=== PATIENT | male | born 1985 | race Two or more races ===

== ENCOUNTER 2016-10-09 00:56 | Emergency (ER) | payer OTHER ==
[~2016-10-09] VITALS: Ht 188 cm; Wt 86.2 kg
[~2016-10-09 00:56] MED LIST: INSU100C10 SQ; INSU3INS6 SQ
[2016-10-09] MEDS ORDERED: IV SET PRIMARY 1 EA INFUS.SET MC ONE (01:56)
[2016-10-09] MEDS ORDERED: IV NS 0.9% 1,000 ML ONE ×2 (01:56→02:36)
[2016-10-09] MEDS ORDERED: IV SET PRIMARY PUMP SET 1 EA INFUS.SET MC ONE ×2 (01:57→02:36)
[2016-10-09] MEDS ORDERED: IV NS 0.9% 1,000 ML BAG IV ONE ×2 (02:00→02:30)
[2016-10-09 02:07] LABS: BASOPHILS % (AUTO) 0.3 % (0.0-2.0); DIFF TOTAL % 100 %; EOSINOPHILS # (AUTO) 0.3 /CMM (0.0-0.7); EOSINOPHILS % (AUTO) 5.2 % (0.0-6.0); HEMATOCRIT 48 % (39-51); LYMPHOCYTES # (AUTO) 2.2 /CMM (0.8-4.8); LYMPHOCYTES % (AUTO) 37.6 % (20.0-44.0); MEAN CORPUSCULAR HEMOGLOBIN 30 PG (26.0-33.0); MEAN CORPUSCULAR HGB CONC 34 g/dl (31.0-36.0); MEAN CORPUSCULAR VOLUME 88 fL (80-96); MONOCYTES # (AUTO) 0.5 /CMM (0.1-1.30); MONOCYTES % (AUTO) 8.4 % (2.0-12.0); NEUTROPHILS # (AUTO) 2.8 /CMM (1.8-8.9); NEUTROPHILS % (AUTO) 48.5 % (43.0-81.0); PLATELET COUNT (AUTO) 214 /CMM (150-450); RED BLOOD CELL COUNT(AUTO) 5.42 MIL/uL (4.5-6.0); WHITE BLOOD COUNT (AUTO) 5.9 K/uL (4.3-11.0)
[2016-10-09 02:15] LABS: KETONES,URINE 2+ (NEGATIVE); LEUKOCYTE ESTERASE ,URINE NEGATIVE (NEGATIVE); PH,URINE 5.5 (5.0-8.0)
[2016-10-09 02:23] LABS: CALCIUM, SERUM 9.3 mg/dL (8.5-10.1); CREATININE 0.8 mg/dL (0.6-1.3)
[2016-10-09 02:27] LABS: ADD UA MICROSCOPIC YES
[2016-10-09] MEDS ORDERED: INSULIN ASPART NOVOLOG 100 UNIT/ML CARTRIDGE SQ ONE ×2 (02:39→03:00)
[2016-10-09] MEDS ORDERED: LIDOCAINE VISCOUS 2% UD 15 ML UDC MM ONE (03:00)
[2016-10-09] MEDS ORDERED: ACETAMINOPHEN ES 500 MG TABLET ONE (03:00)
[2016-10-09] MEDS ORDERED: INSULIN GLARGINE, 100 UNIT/ML CARTRIDGE SQ SCH (03:00)
[2016-10-09] MEDS ORDERED: LIDOCAINE VISCOUS 2% UD 15 ML UDC ONE (03:00)
[2016-10-09] MEDS ORDERED: ACETAMINOPHEN 325 MG TABLET PO ONE (03:00)
[2016-10-09 03:18] VITALS: BP 132/74
[2016-10-09 04:14] LABS: ADD URINE CULTURE NO; RBC,URINE 0-2 /HPF (0-2); WBC,URINE 0-2 /HPF (0-3)
== END 2016-10-09 03:19 | disposition home or self-care (01) ==
LOC: ER 00:56
DX: N48.9 Disorder of penis, unspecified (principal); E11.65 Type 2 diabetes mellitus with hyperglycemia; R30.0 Dysuria; E78.00 Pure hypercholesterolemia, unspecified
CPT/HCPCS: 36415; 80048-TC; 81000-TC; 82962-TC; 85025-TC; 87491; 87591; A4606; J1815; J7030; Z7610

== ENCOUNTER 2016-10-22 17:05 | Inpatient (IN) | payer OTHER ==
[~2016-10-22] VITALS: Ht 180.3 cm; Wt 74.8 kg
[2016-10-22] MEDS ORDERED: IV NS 0.9% 1,000 ML BAG IV ONE ×2 (17:30→20:00)
[2016-10-22 17:41] LABS: BASOPHILS % (AUTO) 0.7 % (0.0-2.0); DIFF TOTAL % 100 %; EOSINOPHILS # (AUTO) 0.3 /CMM (0.0-0.7); EOSINOPHILS % (AUTO) 5.9 % (0.0-6.0); HEMATOCRIT 43 % (39-51); LYMPHOCYTES # (AUTO) 1.9 /CMM (0.8-4.8); LYMPHOCYTES % (AUTO) 39.6 % (20.0-44.0); MEAN CORPUSCULAR HEMOGLOBIN 31 PG (26.0-33.0); MEAN CORPUSCULAR HGB CONC 35 g/dl (31.0-36.0); MEAN CORPUSCULAR VOLUME 88 fL (80-96); MONOCYTES # (AUTO) 0.4 /CMM (0.1-1.30); MONOCYTES % (AUTO) 7.6 % (2.0-12.0); NEUTROPHILS # (AUTO) 2.3 /CMM (1.8-8.9); NEUTROPHILS % (AUTO) 46.2 % (43.0-81.0); PLATELET COUNT (AUTO) 210 /CMM (150-450); WHITE BLOOD COUNT (AUTO) 4.9 K/uL (4.3-11.0)
[2016-10-22 17:56] LABS: ANION GAP 8 (5-14); CALCIUM, SERUM 8.6 mg/dL (8.5-10.1); CARBON DIOXIDE 31 mmol/L (21-32); CHLORIDE 108 mmol/L (98-107); CREATININE 0.8 mg/dL (0.6-1.3); GFR 113 mL/min (>60); GLUCOSE 102 mg/dL (74-106); POTASSIUM 3.3 mmol/L (3.5-5.1); SODIUM SERUM 143 mmol/L (136-145); UREA NITROGEN, BLOOD 16 mg/dL (7-18)
[2016-10-22 18:02] LABS: ALANINE AMINOTRANSFERASE 78 U/L (12-78); ALBUMIN 3.6 g/dL (3.4-5.0); ASPARTATE AMINOTRANSFERASE 30 U/L (15-37); BILIRUBIN,TOTAL 0.2 mg/dL (0.2-1.0); TOTAL PROTEIN, SERUM 6.4 g/dL (6.4-8.2)
[2016-10-22 18:04] LABS: TROPONIN I < 0.017 ng/mL (0.00-0.056)
[2016-10-22 18:05] LABS: INDIRECT BILIRUBIN 0.2 mg/dL (0.0-1.1); INR 0.93 (0.87-1.13); PROTHROMBIN TIME 9.8 SECS (9.5-12.7)
[2016-10-22] MEDS ORDERED: IV SET PRIMARY 1 EA INFUS.SET MC ONE ×2 (18:08→19:52)
[2016-10-22] MEDS ORDERED: IV NS 0.9% 1,000 ML ONE ×2 (18:08→19:52)
[2016-10-22 18:10] LABS: LACTIC ACID 1.7 mmol/L (0.4-2.0)
[2016-10-22] MEDS ORDERED: POTASSIUM CHLORIDE 20 MEQ TAB.PRT.SR PO ONE ×2 (18:30→19:52)
[2016-10-22 19:49] LABS: ADD UA MICROSCOPIC YES; KETONES,URINE 40 (NEGATIVE); LEUKOCYTE ESTERASE ,URINE Negative (NEGATIVE); PH,URINE 8.5 (5.0-8.0)
[2016-10-22 20:00] LABS: CANNABINOID, URINE NEGATIVE (NEGATIVE); PHENCYCLIDINE SCREEN,URINE NEGATIVE (NEGATIVE)
[2016-10-22 20:06] LABS: ADD URINE CULTURE NO; RBC,URINE 0-2 /HPF (0-2); WBC,URINE 0-2 /HPF (0-3)
[2016-10-22 22:45] VITALS: BP 120/90
[2016-10-23] MEDS ORDERED: IV NS 0.9% 1,000 ML IV PRN (00:27)
[2016-10-23] MEDS ORDERED: ACETAMINOPHEN 325 MG TABLET PO PRN (00:30)
[2016-10-23] MEDS ORDERED: INSULIN REGULAR, HUMAN 100 UNIT/ML 3 ML VIAL SQ PRN (00:30)
[2016-10-23] MEDS ORDERED: DEXTROSE 50%-WATER 50 ML DISP.SYRIN IV PRN (00:30)
[2016-10-23] MEDS ORDERED: ONDANSETRON HCL/PF 4 MG/2 ML VIAL IVP PRN (00:30)
[2016-10-23] MEDS ORDERED: Z GUARD REMEDY 2 OZ OINT TP PRN (00:30)
[2016-10-23] MEDS ORDERED: ALPRAZOLAM 0.25 MG TABLET PO PRN (01:00)
[2016-10-23] MEDS: BLOOD SUGAR DIAGNOSTIC 1 EACH STRIP IN SCH ×3 (01:08→11:58)
[2016-10-23] MEDS ORDERED: IV NS 0.9% 1,000 ML ONE (01:23)
[2016-10-23] MEDS ORDERED: IV SET PRIMARY PUMP SET 1 EA INFUS.SET MC ONE (01:25)
[2016-10-23 04:14] VITALS: BP 130/79
[2016-10-23 07:03] VITALS: BP 129/83
[2016-10-23 08:00] VITALS: BP 129/80
[2016-10-23] MEDS: INSULIN LISPRO/ASPART 100 UNIT/ML CARTRIDGE SQ SCH ×2 (09:56→12:00)
[2016-10-23] MEDS ORDERED: LORA1TAB82 PO (10:52)
[2016-10-23] MEDS ORDERED: ZOLP10TA2 PO (10:52)
[2016-10-23] MEDS ORDERED: FLU VACC QS 2016-17(36MOS+)/PF 0.5 ML DISP.SYRIN IM ONE (12:00)
[2016-10-23] MEDS ORDERED: ZOLPIDEM TARTRATE 5 MG TABLET PO PRN (22:00)
[2016-10-23] MEDS ORDERED: INSULIN DETEMIR 100 UNIT/ML CARTRIDGE SQ SCH (22:00)
== END 2016-10-23 12:15 | disposition home or self-care (01) | DRG 812 ==
LOC: ER 17:09 → TELE 22:03 → MED 10-23 09:20
PROVIDERS: ADMIT Nurse Practitioner Acute Care; ATTEND Nurse Practitioner Acute Care
DX: T38.3X1A Poisoning by insulin and oral hypoglycemic [antidiabetic] drugs, accidental (unintentional), initial encounter (principal); E11.649 Type 2 diabetes mellitus with hypoglycemia without coma; E11.65 Type 2 diabetes mellitus with hyperglycemia; E78.5 Hyperlipidemia, unspecified; Z79.4 Long term (current) use of insulin; F41.9 Anxiety disorder, unspecified; F31.9 Bipolar disorder, unspecified; E87.6 Hypokalemia; Z90.49 Acquired absence of other specified parts of digestive tract
CPT/HCPCS: 36415; 70450-TC; 71010-TC; 80048-TC; 80076-TC; 80305; 81000-TC; 82962-TC; 83605-TC; 84484-TC; 85025-TC; 85730-TC; 87081-TC; A4606; J1815; J7030; Q2036; Z7610

== ENCOUNTER 2016-11-06 15:58 | Emergency (ER) | payer OTHER ==
[~2016-11-06] VITALS: Ht 185.4 cm; Wt 90.7 kg
[~2016-11-06 15:58] MED LIST changes: +LORA1TAB82 PO; +ZOLP10TA2 PO
[2016-11-06 20:51] LABS: BASOPHILS % (AUTO) 0.8 % (0.0-2.0); DIFF TOTAL % 100 %; EOSINOPHILS # (AUTO) 0.2 /CMM (0.0-0.7); EOSINOPHILS % (AUTO) 3.7 % (0.0-6.0); HEMATOCRIT 47 % (39-51); HEMOGLOBIN 15.9 g/dL (13.5-17.5); LYMPHOCYTES # (AUTO) 2.7 /CMM (0.8-4.8); LYMPHOCYTES % (AUTO) 44.7 % (20.0-44.0); MEAN CORPUSCULAR HEMOGLOBIN 30 PG (26.0-33.0); MEAN CORPUSCULAR HGB CONC 34 g/dl (31.0-36.0); MEAN CORPUSCULAR VOLUME 89 fL (80-96); MONOCYTES # (AUTO) 0.4 /CMM (0.1-1.30); MONOCYTES % (AUTO) 7.5 % (2.0-12.0); NEUTROPHILS # (AUTO) 2.5 /CMM (1.8-8.9); NEUTROPHILS % (AUTO) 43.3 % (43.0-81.0); PLATELET COUNT (AUTO) 224 /CMM (150-450); RED BLOOD CELL COUNT(AUTO) 5.26 MIL/uL (4.5-6.0); WHITE BLOOD COUNT (AUTO) 5.8 K/uL (4.3-11.0)
[2016-11-06 21:13] LABS: ALANINE AMINOTRANSFERASE 91 U/L (12-78); ALBUMIN 3.8 g/dL (3.4-5.0); ANION GAP 15 (5-14); ASPARTATE AMINOTRANSFERASE 30 U/L (15-37); BILIRUBIN,TOTAL 0.4 mg/dL (0.2-1.0); CALCIUM, SERUM 8.5 mg/dL (8.5-10.1); CARBON DIOXIDE 26 mmol/L (21-32); CHLORIDE 100 mmol/L (98-107); CREATININE 0.8 mg/dL (0.6-1.3); GFR 113 mL/min (>60); POTASSIUM 3.9 mmol/L (3.5-5.1); SODIUM SERUM 137 mmol/L (136-145); UREA NITROGEN, BLOOD 19 mg/dL (7-18)
[2016-11-06 21:16] LABS: GLUCOSE 357 mg/dL (74-106); SALICYLATE 1.5 mg/dL (2.8-20.0)
[2016-11-06 21:17] LABS: ACETAMINOPHEN 0 ug/ml (10-30); INDIRECT BILIRUBIN 0.4 mg/dL (0.0-1.1)
[2016-11-06 23:19] LABS: KETONES,URINE 3+ (NEGATIVE); LEUKOCYTE ESTERASE ,URINE NEGATIVE (NEGATIVE)
[2016-11-06 23:24] LABS: ADD UA MICROSCOPIC YES; CANNABINOID, URINE NEGATIVE (NEGATIVE); PHENCYCLIDINE SCREEN,URINE NEGATIVE (NEGATIVE)
[2016-11-06 23:37] VITALS: BP 122/84
[2016-11-06 23:46] LABS: RBC,URINE 0-2 /HPF (0-2)
[2016-11-06 23:47] LABS: ADD URINE CULTURE NO; WBC,URINE 0-2 /HPF (0-3)
== END 2016-11-07 00:13 | disposition home or self-care (01) ==
LOC: ER 16:00
DX: F32.9 Major depressive disorder, single episode, unspecified (principal); E11.65 Type 2 diabetes mellitus with hyperglycemia; Z79.4 Long term (current) use of insulin; F41.9 Anxiety disorder, unspecified; F31.9 Bipolar disorder, unspecified; E78.00 Pure hypercholesterolemia, unspecified; Z90.89 Acquired absence of other organs
CPT/HCPCS: 36415; 80048-TC; 80076-TC; 80305; 81000-TC; 82962-TC; 85025-TC; A4606; G0480; G6039-TC; Z7610

== ENCOUNTER 2017-01-28 08:49 | Emergency (ER) | payer OTHER ==
[~2017-01-28] VITALS: Ht 188 cm; Wt 81.6 kg
--- NOTE | 2017-01-28 09:04 | NUR ---
CALLED [facility] INTA[facility] AND SPOKE TO KITTY, NO BEDS AVAILABLE
[2017-01-28 09:24] LABS: BASOPHILS % (AUTO) 0.3 % (0.0-2.0); EOSINOPHILS # (AUTO) 0.4 /CMM (0.0-0.7); EOSINOPHILS % (AUTO) 6.8 % (0.0-6.0); HEMATOCRIT 46 % (39-51); HEMOGLOBIN 15.5 g/dL (13.5-17.5); LYMPHOCYTES # (AUTO) 1.9 /CMM (0.8-4.8); MEAN CORPUSCULAR HEMOGLOBIN 30 PG (26.0-33.0); MEAN CORPUSCULAR HGB CONC 34 g/dl (31.0-36.0); MEAN CORPUSCULAR VOLUME 87 fL (80-96); MONOCYTES # (AUTO) 0.5 /CMM (0.1-1.30); NEUTROPHILS # (AUTO) 2.7 /CMM (1.8-8.9); NEUTROPHILS % (AUTO) 48.9 % (43.0-81.0); PLATELET COUNT (AUTO) 203 /CMM (150-450); RED BLOOD CELL COUNT(AUTO) 5.27 MIL/uL (4.5-6.0); WHITE BLOOD COUNT (AUTO) 5.4 K/uL (4.3-11.0)
[2017-01-28 09:28] LABS: APPEARANCE,URINE Clear (CLEAR); BILIRUBIN,URINE Negative (NEGATIVE); BLOOD, URINE Negative Ery/uL (NEGATIVE); COLOR,URINE Yellow (YELLOW); KETONES,URINE Trace (NEGATIVE); LEUKOCYTE ESTERASE ,URINE Negative (NEGATIVE); NITRITE, URINE Negative (NEGATIVE); PH,URINE 5.5 (5.0-8.0); PROTEIN,URINE Negative (NEGATIVE); UGLUCOSE >=1000 mg/dL (NEGATIVE); UROBILINOGEN,URINE 0.2 EU/dL (0.2)
[2017-01-28 09:45] LABS: CANNABINOID, URINE NEGATIVE (NEGATIVE); PHENCYCLIDINE SCREEN,URINE NEGATIVE (NEGATIVE)
[2017-01-28 09:45] LABS: ALBUMIN 4.1 g/dL (3.4-5.0); BILIRUBIN,DIRECT 0.1 mg/dL (0.0-0.2); BILIRUBIN,TOTAL 0.4 mg/dL (0.2-1.0); CREATININE 0.9 mg/dL (0.6-1.3); POTASSIUM 4.2 mmol/L (3.5-5.1); TOTAL PROTEIN, SERUM 7.1 g/dL (6.4-8.2)
[2017-01-28 09:49] LABS: ADD URINE CULTURE NO; BACTERIA,URINE None seen /HPF (None Seen); RBC,URINE NONE SEEN /HPF (0-2); SQUAMOUS EPITHELIAL CELL,UR Rare /HPF (None Seen); WBC,URINE NONE SEEN /HPF (0-3)
[2017-01-28 09:52] LABS: CALCIUM, SERUM 8.6 mg/dL (8.5-10.1); SALICYLATE 2.6 mg/dL (2.8-20.0)
[2017-01-28 10:21] VITALS: BP 135/72
== END 2017-01-28 10:23 | disposition home or self-care (01) ==
LOC: ER 08:50
DX: F32.9 Major depressive disorder, single episode, unspecified (principal); E11.65 Type 2 diabetes mellitus with hyperglycemia; F41.9 Anxiety disorder, unspecified; F31.9 Bipolar disorder, unspecified; E78.00 Pure hypercholesterolemia, unspecified; Z79.4 Long term (current) use of insulin; Z90.89 Acquired absence of other organs
CPT/HCPCS: 36415; 80048; 80076; 80305; 80329; 81001; 85025; 99284; A4606; G0480 ×2; Z7610; 81000-TC; G6039-TC

== ENCOUNTER 2017-03-11 18:34 | Emergency (ER) | payer OTHER ==
[~2017-03-11] VITALS: Ht 177.8 cm; Wt 99.8 kg
[2017-03-11 18:54] LABS: BASOPHILS % (AUTO) 0.6 % (0.0-2.0); EOSINOPHILS # (AUTO) 0.2 /CMM (0.0-0.7); EOSINOPHILS % (AUTO) 4.8 % (0.0-6.0); HEMATOCRIT 49 % (39-51); HEMOGLOBIN 16.2 g/dL (13.5-17.5); LYMPHOCYTES % (AUTO) 39.5 % (20.0-44.0); MEAN CORPUSCULAR HEMOGLOBIN 29 PG (26.0-33.0); MEAN CORPUSCULAR HGB CONC 33 g/dl (31.0-36.0); MEAN CORPUSCULAR VOLUME 88 fL (80-96); MONOCYTES # (AUTO) 0.3 /CMM (0.1-1.30); MONOCYTES % (AUTO) 6.4 % (2.0-12.0); NEUTROPHILS # (AUTO) 2.7 /CMM (1.8-8.9); NEUTROPHILS % (AUTO) 48.7 % (43.0-81.0); PLATELET COUNT (AUTO) 231 /CMM (150-450); RDW COEFFICIENT OF VARIATION 12.7 (11.5-15.0); WHITE BLOOD COUNT (AUTO) 5.2 K/uL (4.3-11.0)
--- NOTE | 2017-03-11 18:56 | NUR ---
PT REMY PINEDA ON 5150 HOLD FOR MEDICAL CLEARANCE C/O SI WITH PLAN TO OD ON HIS MEDS. PT ONLY COMPLAINS OF BEING THIRSTY. NO PHYSICAL COMPLAINTS. IN ER BED 11 ON 1 POINT RESTRAINT PER PROTOCOL.
[2017-03-11 19:08] LABS: ALBUMIN 4.1 g/dL (3.4-5.0); BILIRUBIN,DIRECT 0.1 mg/dL (0.0-0.2); BILIRUBIN,TOTAL 0.4 mg/dL (0.2-1.0); CALCIUM, SERUM 8.7 mg/dL (8.5-10.1); TOTAL PROTEIN, SERUM 7.4 g/dL (6.4-8.2)
--- NOTE | 2017-03-11 19:10 | NUR ---
PT REPORTS HE HAS NOT BEEN TAKING HIS INSULIN COVERAGE, ONLY NIGHTLY LONG-ACTING INSULIN. NOTED TO HAVE BECOME DIAPHORETIC.
[2017-03-11 19:23] LABS: SALICYLATE 2.2 mg/dL (2.8-20.0)
--- NOTE | 2017-03-11 19:23 | NUR ---
405 glucose reported by marybeth
--- NOTE | 2017-03-11 20:30 | NUR ---
RESTING QUIETLY, NAD NOTED. ALL NEEDS ATTENDED TO.
[2017-03-11] MEDS ORDERED: INSULIN ASPART NOVOLOG 100 UNIT/ML CARTRIDGE SQ STA (20:43)
[2017-03-11] MEDS ORDERED: IV NS 0.9% 1,000 ML BAG IV ONE (21:00)
[2017-03-11 21:08] LABS: APPEARANCE,URINE Clear (CLEAR); BILIRUBIN,URINE Negative (NEGATIVE); BLOOD, URINE Negative Ery/uL (NEGATIVE); COLOR,URINE Yellow (YELLOW); KETONES,URINE 40 (NEGATIVE); LEUKOCYTE ESTERASE ,URINE Negative (NEGATIVE); NITRITE, URINE Negative (NEGATIVE); PROTEIN,URINE 30 mg/dl (NEGATIVE); UGLUCOSE 500 MG/DL mg/dL (NEGATIVE); UROBILINOGEN,URINE 0.2 EU/dL (0.2)
[2017-03-11] MEDS ORDERED: IV SET PRIMARY 1 EA INFUS.SET MC ONE (21:27)
[2017-03-11] MEDS ORDERED: IV NS 0.9% 1,000 ML ONE (21:27)
[2017-03-11] MEDS ORDERED: IV SET PRIMARY PUMP SET 1 EA INFUS.SET MC ONE (21:27)
[2017-03-11] MEDS ORDERED: INSULIN ASPART NOVOLOG 100 UNIT/ML CARTRIDGE SQ ONE (21:29)
[2017-03-11] MEDS ORDERED: INSULIN LISPRO/ASPART 100 UNIT/ML CARTRIDGE SQ STA (21:32)
[2017-03-11 21:47] LABS: BACTERIA,URINE Rare /HPF (None Seen); MUCUS,URINE Few /LPF (None Seen); RBC,URINE 0-2 /HPF (0-2); SQUAMOUS EPITHELIAL CELL,UR Few /HPF (None Seen); URINE AMORPHOUS URATE Few /HPF (None Seen); WBC,URINE NONE SEEN /HPF (0-3)
--- NOTE | 2017-03-11 21:51 | NUR ---
VERIFIED INSULIN ORDER WITH DR SHERWOOD. PER VERBAL ORDER, ADMINISTER 10 UNITS INSULIN LISPRO (HUMALOG), NOT HUMALOG/NOVOLOG OR INSULIN ASPART. 10 UNITS ADMINISTERED SQ, WITNESSED BY ED HEALTHCARE MARKETER
--- NOTE | 2017-03-11 22:04 | NUR ---
CALLED ART CLINICIAN FOR EVALUATION OF PATIENT
--- NOTE | 2017-03-11 23:18 | NUR ---
RESTING QUIETLY, NAD NOTED.
--- NOTE | 2017-03-11 23:30 | NUR ---
REPORT GIVEN TO MELISSA QUINONES RN FOR SANDEEP
--- NOTE | 2017-03-12 00:49 | NUR ---
RESTING WITH NO S/S OF DISTRESS NOTED. RESP EVEN AND UNLABORED. "TO BE MONITORED TILL MORNING UNTIL BEDS OPEN UP" PER ART/BEAD FORMING MACHINE SET UP OPERATOR.
--- NOTE | 2017-03-12 01:06 | NUR ---
GIVEN SANDWICH AND JUICE AND INFORMED ABOUT PLAN OF CARE.
--- NOTE | 2017-03-12 02:18 | NUR ---
ON CELL PHONE. DENIES ANY SX'S AT THIS TIME. GIVEN ANOTHER SANDWICH AND JUICE REQUESTED
--- NOTE | 2017-03-12 03:14 | NUR ---
RESTING QUIETLY WITH NO S/S OF DISTRESS. RESP EVEN AND UNLABORED.
--- NOTE | 2017-03-12 04:14 | NUR ---
WATCHING TV. NO S/S OF DISTRESS NOTED.
--- NOTE | 2017-03-12 05:04 | NUR ---
IV removed. Catheter intact and site benign. Pressure and 4x4 applied to site. No bleeding noted.
--- NOTE | 2017-03-12 05:06 | NUR ---
ACCEPTING FACILITY TO CALL BACK IN AN HOUR WITH AN ACCEPTING MD.
--- NOTE | 2017-03-12 06:04 | NUR ---
STILL AWAITING TRANSFER HOSPITAL TO CALL BACK. PT AWARE.
--- NOTE | 2017-03-12 06:12 | NUR ---
COLLEEN DUCKWORTH CALLED FROM [facility] AND STATED "CALL FOR REPORT AFTER 729 AT [phone] PSYCH UNIT; DR. BRANHAM ACCEPTING AND PT CAN GO TO ROOM 304-1".
--- NOTE | 2017-03-12 07:15 | NUR ---
DIETARY CALLED [facility]. REPORT GIVEN TO RAZA/RN
--- NOTE | 2017-03-12 09:00 | NUR ---
CALLED [facility] ETA 45MINS-1HR.
--- NOTE | 2017-03-12 09:05 | NUR ---
REPORT GIVEN TO CHRISTELLE/RN AT [facility].
[2017-03-12] MEDS ORDERED: IV SET PRIMARY 1 EA INFUS.SET MC ONE (11:14)
[2017-03-12] MEDS ORDERED: IV NS 0.9% 1,000 ML ONE ×2 (11:14→13:00)
[2017-03-12] MEDS ORDERED: INSULIN REGULAR, HUMAN 100 UNIT/ML 10 ML VIAL ONE (11:24)
[2017-03-12] MEDS ORDERED: IV NS 0.9% 1,000 ML BAG IV ONE ×2 (11:30→13:00)
[2017-03-12] MEDS ORDERED: INSULIN LISPRO/ASPART 100 UNIT/ML CARTRIDGE SQ SCH (11:30)
[2017-03-12] MEDS ORDERED: INSULIN REGULAR, HUMAN 100 UNIT/ML 10 ML VIAL SQ ONE (11:30)
--- NOTE | 2017-03-12 11:38 | NUR ---
dr tucker made aware of recent blood sugar check. w/ orders carried out. see emar.
--- NOTE | 2017-03-12 12:50 | NUR ---
SPOKE WITH THE PHARMACY INTAKE COORDINATOR AT [facility]. UPDATED THEM WITH THE RECENT EI=420.
--- NOTE | 2017-03-12 13:48 | NUR ---
CALLED [facility] AND SPOKE WITH LIZANDRO CARTON MACHINE OPERATOR REGARDING RECENT BK=869EH/DL. PER CARTON MACHINE OPERATOR, HE WILL SPEAK TO THE ADMITTING DOCTOR IF ITS OK FOR THEM TO ADMIT THE PATIENT.
[2017-03-12] MEDS ORDERED: INSULIN GLARGINE, 100 UNIT/ML CARTRIDGE SQ SCH (14:30)
--- NOTE | 2017-03-12 17:03 | NUR ---
CALLED LIZANDRO, CHARGED RN TO UPDATE THE LO=584QC/DL. PER LIZANDRO, HE WILL CALL BACK IF ITS OK WITH THE DOCTOR.
--- NOTE | 2017-03-12 17:20 | NUR ---
PT RESTING IN BED. CALM COOPERATIVE. STABLE VITALS. WILL MONITOR CLOSELY.
--- NOTE | 2017-03-12 17:42 | NUR ---
CALLED [facility] SPOKE WITH LIZANDRO CHARGE NURSE, HE NOTIFIED ME DR BRANHAM ACCEPTED PATIENT, TO TRANSPORT DURING BUFFING AND POLISHING WHEEL REPAIRER AND CALL FOR REPORT AT 2030
--- NOTE | 2017-03-12 17:43 | NUR ---
CALLED A[facility] TO ARRANGE TRANSPORTATION SCHEDULED AT 1999 TO [facility]
--- NOTE | 2017-03-12 19:15 | NUR ---
PT RESTING IN BED. ON MONITOR W/ STABLE VITALS. WILL CONTINUE TO MONITOR.
[2017-03-12 20:12] VITALS: BP 152/90
--- NOTE | 2017-03-12 20:42 | NUR ---
cat discontinued. pt transported to [facility] in stable condition.
[2017-03-12] MEDS ORDERED: INSULIN DETEMIR 100 UNIT/ML CARTRIDGE SQ ONE (22:00)
== END 2017-03-12 20:44 ==
LOC: ER 18:36
DX: R45.851 Suicidal ideations (principal); E11.65 Type 2 diabetes mellitus with hyperglycemia; E78.00 Pure hypercholesterolemia, unspecified; F31.9 Bipolar disorder, unspecified; F41.9 Anxiety disorder, unspecified; F17.200 Nicotine dependence, unspecified, uncomplicated; Z79.4 Long term (current) use of insulin; Z90.89 Acquired absence of other organs
CPT/HCPCS: 36415; 80048-TC; 80076-TC; 80305; 81000-TC; 82962-TC; 85025-TC; A4606; G0480; J1815; J7030; Z7610

== ENCOUNTER 2017-06-14 09:46 | Inpatient (IN) | payer OTHER ==
[~2017-06-14] VITALS: Ht 185.4 cm; Wt 96.2 kg
--- NOTE | 2017-06-14 09:50 | NUR ---
PATIENT PRESENTS TO ER C/O FEELING LIGHT HEADED AND DIZZY AFTER ADMINISTERING ABOUT 150 UNITS OF HUMALOG. PATIENT DENIES SI. VITALS STABLE. NO SOB. SAFETY AND COMFORT MEASURES IN PLACE. AWAITING MD ORDERS.
--- NOTE | 2017-06-14 10:10 | NUR ---
NEW IV STARTED ON RIGHT WRIST, 18 G. BLOOD DRAWN AND SENT TO LAB. PATIENT MEDICATED PER MD ORDERS.
[2017-06-14 10:27] LABS: BASOPHILS # (AUTO) 0.1 /CMM (0.0-0.2); BASOPHILS % (AUTO) 1.4 % (0.0-2.0); EOSINOPHILS # (AUTO) 0.3 /CMM (0.0-0.7); EOSINOPHILS % (AUTO) 4.3 % (0.0-6.0); HEMATOCRIT 48 % (39-51); HEMOGLOBIN 16.1 g/dL (13.5-17.5); LYMPHOCYTES # (AUTO) 2.2 /CMM (0.8-4.8); LYMPHOCYTES % (AUTO) 32.1 % (20.0-44.0); MEAN CORPUSCULAR HEMOGLOBIN 30 PG (26.0-33.0); MEAN CORPUSCULAR HGB CONC 34 g/dl (31.0-36.0); MEAN CORPUSCULAR VOLUME 90 fL (80-96); MONOCYTES # (AUTO) 0.4 /CMM (0.1-1.30); MONOCYTES % (AUTO) 5.2 % (2.0-12.0); PLATELET COUNT (AUTO) 209 /CMM (150-450); RDW COEFFICIENT OF VARIATION 12.2 (11.5-15.0); RED BLOOD CELL COUNT(AUTO) 5.32 MIL/uL (4.5-6.0)
[2017-06-14] MEDS ORDERED: IV NS 0.9% 1,000 ML BAG IV ONE (10:30)
[2017-06-14 10:37] LABS: CARBON DIOXIDE 24 mmol/L (21-32); CHLORIDE 100 mmol/L (98-107); CREATININE 0.8 mg/dL (0.6-1.3); GLUCOSE 285 mg/dL (74-106); POTASSIUM 3.4 mmol/L (3.5-5.1); SODIUM SERUM 137 mmol/L (136-145); UREA NITROGEN, BLOOD 13 mg/dL (7-18)
--- NOTE | 2017-06-14 10:37 | NUR ---
BLOOD SUGAR CHECKED, READING 255, MD MADE AWARE.
[2017-06-14] MEDS ORDERED: POTASSIUM CHLORIDE 20 MEQ TAB.PRT.SR PO ONE ×2 (10:46→11:00)
[2017-06-14] MEDS ORDERED: KETOROLAC TROMETHAMINE INJ 30 MG/ML VIAL ONE (10:46)
[2017-06-14 10:47] LABS: TROPONIN I < 0.017 ng/mL (0.00-0.056)
--- NOTE | 2017-06-14 10:51 | NUR ---
CALLED DIANNA PINA FOR CONSULT
[2017-06-14] MEDS ORDERED: KETOROLAC TROMETHAMINE INJ 30 MG/ML VIAL IV ONE (11:00)
[2017-06-14] MEDS ORDERED: IV D5/0.45 NACL 1,000 ML IV ONE (11:03)
[2017-06-14] MEDS ORDERED: BLOO-668 IN (11:20)
[2017-06-14] MEDS ORDERED: QUET200T PO (11:20)
[2017-06-14] MEDS ORDERED: METF500T4 PO (11:20)
--- NOTE | 2017-06-14 11:31 | NUR ---
DR. PIA PACK SUPERVISOR CARPENTERS
--- NOTE | 2017-06-14 11:57 | NUR ---
TELE1/RN REPORT FROM ER REPORT GIVEN BY ER NURSE ROBSON FOR PT TO BE ADMITTED FOR INSULIN OVERDOSE UNDER THE CARE OF DR. PALACIO. AWAITING FOR PT'S ARRIVAL.
[2017-06-14 12:00] VITALS: BP 117/79
--- NOTE | 2017-06-14 12:01 | NUR ---
REPORT GIVEN TO ODILIA ALVAREZ FOR ADMISSION.
--- NOTE | 2017-06-14 12:37 | NUR ---
PATIENT TRANSPORTED TO [facility] VIA ACLS PROTOCOL. RNODILIA TO PROVIDE SANDEEP.
--- NOTE | 2017-06-14 12:59 | NUR ---
JOSHUA received a call from ED GENE Godinez requesting for SW to see the pt. in regards to his primary care physician. JOSHUA met with pt. bedside. Pt. is alert and oriented x4. JOSHUA is familiar with pt. from previous admissions. Pt. informed SW he did have a primary care physician but did not like her and stopped going to her. Pt. states he has the list of medical providers that he can choose for as a primary care, however pt. seems to lack the motivation to do so. JOSHUA encouraged pt. to look into his list of medical providers and choose an primary care doctor and make an appointment for a physical. Pt. stated he works overnights and is too tired to follow through. SW encouraged pt. to take care of his health and sign up for a primary care doctor. Pt. stated, he will do so. Pt. suffers from depression and has had previous psychiatric hospitalizations in the past. SW denies suicidal/homicidal ideations and visual/ auditory hallucinations at this time. No other social service resources are required at this time. SW is available if needed.
[2017-06-14] MEDS ORDERED: ACETAMINOPHEN 325 MG TABLET PO PRN (13:00)
[2017-06-14] MEDS ORDERED: MAG HYDROX/AL HYDROX/SIMETH 30 ML UDC PO PRN (13:00)
[2017-06-14] MEDS ORDERED: ONDANSETRON HCL/PF 4 MG/2 ML VIAL IVP PRN (13:00)
[2017-06-14] MEDS ORDERED: HYDROCODONE/APAP 5/325MG 1 EACH TABLET PO PRN (13:00)
[2017-06-14] MEDS ORDERED: MAGNESIUM HYDROXIDE 30 ML UDC PO PRN (13:00)
[2017-06-14] MEDS ORDERED: *INSULIN REGULAR(HUMULIN R)HUM 100 UNIT/ML VIAL SQ PRN (13:00)
[2017-06-14] MEDS ORDERED: Z GUARD REMEDY 2 OZ OINT TP PRN (13:00)
[2017-06-14] MEDS: DEXTROSE 50%-WATER 50 ML DISP.SYRIN IV PRN (13:12)
[2017-06-14] MEDS ORDERED: Sodium Chloride 154 MEQ in IV 10% DEXTROSE 1,000 ML IV SCH (13:30)
--- NOTE | 2017-06-14 13:38 | NUR ---
TD RN NOTES: PT. ARRIVED ON UNIT AT 12:40 P.M. VIA STRETCHER FROM [facility] W/ ADMITTING DX: INSULIN OVERDOSE . W/ PAST MEDICAL HX. OF DM, ANXIETY, DEPRESSION, BIPOLAR AND APPENDECTOMY. A/O X 4. VERBALLY RESPONSIVE. NO SIGN OF DISTRESS NOTED. ON TELE MONITOR W/ SR @ 96. PT. HAS IVF OF D5 1/2 NS @ 150 ML/HR. ON HIS RH PATENT W/ NO S/S OF INFECTION NOTED. BS CHECKED 46 MG/DL. ORANGE JUICE AND 1 PACKET OF GRAM CRACKERS GIVEN. NURSE ODILIA CALLED DR. BURNETT W/ORDERS OF DEXTROSE 50% GIVEN IV PER ORDER @ 13:17 P.M. PT. STATED " FEEL BETTER NOW." PT. WAS ORIENTED TO ROOM AND CALL LIGHT. PT. IS AMBULATORY W/ BED MOBILITY. NO SKIN BREAKDOWN NOTED.
[2017-06-14 13:47] VITALS: BP 117/71
--- NOTE | 2017-06-14 14:00 | NUR ---
TD/ RN NOTES: ADDENDUM: ON ARRIVAL TO UNIT PT. SKIN WAS FLUSHED RED AND C/O OF TINGLING SENSATION OF HIS FINGER TIPS. BS RECHECKED AT 1400 IT WAS 121MG/DL PT. IS SLEEPING. CALL LIGHT W/ IN REACH. NOT IN ANY DISTRESS NOTED AT THIS TIME. WILL CONTINUE TO MONITOR CLOSELY.
[2017-06-14 16:00] VITALS: BP 113/61
[2017-06-14] MEDS: BLOOD SUGAR DIAGNOSTIC 1 EACH STRIP VI SCH ×2 (18:20→21:58)
[2017-06-14] MEDS: IV D5/0.45 NACL 1,000 ML IV PRN (18:27)
--- NOTE | 2017-06-14 19:28 | NUR ---
TELE1/RN AM SHIFT END NOTES ALL NEEDS MET. PT WITH ON GOING IV INFUSION OF D5 1/2NS @ 75CC/HR, IV SITE PATENT. LAST BLOOD GLUCOSE 123, NO COVERAGE GIVEN PER SLIDING SCALE PROTOCOL, NO S/S OF HYPO OR HYPERGLYCEMIA. PT ENDORSED TO PM NURSE TO CONTINUE CARE. CL WITHIN REACHED AND SAFETY MAINTAINED.
[2017-06-14 20:00] VITALS: BP 128/84
[2017-06-14] MEDS ORDERED: ZOLPIDEM TARTRATE 5 MG TABLET PO PRN (22:00)
[2017-06-14] MEDS ORDERED: QUETIAPINE FUMARATE 100 MG TABLET PO SCH (22:00)
[2017-06-15] VITALS: BP 126/73
[2017-06-15 04:00] VITALS: BP 109/65
[2017-06-15] MEDS: INSULIN REGULAR, HUMAN 100 UNIT/ML 3 ML VIAL SQ PRN ×2 (06:59→11:59)
[2017-06-15] MEDS: BLOOD SUGAR DIAGNOSTIC 1 EACH STRIP VI SCH ×2 (07:01→11:40)
--- NOTE | 2017-06-15 07:12 | NUR ---
END OF SHIFT SUMMERY: PT IS A&O X 4. ON TOLL COLLECTOR,NSR. ON ROOM AIR, STURATING WELL. NO COMPLAINS OF PAIN OR DISTRESS NOTED. STILL ON ACCU-CHECK ACHS. THE LATEST READING IS 357 MG/DL. 15 UNITS OF REGULAR INSULIN GIVEN PER SLIDING SCALE. WILL ENDORSE IT TO AM SHIFT NURSE TO FOLLOW U.
[2017-06-15 07:24] LABS: BASOPHILS % (AUTO) 0.3 % (0.0-2.0); EOSINOPHILS # (AUTO) 0.3 /CMM (0.0-0.7); HEMATOCRIT 44 % (39-51); HEMOGLOBIN 15.2 g/dL (13.5-17.5); LYMPHOCYTES # (AUTO) 1.7 /CMM (0.8-4.8); LYMPHOCYTES % (AUTO) 31.1 % (20.0-44.0); MEAN CORPUSCULAR HEMOGLOBIN 31 PG (26.0-33.0); MEAN CORPUSCULAR HGB CONC 35 g/dl (31.0-36.0); MEAN CORPUSCULAR VOLUME 89 fL (80-96); MONOCYTES # (AUTO) 0.4 /CMM (0.1-1.30); MONOCYTES % (AUTO) 7.2 % (2.0-12.0); NEUTROPHILS % (AUTO) 55.4 % (43.0-81.0); PLATELET COUNT (AUTO) 173 /CMM (150-450); RDW COEFFICIENT OF VARIATION 13.4 (11.5-15.0); RED BLOOD CELL COUNT(AUTO) 4.91 MIL/uL (4.5-6.0); WHITE BLOOD COUNT (AUTO) 5.4 K/uL (4.3-11.0)
[2017-06-15] MEDS: DEXTROSE 50%-WATER 50 ML DISP.SYRIN IV PRN (07:32)
[2017-06-15] MEDS: IV D5/0.45 NACL 1,000 ML IV PRN (07:32)
[2017-06-15 07:42] LABS: CALCIUM, SERUM 8.3 mg/dL (8.5-10.1); CREATININE 0.7 mg/dL (0.6-1.3); MAGNESIUM 1.9 mg/dL (1.8-2.4); PHOSPHORUS 3.7 mg/dL (2.5-4.9); POTASSIUM 4.4 mmol/L (3.5-5.1)
[2017-06-15 08:00] VITALS: BP 119/75
--- NOTE | 2017-06-15 08:00 | NUR ---
TELE1/RN AM SHIFT INITIAL NOTES RECEIVED PT AWAKE SITTING IN BED, A/O X 4, NO ACUTE CHANGE OF CONDITION NOTED, PT DENIES ANY SYMPTOMS OF HYPO OR HYPERGLYCEMIA. ON ROOM AIR SATURATING @ 97%, NO SOB, RESPIRATIONS EVEN AND UNLABORED, LUNG SOUNDS CLEAR. ON TELE MONITORING, SINUS RHYTHM, HR 96. WITH ON GOING IV INFUSION OF D5 1/2NS @ 75CC/HR. IV SITE PATENT WITH NO S/S OF INFECTION. PT IS COMFORTABLE AND STABLE AT THIS TIME. CL WITHIN REACHED AND SAFETY MAINTAINED. ON GOING MONITORING.
--- NOTE | 2017-06-15 10:00 | NUR ---
TELE1/RN ROUNDS - DR. PALACIO UPDATED PT'S CONDITION. PT SEEN & EXAMINED BY DR. PALACIO. PER MD PT WILL BE DISCHARGE THIS AFTERNOON. NOTED. MONITORING CONTINUED. Addendum: 06/15/17 at 1046 by HARRY HWANG RN ADDENDUM: WITH VERBAL ORDER RECEIVED TO STOP IV INFUSION OF D5 1/2NS @ 75CC/HR. ORDER NOTED AND CARRIED.
[2017-06-15 12:00] VITALS: BP 114/77
--- NOTE | 2017-06-15 13:30 | NUR ---
TELE1/RESIDENTIAL PROPERTY MANAGER HOME DISCHARGE INSTRUCTIONS GIVEN TO PT, VERBALIZED UNDERSTANDING. DISCHARGE DOCUMENTS GIVEN TO PT, NO PRESCRIPTION GIVEN. IV SITE REMOVED, PRESSURE DRESSING APPLIED, NO S/S OF INFECTION. ID BANDS REMOVED. PERSONAL BELONGINGS RETURNED, INVENTORY LOG SIGNED OFF. PT LEFT TELE1 UNIT AMBULATORY WITH STEADY GAIT TO HIS HOME.
== END 2017-06-15 13:30 | disposition home or self-care (01) | DRG 812 ==
LOC: ER 09:50 → TELE-TD 12:14 → TELE1 13:21
PROVIDERS: ADMIT Internal Medicine; ATTEND Internal Medicine
DX: T38.3X1A Poisoning by insulin and oral hypoglycemic [antidiabetic] drugs, accidental (unintentional), initial encounter (principal); E11.8 Type 2 diabetes mellitus with unspecified complications; F32.9 Major depressive disorder, single episode, unspecified; F41.9 Anxiety disorder, unspecified; Z98.890 Other specified postprocedural states; Z79.899 Other long term (current) drug therapy; Z79.4 Long term (current) use of insulin; Z83.3 Family history of diabetes mellitus; Z79.84 Long term (current) use of oral hypoglycemic drugs; E78.5 Hyperlipidemia, unspecified
CPT/HCPCS: 36415; 71010-TC; 80048-TC; 82962-TC; 83735-TC; 84100-TC; 84484-TC; 85025-TC; 87081-TC; A4606; J1815; J1885; J3490; J7030; Z7610

== ENCOUNTER 2017-12-14 06:46 | Emergency (ER) | payer OTHER ==
[~2017-12-14] VITALS: Ht 188 cm; Wt 127.0 kg
[~2017-12-14 06:46] MED LIST changes: +BLOO-668 IN; -LORA1TAB82 PO; +METF-440 PO; +QUET200T PO; -ZOLP10TA2 PO
--- NOTE | 2017-12-14 06:48 | NUR ---
TO BED 10 AMBULATORY STATES "I TOOK 40UNITS OF HUMALO AT 1845, WOKE UP FEELING MY BS IS LOW". PT AAOX4 NO ACUTE DISTRESS NOTED, RESP EVEN AND UNLABORED. ER MD AT BEDSIDE TO EVAL PT WITH ORDERS RECEIVED. WILL CARRY OUT ORDERS.
--- NOTE | 2017-12-14 07:02 | NUR ---
pt ambulatory to the bathroom to provide urine sample.
[2017-12-14] MEDS ORDERED: PSEUDOEPHEDRINE HCL 30 MG TABLET ONE (07:05)
--- NOTE | 2017-12-14 07:12 | NUR ---
REPORT GIVEN TO AM SHIFT ANTONIO AUGUSTINE.
[2017-12-14 07:14] LABS: APPEARANCE,URINE CLEAR (CLEAR); BILIRUBIN,URINE NEGATIVE (NEGATIVE); BLOOD, URINE NEGATIVE Ery/uL (NEGATIVE); COLOR,URINE YELLOW (YELLOW); KETONES,URINE 2+ (NEGATIVE); LEUKOCYTE ESTERASE ,URINE NEGATIVE (NEGATIVE); NITRITE, URINE NEGATIVE (NEGATIVE); PROTEIN,URINE NEGATIVE (NEGATIVE); UGLUCOSE 1+ mg/dL (NEGATIVE)
[2017-12-14 07:14] LABS: BASOPHILS % (AUTO) 0.6 % (0.0-2.0); EOSINOPHILS % (AUTO) 5.3 % (0.0-6.0); HEMATOCRIT 42 % (39-51); HEMOGLOBIN 14.5 g/dL (13.5-17.5); LYMPHOCYTES # (AUTO) 1.5 /CMM (0.8-4.8); LYMPHOCYTES % (AUTO) 38.4 % (20.0-44.0); MEAN CORPUSCULAR HGB CONC 35 g/dl (31.0-36.0); MEAN CORPUSCULAR VOLUME 90 fL (80-96); MONOCYTES # (AUTO) 0.4 /CMM (0.1-1.30); MONOCYTES % (AUTO) 9.1 % (2.0-12.0); NEUTROPHILS # (AUTO) 1.9 /CMM (1.8-8.9); NEUTROPHILS % (AUTO) 46.6 % (43.0-81.0); PLATELET COUNT (AUTO) 166 /CMM (150-450); RDW COEFFICIENT OF VARIATION 13.6 (11.5-15.0); RED BLOOD CELL COUNT(AUTO) 4.65 MIL/uL (4.5-6.0)
[2017-12-14 07:30] LABS: BACTERIA,URINE Rare /HPF (None Seen); RBC,URINE 0-2 /HPF (0-2); SQUAMOUS EPITHELIAL CELL,UR Rare /HPF (None Seen); WBC,URINE 0-2 /HPF (0-3)
[2017-12-14 07:40] LABS: ALBUMIN 4.1 g/dL (3.4-5.0); BILIRUBIN,DIRECT 0.1 mg/dL (0.0-0.2); BILIRUBIN,TOTAL 0.5 mg/dL (0.2-1.0); CALCIUM, SERUM 9.5 mg/dL (8.5-10.1); CREATININE 0.7 mg/dL (0.6-1.3); POTASSIUM 3.5 mmol/L (3.5-5.1); TOTAL PROTEIN, SERUM 7.1 g/dL (6.4-8.2)
--- NOTE | 2017-12-14 07:49 | NUR ---
Patient discharged to home in stable condition. Written and verbal after care instructions given. Patient verbalizes understanding of instruction.
[2017-12-14 07:50] VITALS: BP 145/85
== END 2017-12-14 08:00 | disposition home or self-care (01) ==
LOC: ER 06:49
DX: E10.649 Type 1 diabetes mellitus with hypoglycemia without coma (principal); E78.00 Pure hypercholesterolemia, unspecified; F32.9 Major depressive disorder, single episode, unspecified; F10.10 Alcohol abuse, uncomplicated; F17.200 Nicotine dependence, unspecified, uncomplicated; Z79.4 Long term (current) use of insulin
CPT/HCPCS: 36415; 80048-TC; 80076-TC; 81000-TC; 82962-TC; 83690-TC; 85025-TC; A4606; Z7610

== ENCOUNTER 2018-01-16 23:30 | Emergency (ER) | payer OTHER ==
[~2018-01-16] VITALS: Ht 182.9 cm; Wt 90.7 kg
[2018-01-16] MEDS ORDERED: OLANZAPINE 10 MG VIAL IM ONE (23:34)
[2018-01-16] MEDS ORDERED: diphenhydrAMINE HCL 50 MG/ML VIAL ONE (23:37)
--- NOTE | 2018-01-16 23:37 | NUR ---
BB AND ANIBAL. PER EMS PT OD ON ATIVAN. +ETOH. ACCUCHECK IN FIELD "HIGH". PT NOTED TO BE VERBALLY AGRESSIVE WITH EMS AND ANGRY. PT IS AAOX3. SKIN WNL. RES EVEN AND UNLABORED. NO S/S OF ACUTE DISTRESS NOTED. PT PLACED ON MONITOR AND POX. PT SAFETY AND COMFORT MEASURES IN PLACE.
[2018-01-17] MEDS ORDERED: diphenhydrAMINE HCL 50 MG/ML VIAL IM ONE
[2018-01-17] MEDS ORDERED: OLANZAPINE 10 MG VIAL IM ONE
[2018-01-17 00:15] LABS: BASOPHILS % (AUTO) 0.4 % (0.0-2.0); EOSINOPHILS % (AUTO) 5.3 % (0.0-6.0); HEMATOCRIT 41 % (39-51); HEMOGLOBIN 14.7 g/dL (13.5-17.5); LYMPHOCYTES # (AUTO) 2.1 /CMM (0.8-4.8); LYMPHOCYTES % (AUTO) 39.3 % (20.0-44.0); MEAN CORPUSCULAR HGB CONC 35 g/dl (31.0-36.0); MEAN CORPUSCULAR VOLUME 90 fL (80-96); MONOCYTES # (AUTO) 0.5 /CMM (0.1-1.30); MONOCYTES % (AUTO) 8.7 % (2.0-12.0); NEUTROPHILS # (AUTO) 2.4 /CMM (1.8-8.9); NEUTROPHILS % (AUTO) 46.3 % (43.0-81.0); PLATELET COUNT (AUTO) 186 /CMM (150-450); RDW COEFFICIENT OF VARIATION 12.7 (11.5-15.0); RED BLOOD CELL COUNT(AUTO) 4.59 MIL/uL (4.5-6.0); WHITE BLOOD COUNT (AUTO) 5.3 K/uL (4.3-11.0)
[2018-01-17 00:35] LABS: BILIRUBIN,DIRECT 0.1 mg/dL (0.0-0.2); BILIRUBIN,TOTAL 0.5 mg/dL (0.2-1.0); CALCIUM, SERUM 8.9 mg/dL (8.5-10.1); CREATININE 0.9 mg/dL (0.6-1.3); POTASSIUM 3.9 mmol/L (3.5-5.1); TOTAL PROTEIN, SERUM 7.1 g/dL (6.4-8.2)
[2018-01-17 00:51] LABS: SALICYLATE 1.2 mg/dL (2.8-20.0)
[2018-01-17] MEDS ORDERED: INSULIN REGULAR, HUMAN 100 UNIT/ML 10 ML VIAL IV ONE (01:30)
[2018-01-17] MEDS ORDERED: IV NS 0.9% 1,000 ML BAG IV ONE ×2 (01:30)
[2018-01-17] MEDS ORDERED: INSULIN REGULAR, HUMAN 100 UNIT/ML 10 ML VIAL ONE (01:49)
--- NOTE | 2018-01-17 02:29 | NUR ---
PT NOTED TO BE VERBALLY AGGRESSIVE AND ANGRY TOWARDS EMPLOYEES. MADE AWARE
--- NOTE | 2018-01-17 03:17 | NUR ---
Patient discharged to home in stable condition. Written and verbal after care instructions given. Patient verbalizes understanding of instruction.IV removed. Catheter intact and site benign. Pressure and 4x4 applied to site. No bleeding noted. VSS upon discharge. Pt ambulated with steady gait out of ER.
[2018-01-17 03:28] VITALS: BP 127/80
== END 2018-01-17 03:32 | disposition home or self-care (01) ==
LOC: ER 23:33
DX: R45.1 Restlessness and agitation (principal); F28 Other psychotic disorder not due to a substance or known physiological condition; E10.65 Type 1 diabetes mellitus with hyperglycemia; F32.9 Major depressive disorder, single episode, unspecified; E78.00 Pure hypercholesterolemia, unspecified; F17.200 Nicotine dependence, unspecified, uncomplicated; Z79.84 Long term (current) use of oral hypoglycemic drugs; Z79.4 Long term (current) use of insulin
CPT/HCPCS: 36415; 80048; 80076; 80329; 82962; 85025; 96361; 96372; 96374; 99284; A4606; G0480 ×2; J1200; J1815; J3490; J7030 ×2; Z7610

== ENCOUNTER 2018-01-28 23:33 | Emergency (ER) | payer OTHER ==
[~2018-01-28] VITALS: Ht 185.4 cm; Wt 89.8 kg
--- NOTE | 2018-01-28 23:34 | NUR ---
PT MEMO FROM HOME PT STATES "TOOK 9 TRMADOL PILLS 50MG EACH 30 MINUTES AGO TO KILL MYSELF" PT AOX3 RR EVEN AND UNLABORED. NO SOB NOTED. NAD NOTED. NO NVD AT TIHS TIME. PT GOWNED AND PLACED ON MONITOR WAITING FOR MD [place]. PER RA PLACED IV ON LEFT FA 20G INTACT AND PATENT. NO S/S INFECTION OR INFILTRATION. PT STATES NO ACTIVE PLAN AT THIS TIME OR DENIES HI. PT PLACED ON SEIZURE PRECAUTION PER DR. GONZALEZ ORDERS.
[2018-01-29 00:04] LABS: BASOPHILS % (AUTO) 0.5 % (0.0-2.0); EOSINOPHILS % (AUTO) 6.6 % (0.0-6.0); HEMATOCRIT 43 % (39-51); HEMOGLOBIN 15.1 g/dL (13.5-17.5); LYMPHOCYTES # (AUTO) 2.1 /CMM (0.8-4.8); LYMPHOCYTES % (AUTO) 37.6 % (20.0-44.0); MEAN CORPUSCULAR HGB CONC 35 g/dl (31.0-36.0); MEAN CORPUSCULAR VOLUME 91 fL (80-96); MONOCYTES # (AUTO) 0.5 /CMM (0.1-1.30); MONOCYTES % (AUTO) 9.1 % (2.0-12.0); NEUTROPHILS # (AUTO) 2.6 /CMM (1.8-8.9); NEUTROPHILS % (AUTO) 46.2 % (43.0-81.0); PLATELET COUNT (AUTO) 206 /CMM (150-450); RDW COEFFICIENT OF VARIATION 12.7 (11.5-15.0); RED BLOOD CELL COUNT(AUTO) 4.72 MIL/uL (4.5-6.0); WHITE BLOOD COUNT (AUTO) 5.5 K/uL (4.3-11.0)
--- NOTE | 2018-01-29 00:27 | NUR ---
Patient is resting comfortably in bed with eyes closed listening to music. Easily aroused.
[2018-01-29 00:40] LABS: BILIRUBIN,DIRECT 0.1 mg/dL (0.0-0.2); BILIRUBIN,TOTAL 0.3 mg/dL (0.2-1.0); CALCIUM, SERUM 9.1 mg/dL (8.5-10.1); CREATININE 0.7 mg/dL (0.6-1.3); POTASSIUM 3.6 mmol/L (3.5-5.1); TOTAL PROTEIN, SERUM 7.4 g/dL (6.4-8.2)
--- NOTE | 2018-01-29 00:59 | NUR ---
INFORMED DR. GONZALEZ PT GLUCOSE LAB RESULTS 421.
[2018-01-29] MEDS ORDERED: INSULIN REGULAR, HUMAN 100 UNIT/ML 10 ML VIAL IV ONE (01:00)
[2018-01-29] MEDS ORDERED: IV NS 0.9% 1,000 ML BAG IV ONE (01:00)
[2018-01-29] MEDS ORDERED: INSULIN REGULAR, HUMAN 100 UNIT/ML 10 ML VIAL ONE (01:02)
--- NOTE | 2018-01-29 02:29 | NUR ---
ACCUCHECK 237. DR. GONZALEZ MADE AWARE
--- NOTE | 2018-01-29 03:23 | NUR ---
ART AT BEDSIDE FOR EVAL.
[2018-01-29] MEDS ORDERED: ONDANSETRON 4 MG TAB.RAPDIS ONE (03:53)
--- NOTE | 2018-01-29 03:56 | NUR ---
IV removed. Catheter intact and site benign. Pressure and 4x4 applied to site. No bleeding noted. ambulatory with a steady gait. Patient discharged to home in stable condition. Written and verbal after care instructions given. Patient verbalizes understanding of instruction. pt instructed pt not to drive. pt verbalize understanding.
[2018-01-29 03:58] VITALS: BP 130/68
[2018-01-29] MEDS ORDERED: ONDANSETRON 4 MG TAB.RAPDIS SL ONE (04:00)
== END 2018-01-29 03:59 | disposition home or self-care (01) ==
LOC: ER 23:34
DX: E10.65 Type 1 diabetes mellitus with hyperglycemia (principal); F32.9 Major depressive disorder, single episode, unspecified; Z71.6 Tobacco abuse counseling; F10.10 Alcohol abuse, uncomplicated; E78.00 Pure hypercholesterolemia, unspecified; Z79.4 Long term (current) use of insulin
CPT/HCPCS: 36415; 80048-TC; 80076-TC; 80305; 82962-TC; 85025-TC; A4606; G0480; J1815; J7030; Q0162; Z7610

== ENCOUNTER 2018-01-29 07:57 | Emergency (ER) | payer OTHER ==
[~2018-01-29] VITALS: Ht 185.4 cm; Wt 90.7 kg
--- NOTE | 2018-01-29 08:20 | NUR ---
PATIENT TO ED DT NAUSEA-- VSS.
[2018-01-29] MEDS ORDERED: ONDANSETRON HCL/PF - ER 4 MG/2 ML VIAL IV ONE (08:30)
[2018-01-29] MEDS ORDERED: IV NS 0.9% 1,000 ML BAG IV ONE (08:30)
[2018-01-29] MEDS ORDERED: FAMOTIDINE (20 MG) 20 MG TABLET PO ONE (08:30)
[2018-01-29] MEDS ORDERED: ONDANSETRON HCL/PF 4 MG/2 ML VIAL ONE (08:38)
[2018-01-29] MEDS ORDERED: FAMOTIDINE/PF INJ 20 MG/2 ML VIAL IV ONE (08:39)
[2018-01-29 08:54] LABS: BASOPHILS % (AUTO) 0.6 % (0.0-2.0); EOSINOPHILS % (AUTO) 6.5 % (0.0-6.0); HEMATOCRIT 43 % (39-51); LYMPHOCYTES # (AUTO) 1.9 /CMM (0.8-4.8); LYMPHOCYTES % (AUTO) 39.5 % (20.0-44.0); MEAN CORPUSCULAR HGB CONC 35 g/dl (31.0-36.0); MEAN CORPUSCULAR VOLUME 91 fL (80-96); MONOCYTES # (AUTO) 0.4 /CMM (0.1-1.30); MONOCYTES % (AUTO) 9.1 % (2.0-12.0); NEUTROPHILS # (AUTO) 2.1 /CMM (1.8-8.9); NEUTROPHILS % (AUTO) 44.3 % (43.0-81.0); PLATELET COUNT (AUTO) 198 /CMM (150-450); RDW COEFFICIENT OF VARIATION 12.8 (11.5-15.0); WHITE BLOOD COUNT (AUTO) 4.8 K/uL (4.3-11.0)
[2018-01-29 09:00] LABS: APPEARANCE,URINE CLEAR (CLEAR); BILIRUBIN,URINE NEGATIVE (NEGATIVE); BLOOD, URINE NEGATIVE Ery/uL (NEGATIVE); COLOR,URINE YELLOW (YELLOW); KETONES,URINE 2+ (NEGATIVE); LEUKOCYTE ESTERASE ,URINE NEGATIVE (NEGATIVE); NITRITE, URINE NEGATIVE (NEGATIVE); PROTEIN,URINE 1+ mg/dl (NEGATIVE); UGLUCOSE 2+ mg/dL (NEGATIVE); UROBILINOGEN,URINE 0.2 EU/dL (0.2)
[2018-01-29 09:06] LABS: BACTERIA,URINE None seen /HPF (None Seen); RBC,URINE 0-2 /HPF (0-2); SQUAMOUS EPITHELIAL CELL,UR 0-2 /HPF (None Seen); WBC,URINE 0-2 /HPF (0-3)
[2018-01-29 09:13] LABS: CALCIUM, SERUM 8.8 mg/dL (8.5-10.1); CARBON DIOXIDE 25 mmol/L (21-32); CHLORIDE 104 mmol/L (98-107); CREATININE 0.6 mg/dL (0.6-1.3); GLUCOSE 292 mg/dL (74-106); POTASSIUM 4.2 mmol/L (3.5-5.1); SODIUM SERUM 137 mmol/L (136-145); UREA NITROGEN, BLOOD 9 mg/dL (7-18)
[2018-01-29 09:18] LABS: ALANINE AMINOTRANSFERASE 186 U/L (12-78); ALCOHOL, BLOOD < 3 mg/dL (0-0); ALKALINE PHOSPHATASE 73 U/L (46-116); ASPARTATE AMINOTRANSFERASE 93 U/L (15-37); BILIRUBIN,DIRECT 0.1 mg/dL (0.0-0.2); BILIRUBIN,TOTAL 0.5 mg/dL (0.2-1.0); TOTAL PROTEIN, SERUM 7.3 g/dL (6.4-8.2)
[2018-01-29 09:24] LABS: ACETAMINOPHEN 0 ug/ml (10-30); SALICYLATE 2.2 mg/dL (2.8-20.0)
--- NOTE | 2018-01-29 10:00 | NUR ---
POISON CONTROL ON THE PHONE SPEAKING WITH MD GAMBLE. RECOMMENDED TO OBESERVE PATIENT FOR FEW MORE HOURS AND RECHECK LFT AND CHEMISTRY
--- NOTE | 2018-01-29 10:54 | NUR ---
Patient is resting comfortably in bed with eyes closed. Easily aroused. VSS
[2018-01-29] MEDS ORDERED: MAG HYDROX/AL HYDROX/SIMETH 30 ML UDC PO ONE (12:00)
[2018-01-29] MEDS ORDERED: MAG HYDROX/AL HYDROX/SIMETH 30 ML UDC ONE (12:01)
[2018-01-29 12:58] LABS: ALBUMIN 3.6 g/dL (3.4-5.0); BILIRUBIN,DIRECT 0.1 mg/dL (0.0-0.2); BILIRUBIN,TOTAL 0.5 mg/dL (0.2-1.0); TOTAL PROTEIN, SERUM 6.5 g/dL (6.4-8.2)
--- NOTE | 2018-01-29 13:21 | NUR ---
Patient discharged to home in stable condition. Written and verbal after care instructions given. Patient verbalizes understanding of instruction.
[2018-01-29 13:24] VITALS: BP 128/88
--- NOTE | 2018-01-29 13:26 | NUR ---
IV removed. Catheter intact and site benign. Pressure and 4x4 applied to site. No bleeding noted.
== END 2018-01-29 13:37 | disposition home or self-care (01) ==
LOC: ER 08:00
DX: R11.0 Nausea (principal); E11.9 Type 2 diabetes mellitus without complications; E78.00 Pure hypercholesterolemia, unspecified; F32.9 Major depressive disorder, single episode, unspecified; F10.10 Alcohol abuse, uncomplicated; F17.200 Nicotine dependence, unspecified, uncomplicated; Z79.4 Long term (current) use of insulin
CPT/HCPCS: 36415; 80048-TC; 80076-TC; 80305; 81000-TC; 85025-TC; A4606; G0480; J2405; J3490; J7030; Z7610

== ENCOUNTER 2018-02-05 00:19 | Emergency (ER) | payer OTHER ==
[~2018-02-05] VITALS: Ht 188 cm; Wt 81.6 kg
[~2018-02-05 00:19] MED LIST changes: -METF-440 PO; +METF500T4 PO
--- NOTE | 2018-02-05 02:23 | NUR ---
PT BIBSELF PT STATES "BEEN NAUSEATED FOR 2 HOURS; JUST HAD I&O BURGER" PT AOX3 RR EVEN AND UNLABORED. NO SOB NOTED. NAD NOTED. NO NVD AT THIS TIME. PT PLACED ON MONITOR WAITING FOR MD [place].
--- NOTE | 2018-02-05 02:26 | NUR ---
DR. GONZALEZ AT BEDSIDE FOR EVAL.
[2018-02-05] MEDS ORDERED: ONDANSETRON HCL/PF 4 MG/2 ML VIAL IVP ONE (02:30)
[2018-02-05] MEDS ORDERED: IV NS 0.9% 1,000 ML BAG IV ONE (02:30)
[2018-02-05] MEDS ORDERED: ONDANSETRON HCL/PF 4 MG/2 ML VIAL ONE (02:35)
[2018-02-05 02:48] LABS: BASOPHILS # (AUTO) 0.1 /CMM (0.0-0.2); BASOPHILS % (AUTO) 1.1 % (0.0-2.0); EOSINOPHILS # (AUTO) 0.3 /CMM (0.0-0.7); EOSINOPHILS % (AUTO) 4.3 % (0.0-6.0); HEMATOCRIT 43 % (39-51); HEMOGLOBIN 15.1 g/dL (13.5-17.5); LYMPHOCYTES # (AUTO) 2.8 /CMM (0.8-4.8); LYMPHOCYTES % (AUTO) 45.7 % (20.0-44.0); MEAN CORPUSCULAR HEMOGLOBIN 32 PG (26.0-33.0); MEAN CORPUSCULAR HGB CONC 35 g/dl (31.0-36.0); MEAN CORPUSCULAR VOLUME 91 fL (80-96); MONOCYTES # (AUTO) 0.6 /CMM (0.1-1.30); MONOCYTES % (AUTO) 9.6 % (2.0-12.0); NEUTROPHILS # (AUTO) 2.4 /CMM (1.8-8.9); NEUTROPHILS % (AUTO) 39.3 % (43.0-81.0); PLATELET COUNT (AUTO) 218 /CMM (150-450); RDW COEFFICIENT OF VARIATION 12.5 (11.5-15.0); RED BLOOD CELL COUNT(AUTO) 4.74 MIL/uL (4.5-6.0); WHITE BLOOD COUNT (AUTO) 6.1 K/uL (4.3-11.0)
[2018-02-05] MEDS ORDERED: INSULIN REGULAR, HUMAN 100 UNIT/ML 10 ML VIAL ONE (02:54)
[2018-02-05] MEDS ORDERED: INSULIN REGULAR, HUMAN 100 UNIT/ML 10 ML VIAL IV ONE (03:00)
[2018-02-05 03:07] LABS: ALBUMIN 4.3 g/dL (3.4-5.0); BILIRUBIN,TOTAL 0.4 mg/dL (0.2-1.0); CALCIUM, SERUM 9.3 mg/dL (8.5-10.1); CREATININE 0.9 mg/dL (0.6-1.3); POTASSIUM 4.2 mmol/L (3.5-5.1); TOTAL PROTEIN, SERUM 7.5 g/dL (6.4-8.2)
[2018-02-05 04:19] VITALS: BP 116/68
--- NOTE | 2018-02-05 04:19 | NUR ---
IV removed. Catheter intact and site benign. Pressure and 4x4 applied to site. No bleeding noted. Patient discharged to home in stable condition. Written and verbal after care instructions given. Patient verbalizes understanding of instruction. ambulatory with a steady gait
== END 2018-02-05 04:20 | disposition home or self-care (01) ==
LOC: ER 00:21
DX: K85.20 Alcohol induced acute pancreatitis without necrosis or infection (principal); E10.65 Type 1 diabetes mellitus with hyperglycemia; R11.0 Nausea; E78.00 Pure hypercholesterolemia, unspecified; F32.9 Major depressive disorder, single episode, unspecified; F41.9 Anxiety disorder, unspecified; G89.29 Other chronic pain; F10.10 Alcohol abuse, uncomplicated; F17.200 Nicotine dependence, unspecified, uncomplicated; Z79.4 Long term (current) use of insulin
CPT/HCPCS: 36415; 80048-TC; 80076-TC; 82010-TC; 82962-TC; 83690-TC; 85025-TC; A4606; G0480; J1815; J2405; J7030; Z7610

== ENCOUNTER 2018-02-10 00:37 | Emergency (ER) | payer OTHER ==
[~2018-02-10] VITALS: Ht 185.4 cm; Wt 95.3 kg
[~2018-02-10 00:37] MED LIST changes: +METF-440 PO; -METF500T4 PO
--- NOTE | 2018-02-10 00:37 | NUR ---
BIB SELF C/O +SI/-HI, DENIES HAVING PLAN. "TIRED OF BEING AROUND". A/OX3 ABLE TO MAKE NEEDS KNOWN VSS NAD. WILL CONTINUE TO MONITOR FOR ANY CHANGES
[2018-02-10 01:35] LABS: APPEARANCE,URINE CLEAR (CLEAR); BILIRUBIN,URINE NEGATIVE (NEGATIVE); BLOOD, URINE NEGATIVE Ery/uL (NEGATIVE); COLOR,URINE YELLOW (YELLOW); KETONES,URINE 2+ (NEGATIVE); LEUKOCYTE ESTERASE ,URINE NEGATIVE (NEGATIVE); NITRITE, URINE NEGATIVE (NEGATIVE); PH,URINE 5.5 (5.0-8.0); PROTEIN,URINE NEGATIVE (NEGATIVE); UGLUCOSE 3+ mg/dL (NEGATIVE); UROBILINOGEN,URINE 0.2 EU/dL (0.2)
[2018-02-10 01:49] LABS: BASOPHILS % (AUTO) 0.3 % (0.0-2.0); EOSINOPHILS % (AUTO) 4.6 % (0.0-6.0); HEMATOCRIT 46 % (39-51); HEMOGLOBIN 16.4 g/dL (13.5-17.5); LYMPHOCYTES # (AUTO) 1.9 /CMM (0.8-4.8); LYMPHOCYTES % (AUTO) 34.3 % (20.0-44.0); MEAN CORPUSCULAR HGB CONC 35 g/dl (31.0-36.0); MEAN CORPUSCULAR VOLUME 91 fL (80-96); MONOCYTES # (AUTO) 0.5 /CMM (0.1-1.30); MONOCYTES % (AUTO) 9.9 % (2.0-12.0); NEUTROPHILS # (AUTO) 2.7 /CMM (1.8-8.9); NEUTROPHILS % (AUTO) 50.9 % (43.0-81.0); PLATELET COUNT (AUTO) 216 /CMM (150-450); RDW COEFFICIENT OF VARIATION 12.6 (11.5-15.0); WHITE BLOOD COUNT (AUTO) 5.4 K/uL (4.3-11.0)
[2018-02-10 01:56] LABS: CALCIUM, SERUM 9.8 mg/dL (8.5-10.1); CREATININE 0.8 mg/dL (0.6-1.3); POTASSIUM 3.7 mmol/L (3.5-5.1)
[2018-02-10 02:05] LABS: BACTERIA,URINE None seen /HPF (None Seen); RBC,URINE 0-2 /HPF (0-2); SQUAMOUS EPITHELIAL CELL,UR Few /HPF (None Seen); WBC,URINE 0-2 /HPF (0-3)
[2018-02-10] MEDS ORDERED: IV NS 0.9% 1,000 ML BAG IV ONE (02:30)
--- NOTE | 2018-02-10 02:47 | NUR ---
CALLED [facility] MONTENEGRO FOR PSYCH EVALUATION
--- NOTE | 2018-02-10 02:56 | NUR ---
Pt RESTING IN BED. ON IVF. NO S/S OF ACUTE DISTRESS OR SOB NOTED. VSS. WILL CONTINUE TO MONITOR FOR SAFETY.
--- NOTE | 2018-02-10 05:24 | NUR ---
IVF NS ALL GIVEN. Pt ASLEEP AT THIS TIME. NO S/S OF ACUTE DISTRESS OR SOB NOTED. RESPIRATIONS EVEN AND UNLABORED.
[2018-02-10 05:58] VITALS: BP 132/82
== END 2018-02-10 06:00 | disposition home or self-care (01) ==
LOC: ER 00:37
DX: F31.9 Bipolar disorder, unspecified (principal); E10.65 Type 1 diabetes mellitus with hyperglycemia; E78.00 Pure hypercholesterolemia, unspecified; F41.9 Anxiety disorder, unspecified; F17.200 Nicotine dependence, unspecified, uncomplicated; F10.10 Alcohol abuse, uncomplicated; E78.5 Hyperlipidemia, unspecified; Z90.89 Acquired absence of other organs; Z79.4 Long term (current) use of insulin
CPT/HCPCS: 36415; 80048-TC; 80305; 81000-TC; 85025-TC; A4606; G0480; Z7610

== ENCOUNTER 2018-08-23 05:10 | Emergency (ER) | payer OTHER ==
[~2018-08-23] VITALS: Ht 188 cm; Wt 93.0 kg
[2018-08-23 05:32] LABS: BASOPHILS % (AUTO) 0.4 % (0.0-2.0); EOSINOPHILS % (AUTO) 1.3 % (0.0-6.0); HEMATOCRIT 43 % (39-51); HEMOGLOBIN 15.1 g/dL (13.5-17.5); LYMPHOCYTES # (AUTO) 1.6 /CMM (0.8-4.8); LYMPHOCYTES % (AUTO) 21.1 % (20.0-44.0); MEAN CORPUSCULAR HGB CONC 35 g/dl (31.0-36.0); MEAN CORPUSCULAR VOLUME 87 fL (80-96); MONOCYTES # (AUTO) 0.8 /CMM (0.1-1.30); MONOCYTES % (AUTO) 11.4 % (2.0-12.0); NEUTROPHILS # (AUTO) 4.9 /CMM (1.8-8.9); NEUTROPHILS % (AUTO) 65.8 % (43.0-81.0); PLATELET COUNT (AUTO) 184 /CMM (150-450); RED BLOOD CELL COUNT(AUTO) 4.96 MIL/uL (4.5-6.0); WHITE BLOOD COUNT (AUTO) 7.4 K/uL (4.3-11.0)
--- NOTE | 2018-08-23 05:35 | NUR ---
LUIGI STATING HE NEEDS MEDICAL CLEARANCE FOR SOCDOUG BRAVO. PATIENT STATES WANTS TO DETOX FROM ETOH. -SI/HI. PT STATES HE HAD "A COUPLE OF BEERS TONIGHT". PT DENIES DRUG USE. NO S/S OF ACUTE DISTRESS NOTED. RR EVEN AND UNLABORED. PT PLACED ON MONITOR AND POX. PT SAFETY AND COMFORT MEASURES IN PLACE. BEDSIDE FOR ELIZ
[2018-08-23 05:47] LABS: BILIRUBIN,URINE NEGATIVE (NEGATIVE); BLOOD, URINE NEGATIVE Ery/uL (NEGATIVE); KETONES,URINE NEGATIVE (NEGATIVE); LEUKOCYTE ESTERASE ,URINE NEGATIVE (NEGATIVE); NITRITE, URINE NEGATIVE (NEGATIVE); PROTEIN,URINE NEGATIVE (NEGATIVE); UGLUCOSE 3+ mg/dL (NEGATIVE); UROBILINOGEN,URINE 0.2 EU/dL (0.2)
[2018-08-23 05:50] LABS: BILIRUBIN,DIRECT 0.1 mg/dL (0.0-0.2); BILIRUBIN,TOTAL 0.3 mg/dL (0.2-1.0); CALCIUM, SERUM 9.2 mg/dL (8.5-10.1); CREATININE 0.9 mg/dL (0.6-1.3); POTASSIUM 4.1 mmol/L (3.5-5.1); SALICYLATE 1.5 mg/dL (2.8-20.0); TOTAL PROTEIN, SERUM 7.5 g/dL (6.4-8.2)
[2018-08-23] MEDS ORDERED: INSULIN REGULAR, HUMAN 100 UNIT/ML 10 ML VIAL ONE ×2 (06:00→08:34)
[2018-08-23] MEDS ORDERED: INSULIN REGULAR, HUMAN 100 UNIT/ML 10 ML VIAL SQ ONE (06:00)
[2018-08-23] MEDS ORDERED: IV NS 0.9% 1,000 ML BAG IV ONE ×3 (06:00→08:30)
[2018-08-23 06:02] LABS: APPEARANCE,URINE CLEAR (CLEAR); COLOR,URINE STRAW (YELLOW)
[2018-08-23 06:04] LABS: BACTERIA,URINE None seen /HPF (None Seen); RBC,URINE NONE SEEN /HPF (0-2); SQUAMOUS EPITHELIAL CELL,UR Few /HPF (None Seen); WBC,URINE NONE SEEN /HPF (0-3)
--- NOTE | 2018-08-23 06:46 | NUR ---
Patient is resting comfortably in bed with eyes closed. Easily aroused. VSS
--- NOTE | 2018-08-23 07:15 | NUR ---
REPORT GIVEN TO ANTONIO DUMONT FOR SANDEEP.
--- NOTE | 2018-08-23 08:17 | NUR ---
Patient is resting comfortably in bed with eyes closed. Easily aroused. VSS
--- NOTE | 2018-08-23 08:22 | NUR ---
PT BS 276 AT 810AM. MADE AWARE. ORDERS RECEIVED.
[2018-08-23] MEDS ORDERED: INSULIN REGULAR, HUMAN 100 UNIT/ML 10 ML VIAL IV ONE (08:30)
--- NOTE | 2018-08-23 09:18 | NUR ---
NEW BS 148. MADE AWARE. ARRANGING TRANSPORT TO [facility].
--- NOTE | 2018-08-23 09:20 | NUR ---
SO [facility] ALTAMIRANO CALLED,SPOKE WITH TOOTIE ALVAREZ,ACCEPTED TX,BO=170
--- NOTE | 2018-08-23 09:32 | NUR ---
CALLED [facility] FOR THIS PATIENT ETA 1030 TRIP #[id number]
[2018-08-23 10:41] VITALS: BP 136/82
== END 2018-08-23 10:42 | disposition home or self-care (01) ==
LOC: ER 05:17
DX: F32.9 Major depressive disorder, single episode, unspecified (principal); F10.10 Alcohol abuse, uncomplicated; E10.65 Type 1 diabetes mellitus with hyperglycemia; E78.00 Pure hypercholesterolemia, unspecified; F41.9 Anxiety disorder, unspecified; Y90.3 Blood alcohol level of 60-79 mg/100 ml; Z79.4 Long term (current) use of insulin
CPT/HCPCS: 36415; 80048-TC; 80076-TC; 80305; 81000-TC; 82962-TC; 85025-TC; A4606; G0480; J1815; J7030; Z7610

== ENCOUNTER 2019-03-24 21:56 | Emergency (ER) | payer OTHER ==
[~2019-03-24] VITALS: Ht 188 cm; Wt 42.2 kg
--- NOTE | 2019-03-24 23:35 | NUR ---
PT TO ER C/O SUICIDAL IDEATION. PT DENIES ANY MEDICAL COMPLAINTS. SI PRECAUTIONS IMPLEMENTED. PT CHANGED INTO GOWN. BELONGINGS REMOVED. PT TO ER BED. WILL CONT TO MONITOR PT.
[2019-03-25 00:06] LABS: APPEARANCE,URINE Clear (CLEAR); BILIRUBIN,URINE Negative (NEGATIVE); BLOOD, URINE Negative Ery/uL (NEGATIVE); COLOR,URINE Yellow (YELLOW); KETONES,URINE 40 (NEGATIVE); LEUKOCYTE ESTERASE ,URINE Negative (NEGATIVE); NITRITE, URINE Negative (NEGATIVE); PROTEIN,URINE Negative (NEGATIVE); UGLUCOSE 500 MG/DL mg/dL (NEGATIVE); UROBILINOGEN,URINE 0.2 EU/dL (0.2)
[2019-03-25 00:19] LABS: BASOPHILS % (AUTO) 0.7 % (0.0-2.0); EOSINOPHILS % (AUTO) 3.2 % (0.0-6.0); HEMATOCRIT 44 % (39-51); HEMOGLOBIN 14.9 g/dL (13.5-17.5); LYMPHOCYTES # (AUTO) 1.6 /CMM (0.8-4.8); LYMPHOCYTES % (AUTO) 42.2 % (20.0-44.0); MEAN CORPUSCULAR HGB CONC 34 g/dl (31.0-36.0); MEAN CORPUSCULAR VOLUME 88 fL (80-96); MONOCYTES # (AUTO) 0.4 /CMM (0.1-1.30); MONOCYTES % (AUTO) 9.3 % (2.0-12.0); NEUTROPHILS # (AUTO) 1.7 /CMM (1.8-8.9); NEUTROPHILS % (AUTO) 44.6 % (43.0-81.0); PLATELET COUNT (AUTO) 224 /CMM (150-450); RED BLOOD CELL COUNT(AUTO) 4.95 MIL/uL (4.5-6.0); WHITE BLOOD COUNT (AUTO) 3.8 K/uL (4.3-11.0)
[2019-03-25 00:42] LABS: ALBUMIN 3.8 g/dL (3.4-5.0); BILIRUBIN,DIRECT 0.1 mg/dL (0.0-0.2); BILIRUBIN,TOTAL 0.4 mg/dL (0.2-1.0); CALCIUM, SERUM 9.4 mg/dL (8.5-10.1); CREATININE 0.8 mg/dL (0.6-1.3); POTASSIUM 4.1 mmol/L (3.5-5.1); SALICYLATE 1.7 mg/dL (2.8-20.0); TOTAL PROTEIN, SERUM 7.3 g/dL (6.4-8.2)
[2019-03-25] MEDS ORDERED: INSULIN REGULAR, HUMAN 100 UNIT/ML 10 ML VIAL ONE ×2 (00:49→10:47)
[2019-03-25] MEDS ORDERED: INSULIN REGULAR, HUMAN 100 UNIT/ML 10 ML VIAL SQ ONE ×3 (01:00→11:00)
--- NOTE | 2019-03-25 05:38 | NUR ---
ART MECHANICAL FIELD ENGINEER AT BEDSIDE FOR EVAL.
--- NOTE | 2019-03-25 08:24 | NUR ---
WANDED BY SECURITY JILL ENGLE, HOOKED TO MONITOR, KEPT WARM, SAFE AND COMFORTABLE.
--- NOTE | 2019-03-25 10:02 | NUR ---
CALL BACK FROM MARIA VICTORIA, INTAKE AT [facility], ACCEPTED AT [facility] BY DR FELIX,REPORT TO [phone]. [facility] ETA 1 HR.
--- NOTE | 2019-03-25 10:06 | NUR ---
ACTUAL WEIGHT =193 LBS
--- NOTE | 2019-03-25 10:27 | NUR ---
REPORT GIVEN TO CINDY ALVAREZ OF [facility] [phone] [id number], INSTRUCTIONS TO GO STRAIGHT TO ADMITTING FIRST.
--- NOTE | 2019-03-25 10:40 | NUR ---
BS 327MG/DL, MADE AWARE
--- NOTE | 2019-03-25 11:14 | NUR ---
[facility] CALLED FOR ETA, 2268
--- NOTE | 2019-03-25 11:38 | NUR ---
BS 328MG/DL, MADE MD AWARE, RECEIVED VERBAL ORDER OF 1L NS IVPB AND 10UNITS HUMAN REGULAR INSULIN. CARRIED OUT
[2019-03-25] MEDS ORDERED: INSULIN REGULAR, HUMAN 100 UNIT/ML 10 ML VIAL IV ONE (12:00)
[2019-03-25] MEDS ORDERED: IV NS 0.9% 1,000 ML BAG IV ONE (12:00)
[2019-03-25 12:34] VITALS: BP 148/86
--- NOTE | 2019-03-25 12:35 | NUR ---
WI=797MX/DL. Patient discharged to [facility] UNIT 146 in stable condition. Written and verbal after care instructions given. Patient verbalizes understanding of instruction. Pt WILL BE TRANSFERRED TO [facility]
== END 2019-03-25 12:45 ==
LOC: ER 22:01
DX: F41.9 Anxiety disorder, unspecified (principal); F31.9 Bipolar disorder, unspecified; R45.851 Suicidal ideations; F29 Unspecified psychosis not due to a substance or known physiological condition; E10.9 Type 1 diabetes mellitus without complications; E78.00 Pure hypercholesterolemia, unspecified; F10.10 Alcohol abuse, uncomplicated; Y90.1 Blood alcohol level of 20-39 mg/100 ml; Z79.4 Long term (current) use of insulin
CPT/HCPCS: 36415; 80048; 80076; 80307; 80329; 81001; 82962 ×7; 85025; 96372 ×3; 96374; 99285; J1815 ×2; J7030; 80305; 81000-TC; G0480

== ENCOUNTER 2019-04-05 19:36 | Inpatient (IN) | payer OTHER ==
[~2019-04-05] VITALS: Ht 190.5 cm; Wt 90.3 kg
--- NOTE | 2019-04-05 20:32 | NUR ---
BIBSELF C/O ABD PAIN WITH BLACK STOOLS X 2 DAYS. PATIENT ALSO STATES HE RAN OUT OF HIS INSULIN. ACCUCHECK IN TRIAGE BS 556. NO ACUTE DISTRESS NOTED. AOX4, AMB, HYPERTENSIVE, RR EVEN AND UNLABORED ON RA. ON MONITOR AND MADE COMFORTABLE. READY FOR EVAL.
[2019-04-05] MEDS ORDERED: IV NS 0.9% 1,000 ML BAG IV ONE ×2 (21:00→22:30)
[2019-04-05 21:11] LABS: BASOPHILS % (AUTO) 0.8 % (0.0-2.0); EOSINOPHILS % (AUTO) 4.2 % (0.0-6.0); HEMATOCRIT 43 % (39-51); HEMOGLOBIN 14.8 g/dL (13.5-17.5); LYMPHOCYTES # (AUTO) 1.9 /CMM (0.8-4.8); LYMPHOCYTES % (AUTO) 32.6 % (20.0-44.0); MEAN CORPUSCULAR HGB CONC 34 g/dl (31.0-36.0); MEAN CORPUSCULAR VOLUME 87 fL (80-96); MONOCYTES # (AUTO) 0.5 /CMM (0.1-1.30); MONOCYTES % (AUTO) 9.4 % (2.0-12.0); PLATELET COUNT (AUTO) 170 /CMM (150-450); RED BLOOD CELL COUNT(AUTO) 4.94 MIL/uL (4.5-6.0); WHITE BLOOD COUNT (AUTO) 5.7 K/uL (4.3-11.0)
--- NOTE | 2019-04-05 21:15 | NUR ---
ANTONIO DOMINGUEZ AT BEDSIDE FOR MIDLINE INSERTION
--- NOTE | 2019-04-05 21:30 | NUR ---
R UPPER ARM 18G MIDLINE PLACED
[2019-04-05 21:45] LABS: BILIRUBIN,DIRECT 0.1 mg/dL (0.0-0.2); BILIRUBIN,TOTAL 0.5 mg/dL (0.2-1.0); POTASSIUM 4.1 mmol/L (3.5-5.1); TOTAL PROTEIN, SERUM 7.3 g/dL (6.4-8.2)
--- NOTE | 2019-04-05 21:54 | NUR ---
EPIC MERCHANDISING PROFESSOR PHYSICIAN PAGED
--- NOTE | 2019-04-05 22:07 | NUR ---
Patient is resting comfortably in bed with eyes closed. Easily aroused. VSS
[2019-04-05] MEDS ORDERED: INSULIN LISPRO/ASPART 100 UNIT/ML CARTRIDGE SQ ONE (22:30)
[2019-04-05] MEDS ORDERED: INSULIN REGULAR, HUMAN 100 UNIT/ML 10 ML VIAL ONE (22:50)
[2019-04-05] MEDS ORDERED: INSULIN REGULAR, HUMAN 100 UNIT/ML 10 ML VIAL SQ ONE (23:00)
[2019-04-05 23:02] LABS: APPEARANCE,URINE Clear (CLEAR); BILIRUBIN,URINE Negative (NEGATIVE); BLOOD, URINE Negative Ery/uL (NEGATIVE); COLOR,URINE Yellow (YELLOW); KETONES,URINE 40 (NEGATIVE); LEUKOCYTE ESTERASE ,URINE Negative (NEGATIVE); NITRITE, URINE Negative (NEGATIVE); PH,URINE 6.5 (5.0-8.0); PROTEIN,URINE Negative (NEGATIVE); UGLUCOSE 500 MG/DL mg/dL (NEGATIVE)
--- NOTE | 2019-04-05 23:13 | NUR ---
REPORT GIVEN TO ANTONIO SERAS FOR ICU 252
[2019-04-05 23:38] LABS: BACTERIA,URINE Rare /HPF (None Seen); RBC,URINE 0-2 /HPF (0-2)
[2019-04-05 23:39] LABS: SQUAMOUS EPITHELIAL CELL,UR Few /HPF (None Seen)
--- NOTE | 2019-04-05 23:41 | NUR ---
PT WILL CHANGE TO TELE BED
--- NOTE | 2019-04-05 23:56 | NUR ---
Bed 320-2
[2019-04-06] MEDS ORDERED: DEXTROSE 50%-WATER 50 ML DISP.SYRIN IV PRN
[2019-04-06] MEDS ORDERED: MAGNESIUM HYDROXIDE 30 ML UDC PO PRN
[2019-04-06] MEDS ORDERED: MAG HYDROX/AL HYDROX/SIMETH 30 ML UDC PO PRN
[2019-04-06] MEDS ORDERED: Z GUARD REMEDY 2 OZ OINT TP PRN
[2019-04-06] MEDS ORDERED: INSULIN REGULAR, HUMAN 100 UNIT/ML 3 ML VIAL SQ PRN
[2019-04-06] MEDS ORDERED: PANTOPRAZOLE 40 MG VIAL IV ONE
[2019-04-06] MEDS ORDERED: ONDANSETRON HCL/PF 4 MG/2 ML VIAL IVP PRN
[2019-04-06] MEDS ORDERED: HYDROCODONE/APAP 5/325MG 1 EACH TABLET PO PRN
[2019-04-06] MEDS ORDERED: ACETAMINOPHEN 325 MG TABLET PO PRN
--- NOTE | 2019-04-06 00:05 | NUR ---
REPORT GIVEN TO ANTONIO HICKS FOR SANDEEP
[2019-04-06 00:25] VITALS: BP 137/73
--- NOTE | 2019-04-06 00:30 | NUR ---
RECEIVED PATIENT FROM ER FOR DX HYPEROSMOLAR HYPERGLYCEMIA. PATIENT AO X 3, ABLE TO MAKE NEED KNOWN. NO ACUTE DISTRESS NOTED. DENIES ANY PAIN AT THIS TIME. NO SYMPTOMS OF HYPER/HYPOGLYCEMIA. SINUS RHYTHM WITH BBB HR 94. IV SITE PATENT, INTACT. SKIN CHECK DONE. BELONGINGS INVENTORIED. SAFETY REMINDERS GIVEN. ON LOW BED WITH BILATERAL UPPER SIDE RAILS UP. CALL HERNANDEZ WITHIN EASY REACH. WILL CONTINUE TO MONITOR.
[2019-04-06] MEDS ORDERED: DIVA500T2 PO (01:10)
[2019-04-06] MEDS ORDERED: ZOLP5TAB2 PO (01:12)
[2019-04-06] MEDS ORDERED: PANTOPRAZOLE 40 MG TABLET.DR PO ONE (01:30)
[2019-04-06] MEDS: IV NS 0.9% 1,000 ML IV PRN ×3 (01:51→21:05)
[2019-04-06 04:00] VITALS: BP 113/81
[2019-04-06 04:33] VITALS: BP 113/81
--- NOTE | 2019-04-06 06:00 | NUR ---
PATIENT ASLEEP, EASILY AROUSABLE. RESPIRATIONS EVEN. NO SIGNS OF PAIN NOTED. DUE MED GIVEN WITH NO ASE NOTED. IVF INFUSING ORDERED. NEEDS ATTENDED. SAFETY PRECAUTIONS AND COMFORT MEASURES IN PLACE. WILL GIVE REPORT TO DAY SHIFT FOR CONTINUITY OF CARE.
[2019-04-06] MEDS: INSULIN REGULAR, HUMAN 100 UNIT/ML 3 ML VIAL SQ PRN ×4 (06:30→21:47)
[2019-04-06] MEDS: BLOOD SUGAR DIAGNOSTIC 1 EACH STRIP VI SCH ×4 (06:30→21:47)
[2019-04-06 06:36] LABS: BASOPHILS % (AUTO) 0.7 % (0.0-2.0); EOSINOPHILS % (AUTO) 4.7 % (0.0-6.0); HEMATOCRIT 39 % (39-51); HEMOGLOBIN 13.6 g/dL (13.5-17.5); LYMPHOCYTES # (AUTO) 2.1 /CMM (0.8-4.8); LYMPHOCYTES % (AUTO) 37.5 % (20.0-44.0); MEAN CORPUSCULAR HGB CONC 35 g/dl (31.0-36.0); MEAN CORPUSCULAR VOLUME 86 fL (80-96); MONOCYTES # (AUTO) 0.5 /CMM (0.1-1.30); MONOCYTES % (AUTO) 9.8 % (2.0-12.0); NEUTROPHILS # (AUTO) 2.6 /CMM (1.8-8.9); NEUTROPHILS % (AUTO) 47.3 % (43.0-81.0); PLATELET COUNT (AUTO) 165 /CMM (150-450); RED BLOOD CELL COUNT(AUTO) 4.52 MIL/uL (4.5-6.0); WHITE BLOOD COUNT (AUTO) 5.5 K/uL (4.3-11.0)
[2019-04-06 06:57] LABS: CALCIUM, SERUM 8.1 mg/dL (8.5-10.1); CREATININE 0.6 mg/dL (0.6-1.3); MAGNESIUM 1.9 mg/dL (1.8-2.4); PHOSPHORUS 3.9 mg/dL (2.5-4.9); POTASSIUM 3.4 mmol/L (3.5-5.1)
--- NOTE | 2019-04-06 07:45 | NUR ---
INDUSTRIAL RELATIONS DIRECTOR OPENING NOTES RECEIVED PATIENT IN BED ASLEEP, AROUSABLE. HOB ELEVATED. NO SOB. ON ROOM AIR WITH WITH O2SAT OF 97%. DENIES ANY C/O PAIN NOR DISCOMFORT AT THIS TIME. GENE MIDLINE # 18 INTACT AND PATENT INFUSING NS @125ML/HR WITHOUT S/S OF COMPLICATIONS OBSERVED. BED IN LOWEST POSITION. ABLE TO VERBALIZE NEEDS. CALL LIGHT WITHIN EACH. BED ALARM ON.
[2019-04-06 08:00] VITALS: BP 127/70
[2019-04-06] MEDS: PANTOPRAZOLE 40 MG TABLET.DR PO SCH (08:18)
[2019-04-06] MEDS ORDERED: PANTOPRAZOLE 40 MG VIAL IV SCH (09:00)
[2019-04-06] MEDS ORDERED: POTASSIUM CHLORIDE 20 MEQ POWDER PACKET PO SCH (10:00)
--- NOTE | 2019-04-06 11:51 | NUR ---
MS RN NOTES WITH ORDER FOR D/C TELEMETRY NOTED AND CARRIED OUT
[2019-04-06 13:50] LABS: OCCULT BLOOD STOOL NEGATIVE (NEGATIVE)
--- NOTE | 2019-04-06 14:54 | NUR ---
MS RN NOTES PATIENT WAS SEEN BY DIRECTOR STAGEDIANNA, PER PATIENT, WANTS TO GO TO A PSYCH UNIT VOLUNTARILY. SS WILL FOLLOW UP.
--- NOTE | 2019-04-06 15:06 | NUR ---
Social service consult requested by Dr. Moreland for homelessness. Pt. is a 33 year old male who was admitted to [facility] for DKA. SW met with pt. bedside. Pt. is alert and oriented x 4. SW is familiar with pt. from previous ER visits. Pt. states he has been homeless for a month. Pt. was recently laid off from his job and since then has been homeless. Pt. was renting a room last month prior to being homeless. Pt. has a history of Depression and psychiatric hospital admissions. Pt. states he is depressed and wants voluntary admission at [facility] hospital. Pt. states he is suicidal and plans to overdose on pills. Pt. was at a psychiatric hospital two weeks ago. Pt. denies homicidal ideations and visual/auditory hallucinations at this time. Pt. denies drug use and stopped drinking alcohol a week ago. SW to refer pt. to [facility] for psychiatric admission.
[2019-04-06 16:00] VITALS: BP 144/95
--- NOTE | 2019-04-06 17:36 | NUR ---
MS RN NOTES PATIENT RETURNED TO UNIT FROM CT OF ABD.PELVIS.
--- NOTE | 2019-04-06 18:59 | NUR ---
MS RN CLOSING NOTES PATIENT IN BED WATCHING ON HIS CELL PHONE WITH HIS EARPIECE ON. DENIES ANY C/O PAIN NOR DISCOMFORT AT THIS TIME. NO S/S OF RESPIRATORY DISTRESS. GENE MIDLINE # 18 INTACT AND PATENT INFUSING NS @125ML/HR WITHOUT S/S OF COMPLICATIONS OBSERVED. PATIENT DENIES ANY PLANS OF HURTING HIMSELF. NO S/S OF HYPO/HYPERGLYCEMIA. PATIENT DENIES ANY C/O N/V. ABLE TO VERBALIZE NEEDS. BED ALARM ON. CALL LIGHT WITHIN REACH. BED IN LOWEST POSTITION. BED ALARM ON. ABLE TO VERBALIZE NEEDS.
--- NOTE | 2019-04-06 20:01 | NUR ---
RN MS OPENING NOTES RECEIVED PT IN BED, AWAKE ALERT ORIENTED X3, BREATHING EVEN AND UNLABORED ON ROOM AIR. NO COMPLAINT OF PAIN OR DISCOMFORT AT THIS TIME, GENE MIDLINE #18 NS@125ML/HR. BED IN LOWEST LOCKED POSITION, CALL LIGHT WITHIN REACH AT ALL TIMES ,WILL CONTINUE TO MONITOR FREQUENTLY.
[2019-04-06 20:37] VITALS: BP 151/100
[2019-04-06] MEDS ORDERED: QUETIAPINE FUMARATE 100 MG TABLET PO SCH (22:00)
--- NOTE | 2019-04-06 23:15 | NUR ---
endorsed report to beto kirk
[2019-04-07] MEDS: IV NS 0.9% 1,000 ML IV PRN (05:14)
[2019-04-07] MEDS: INSULIN REGULAR, HUMAN 100 UNIT/ML 3 ML VIAL SQ PRN ×2 (06:18→11:41)
[2019-04-07 06:29] LABS: BASOPHILS % (AUTO) 0.7 % (0.0-2.0); EOSINOPHILS % (AUTO) 5.3 % (0.0-6.0); HEMATOCRIT 40 % (39-51); LYMPHOCYTES % (AUTO) 39.5 % (20.0-44.0); MEAN CORPUSCULAR HGB CONC 35 g/dl (31.0-36.0); MEAN CORPUSCULAR VOLUME 87 fL (80-96); MONOCYTES # (AUTO) 0.4 /CMM (0.1-1.30); MONOCYTES % (AUTO) 8.4 % (2.0-12.0); NEUTROPHILS # (AUTO) 2.3 /CMM (1.8-8.9); NEUTROPHILS % (AUTO) 46.1 % (43.0-81.0); PLATELET COUNT (AUTO) 176 /CMM (150-450); RED BLOOD CELL COUNT(AUTO) 4.63 MIL/uL (4.5-6.0); WHITE BLOOD COUNT (AUTO) 4.9 K/uL (4.3-11.0)
[2019-04-07 06:47] LABS: CALCIUM, SERUM 8.4 mg/dL (8.5-10.1); CREATININE 0.6 mg/dL (0.6-1.3); PHOSPHORUS 4.4 mg/dL (2.5-4.9); POTASSIUM 3.4 mmol/L (3.5-5.1)
[2019-04-07] MEDS: BLOOD SUGAR DIAGNOSTIC 1 EACH STRIP VI SCH ×2 (06:51→11:28)
--- NOTE | 2019-04-07 06:53 | NUR ---
MS RN NOTES PATIENT ASLEEP IN BED WITH NO DISTRESS NOTED. CALL LIGHT WITHIN REACH. ALL DUE MEDS GIVEN ORDERED WITH NO ASE NOTED. NO C/O PAIN OR DISCOMFORT. PERIPHERAL LINE INTACT AND PATENT. BED IN LOW LOCK SETTING. WILL ENDORSE TO ONCOMING SHIFT.
--- NOTE | 2019-04-07 07:26 | NUR ---
MS RN OPENING NOTES: RECEIVED PATIENT IN BED RESTING COMFORTABLY. A/O X 3. ON ROOM AIR AND TOLERATING WELL. IVF ON RIGHT UA MIDLINE #18 WITH NS @125 MLS/HR. PATENT AND INTACT. DENIES ANY PAIN OR DISCOMFORT AT THIS TIME. NOT IN ANY DISTRESS. SAFETY MEASURES IN PLACE, BED KEPT IN LOW, LOCKED POSITION, AND SIDE RAILS X 2UP. CALL LIGHT WITHIN EASY REACH. WILL CONTINUE TO MONITOR.
[2019-04-07] MEDS: PANTOPRAZOLE 40 MG TABLET.DR PO SCH (07:38)
[2019-04-07 08:00] VITALS: BP 132/82
[2019-04-07] MEDS ORDERED: POTASSIUM CHLORIDE 20 MEQ TAB.PRT.SR PO SCH (10:30)
--- NOTE | 2019-04-07 11:02 | NUR ---
JOSHUA faxed referral packet to intake at [facility] for voluntary psychiatric admission. .
[2019-04-07] MEDS ORDERED: INSU100C10 SQ (11:23)
--- NOTE | 2019-04-07 13:55 | NUR ---
JOSHUA faxed glucose level and addendum to D/C summary stating pt. is " medically cleared" to Sridevi in intake at [facility]. Sridevi informed JOSHUA that pt's glucose level needs to be under 250 and to do another glucose level test because the last one was from this am. JOSHUA informed GENE Washburn who will request another glucose level from the pt.
--- NOTE | 2019-04-07 15:01 | NUR ---
SW received a call back from [facility] in intake at [facility] informing SW that they will accept the pt. Accepting psychiatrist is . RN needs to call in nurse to nurse report to x [phone]. Per [facility], [facility] will provide transportation for the pt. within the next 2 hours. GENE Washburn and transplant case manager Devaughn have been updated with aforementioned information.
[2019-04-07 15:30] VITALS: BP 138/87
--- NOTE | 2019-04-07 15:48 | NUR ---
MS RN NOTES CALLED AND SPOKE TO MAYCOL ALVAREZ, FROM [facility] TO GIVE REPORTS REGARDING CRUZ GOYAL.
--- NOTE | 2019-04-07 16:05 | NUR ---
MS FINE CHEMICALS OPERATOR NOTES PATIENT DISCHARGED IN STABLE CONDITION. A/O X 3. ABLE TO MAKE NEEDS KNOWN. V/S TAKEN, STABLE AND RECORDED. PATIENT'S IV ACCESS REMOVED AND APPLIED PRESSURE DRESSING. NAME ARM BAND REMOVED. ALL BELONGINGS CHECKED AND SIGNED. HEALTH TEACHING/ DISCHARGED INSTRUCTIONS GIVEN AND VERBALIZED UNDERSTANDING. PATIENT LEFT UNIT VIA GURNEY WITH 2 EMT STAFF AT 16:00 WITH NO ACUTE SIGNS OF DISTRESS. PATIENT GOING TO [facility]. MAYCOL FROM [facility] MADE AWARE. CHARGE NURSE MADE AWARE OF DISCHARGED.
== END 2019-04-07 16:30 | DRG 420 ==
LOC: ER 19:41 → ICU 22:53 → TELE 04-06 00:02 → MED 04-06 13:00
PROVIDERS: ADMIT Internal Medicine; ATTEND Nurse Practitioner Acute Care
PROC: 05H933Z Insertion of Infusion Device into Right Brachial Vein, Percutaneous Approach (ICD-10-PCS; principal; 2019-04-05)
DX: E11.00 Type 2 diabetes mellitus with hyperosmolarity without nonketotic hyperglycemic-hyperosmolar coma (NKHHC) (principal); E11.65 Type 2 diabetes mellitus with hyperglycemia; E87.1 Hypo-osmolality and hyponatremia; E78.5 Hyperlipidemia, unspecified; Z59.0 Homelessness; Z91.14 Patient's other noncompliance with medication regimen; F41.9 Anxiety disorder, unspecified; E87.6 Hypokalemia; F32.9 Major depressive disorder, single episode, unspecified; R10.9 Unspecified abdominal pain
CPT/HCPCS: 36415; 36600; 80048-TC; 80061-TC; 80076-TC; 81000-TC; 82010-TC; 82272-TC; 82803-TC; 82962-TC; 83690-TC; 83735-TC; 84100-TC; 85025-TC; 85610-TC; 85730-TC; 87081-TC; C9113; G0378; J1815; J7030

== ENCOUNTER 2019-12-08 23:53 | Inpatient (IN) | payer OTHER ==
[~2019-12-08] VITALS: Ht 188 cm; Wt 84.4 kg
[~2019-12-08 23:53] MED LIST changes: +DIVA500T2 PO; +ZOLP5TAB2 PO
--- NOTE | 2019-12-09 00:03 | NUR ---
BIBS TOTHE ER FOR C/O HIGH BLOOD SUGAR. PT REPORTED "NOT FEELING GOOD" AND RAN OUT OF INSULINE. PT AMBULATORY TO ER BED 1. A, OX4. - ALOC, -AMS. -SOB. REPORTED BEING IN AND OUT OF HOSPITAL FOR THE SAME COMPLAINT. FSBS: 468. REPORTED TO THE MD. PT WAS PLACED ON A MONITOR . VSS.
[2019-12-09 00:19] LABS: BASOPHILS # (AUTO) 0.1 /CMM (0.0-0.2); BASOPHILS % (AUTO) 1.6 % (0.0-2.0); EOSINOPHILS % (AUTO) 3.7 % (0.0-6.0); HEMATOCRIT 42 % (39-51); HEMOGLOBIN 14.2 g/dL (13.5-17.5); LYMPHOCYTES # (AUTO) 2.1 /CMM (0.8-4.8); LYMPHOCYTES % (AUTO) 32.9 % (20.0-44.0); MEAN CORPUSCULAR HGB CONC 34 g/dl (31.0-36.0); MEAN CORPUSCULAR VOLUME 91 fL (80-96); MONOCYTES # (AUTO) 0.6 /CMM (0.1-1.30); MONOCYTES % (AUTO) 9.2 % (2.0-12.0); NEUTROPHILS # (AUTO) 3.4 /CMM (1.8-8.9); NEUTROPHILS % (AUTO) 52.6 % (43.0-81.0); PLATELET COUNT (AUTO) 240 /CMM (150-450); RED BLOOD CELL COUNT(AUTO) 4.61 MIL/uL (4.5-6.0); WHITE BLOOD COUNT (AUTO) 6.5 K/uL (4.3-11.0)
[2019-12-09] MEDS ORDERED: IV NS 0.9% 1,000 ML BAG IV ONE (00:30)
[2019-12-09 00:35] LABS: ALBUMIN 4.1 g/dL (3.4-5.0); BILIRUBIN,DIRECT 0.1 mg/dL (0.0-0.2); BILIRUBIN,TOTAL 0.4 mg/dL (0.2-1.0); CALCIUM, SERUM 8.8 mg/dL (8.5-10.1); CREATININE 0.8 mg/dL (0.6-1.3); POTASSIUM 4.1 mmol/L (3.5-5.1); TOTAL PROTEIN, SERUM 7.3 g/dL (6.4-8.2)
--- NOTE | 2019-12-09 00:45 | NUR ---
PT REPORTED HE IS ONLY TRAKING INSULINE AND PRN TRAMADOL AT HOME. NO OTHER HOME MEDS REPORTED .
--- NOTE | 2019-12-09 01:00 | NUR ---
SPOKE TO ISAIAS DOCUMENTATION SPEC FROM PT'S [employer] AND RECEIVED A VERBAL AUTH TO ADMIT THE PT. CLINICAL WAS FAXED.
--- NOTE | 2019-12-09 01:10 | NUR ---
FSBS: 397 DR CAPONE MADE AWARE W/ NO NEW ORDER
--- NOTE | 2019-12-09 01:51 | NUR ---
REPORT GIVEN TO LIZA ON FIRST FLOOR
--- NOTE | 2019-12-09 01:53 | NUR ---
PAGED BRICE AGAIN
--- NOTE | 2019-12-09 01:55 | NUR ---
ER DOC ON PHONE WITH HOSPITALIST
--- NOTE | 2019-12-09 01:55 | NUR ---
Received report from Lorrie in ER for SANDEEP.
[2019-12-09] MEDS ORDERED: ONDANSETRON HCL/PF 4 MG/2 ML VIAL ONE (01:57)
[2019-12-09] MEDS ORDERED: MORPHINE SULFATE INJ 4 MG/ML DISP.SYRIN ONE (01:58)
[2019-12-09] MEDS ORDERED: ONDANSETRON HCL/PF 4 MG/2 ML VIAL IVP ONE (02:00)
[2019-12-09] MEDS ORDERED: MORPHINE SULFATE INJ 2 MG/ML DISP.SYRIN IV ONE (02:00)
--- NOTE | 2019-12-09 02:05 | NUR ---
pt was transferred to the first floor in stable condition.
--- NOTE | 2019-12-09 02:06 | NUR ---
RN OPENING NOTES: Pt transferred to unit via wheelchair accompanied by RN and another staff. Pt ambulated on his own to bed, changed into gown and is now resting. Pt is full code and has NKA. On room air, no respiratory distress noted. A&Ox4 and ambulatory. Has IV site on left wrist #20, patent and flushed. Dressing c/d/i. Dr. Tobias malloy and is aware that pt is on the floor. Vital signs: BP 117/46, P 95 RR 18, T 97.3, O2 98% RA. Safety measures in place. Bed in lowest and locked position, side rails up x2, call light within reach. Will continue to monitor.
[2019-12-09 02:30] VITALS: BP 118/67
[2019-12-09] MEDS ORDERED: DEXTROSE 50%-WATER 50 ML DISP.SYRIN IV PRN (03:30)
[2019-12-09] MEDS ORDERED: ONDANSETRON HCL/PF 4 MG/2 ML VIAL IVP PRN (03:30)
[2019-12-09 04:00] VITALS: BP 118/67
[2019-12-09] MEDS: IV NS 0.9% 1,000 ML IV PRN ×3 (04:32→21:24)
--- NOTE | 2019-12-09 05:03 | NUR ---
RN NOTES: Sliding scale insulin held due to NPO status
[2019-12-09] MEDS: BLOOD SUGAR DIAGNOSTIC 1 EACH STRIP IN SCH ×3 (05:22→18:09)
[2019-12-09] MEDS: MORPHINE SULFATE INJ 2 MG/ML DISP.SYRIN IV PRN ×2 (06:15→18:08)
[2019-12-09 06:47] LABS: EOSINOPHILS % (AUTO) 4.7 % (0.0-6.0); HEMATOCRIT 39 % (39-51); HEMOGLOBIN 13.4 g/dL (13.5-17.5); LYMPHOCYTES % (AUTO) 45.4 % (20.0-44.0); MEAN CORPUSCULAR HGB CONC 34 g/dl (31.0-36.0); MEAN CORPUSCULAR VOLUME 91 fL (80-96); MONOCYTES # (AUTO) 0.4 /CMM (0.1-1.30); MONOCYTES % (AUTO) 8.7 % (2.0-12.0); NEUTROPHILS # (AUTO) 1.8 /CMM (1.8-8.9); NEUTROPHILS % (AUTO) 40.2 % (43.0-81.0); PLATELET COUNT (AUTO) 205 /CMM (150-450); RED BLOOD CELL COUNT(AUTO) 4.28 MIL/uL (4.5-6.0); WHITE BLOOD COUNT (AUTO) 4.5 K/uL (4.3-11.0)
--- NOTE | 2019-12-09 06:55 | NUR ---
RN CLOSING NOTES: Pt resting in bed, A&Ox4. On room air, tolerating well. No respiratory distress noted during shift. No acute changes noted during shift. Pt ambulatory w/ assist. NPO status. Has IV site on left wrist #20 patent and flushed. Dressing c/d/i. Has 0.9% NS running at 125cc/hr. Tolerating well. Safety measures in place. Bed in lowest and locked position, side rails up x2, call light within reach. Will endorse to AM nurse for SANDEEP.
[2019-12-09 07:10] LABS: ALBUMIN 3.3 g/dL (3.4-5.0); BILIRUBIN,TOTAL 0.2 mg/dL (0.2-1.0); CALCIUM, SERUM 8.2 mg/dL (8.5-10.1); CREATININE 0.6 mg/dL (0.6-1.3); PHOSPHORUS 3.4 mg/dL (2.5-4.9); POTASSIUM 3.5 mmol/L (3.5-5.1); TOTAL PROTEIN, SERUM 6.1 g/dL (6.4-8.2)
[2019-12-09 07:11] LABS: THYROID STIMULATING HORMONE 1.761 uIU/mL (0.358-3.74)
--- NOTE | 2019-12-09 07:30 | NUR ---
RN OPENING NOTES PATIENT IN STABLE CONDITION, ADMITTED LAST NIGHT DUE TO HYPERGLYCEMIA. RUNNING IV NS @ 125MLS/HR. ON ROOM AIR SATURATING WELL, NO S.S OF RESPIRATORY DISTRESS. A/O X4. ABLE TO MAKE NEEDS KNOWN. ALL PATIENT NEEDS MET, PT IS COMFORTABLE AT THE MOMENT, SAFETY MAINTAINED, CALL LIGHT WITHIN REACH, WILL CONTINUE TO MONITOR.
[2019-12-09 08:00] VITALS: BP 110/70
[2019-12-09] MEDS: DIVALPROEX SODIUM 500 MG TABLET.DR PO SCH ×2 (09:41→17:52)
[2019-12-09] MEDS: PANTOPRAZOLE 40 MG VIAL IV SCH (09:43)
[2019-12-09 16:00] VITALS: BP 142/76
[2019-12-09] MEDS: METFORMIN 500 MG TABLET PO SCH (17:52)
[2019-12-09] MEDS: INSULIN REGULAR, HUMAN 100 UNIT/ML 3 ML VIAL SQ PRN (18:06)
--- NOTE | 2019-12-09 18:33 | NUR ---
RN NOTE INSULIN LISPRO LATE BECAUSE IT IS NOT AVAILABLE. CALLED PHARMACY TO HAVE THEM BRING IT UP AT 1720. WILL ENDORSE TO PM NURSE.
[2019-12-09] MEDS: INSULIN LISPRO/ASPART 100 UNIT/ML CARTRIDGE SQ SCH (18:50)
--- NOTE | 2019-12-09 19:30 | NUR ---
MS RN OPENING NOTE RECEIVED PATIENT IN BED. A/O X4. TOLERATION ROOM AIR. RESPIRATIONS ARE ARMINDA AND UNLABORED. NO S/S SOB NOTED. DENIES PAIN AT THIS TIME. IN NO APPARENT DISTRESS. IV ACCESS IN L WRIST #20 RUNNING NS@125ML/HR. BED IS LOW AND LOCKED, HOB ELEVATED IN SEMI FOWLERS, SIDE RIALS UP X2,.CALL LIGHT WITHIN REACH. WILL CONTINUE TO MONITOR.
[2019-12-09 20:00] VITALS: BP 121/74
--- NOTE | 2019-12-09 20:25 | NUR ---
RN CLOSING NOTES INSULIN LISPRO WAS ADMINISTERED ORDERED, A LITTLE LATE DUE TO NOT BEING AVAILABLE ON TIME. NO ACUTE CHANGES TO PATIENT CONDITION DURING MY SHIFT. ALL PATIENT NEEDS MET, CALL LIGHT WITHIN REACH, SAFETY MAINTAINED, ENDORSED TO PM NURSE TO CONTINUE CARE.
--- NOTE | 2019-12-09 21:30 | NUR ---
MS RN NOTE DID NOT ADMINISTER LANTUS 40 UNITS D/T PATIENT BS 99. WILL CONTINUE TO MONITOR.
[2019-12-09] MEDS ORDERED: QUETIAPINE FUMARATE 100 MG TABLET PO SCH (22:00)
[2019-12-09] MEDS ORDERED: INSULIN GLARGINE, 100 UNIT/ML CARTRIDGE SQ SCH (22:00)
[2019-12-09] MEDS ORDERED: ATORVASTATIN 40 MG TABLET PO SCH (22:00)
[2019-12-10] VITALS: BP 121/74
--- NOTE | 2019-12-10 00:15 | NUR ---
MS RN NOTE PATIENT BLOOD SUGAR IS 52. GAVE OJ WITH ONE PACKET OF CANE SUGAR. WILL REASSESS BLOOD SUGAR IN 30 MINS.
[2019-12-10] MEDS: BLOOD SUGAR DIAGNOSTIC 1 EACH STRIP IN SCH ×3 (00:28→12:37)
--- NOTE | 2019-12-10 00:45 | NUR ---
MS RN NOTE PATIENT BLOOD SUGAR 62. GAVE ANOTHER OJ WITH ONE PACKET OF CANE SUGAR. WILL REASSESS IN 30 MINS
[2019-12-10 04:00] VITALS: BP 116/70
[2019-12-10] MEDS: IV NS 0.9% 1,000 ML IV PRN (05:24)
[2019-12-10] MEDS: INSULIN REGULAR, HUMAN 100 UNIT/ML 3 ML VIAL SQ PRN (05:33)
--- NOTE | 2019-12-10 06:08 | NUR ---
MS RN CLOSING NOTE PATIENT IN BED. A/O X4. TOLERATION ROOM AIR. RESPIRATIONS ARE EVEN AND UNLABORED. NO SOB NOTED. NO C/O PAIN THROUGHOUT SHIFT. NO DISTRESS NOTED. IV ACCESS MAINTAINED IN L WRIST #20 RUNNING NS@125ML/HR. BED IS LOW AND LOCKED, HOB ELEVATED IN SEMI FOWLERS, SIDE RIALS UP X2.CALL LIGHT WITHIN REACH. WILL ENDORSE TO NEXT SHIFT.
[2019-12-10] MEDS: MORPHINE SULFATE INJ 2 MG/ML DISP.SYRIN IV PRN (06:22)
--- NOTE | 2019-12-10 06:22 | NUR ---
MS RN NOTE ADMINISTERED PRN MORPHINE 2MG FOR PAIN 05/26 IN ABDOMEN. WILL CONTINUE TO MONITOR.
[2019-12-10 07:10] LABS: BASOPHILS % (AUTO) 0.9 % (0.0-2.0); EOSINOPHILS % (AUTO) 5.6 % (0.0-6.0); HEMATOCRIT 41 % (39-51); HEMOGLOBIN 13.9 g/dL (13.5-17.5); LYMPHOCYTES # (AUTO) 1.8 /CMM (0.8-4.8); LYMPHOCYTES % (AUTO) 45.1 % (20.0-44.0); MEAN CORPUSCULAR HGB CONC 34 g/dl (31.0-36.0); MEAN CORPUSCULAR VOLUME 91 fL (80-96); MONOCYTES # (AUTO) 0.3 /CMM (0.1-1.30); MONOCYTES % (AUTO) 7.3 % (2.0-12.0); NEUTROPHILS # (AUTO) 1.6 /CMM (1.8-8.9); NEUTROPHILS % (AUTO) 41.1 % (43.0-81.0); PLATELET COUNT (AUTO) 199 /CMM (150-450); RED BLOOD CELL COUNT(AUTO) 4.53 MIL/uL (4.5-6.0); WHITE BLOOD COUNT (AUTO) 3.9 K/uL (4.3-11.0)
--- NOTE | 2019-12-10 07:30 | NUR ---
CYNTHIA RN OPENING NOTE Received pt asleep in bed. Appears calm and relaxed. No signs of distress. Reassesment for Morphine Inj done. No co pain or discomfort. Pt has L Wrist Peripheral line. Flushed with saline, patent. On Humalog 5u. Checked BS prior administration. Food tray at bedside. Patient is independent. Call light within reach. Bed on locked and lowest position. Safety measure reinforced. Will continue to monitor.
[2019-12-10 08:00] VITALS: BP 131/79
[2019-12-10 08:02] LABS: CALCIUM, SERUM 8.4 mg/dL (8.5-10.1); CREATININE 0.6 mg/dL (0.6-1.3); PHOSPHORUS 4.3 mg/dL (2.5-4.9)
[2019-12-10] MEDS: INSULIN LISPRO/ASPART 100 UNIT/ML CARTRIDGE SQ SCH ×2 (08:10→12:38)
[2019-12-10] MEDS: PANTOPRAZOLE 40 MG VIAL IV SCH (08:53)
[2019-12-10] MEDS: DIVALPROEX SODIUM 500 MG TABLET.DR PO SCH (08:53)
[2019-12-10] MEDS: METFORMIN 500 MG TABLET PO SCH (08:53)
--- NOTE | 2019-12-10 15:38 | NUR ---
YOVANI was informed by caser Sayra regarding pt is requesting homeless senior care list. ICE SCULPTOR spoke with the pt. via telephone . Per pt, he was living with roommates but is not able to go back there anymore. Pt. currently works at [employer]. ICE SCULPTOR informed pt that shelters are open 08/04 and will leave the list of shelters in his chart for RN Sadnra to give to him upon discharge. ICE SCULPTOR updated GENE Baez with aforementioned information and pt will require a TAP card upon discharge. ICE SCULPTOR placed [facility] senior care list and 08/04 recreational centers senior care list in pt's chart to give to the pt.
--- NOTE | 2019-12-10 16:25 | NUR ---
RN CLOSING/DISCHARGE NOTE Patient was given discharge instructions. Informed to follow up with primary doctor. Gave list of medications. Removed IV no bleeding noted. Had belonging formed signed. Gave tap card for bus. Patient walked to lobby in stable condition.
== END 2019-12-10 16:20 | disposition home or self-care (01) | DRG 420 ==
LOC: ER 23:56 → MEDSG1 12-09 01:42
PROVIDERS: ADMIT Nurse Practitioner Acute Care; ATTEND Nurse Practitioner Acute Care
DX: E11.65 Type 2 diabetes mellitus with hyperglycemia (principal); E78.5 Hyperlipidemia, unspecified; F31.9 Bipolar disorder, unspecified; Z79.4 Long term (current) use of insulin; Z79.84 Long term (current) use of oral hypoglycemic drugs
CPT/HCPCS: 36415; 80048-TC; 80053-TC; 80061-TC; 80076-TC; 82962-TC; 83690-TC; 83735-TC; 84100-TC; 84443-TC; 85025-TC; 87081-TC; C9113; G0378; J1815; J2270; J2405; J7030; J7040

== ENCOUNTER 2019-12-23 22:50 | Emergency (ER) | payer OTHER ==
[~2019-12-23] VITALS: Ht 188 cm; Wt 81.6 kg
--- NOTE | 2019-12-23 23:02 | NUR ---
PT CAME TO THE ED C/O COUGH, BODYACHES, AND SORETHROAT X 1 DAY. PT AAOX4, VSS, RR EVEN AND UNLABORED ON RA W NAD NOTED. PT CONNECTED TO THE MONITOR AND POX.
[2019-12-23] MEDS ORDERED: IV NS 0.9% 500 ML BAG IV ONE (23:30)
--- NOTE | 2019-12-23 23:35 | NUR ---
BLOOD DRAWN AND SENT TO LAB
--- NOTE | 2019-12-23 23:35 | NUR ---
XRAY AT BEDSIDE
[2019-12-23 23:40] LABS: BASOPHILS # (AUTO) 0.1 /CMM (0.0-0.2); BASOPHILS % (AUTO) 0.9 % (0.0-2.0); EOSINOPHILS % (AUTO) 2.2 % (0.0-6.0); HEMATOCRIT 41 % (39-51); HEMOGLOBIN 14.4 g/dL (13.5-17.5); LYMPHOCYTES # (AUTO) 2.2 /CMM (0.8-4.8); LYMPHOCYTES % (AUTO) 33.2 % (20.0-44.0); MEAN CORPUSCULAR HGB CONC 35 g/dl (31.0-36.0); MEAN CORPUSCULAR VOLUME 90 fL (80-96); MONOCYTES # (AUTO) 0.6 /CMM (0.1-1.30); MONOCYTES % (AUTO) 8.9 % (2.0-12.0); NEUTROPHILS # (AUTO) 3.7 /CMM (1.8-8.9); NEUTROPHILS % (AUTO) 54.8 % (43.0-81.0); PLATELET COUNT (AUTO) 190 /CMM (150-450); RED BLOOD CELL COUNT(AUTO) 4.57 MIL/uL (4.5-6.0); WHITE BLOOD COUNT (AUTO) 6.8 K/uL (4.3-11.0)
[2019-12-23 23:49] LABS: BILIRUBIN,DIRECT 0.1 mg/dL (0.0-0.2); BILIRUBIN,TOTAL 0.4 mg/dL (0.2-1.0); CALCIUM, SERUM 9.5 mg/dL (8.5-10.1); CREATININE 0.8 mg/dL (0.6-1.3); TOTAL PROTEIN, SERUM 7.4 g/dL (6.4-8.2)
[2019-12-24 00:29] VITALS: BP 131/71
--- NOTE | 2019-12-24 00:29 | NUR ---
Patient discharged to home in stable condition. Written and verbal after care instructions given. Patient verbalizes understanding of instruction.IV removed. Catheter intact and site benign. Pressure and 4x4 applied to site. No bleeding noted.
== END 2019-12-24 00:30 | disposition home or self-care (01) ==
LOC: ER 22:57
DX: B34.9 Viral infection, unspecified (principal); E11.9 Type 2 diabetes mellitus without complications; E78.00 Pure hypercholesterolemia, unspecified; F31.9 Bipolar disorder, unspecified; Z79.4 Long term (current) use of insulin; Z79.899 Other long term (current) drug therapy; Z79.84 Long term (current) use of oral hypoglycemic drugs
CPT/HCPCS: 36415; 71045; 80048; 80076; 82962; 83690; 85025; 87040 ×2; 99284; J7040

== ENCOUNTER 2020-03-22 21:54 | Emergency (ER) | payer OTHER ==
[~2020-03-22] VITALS: Ht 188 cm; Wt 80.3 kg
--- NOTE | 2020-03-22 22:01 | NUR ---
PT AAOX4. AMBULATORY WITH STEADY GAIT. BIBSELF C/O SI WITH PLAN TO OD ON PILLS, -HI. PT PLACED IN BED 14, ON MONITOR AND PULSE OX. VSS. PT BELONINGS PLACED IN LOCKER. NO ACUTE DISTRESS NOTED. VSS. AWAITING MD FOR EVAL AND ORDERS.
--- NOTE | 2020-03-22 22:01 | NUR ---
URINE PROVIDED. SENT TO LAB
[2020-03-22 22:20] LABS: BASOPHILS % (AUTO) 0.3 % (0.0-2.0); EOSINOPHILS % (AUTO) 4.2 % (0.0-6.0); HEMATOCRIT 44 % (39-51); HEMOGLOBIN 14.6 g/dL (13.5-17.5); LYMPHOCYTES % (AUTO) 34.2 % (20.0-44.0); MEAN CORPUSCULAR HGB CONC 34 g/dl (31.0-36.0); MEAN CORPUSCULAR VOLUME 87 fL (80-96); MONOCYTES # (AUTO) 0.3 /CMM (0.1-1.30); MONOCYTES % (AUTO) 5.9 % (2.0-12.0); NEUTROPHILS # (AUTO) 3.2 /CMM (1.8-8.9); NEUTROPHILS % (AUTO) 55.4 % (43.0-81.0); PLATELET COUNT (AUTO) 205 /CMM (150-450); RED BLOOD CELL COUNT(AUTO) 5.01 MIL/uL (4.5-6.0); WHITE BLOOD COUNT (AUTO) 5.8 K/uL (4.3-11.0)
[2020-03-22 22:35] LABS: ALANINE AMINOTRANSFERASE 16 U/L (12-78); ALBUMIN 3.8 g/dL (3.4-5.0); ALCOHOL, BLOOD 160 mg/dL (0-0); ALKALINE PHOSPHATASE 102 U/L (46-116); ASPARTATE AMINOTRANSFERASE 12 U/L (15-37); BILIRUBIN,DIRECT 0.1 mg/dL (0.0-0.2); BILIRUBIN,TOTAL 0.2 mg/dL (0.2-1.0); CALCIUM, SERUM 8.9 mg/dL (8.5-10.1); CARBON DIOXIDE 24 mmol/L (21-32); CHLORIDE 101 mmol/L (98-107); CREATININE 0.8 mg/dL (0.6-1.3); POTASSIUM 3.5 mmol/L (3.5-5.1); SODIUM SERUM 138 mmol/L (136-145); TOTAL PROTEIN, SERUM 6.7 g/dL (6.4-8.2); UREA NITROGEN, BLOOD 8 mg/dL (7-18)
[2020-03-22 22:42] LABS: APPEARANCE,URINE Clear (CLEAR); BILIRUBIN,URINE Negative (NEGATIVE); BLOOD, URINE Negative Ery/uL (NEGATIVE); COLOR,URINE Yellow (YELLOW); KETONES,URINE 15 (NEGATIVE); LEUKOCYTE ESTERASE ,URINE Negative (NEGATIVE); NITRITE, URINE Negative (NEGATIVE); PROTEIN,URINE Negative (NEGATIVE); UGLUCOSE 500 MG/DL mg/dL (NEGATIVE); UROBILINOGEN,URINE 0.2 EU/dL (0.2)
[2020-03-22 22:58] LABS: BACTERIA,URINE None seen /HPF (None Seen); RBC,URINE 0-2 /HPF (0-2); SQUAMOUS EPITHELIAL CELL,UR Few /HPF (None Seen); WBC,URINE 0-2 /HPF (0-3)
[2020-03-22 23:00] LABS: GLUCOSE 447 mg/dL (74-106); SALICYLATE 1.1 mg/dL (2.8-20.0)
[2020-03-22 23:01] LABS: ACETAMINOPHEN < 2 ug/ml (10-30)
[2020-03-23] MEDS ORDERED: INSULIN REGULAR, HUMAN 100 UNIT/ML 10 ML VIAL ONE (00:06)
[2020-03-23] MEDS ORDERED: INSULIN REGULAR, HUMAN 100 UNIT/ML 10 ML VIAL SQ ONE (00:30)
--- NOTE | 2020-03-23 01:09 | NUR ---
PT ASLEEP/ VSS. SITTER AT BEDSIDE
--- NOTE | 2020-03-23 03:40 | NUR ---
Pt ambualted to the restroom.
[2020-03-23] MEDS ORDERED: TDAP [DIPH/PERTUSSIS/TET] 0.5 ML VIAL IM ONE (04:30)
--- NOTE | 2020-03-23 06:38 | NUR ---
Intake called, waiting for House soup to make decision.
--- NOTE | 2020-03-23 08:00 | NUR ---
DR. GONZALEZ AT BEDSIDE FOR RE-EVAL. PT STATED HE IS NOT SUICIDAL ANYMORE AND WANTS TO BE DISCHARGED.
[2020-03-23 08:17] VITALS: BP 121/68
--- NOTE | 2020-03-23 08:17 | NUR ---
Patient discharged to home in stable condition. Written and verbal after care instructions given. Patient verbalizes understanding of instruction.
== END 2020-03-23 08:20 | disposition home or self-care (01) ==
LOC: ER 21:56
DX: R45.851 Suicidal ideations (principal); F31.9 Bipolar disorder, unspecified; E11.9 Type 2 diabetes mellitus without complications; E78.00 Pure hypercholesterolemia, unspecified; Z98.890 Other specified postprocedural states; Z79.4 Long term (current) use of insulin; Z79.899 Other long term (current) drug therapy
CPT/HCPCS: 36415 ×2; 80048; 80076; 80305; 80307 ×2; 80329; 81001; 82962 ×2; 85025; 96372; 99284; G0480; J1815; 81000-TC

== ENCOUNTER 2020-04-04 22:03 | Emergency (ER) | payer OTHER ==
[~2020-04-04] VITALS: Ht 188 cm; Wt 81.6 kg
[2020-04-04 22:07] VITALS: BP 148/97
--- NOTE | 2020-04-04 22:19 | NUR ---
Patient given written and verbal discharge instructions. Patient verbalizes understanding of instructions. Patient is ambulatory with steady gait. Refuses offer of skilled nursing placement. Snacks provided. pt has proper clothes on
== END 2020-04-04 22:23 | disposition home or self-care (01) ==
LOC: ER 22:07
DX: F19.90 Other psychoactive substance use, unspecified, uncomplicated (principal); E11.9 Type 2 diabetes mellitus without complications; E78.00 Pure hypercholesterolemia, unspecified; Z79.4 Long term (current) use of insulin; Z79.899 Other long term (current) drug therapy

== ENCOUNTER 2020-04-06 15:33 | Emergency (ER) | payer OTHER ==
[~2020-04-06] VITALS: Ht 188 cm; Wt 80.3 kg
--- NOTE | 2020-04-06 15:55 | NUR ---
patient came in to the er c/o right hip pain from prolonged standing 10/10 pain scale. On room air, breathing evenly and unlabored. kept comfortable, will continue to monitor accordingly.
[2020-04-06] MEDS ORDERED: oxyCODONE/APAP (5/325 MG) 1 UDTAB TABLET PO ONE (16:00)
[2020-04-06] MEDS ORDERED: oxyCODONE/APAP (5/325 MG) 1 UDTAB TABLET ONE (16:07)
[2020-04-06 16:34] VITALS: BP 145/99
--- NOTE | 2020-04-06 16:35 | NUR ---
Patient discharged to home in stable condition. Written and verbal after care instructions given. Patient verbalizes understanding of instruction.
== END 2020-04-06 16:35 | disposition home or self-care (01) ==
LOC: ER 15:33
DX: M25.551 Pain in right hip (principal); E11.9 Type 2 diabetes mellitus without complications; E78.00 Pure hypercholesterolemia, unspecified; Z98.890 Other specified postprocedural states; Z79.4 Long term (current) use of insulin; Z79.899 Other long term (current) drug therapy
CPT/HCPCS: 73502

== ENCOUNTER 2020-05-29 08:15 | Emergency (ER) | payer OTHER ==
[~2020-05-29] VITALS: Ht 188 cm; Wt 97.5 kg
--- NOTE | 2020-05-29 08:15 | NUR ---
PT BIB SELF C/O FLU LIKE SYMPTOMS SINCE SATURDAY. PT IS AAOX4, NOT IN RESPIRATORY DISTRESS, HOOKED TO GEOPOLITICS TEACHER, KEPT RESTED AND COMFORTABLE. WILL CONTINUE TO MONITOR.
[2020-05-29] MEDS ORDERED: IV NS 0.9% 1,000 ML IV ONE (08:32)
--- NOTE | 2020-05-29 08:40 | NUR ---
PT IV LINE ESTABLISHED BLOOD DRAWN AND SENT TO LAB.
[2020-05-29] MEDS ORDERED: KETOROLAC TROMETHAMINE 15 MG/ML VIAL ONE (08:43)
[2020-05-29] MEDS ORDERED: DEXAMETHASONE SOD PHOSPHATE 10 MG/ML VIAL ONE (08:43)
--- NOTE | 2020-05-29 08:45 | NUR ---
COVID SPECIMEN COLLECTED AND SENT TO LAB.
--- NOTE | 2020-05-29 08:49 | NUR ---
TRASH HAULER AT BEDSIDE FOR XRAY.
[2020-05-29 08:52] LABS: BASOPHILS % (AUTO) 0.2 % (0.0-2.0); EOSINOPHILS % (AUTO) 0.2 % (0.0-6.0); HEMATOCRIT 41 % (39-51); LYMPHOCYTES # (AUTO) 0.6 /CMM (0.8-4.8); MEAN CORPUSCULAR HGB CONC 34 g/dl (31.0-36.0); MEAN CORPUSCULAR VOLUME 86 fL (80-96); MONOCYTES # (AUTO) 0.9 /CMM (0.1-1.30); NEUTROPHILS # (AUTO) 8.8 /CMM (1.8-8.9); NEUTROPHILS % (AUTO) 84.6 % (43.0-81.0); PLATELET COUNT (AUTO) 193 /CMM (150-450); RED BLOOD CELL COUNT(AUTO) 4.72 MIL/uL (4.5-6.0); WHITE BLOOD COUNT (AUTO) 10.4 K/uL (4.3-11.0)
[2020-05-29] MEDS ORDERED: KETOROLAC TROMETHAMINE INJ 30 MG/ML VIAL IV ONE (09:00)
[2020-05-29] MEDS ORDERED: DEXAMETHASONE SOD PHOSPHATE 10 MG/ML VIAL IV ONE (09:00)
[2020-05-29 09:13] LABS: ALBUMIN 3.8 g/dL (3.4-5.0); BILIRUBIN,TOTAL 0.7 mg/dL (0.2-1.0); CREATININE 0.9 mg/dL (0.6-1.3); POTASSIUM 4.1 mmol/L (3.5-5.1); TOTAL PROTEIN, SERUM 7.3 g/dL (6.4-8.2)
--- NOTE | 2020-05-29 10:13 | NUR ---
CALLED LAB FOR COVID ANTIGEN RESULT.
--- NOTE | 2020-05-29 10:22 | NUR ---
LAB CALLED COVID-19 NEG. (-)
--- NOTE | 2020-05-29 11:05 | NUR ---
IV removed. Catheter intact and site benign. Pressure and 4x4 applied to site. No bleeding noted. Patient discharged to home in stable condition. Written and verbal after care instructions given. Patient verbalizes understanding of instruction.
[2020-05-29 11:06] VITALS: BP 143/86
== END 2020-05-29 11:06 | disposition home or self-care (01) ==
LOC: ER 08:18
DX: B34.9 Viral infection, unspecified (principal); R51 Headache; R05 Cough; Z20.828 Contact with and (suspected) exposure to other viral communicable diseases; E11.65 Type 2 diabetes mellitus with hyperglycemia; E78.00 Pure hypercholesterolemia, unspecified; F31.9 Bipolar disorder, unspecified; Z79.4 Long term (current) use of insulin; Z79.899 Other long term (current) drug therapy
CPT/HCPCS: 36415; 71045; 80053; 83615; 84145; 85025; 87040; 87426; 96361; 96374; 96375; 99284; C9803; J1100; J1885; J7030

== ENCOUNTER 2020-05-30 18:43 | Inpatient (IN) | payer OTHER ==
[~2020-05-30] VITALS: Ht 185.4 cm; Wt 78.9 kg
[2020-05-30] MEDS: BLOOD SUGAR DIAGNOSTIC 1 EACH STRIP IN SCH ×4 (07:30→23:12)
[2020-05-30] MEDS ORDERED: IV NS 0.9% 1,000 ML BAG IV ONE (19:00)
--- NOTE | 2020-05-30 19:20 | NUR ---
MEMO FROM HOME TO ER BED 7. AAOX4. NOT IN RESP DISTRESS. BROUGHT IN FOR HYPERGLYCEMIA. EMS REPORTS THAT BS READING THEY GOT WAS "HI". PT IS ALSO REPORTING THAT HE IS HAVING UNCONTROLLED TREMORS. NIRMAL MARINO AT BEDSIDE FRO EVAL. ORDERS RECEIVED NOTED AND CARRIED OUT. IV LINE ESTABLISHED ON LFA 20G. BLOOD DRAWN AND GIVEN TO BRIM SETTER AT BEDSIDE. EKG DONE
[2020-05-30 19:24] LABS: BASOPHILS % (AUTO) 0.5 % (0.0-2.0); HEMATOCRIT 40 % (39-51); HEMOGLOBIN 13.4 g/dL (13.5-17.5); LYMPHOCYTES # (AUTO) 0.3 /CMM (0.8-4.8); LYMPHOCYTES % (AUTO) 3.5 % (20.0-44.0); MEAN CORPUSCULAR HGB CONC 34 g/dl (31.0-36.0); MEAN CORPUSCULAR VOLUME 88 fL (80-96); MONOCYTES # (AUTO) 0.4 /CMM (0.1-1.30); MONOCYTES % (AUTO) 5.2 % (2.0-12.0); NEUTROPHILS # (AUTO) 7.8 /CMM (1.8-8.9); NEUTROPHILS % (AUTO) 90.8 % (43.0-81.0); PLATELET COUNT (AUTO) 169 /CMM (150-450); WHITE BLOOD COUNT (AUTO) 8.6 K/uL (4.3-11.0)
--- NOTE | 2020-05-30 19:27 | NUR ---
US AT BEDSIDE.
[2020-05-30] MEDS ORDERED: ONDANSETRON HCL/PF 4 MG/2 ML VIAL ONE (19:28)
[2020-05-30] MEDS ORDERED: INSULIN REGULAR, HUMAN 100 UNIT/ML 10 ML VIAL ONE (19:29)
[2020-05-30] MEDS ORDERED: MORPHINE SULFATE INJ 4 MG/ML DISP.SYRIN ONE (19:29)
[2020-05-30] MEDS ORDERED: INSULIN REGULAR, HUMAN 100 UNIT/ML 10 ML VIAL SQ ONE (19:30)
[2020-05-30] MEDS ORDERED: MORPHINE SULFATE INJ 2 MG/ML DISP.SYRIN IV ONE (19:30)
[2020-05-30] MEDS ORDERED: ONDANSETRON HCL/PF 4 MG/2 ML VIAL IV ONE (19:30)
[2020-05-30 19:34] LABS: APPEARANCE,URINE Clear (CLEAR); BILIRUBIN,URINE Negative (NEGATIVE); BLOOD, URINE Small Ery/uL (NEGATIVE); COLOR,URINE Yellow (YELLOW); KETONES,URINE >=160 (NEGATIVE); LEUKOCYTE ESTERASE ,URINE Negative (NEGATIVE); NITRITE, URINE Negative (NEGATIVE); PH,URINE 5.5 (5.0-8.0); PROTEIN,URINE 100 mg/dl (NEGATIVE); UGLUCOSE 500 MG/DL mg/dL (NEGATIVE); UROBILINOGEN,URINE 0.2 EU/dL (0.2)
[2020-05-30 19:45] LABS: MAGNESIUM 2.4 mg/dL (1.8-2.4); PHOSPHORUS 3.4 mg/dL (2.5-4.9)
[2020-05-30 19:46] LABS: CALCIUM, SERUM 9.7 mg/dL (8.5-10.1); CREATININE 1.4 mg/dL (0.6-1.3); POTASSIUM 5.2 mmol/L (3.5-5.1)
[2020-05-30 19:47] LABS: SQUAMOUS EPITHELIAL CELL,UR Few /HPF (None Seen)
[2020-05-30 19:48] LABS: BACTERIA,URINE Few /HPF (None Seen); RBC,URINE 0-2 /HPF (0-2); WBC,URINE 0-2 /HPF (0-3)
[2020-05-30 19:50] LABS: ALBUMIN 3.8 g/dL (3.4-5.0); BILIRUBIN,DIRECT 0.2 mg/dL (0.0-0.2); BILIRUBIN,TOTAL 0.6 mg/dL (0.2-1.0); TOTAL PROTEIN, SERUM 8.2 g/dL (6.4-8.2)
[2020-05-30] MEDS ORDERED: INSULIN REGULAR, HUMAN 100 UNIT in IV NS 0.9% 100 ML IV PRN ×2 (20:00)
--- NOTE | 2020-05-30 20:05 | NUR ---
ROOM 259
[2020-05-30] MEDS: INSULIN REGULAR, HUMAN 100 UNIT in IV NS 0.9% 99 ML IV PRN ×4 (20:52→21:25)
--- NOTE | 2020-05-30 20:56 | NUR ---
REPORT GIVEN TO ANTONIO CANDELARIA FOR SANDEEP.
--- NOTE | 2020-05-30 20:57 | NUR ---
RECEIVED REPORT FROM ER NURSE CHIP ALVAREZ FOR SANDEEP.
[2020-05-30] MEDS ORDERED: IV D5/0.45 NACL 1,000 ML IV PRN (21:00)
[2020-05-30] MEDS ORDERED: MAGNESIUM HYDROXIDE 30 ML UDC PO PRN (21:00)
[2020-05-30] MEDS ORDERED: ONDANSETRON HCL/PF 4 MG/2 ML VIAL IVP PRN (21:00)
[2020-05-30] MEDS ORDERED: Z GUARD REMEDY 2 OZ OINT TP PRN (21:00)
[2020-05-30] MEDS ORDERED: IV NS 0.9% 1,000 ML IV SCH (21:00)
[2020-05-30] MEDS ORDERED: IV NS 0.9% 1,000 ML IV PRN (21:00)
[2020-05-30] MEDS ORDERED: MAG HYDROX/AL HYDROX/SIMETH 30 ML UDC PO PRN (21:00)
[2020-05-30] MEDS ORDERED: ZOLPIDEM TARTRATE 5 MG TABLET PO PRN (21:00)
--- NOTE | 2020-05-30 21:15 | NUR ---
RN NOTES RECEIVED PATIENT FROM ER VIA GURELMO, PATIENT IS ALERT AWAKE ORIENTED X4. PATIENT ADMITTED UNDER CARE OF DR. PALACIO WITH DX OF DKA. BREATHING NORMAL NO SOB. RESPIRATION EVEN NON LABORED. ON RA SATURATING 99%. VITAL SIGNS ARE STABLE B/P WNL. TELE MONITOR READING SR,ST HR IN 140'S. IV SITE LFA 20G INTACT FLUSHES WELL. SKIN ASSESSMENT DONE NOTED WITH MULTIPLE SKIN ISSUES PICTURE TAKEN AND PLACED IN THE CHART. PATIENT ORIENTED TO ROOM AND EQUIPMENT HOW TO USE CALL LIGHT. ALL SAFETY MEASURES IN PLACE, CALL LIGHT WITHIN REACH. WILL CONT TO MONITOR FOR SANDEEP.
[2020-05-30 21:21] VITALS: BP 138/77
--- NOTE | 2020-05-30 21:21 | NUR ---
PT TRANSPORTED TO UNIT ON [facility] WITH EMT AND RN AT BEDSIDE W. ACLS PROTOCOL. NAD NOTED DURING TRANSPORT.
[2020-05-30 21:30] VITALS: BP 104/70
[2020-05-30] MEDS: ACETAMINOPHEN 325 MG TABLET PO PRN (21:41)
[2020-05-30 22:00] VITALS: BP 114/61
[2020-05-30 23:00] VITALS: BP 124/67
[2020-05-30] MEDS: HYDROCODONE/APAP 5/325MG TABLET PO PRN (23:13)
[2020-05-31] VITALS (22 sets, daily range): BP systolic 90–141; BP diastolic 51–95
[2020-05-31] MEDS: BLOOD SUGAR DIAGNOSTIC 1 EACH STRIP IN SCH ×11 (01:16→10:25)
[2020-05-31 01:20] LABS: CALCIUM, SERUM 8.1 mg/dL (8.5-10.1); POTASSIUM 3.9 mmol/L (3.5-5.1)
[2020-05-31 04:15] LABS: BASOPHILS # (AUTO) 0.1 /CMM (0.0-0.2); BASOPHILS % (AUTO) 0.8 % (0.0-2.0); HEMATOCRIT 38 % (39-51); HEMOGLOBIN 12.7 g/dL (13.5-17.5); LYMPHOCYTES # (AUTO) 0.4 /CMM (0.8-4.8); LYMPHOCYTES % (AUTO) 5.8 % (20.0-44.0); MEAN CORPUSCULAR HGB CONC 34 g/dl (31.0-36.0); MEAN CORPUSCULAR VOLUME 86 fL (80-96); MONOCYTES # (AUTO) 0.5 /CMM (0.1-1.30); MONOCYTES % (AUTO) 6.3 % (2.0-12.0); NEUTROPHILS # (AUTO) 6.3 /CMM (1.8-8.9); NEUTROPHILS % (AUTO) 87.1 % (43.0-81.0); PLATELET COUNT (AUTO) 147 /CMM (150-450); RED BLOOD CELL COUNT(AUTO) 4.37 MIL/uL (4.5-6.0); WHITE BLOOD COUNT (AUTO) 7.3 K/uL (4.3-11.0)
[2020-05-31 04:29] LABS: CALCIUM, SERUM 8.6 mg/dL (8.5-10.1); MAGNESIUM 2.2 mg/dL (1.8-2.4); PHOSPHORUS 2.1 mg/dL (2.5-4.9); POTASSIUM 3.9 mmol/L (3.5-5.1)
--- NOTE | 2020-05-31 05:16 | NUR ---
PATIENT IS C/O FO LEFT ARM PAIN AND NUMBNESS ON LEFT HAND LAST BS 151. VITAL SIGNS HR-130, B/P 107/53, O2-99%, RR-27. MD NOTIFIED NNO AT THIS TIME. WILL CONT TO MONITOR.
[2020-05-31] MEDS: HYDROCODONE/APAP 5/325MG TABLET PO PRN ×2 (07:13→19:57)
--- NOTE | 2020-05-31 07:14 | NUR ---
RN NOTES PATIENT IS RESTING IN BED, BREATHING NORMAL NO SOB NO DISTRESS NOTED. RESPIRATION EVEN NON LABORED. PATIENT CONTINUES ON INSULIN DRIP TOLERATING WELL TITRATING ACCORDINGLY. PRN MEDICATIONS WERE GIVEN TOLERATED WELL.ON RA SATURATING 99%. TELE MONITOR READING SR,ST HR IN 128- TO 140'S. IV SITE LFA 20G INTACT FLUSHES WELL. ALL SAFETY MEASURES IN PLACE, CALL LIGHT WITHIN REACH. ENDORSE TO AM FOR SANDEEP.
--- NOTE | 2020-05-31 07:30 | NUR ---
RN NOTES RECEIVED PATIENT ASLEEP BUT EASILY AWAKEN BY VERBAL STIMULI. ALERT AND ORIENTEDX4, ABLE TO MAKE NEEDS KNOWN. ON ROOM AIR, BREATHING UNLABORED. SATING FINE AT 99%. PATIENT SINUS RHYTHM ON THE MONITOR WITH HR ON THE 120-130s. TEMPERATURE AT 102.3- COOLING MEASURES IN PLACE, WILL ADMINISTER PRN MEDICATION IF DUE. IV ON THE RFA G [address], PATENT, FLUSHING WELL. WITH IVF AT DESIRED RATE AND INSULIN DRIP PER PROTOCOL. PATIENT WITH COMPLAINTS OF NUMBNESS ON BILATERAL ARM, WEAK BUT IS ABLE TO MOVE WITH EXTREMITIES HE WAS TOLD-WILL INFORM MD REGARDING THE CONCERNS. PATIENT ENCOURAGE TO CALL FOR HELP/ASSISTANCE, TOO VERBALIZED FEELINGS AND CONCERNS. WILL CONTINUE TO MONITOR PATIENT ACCORDINGLY
--- NOTE | 2020-05-31 08:04 | NUR ---
WOUND CARE CONSULT: PT RESTING AT THIS TIME PER RN. WILL ATTEMPT TO SEE PT AT LATER TIME. CURRENT ALICIA SCORE IS 18.
[2020-05-31] MEDS ORDERED: IV NS 0.9% 500 ML IV ONE (09:30)
--- NOTE | 2020-05-31 09:35 | NUR ---
WOUND CARE CONSULT: PT PRESENTS WITH LARGE RAISED CALLUS TO RT PLANTAR FOOT, PRESENT ON ADMISSION. RECOMMEND DPM CONSULT. DR AWAD NOTIFIED OF CONSULT REQUEST. CURRENT ALICIA SCORE IS 18. IN AGREEMENT WITH PLAN OF CARE. Addendum: 05/31/20 at 0936 by DEIDRA TENORIO WNDNU Amended: Links added.
[2020-05-31] MEDS: ACETAMINOPHEN 325 MG TABLET PO PRN ×2 (09:38→14:13)
[2020-05-31] MEDS: DIVALPROEX SODIUM 500 MG TABLET.DR PO SCH ×2 (09:38→16:34)
[2020-05-31] MEDS: IV D5/ 0.9% NACL 1,000 ML IV PRN (10:33)
[2020-05-31] MEDS: POTASSIUM PHOSPHATE MM 7.5 MMOL in IV NS 0.9% 100 ML IV SCH ×2 (10:34→14:01)
--- NOTE | 2020-05-31 11:30 | NUR ---
RN NOTES DIET ORDER CLARIFIED WITH DR. SOLO, PATIENT ON INSULIN DRIP. PER MD JANUARY D/C INSULIN AND START DIABETIC DIET. ORDER READ BACK, NOTED AND CARRIED OUT.
--- NOTE | 2020-05-31 12:00 | NUR ---
RN NOTES DR. SOLO AT THE UNIT TO ASSESS PATIENT. MD MADE AWARE OF THE PATIENT'S COMPLAINTS OF NUMBNESS ON BILATERAL HAND AND OF FEVER AT 102.3 AND 103 RESPECTIVELY. MD ALSO HAVE REVIEWED HOME MEDICATIONS.
[2020-05-31] MEDS ORDERED: DEXTROSE 50%-WATER 50 ML DISP.SYRIN IV PRN (12:30)
[2020-05-31 12:51] LABS: CREATININE 0.9 mg/dL (0.6-1.3); POTASSIUM 3.9 mmol/L (3.5-5.1)
--- NOTE | 2020-05-31 13:59 | NUR ---
RN NOTES REPORT GIVEN TO ANTONIO ALVARADO FOR CONTINUITY OF CARE.
[2020-05-31] MEDS ORDERED: NEUTRA PHOS 1 POWD.PACKET NG ONE (14:00)
--- NOTE | 2020-05-31 14:29 | NUR ---
According to Esme Collado notified about patient temperature of 103.0 will cont current treatment and will start putting measures ,
--- NOTE | 2020-05-31 14:30 | NUR ---
Received patient from ICU via bed with RN on bed site, report given, patient is A/O x 4, Vital signs is BP:107/57; temp 101.1. BP 130, RR 20, SPO2 100%, Pain level 8/10 on both hand, MD is aware of temperature
[2020-05-31] MEDS: VANCOMYCIN 1.25 GM in IV D5W 250 ML IV SCH ×2 (16:17→21:17)
[2020-05-31] MEDS: BLOOD SUGAR DIAGNOSTIC 1 EACH STRIP VI SCH ×2 (17:49→21:14)
[2020-05-31] MEDS: INSULIN REGULAR, HUMAN 100 UNIT/ML 3 ML VIAL SQ PRN (17:53)
--- NOTE | 2020-05-31 18:42 | NUR ---
RN CLOSING NOTES WILL ENDORSE TO PM NURSE. PATIENT IS A/O X 4 IN HIS BED RESTING. ROOM AIR SATTING AT 99%, NO S/S OF RESPIRATORY DISTRESS. TELE READING IS SINUS TACH AT 130'S. IV ACCES LAC # 20 RUNNING D5NS @ 125ML/HR. SAFETY MEASURES IN PLACE, BED IS LOCKED AND IN LOWEST POSITION. CALL LIGHT WITHIN EASY REACH.
[2020-05-31] MEDS ORDERED: IV NS 0.9% 250 ML IV ONE (18:59)
[2020-05-31] MEDS ORDERED: IOHEXOL-300 100 ML VIAL IV ONE ×2 (18:59→19:15)
--- NOTE | 2020-05-31 19:30 | NUR ---
LAB SUPPORT TECHNICIAN NOTE PT IN BED JUST CAME BACK FROM CT SCAN. A/O X 3, NO SOB NO DISTRESS OR DISCOMFORT NOTED. DENIES PAIN. ON TELE MONITOR ST HR 123. PT IS BED BOUND, RT SIDE IS WITH SEVER WEAKNESS. LAF #20 G SL WITH D5 1/2 NS INFUSING AT 125 ML/HR, NO S/S OF INFILTRATION NOTED. NO S/S OF HYPO OR HYPERGLYCEMIA NOTED. INCONTINENCE CARE GIVEN. ALL NEEDS ATTENDED. SIDE RAILS UP X 2 AND CALL LIGHT WITHIN REACH. VSS. CONTINUE TO MONITOR HIM.
[2020-05-31] MEDS: CEFTRIAXONE 2 G in IV D5W 100 ML IV SCH (19:57)
[2020-05-31 20:41] LABS: CALCIUM, SERUM 7.8 mg/dL (8.5-10.1); CREATININE 0.9 mg/dL (0.6-1.3); POTASSIUM 4.1 mmol/L (3.5-5.1)
[2020-05-31] MEDS: *INSULIN REGULAR(HUMULIN R)HUM 100 UNIT/ML VIAL SQ PRN (21:16)
--- NOTE | 2020-05-31 23:00 | NUR ---
SUPERVISOR WATER SOFTENER SERVICE NOTE PT WOKE UP AND INSERTED NEW IV LINE IN RT HAND #20 G WITH GOOD BACK FLOW OF BLOOD. RESUMED IVF NS AT 75 ML/HR, NO S/S OF INFILTRATION NOTED. Addendum: 05/31/20 at 2359 by ORION DOW RN WRONG PT CHARTING.
[2020-06-01] VITALS: BP 104/62
[2020-06-01] MEDS: IV D5/ 0.9% NACL 1,000 ML IV PRN (01:37)
[2020-06-01 04:00] VITALS: BP 109/64
[2020-06-01] MEDS: VANCOMYCIN 1.25 GM in IV D5W 250 ML IV SCH ×2 (05:05→13:25)
--- NOTE | 2020-06-01 06:38 | NUR ---
DRY CLEANING TEACHER NOTE PT IN BED AWAKE. ON TELE ST WITH BBB HR 120 NO DISTRESS OR DISCOMFORT NOTED. DENIES PAIN. IVF INFUSING WELL , NO S/S OF INFILTRATION NOTED. BED BATH GIVEN. INCONTINENCE CARE GIVEN. REPOSITION HIM Q2H, KEPT HIM DRY AND CLEAN. ALL NEEDS ATTENDED. SIDE RAILS UP X 2 AND CALL LIGHT WITHIN REACH. WILL ENDORSE TO DAY SHIFT NURSE FOR CONTINUE TO CARE.
--- NOTE | 2020-06-01 07:20 | NUR ---
SHADOWGRAPH SCALE OPERATOR/CYNTHIA OPENING NOTE RECEIVED PT IN BED AWAKE, ALERT AND ORIENTED X4. PT IS ON ROOM AIR AND SATURATING AT 99% AT THIS TIME. PT IS ON TELE MONITORING WITH ST NOTED HR 119 AT THIS TIME. NO ACUTE DISTRESS OR SOB NOTED AT THIS TIME. PT IS BED BOUND AND NEEDS ASSISTANCE WITH FEEDING. PT IS ON A DIABETIC DIET. PT HAS A LEFT FOREARM 20' INTACT, PATENT AND FLUSHING WELL AT THIS TIME. NO ACUTE DISTRESS OR SOB NOTED AT THIS TIME. PT 'S HOB ELEVATED AT ALL TIMES. ALL SAFETY PRECAUTIONS TAKEN AND IMPLEMENTED. PT DENIES ANY PAIN OR DISCOMFORT AT THIS TIME. CALL LIGHT WITHIN REACH AND FUNCTIONING. WILL CONTINUE TO MONITOR AND ASSESS PT.
[2020-06-01 08:00] VITALS: BP 117/65
[2020-06-01] MEDS: BLOOD SUGAR DIAGNOSTIC 1 EACH STRIP VI SCH ×4 (08:02→22:05)
[2020-06-01] MEDS: INSULIN REGULAR, HUMAN 100 UNIT/ML 3 ML VIAL SQ PRN ×4 (08:04→21:54)
[2020-06-01] MEDS: DIVALPROEX SODIUM 500 MG TABLET.DR PO SCH ×2 (08:22→16:43)
[2020-06-01 09:57] LABS: BASOPHILS % (AUTO) 0.3 % (0.0-2.0); HEMATOCRIT 36 % (39-51); HEMOGLOBIN 11.9 g/dL (13.5-17.5); LYMPHOCYTES # (AUTO) 0.7 /CMM (0.8-4.8); LYMPHOCYTES % (AUTO) 7.2 % (20.0-44.0); MEAN CORPUSCULAR HGB CONC 33 g/dl (31.0-36.0); MEAN CORPUSCULAR VOLUME 88 fL (80-96); MONOCYTES # (AUTO) 0.8 /CMM (0.1-1.30); MONOCYTES % (AUTO) 8.4 % (2.0-12.0); NEUTROPHILS # (AUTO) 8.4 /CMM (1.8-8.9); NEUTROPHILS % (AUTO) 84.1 % (43.0-81.0); PLATELET COUNT (AUTO) 114 /CMM (150-450); RED BLOOD CELL COUNT(AUTO) 4.08 MIL/uL (4.5-6.0)
[2020-06-01 10:01] LABS: CALCIUM, SERUM 8.2 mg/dL (8.5-10.1); CREATININE 0.7 mg/dL (0.6-1.3); MAGNESIUM 2.2 mg/dL (1.8-2.4); PHOSPHORUS 1.2 mg/dL (2.5-4.9)
--- NOTE | 2020-06-01 11:55 | NUR ---
BOAT HOP/ CYNTHIA RECEIVED ORDER FROM MD CHENCHO KEEN FOR A STAT CT SCAN OF THE HEAD WITH AND WITHOUT CONTRAST. CHARGE NURSE INFORMED. ORDERED FOLLOWED. CONSENT FROM SIGNED AND IN CHART. PT AWARE OF PROCEDURE. WAITING FOR CT TO PICK PT UP.
--- NOTE | 2020-06-01 11:56 | NUR ---
TINNING EQUIPMENT TENDER/CYNTHIA NOTE PT TRANSFERRED VIA BED TO STAT CT OF THE HEAD WITH AND WITHOUT CONTRAST. CONSENT SIGNED AND IN CHART. NO KNOWN ALLERGIES.
[2020-06-01 12:00] VITALS: BP 125/75
[2020-06-01] MEDS ORDERED: K PHOS NEUTRAL 250 MG TABLET PO ONE (14:00)
--- NOTE | 2020-06-01 15:23 | NUR ---
This SW unable to speak with patient. Per Propulsion Systems Engineer ANTONIO Escalante, patient lives with roommates and plan is to discharge back to his apartment. Spoke with pt alert and oriented. Per pt he lives at home with roommates. Address: [address] [facility] [address] [place] [id number].
[2020-06-01 16:00] VITALS: BP 122/77
--- NOTE | 2020-06-01 16:36 | NUR ---
FOLLOW UP WITH PATENT LEATHER SORTER STILL AWAITS BED FOR HIGHER LEVEL OF CARE.
[2020-06-01] MEDS: HYDROCODONE/APAP 5/325MG TABLET PO PRN ×3 (16:44→23:57)
--- NOTE | 2020-06-01 18:24 | NUR ---
SPOKE WITH MAGALIE FROM [facility] AND RELAYED THAT DR. SOLO WANTS PROCEDURE DONE NOW AND TO TRANSFER PATIENT,PER MAGALIE SHE WILL LOOK AT IT AGAIN [phone] EXT [phone].
--- NOTE | 2020-06-01 18:34 | NUR ---
SOCIAL ORGANIZATION PROFESSOR/CYNTHIA CLOSING NOTE PT IS CURRENTLY IN BED AWAKE, ALERT AND ORIENTED X4. PT IS ON ROOM AIR SATURATING AT 100% AT THIS TIME. PT IS ABLE TO VERBALIZE HIS NEED TO USE THE URINAL, HOWEVER PT NEEDS ASSISTANCE WITH THE URINAL. PT HAS RIGHT SIDED WEAKNESS. PT'S SKIN IS INTACT CURRENTLY WITH BRUISING AND OLD SCARS NOTED ON LEGS. PT IS ON A DIABETIC DIET BUT REQUIRES ASSISTANCE WITH FEEDING. NO ACUTE DISTRESS OR SOB NOTED THROUGH OUT THE SHIFT. HOB ELEVATED AT ALL TIMES. PT KEPT CLEAN, DRY AND COMFORTABLE. NO COMPLAINS OF PAIN OR DISCOMFORT RIGHT NOW. PT IS IN STABLE CONDITION AT THIS TIME. PT HAS A RIGHT AC 18' AND A LEFT FOREARM 20' THAT IS INTACT, PATENT AND FLUSHING WELL. ALL NEEDS MET DURING THE SHIFT WITH THE HELP OF THE ANNABEL WILLIS. CALL LIGHT WITHIN REACH AND FUNCTIONING. BED LOCKED AND IN LOWEST POSITION. ALL SAFETY MEASURES TAKEN AND IMPLEMENTED. WILL ENDORSE TO NEXT SHIFT NURSE FOR SANDEEP.
--- NOTE | 2020-06-01 19:15 | NUR ---
RN OPENING NOTE RECEIVED PATIENT IN BED RESTING. ALERT AND ORIENTED X 4. SOMETIMES CONFUSED, REDIRECTION AND REMINDERS SOMETIMES NEEDED. MED SURG MONITORING FULL CODE NOTED. ON ROOM AIR, TOLERATING WELL. NO SIGNS OF SHORTNESS OF BREATH OR RESPIRATORY DISTRESS NOTED. BREATHING IS EVEN AND UNLABORED. PT IS BED BOUND. HAS GENERALIZED WEAKNESS, PT VERBALIZED HURTS MOST ON THE RIGHT SIDE. HAS SCAR ON RIGHT SIDE OF NECK. RIGHT FOOT WOUND REINFORCED WITH MEPILEX, NO DRAINAGE OR ODOR NOTED. SCARRING ON RIGHT LOWER ABDOMEN FROM APPENDECTOMY NOTED. BRUISING AND SCARS NOTED ON BOTH LEGS. DIABETIC DIET NOTED. IV SITE LEFT FOREARM WITH D5NS INFUSING AT 125ML/HR ORDERED. RIGHT AC #18 SALINE LOCKED PATENT AND FLUSHES WELL. NO SIGNS OF INFILTRATION NOTED AT THIS TIME. BED IS LOCKED IN LOWEST POSITION WITH BED ALARM ON. CALL LIGHT WITHIN REACH.
[2020-06-01 20:00] VITALS: BP 109/64
[2020-06-01] MEDS: CEFTRIAXONE 2 G in IV D5W 100 ML IV SCH (20:16)
--- NOTE | 2020-06-01 22:00 | NUR ---
PT NOTED TO BE SHAKING LEGS, LASTING FOR 7 SECONDS. WHEN ASKED PT VERBALIZES THIS HAS BEEN GOING ON THE PAST 2 DAYS. VERBALIZES PAIN 03/25. GENERALIZED ACHING. BUT CAN TOLERATE FOR NOW AND EXPLAINS HE WANTS TO REST. Addendum: 06/02/20 at 0246 by MARITZA CEVALLOS RN @ 2215 SHAKING EXTREMITIES FOR TOTAL OF 13 SECONDS PATIENT IS AWARE THE ENTIRE TIME AND ABLE TO SPEAK. PT REQUESTS PAIN MED AT THIS TIME FOR GENERALIZED PAIN ACHES 03/25.
[2020-06-01] MEDS: VANCOMYCIN 1 GM in IV D5W 250 ML IV SCH (22:07)
[2020-06-02] MEDS: IV D5/ 0.9% NACL 1,000 ML IV PRN ×3 (02:27→21:17)
[2020-06-02] MEDS: HYDROCODONE/APAP 5/325MG TABLET PO PRN (03:41)
[2020-06-02 04:00] VITALS: BP 128/72
--- NOTE | 2020-06-02 04:23 | NUR ---
@0350 PT NOTED TO BE SHAKING AGAIN FOR 20 SECONDS. PT ON HIS SIDE. FREE FROM INJURY. NO SIGNS OF RESPIRATORY DISTRESS OR SHORTNESS OF BREATH. BREATHING IS EVEN AND UNLABORED. WHEN ASKED ABOUT PAIN, PT SAYS NORCO HELPED NOW 5/10 AND TOLERABLE. PT VERBALIZES DESIRE TO REST AT THIS TIME. WILL CONTINUE TO MONITOR.
[2020-06-02] MEDS: VANCOMYCIN 1 GM in IV D5W 250 ML IV SCH ×3 (05:34→21:42)
[2020-06-02 06:46] LABS: CALCIUM, SERUM 8.1 mg/dL (8.5-10.1); CREATININE 0.8 mg/dL (0.6-1.3); PHOSPHORUS 1.2 mg/dL (2.5-4.9); POTASSIUM 3.3 mmol/L (3.5-5.1)
--- NOTE | 2020-06-02 07:29 | NUR ---
RN CLOSING NOTES PATIENT IS AWAKE IN BED AT THE MOMENT. ALERT AND ORIENTED X 2-3. SLOW IN VERBAL RESPONSE. HAD EPISODES OF TREMORS/SHAKES. WAS CONSCIOUS DURING AND WOULD LAST 10-20 SECONDS. PT REMAINS FREE FROM INJURY AT THIS TIME. PT WAS ABLE TO TAKE MEDS WHOLE AND DRINK FLUIDS WITHOUT ISSUES. IV SITES PATENT AND FLUSHED. INFUSING D5NS AT 125 ML/HR WITH NO SIGNS OF INFILTRATION AT THIS TIME. NO SIGNS OF RESPIRATORY DISTRESS OR SOB, BREATHING IS EVEN AND UNLABORED. PATIENT VERBALIZED PAIN 5/10 TOLERABLE. BED IS LOCKED IN LOWEST POSITION WITH BED ALARM ON. CALL LIGHT WITHIN REACH. ENDORSED TO ONCOMING NURSE FOR CONTINUATION OF CARE.
[2020-06-02] MEDS: BLOOD SUGAR DIAGNOSTIC 1 EACH STRIP VI SCH ×4 (07:56→23:04)
[2020-06-02] MEDS: INSULIN REGULAR, HUMAN 100 UNIT/ML 3 ML VIAL SQ PRN ×3 (08:05→18:08)
--- NOTE | 2020-06-02 08:15 | NUR ---
RN OPENING NOTES: RECEIVED PT IN BED AWAKE, NO SIGNS OF RESPIRATORY DISTRESS, DIFFICULTY BREATHING, PT IS WEAK, A/O X1. PT IS ON RA TOLERATING WELL, IV SITE IS PATENT INTACT AND FLUSHED WELL. ALL SAFETY AND COMFORT MEASURES MAINTAINED, CALL LIGHT WITHIN REACH WILL CONTINUE TO MONITOR.
[2020-06-02] MEDS: DIVALPROEX SODIUM 500 MG TABLET.DR PO SCH (09:17)
[2020-06-02] MEDS ORDERED: POTASSIUM CHLORIDE 20 MEQ TAB.PRT.SR PO SCH (10:30)
[2020-06-02] MEDS: LORAZEPAM INJ 2 MG/ML VIAL IV PRN ×3 (11:33→21:46)
[2020-06-02] MEDS ORDERED: phenytoin SODIUM IV 1,000 MG in IV NS 0.9% 100 ML IV ONE (12:30)
--- NOTE | 2020-06-02 12:39 | NUR ---
PER RN, PATIENT IS STILL SEIZING AND NOT READY FOR CT EXAM. RN WILL CALL RADIOLOGY WHEN PT IS READY. PLEASE CALL RADIOLOGY WHEN PATIENT IS READY FOR EXAM. EXT [phone]
--- NOTE | 2020-06-02 12:42 | NUR ---
RN NOTES: WHEN RECEIVED PT IN THE MORNING PT WAS WEAK BUT WAS ABLE TO ANSWER BACK WHEN ASKED HOW HE IS FEELING. AFTER PT FACE TIMED HIS MOTHER PT STARTED CRYING, VERY EMOTIONAL AND STARTING HAVING MILD TREMORS, PT WAS BEING MONITORED AT ALL TIMES. AROUND 11:30 PT STARTED HAVING GRAN MALL SEIZURE. DR SOLO WAS NOTIVED ATIVAN 2MG WAS ORDERED AND ADMINISTERED AT 11:33, SEIZURE DID NOT STOP PER DR DAMON ORDER WHILE HE WAS ALONG THE PATIENTS BED SIDE ANOTHER DOSE OF ATIVAN 2MG WAS ADMINISTERED TO THE PATIENT. DR SOLO ORDERED DILANTIN LOADING DOSE WHICH WAS STARTED WITH CHARGE NURSE SOON. AT 13:08 DR SOLO ORDERED TO ADMINISTER ANOTHER DOSE OF ATIVAN 1MG. PATIENT STOPPED SEIZING AT 13:02 VITALS WERE TAKEN BP 113/57, O2 98, HR 106, TEMP 98.2. ALL SEIZURE PRECAUTIONS MAINTAINED PER PROTOCOL, SAFETY MEASURES MAINTAINED, CT SCAN ORDERED WILL BE DONE ONCE DILANTIN IS COMPLETE, WILL CONTINUE TO MONITOR CLOSELY.
[2020-06-02] MEDS ORDERED: LORAZEPAM INJ 2 MG/ML VIAL IV PRN (13:00)
[2020-06-02] MEDS ORDERED: K PHOS NEUTRAL 250 MG TABLET PO ONE (14:00)
--- NOTE | 2020-06-02 15:46 | NUR ---
RN NOTES: PT WAS TAKEN TO CT TOLERATED WELL NO ACUTE CHANGES, WILL CONTINUE TO MONITOR CLOSELY.
[2020-06-02 15:52] VITALS: BP 155/74
[2020-06-02] MEDS: VALPROATE 500 MG in IV D5W 100 ML IV SCH (18:31)
--- NOTE | 2020-06-02 19:03 | NUR ---
RN CLOSING NOTES: PT IN BED SLEEPING, NO CHANGES WERE NOTED AFTER THE SEIZURE ACTIVITY, SAFETY MEASURES MAINTAINED, CALL LIGHT WITHIN REACH WILL ENDORSE TO PM NURSE.
[2020-06-02 20:00] VITALS: BP 89/58
[2020-06-02] MEDS: CEFTRIAXONE 2 G in IV D5W 100 ML IV SCH (21:36)
[2020-06-02] MEDS ORDERED: ACETAMINOPHEN 650 MG/SUPP.RECT RC PRN (22:30)
[2020-06-02] MEDS: *INSULIN REGULAR(HUMULIN R)HUM 100 UNIT/ML VIAL SQ PRN (22:43)
[2020-06-02] MEDS: MUPIROCIN OINT 2% 22 GM TUBE NS SCH (23:11)
[2020-06-03] VITALS (9 sets, daily range): BP systolic 89–133; BP diastolic 58–86
[2020-06-03] MEDS: IV D5/ 0.9% NACL 1,000 ML IV PRN ×2 (04:53→14:30)
[2020-06-03] MEDS: VANCOMYCIN 1 GM in IV D5W 250 ML IV SCH ×3 (05:03→22:00)
[2020-06-03] MEDS: LORAZEPAM INJ 2 MG/ML VIAL IV PRN (06:46)
[2020-06-03 06:49] LABS: CALCIUM, SERUM 8.1 mg/dL (8.5-10.1); CREATININE 0.7 mg/dL (0.6-1.3); PHOSPHORUS 1.8 mg/dL (2.5-4.9); POTASSIUM 3.1 mmol/L (3.5-5.1)
--- NOTE | 2020-06-03 07:15 | NUR ---
RN notes REceived patient in bed, noting with seizure like activity, but eyes able to focus. Body shaking including the head. Temperature 100.5, cooling measures provide. unable to assess for pain. Meds given with help. Cooling measures provided. After an hour temp went down to 98.4. Still shaking. Continuous monitoring done. Will endorse to next shift for continuity of care.
[2020-06-03] MEDS: BLOOD SUGAR DIAGNOSTIC 1 EACH STRIP VI SCH ×4 (07:40→22:00)
--- NOTE | 2020-06-03 07:40 | NUR ---
RN OPENING NOTE: Patient received in bed and asleep. Able to be aroused through deep stimulation. Alert and oriented x3. Tele monitor showing sinus tachycardia in the 110s noted. On cont. o2 via NC @ 3lpm being tolerated well. saturation @ 99%. No SOB and not in respiratory distress. IV site clean, dry, patent and intact. D5 NS @ 125mls/hr being tolerated well. No pain noted on patient. NPO status for now. Will F/U with patient transfer to other hospital for higher level of care. Call light in reach. Bed locked, low and at semi-gore's position. Side rails up x3. Safety ensured and observed. Will continue to monitor.
[2020-06-03] MEDS: INSULIN REGULAR, HUMAN 100 UNIT/ML 3 ML VIAL SQ PRN ×3 (09:35→18:02)
[2020-06-03] MEDS: VALPROATE 500 MG in IV D5W 100 ML IV SCH ×2 (10:18→22:00)
[2020-06-03] MEDS: MUPIROCIN OINT 2% 22 GM TUBE NS SCH ×2 (10:19→22:00)
[2020-06-03] MEDS: POTASSIUM CHLORIDE 20 MEQ TAB.PRT.SR PO SCH ×2 (10:37→12:04)
[2020-06-03] MEDS ORDERED: PHENYTOIN SODIUM IV 100 MG/2ML VIAL IV SCH (12:00)
[2020-06-03] MEDS ORDERED: NEUTRA PHOS 1 POWD.PACKET PO ONE (12:00)
[2020-06-03] MEDS: phenytoin SODIUM IV 300 MG in IV NS 0.9% 50 ML IV SCH ×2 (12:04→20:57)
[2020-06-03] MEDS ORDERED: LORAZEPAM INJ 2 MG/ML VIAL IV STA (17:50)
--- NOTE | 2020-06-03 17:50 | NUR ---
RN NOTES RECEIVED PATIENT VIA HOSPITAL BED, REPORT GIVEN BY ANTONIO FISHER BEDSIDE, S/P SEIZURE ,ON OXYGEN 2LPM/NC, NO SIGN OF DISTRESS NOTED AT THIS TIME, SEIZURE PRECAUTION INITIATED, SAFETY MEASURES INITIATED, BED IN LOWEST LOCKED POSITION WITH SIDE RAILS UP X3. CALL LIGHT WITHIN REACH, WILL CONTINUE TO MONITOR.
[2020-06-03] MEDS ORDERED: PHENYTOIN SODIUM IV 100 MG/2ML VIAL IV ONE (18:00)
--- NOTE | 2020-06-03 18:00 | NUR ---
OUTREACH LIAISON NOTE: Pstient transferred to ICU 256 for seizure activity and need of higher level of care. Planned transfer was cancelled due to no bed availability. Patient endorsement received by ANTONIO Garcia.
[2020-06-03] MEDS ORDERED: phenytoin SODIUM IV 1,000 MG in IV NS 0.9% 100 ML IV ONE (18:30)
[2020-06-03] MEDS: CEFTRIAXONE 2 G in IV D5W 100 ML IV SCH (19:54)
--- NOTE | 2020-06-03 21:30 | NUR ---
RN NOTE REPORT GIVEN TO YOKASTA RN FOR REPORT.
[2020-06-03 21:38] LABS: APPEARANCE,URINE CLEAR (CLEAR); BILIRUBIN,URINE NEGATIVE (NEGATIVE); BLOOD, URINE MODERATE Ery/uL (NEGATIVE); COLOR,URINE YELLOW (YELLOW); KETONES,URINE >=80 (NEGATIVE); LEUKOCYTE ESTERASE ,URINE NEGATIVE (NEGATIVE); NITRITE, URINE NEGATIVE (NEGATIVE); PH,URINE 6.5 (5.0-8.0); PROTEIN,URINE 30 mg/dl (NEGATIVE); UGLUCOSE >=1000 mg/dL (NEGATIVE)
[2020-06-03 21:51] LABS: BACTERIA,URINE 1+ /HPF (None Seen); MUCUS,URINE Few /LPF (None Seen); SQUAMOUS EPITHELIAL CELL,UR 0-2 /HPF (None Seen)
[2020-06-03] MEDS ORDERED: ACET325T53 MC (22:00)
--- NOTE | 2020-06-03 22:00 | NUR ---
RN NOTE UNABLE TO ADMINISTER DUE MEDICATIONS AT THIS TIME. PT BEING TRANSFERRED TO [facility] BY IMAGING SCHEDULER.
--- NOTE | 2020-06-03 22:15 | NUR ---
RN NOTE PATIENT DISCHARGED ON ROUTE GOING TO [facility] ACCOMPANIED BY 2 JUDICIAL REGISTRAR IN STABLE CONDITION. ALL BELONGINGS SENT WITH PATIENT.
== END 2020-06-03 22:05 | disposition short-term general hospital (02) | DRG 720 ==
LOC: ER 18:53 → ICU 20:08 → TELE1 05-31 14:23 → MEDSG1 06-01 08:03 → TELE-TD 06-02 12:12 → TELE1 06-03 10:35 → ICU 06-03 17:35
PROVIDERS: ADMIT Internal Medicine
DX: A40.0 Sepsis due to streptococcus, group A (principal); E11.10 Type 2 diabetes mellitus with ketoacidosis without coma; N17.0 Acute kidney failure with tubular necrosis; E87.1 Hypo-osmolality and hyponatremia; E86.1 Hypovolemia; K86.1 Other chronic pancreatitis; E87.5 Hyperkalemia; I10 Essential (primary) hypertension; G40.901 Epilepsy, unspecified, not intractable, with status epilepticus; G06.2 Extradural and subdural abscess, unspecified; E78.5 Hyperlipidemia, unspecified; F31.9 Bipolar disorder, unspecified; E87.6 Hypokalemia; E78.00 Pure hypercholesterolemia, unspecified; F43.10 Post-traumatic stress disorder, unspecified; Z83.3 Family history of diabetes mellitus; Z79.899 Other long term (current) drug therapy; Z79.4 Long term (current) use of insulin; Z79.84 Long term (current) use of oral hypoglycemic drugs; F12.90 Cannabis use, unspecified, uncomplicated; G81.91 Hemiplegia, unspecified affecting right dominant side; S91.312A Laceration without foreign body, left foot, initial encounter; X58.XXXA Exposure to other specified factors, initial encounter; Y92.9 Unspecified place or not applicable; L84 Corns and callosities; L98.499 Non-pressure chronic ulcer of skin of other sites with unspecified severity; E11.42 Type 2 diabetes mellitus with diabetic polyneuropathy; E11.621 Type 2 diabetes mellitus with foot ulcer; L97.509 Non-pressure chronic ulcer of other part of unspecified foot with unspecified severity
CPT/HCPCS: 36415; 70450-TC; 70496-TC; 71045-TC; 72126-TC; 72129-TC; 72132-TC; 80048-TC; 80076-TC; 80202-TC; 80305; 81000-TC; 82010-TC; 82962-TC; 83605-TC; 83690-TC; 83735-TC; 84100-TC; 84484-TC; 85025-TC; 85730-TC; 87040-TC; 87081-TC; 87186-TC; 93307-TC; 93971-TC; G0378; J0696; J1165; J1815; J2060; J2270; J2405; J3370; J3490; J7030; J7042; J7050; J7060; Q9967

== ENCOUNTER 2021-11-27 11:52 | Inpatient (IN) | payer OTHER ==
[~2021-11-27] VITALS: Ht 188 cm; Wt 77.1 kg
[~2021-11-27 11:52] MED LIST changes: +ACET325T53 MC
--- NOTE | 2021-11-27 12:12 | NUR ---
UJAN PARKER AT BEDSIDE FOR EVAL.
[2021-11-27] MEDS ORDERED: VANCOMYCIN 1 GM in IV D5W 250 ML IV ONE (12:30)
[2021-11-27] MEDS ORDERED: PIPERACILLIN /TAZOBACTAM 3.375 G in IV D5W 50 ML IV ONE (12:30)
--- NOTE | 2021-11-27 12:30 | NUR ---
COVID SWAB DONE AND SENT TO THE LAB.
[2021-11-27] MEDS ORDERED: ESCI10TA PO (12:47)
[2021-11-27] MEDS ORDERED: GABA800T11 PO (12:47)
[2021-11-27 12:50] LABS: BASOPHILS % (AUTO) 0.3 % (0.0-2.0); HEMATOCRIT 37 % (39-51); HEMOGLOBIN 12.3 g/dL (13.5-17.5); MEAN CORPUSCULAR HGB CONC 33 g/dl (31.0-36.0); MEAN CORPUSCULAR VOLUME 84 fL (80-96); MONOCYTES # (AUTO) 0.5 K/uL (0.1-1.30); MONOCYTES % (AUTO) 9.1 % (2.0-12.0); NEUTROPHILS % (AUTO) 51.6 % (43.0-81.0); PLATELET COUNT (AUTO) 224 K/uL (150-450); RED BLOOD CELL COUNT(AUTO) 4.43 MIL/uL (4.5-6.0); WHITE BLOOD COUNT (AUTO) 5.8 K/uL (4.3-11.0)
[2021-11-27 13:10] LABS: BILIRUBIN,URINE NEGATIVE (NEGATIVE); COLOR,URINE YELLOW (YELLOW); LEUKOCYTE ESTERASE ,URINE NEGATIVE (NEGATIVE); NITRITE, URINE NEGATIVE (NEGATIVE); PROTEIN,URINE NEGATIVE (NEGATIVE); UGLUCOSE >=1000 mg/dL (NEGATIVE); UROBILINOGEN,URINE 0.2 EU/dL (0.2)
[2021-11-27 13:22] LABS: ALANINE AMINOTRANSFERASE 21 U/L (12-78); ALBUMIN 3.6 g/dL (3.4-5.0); ALKALINE PHOSPHATASE 138 U/L (46-116); ASPARTATE AMINOTRANSFERASE 12 U/L (15-37); BILIRUBIN,TOTAL 0.1 mg/dL (0.2-1.0); CALCIUM, SERUM 8.6 mg/dL (8.5-10.1); CARBON DIOXIDE 23 mmol/L (21-32); CHLORIDE 95 mmol/L (98-107); CREATININE 0.9 mg/dL (0.6-1.3); POTASSIUM 4.5 mmol/L (3.5-5.1); SODIUM SERUM 128 mmol/L (136-145); TOTAL PROTEIN, SERUM 7.2 g/dL (6.4-8.2); UREA NITROGEN, BLOOD 19 mg/dL (7-18)
[2021-11-27 13:24] LABS: GLUCOSE 542 mg/dL (74-106)
[2021-11-27] MEDS ORDERED: INSULIN REGULAR, HUMAN 100 UNIT/ML 10 ML VIAL SQ ONE (13:30)
[2021-11-27 13:31] LABS: BACTERIA,URINE None seen /HPF (None Seen); RBC,URINE 0-2 /HPF (0-2); SQUAMOUS EPITHELIAL CELL,UR Rare /HPF (None Seen); WBC,URINE 0-2 /HPF (0-3)
--- NOTE | 2021-11-27 13:31 | NUR ---
CALLED NURSING SUP REGARDING PT BED
[2021-11-27] MEDS ORDERED: INSULIN REGULAR, HUMAN 100 UNIT/ML 10 ML VIAL ONE (13:47)
--- NOTE | 2021-11-27 13:53 | NUR ---
ROOM 304-2
[2021-11-27] MEDS ORDERED: MORPHINE SULFATE INJ 4 MG/ML DISP.SYRIN IV PRN (14:00)
[2021-11-27] MEDS ORDERED: MORPHINE SULFATE INJ 4 MG/ML DISP.SYRIN ONE (14:01)
--- NOTE | 2021-11-27 14:33 | NUR ---
report given to rn third floor for room 304 bed 2, pending transfer for rapid covid test reading, iv patent gauge 30 Left AC intact vancomycin running at this time, dose of zosyn completed, no side effects noted, morphine give iv effective no pain at this time, patient resting easy to arouse, made comfortable with warm blanket, will continue to monitor.
[2021-11-27] MEDS ORDERED: DEXTROSE 50%-WATER 50 ML DISP.SYRIN IV PRN (15:00)
[2021-11-27] MEDS ORDERED: MAGNESIUM HYDROXIDE 30 ML UDC PO PRN (15:00)
[2021-11-27] MEDS ORDERED: ONDANSETRON HCL/PF 4 MG/2 ML VIAL IVP PRN (15:00)
[2021-11-27] MEDS ORDERED: ACETAMINOPHEN 325 MG TABLET PO PRN (15:00)
--- NOTE | 2021-11-27 15:20 | NUR ---
MS WASHER AND CRUSHER TENDER NOTES ADMITTED THIS 36 Y/O MALE PATIENT FROM E.R. @1455 TRANSPORTED VIA MOTORIZED CHAIR. ACCOMPANIED BY ER NURSE, WITH ADMITTING DIAGNOSIS OF RIGHT FOOT CELLULITIS/WOUND. PATIENT IS ALERT AND ORIENTED X4, ABLE TO MAKE NEEDS KNOWN. WITH IV ACCESS ON LEFT ANTECUBITAL #20G, INTACT AND PATENT, FLUSHES WELL. ON ROOM AIR, TOLERATING WELL, NO SOB NOTED, SPO2 @ 94%. BODY ASSESSMENT DONE, NOTED WITH RIGHT FOOT CELLULITIS/WOUND, SCATTERED SCABS ON BOTH LOWER EXTREMITIES AND ABRASIONS ON RIGHT KNEE. ALSO NOTED WITH OLD SURGICAL SITE ON RIGHT ABDOMINAL AREA. PHOTOS TAKEN, PLACED IN CHART. ORIENTED TO ROOM AND ROOMMATE. SAFETY MEASURES IN PLACE. BED IN LOWEST LOCKED POSITION, SR UP X2, CALL LIGHT PLACED WITHIN EASY REACH. WILL CONTINUE TO MONITOR PATIENT.
[2021-11-27] MEDS: MORPHINE SULFATE INJ 2 MG/ML DISP.SYRIN IV PRN (16:39)
[2021-11-27] MEDS: BLOOD SUGAR DIAGNOSTIC 1 EACH STRIP VI SCH ×2 (16:50→21:56)
[2021-11-27] MEDS: INSULIN REGULAR, HUMAN 100 UNIT/ML 3 ML VIAL SQ PRN (16:51)
[2021-11-27] MEDS: METFORMIN 500 MG TABLET PO SCH (16:57)
[2021-11-27] MEDS: GABAPENTIN 400 MG CAPSULE PO SCH (16:57)
[2021-11-27] MEDS: ESCITALOPRAM OXALATE (10 MG) 10 MG TABLET PO SCH (16:57)
[2021-11-27] MEDS: IV NS 0.9% 1,000 ML IV PRN (17:20)
--- NOTE | 2021-11-27 18:37 | NUR ---
MS RN CLOSING NOTES PATIENT IN BED AWAKE, A/O X4. NO SIGNS OF ACUTE DISTRESS. STABLE ON ROOM AIR. IV ACCESS ON LEFT ANTECUBITAL #20G INTACT AND PATENT, NS @ 75ML/HR RUNNING. ALL DUE MEDS GIVEN. SAFETY MEASURES MAINTAINED. BED IN LOWEST LOCKED POSITION, SR UP X2, CALL LIGHT PLACED WITHIN EASY REACH. WILL ENDORSE TO NEXT SHIFT.
[2021-11-27] MEDS: HYDROCODONE/APAP 5/325MG TABLET PO PRN (19:19)
--- NOTE | 2021-11-27 19:59 | NUR ---
MS/TELE/RN PATIENT IS AWAKE, ALERT AND ORIENTED, COMFORTABLE, NO C/O PAIN AT THIS TIME, CALL LIGHT IN REACH, FALL PRECAUTIONS PER PROTOCOL IMPLEMENTED, CALL LIGHT IN REACH, NEEDS ATTENDED AT THIS TIME, WILL MONITOR.
[2021-11-27 20:00] VITALS: BP 118/79
[2021-11-27] MEDS: PIPERACILLIN /TAZOBACTAM 3.375 G in IV D5W 100 ML IV SCH (20:53)
--- NOTE | 2021-11-27 21:54 | NUR ---
MS/TELE/RN ACCU CHECK BLOOD SUGAR 83, NO S/S OF HYPOGLYCEMIA NOTED, SNACK GIVEN, WILL MONITOR.
[2021-11-27] MEDS: VANCOMYCIN 1.25 GM in IV D5W 250 ML IV SCH (21:57)
[2021-11-28] MEDS: PIPERACILLIN /TAZOBACTAM 3.375 G in IV D5W 100 ML IV SCH ×3 (04:45→21:04)
--- NOTE | 2021-11-28 06:15 | NUR ---
MS/TELE/RN PATIENT IS AWAKE AT THIS TIME, ALERT, ORIENTED, COMFORTABLE, NO DISTRESS NOTED, IVF INFUSING, ALL NEEDS ATTENDED AT THIS TIME, WILL CONTINUE TO MONITOR.
[2021-11-28] MEDS: INSULIN REGULAR, HUMAN 100 UNIT/ML 3 ML VIAL SQ PRN ×3 (07:14→17:22)
--- NOTE | 2021-11-28 07:22 | NUR ---
MS/TELE/RN VANCOMYCIN NOT GIVEN DUE TO COMPATIBILITY REASON ENDORSED TO YNES ALVAREZ.
[2021-11-28] MEDS: BLOOD SUGAR DIAGNOSTIC 1 EACH STRIP VI SCH ×4 (07:23→21:07)
--- NOTE | 2021-11-28 07:37 | NUR ---
MS RN OPENING NOTES RECEIVED PATIENT IN BED, AWAKE, A/O X4. PATIENT ON ROOM AIR; BREATHING EVEN AND INTACT; NO SOB NOTED. NO COMPLAINS OF PAIN. LAC IV ACCESS G #20 PRESENT AND INTACT; RUNNING NS AT 75 MLS/HR. SAFETY PRECAUTIONS IN PLACE; BED IN LOW POSITION AND LOCKED, RAILS UP X2, CALL LIGHT WITHIN REACH. WILL CONTINUE TO MONITOR PATIENT.
[2021-11-28] MEDS: VANCOMYCIN 1.25 GM in IV D5W 250 ML IV SCH ×2 (07:54→16:36)
[2021-11-28 08:00] VITALS: BP 118/71
[2021-11-28] MEDS: METFORMIN 500 MG TABLET PO SCH ×2 (08:07→16:46)
[2021-11-28] MEDS: ESCITALOPRAM OXALATE (10 MG) 10 MG TABLET PO SCH (08:07)
[2021-11-28] MEDS: GABAPENTIN 400 MG CAPSULE PO SCH ×3 (08:08→16:46)
[2021-11-28] MEDS: HYDROCODONE/APAP 5/325MG TABLET PO PRN ×2 (08:12→16:49)
--- NOTE | 2021-11-28 08:13 | NUR ---
MS RN NOTES PATIENT COMPLAINING OF R FOOT PAIN 6 OUT OF 10 REQUESTING PAIN MEDICATION. PRN NORCO ADMINISTERED. WILL REASSESS.
--- NOTE | 2021-11-28 08:31 | NUR ---
WOUND CARE CONSULT: PT PRESENTS WITH DRY ABRASION TO RT KNEE AND DRY ULCERS TO BILATERAL FEET, PRESENT ON ADMISSION. DR AWAD CALLED FOR DPM CONSULT. PT IS INDEPENDENT WITH BED MOBILITY AND CONTINENT. MD IN AGREEMENT WITH PLAN OF CARE.
[2021-11-28 09:44] LABS: BASOPHILS % (AUTO) 0.8 % (0.0-2.0); EOSINOPHILS % (AUTO) 5.3 % (0.0-6.0); HEMATOCRIT 39 % (39-51); HEMOGLOBIN 13.1 g/dL (13.5-17.5); LYMPHOCYTES # (AUTO) 1.7 K/uL (0.8-4.8); LYMPHOCYTES % (AUTO) 34.1 % (20.0-44.0); MEAN CORPUSCULAR HGB CONC 33 g/dl (31.0-36.0); MEAN CORPUSCULAR VOLUME 83 fL (80-96); MONOCYTES # (AUTO) 0.4 K/uL (0.1-1.30); MONOCYTES % (AUTO) 7.5 % (2.0-12.0); NEUTROPHILS # (AUTO) 2.7 K/uL (1.8-8.9); NEUTROPHILS % (AUTO) 52.3 % (43.0-81.0); PLATELET COUNT (AUTO) 227 K/uL (150-450); WHITE BLOOD COUNT (AUTO) 5.1 K/uL (4.3-11.0)
[2021-11-28 10:16] LABS: CALCIUM, SERUM 8.8 mg/dL (8.5-10.1); CREATININE 0.9 mg/dL (0.6-1.3); MAGNESIUM 2.5 mg/dL (1.8-2.4); PHOSPHORUS 3.9 mg/dL (2.5-4.9); POTASSIUM 4.4 mmol/L (3.5-5.1)
[2021-11-28] MEDS: MORPHINE SULFATE INJ 2 MG/ML DISP.SYRIN IV PRN ×2 (12:07→21:20)
--- NOTE | 2021-11-28 12:11 | NUR ---
MS RN NOTES PATIENT COMPLAINING OF R FOOT PAIN 8 OUT OF 10 REQUESTING PAIN MEDICATION. PRN MORPHINE ADMINISTERED. WILL REASSESS.
--- NOTE | 2021-11-28 14:42 | NUR ---
MS RN NOTES FLAQUITA FROM [facility] CALLED AND NOTIFIED THAT PATIENT IS MRSA POSITIVE NARES.
[2021-11-28 16:00] VITALS: BP 117/80
[2021-11-28] MEDS: IV NS 0.9% 1,000 ML IV PRN (16:36)
--- NOTE | 2021-11-28 16:49 | NUR ---
MS RN NOTES PATIENT COMPLAINING OF R FOOT PAIN 7 OUT OF 10 REQUESTING PAIN MEDICATION. PRN NORCO ADMINISTERED. WILL REASSESS.
--- NOTE | 2021-11-28 18:44 | NUR ---
MS RN CLOSING NOTES PATIENT REMAINS IN BED, AWAKE, A/O X4. PATIENT ON ROOM AIR; BREATHING EVEN AND INTACT; NO SOB NOTED DURING THE DAY. PAIN TREATED WITH PRN NORCO AND PRN MORPHINE. LAC IV ACCESS G #20 PRESENT AND INTACT; RUNNING NS AT 75 MLS/HR. ALL NEEDS ATTENDED DURING THE DAY. SAFETY PRECAUTIONS IN PLACE; BED IN LOW POSITION AND LOCKED, RAILS UP X2, CALL LIGHT WITHIN REACH. WILL CONTINUE TO MONITOR PATIENT.
--- NOTE | 2021-11-28 19:27 | NUR ---
MS/TELE/RN CALLED PHARMACY RE: VANCOMYCIN TROUGH=23 AT 1300. PER PHARMACY, WILL ADJUST THE DOSE. RECOMMENDED TO ADJUST THE TIMING OF VANCOMYCIN AND ZOSYN EXTENDED ADMINISTRATION THE PATIENT HAS ONLY ONE IV ACCESS AND REFUSES OF ANOTHER IV PLACEMENT.
--- NOTE | 2021-11-28 19:44 | NUR ---
MS/TELE/RN PATIENT IS LYING IN BED AWAKE, ALERT, ORIENTED, COMFORTABLE, NO C/O PAIN, NO DISTRESS NOTED, CALL LIGHT IN REACH, FALL PRECAUTIONS PER PROTOCOL INSTITUTED, WILL MONITOR.
[2021-11-28 20:00] VITALS: BP 116/79
[2021-11-28] MEDS: *INSULIN REGULAR(HUMULIN R)HUM 100 UNIT/ML VIAL SQ PRN (21:06)
[2021-11-28] MEDS: INSULIN GLARGINE, 100 UNIT/ML CARTRIDGE SQ SCH (21:07)
[2021-11-28] MEDS: MUPIROCIN OINT 2% 22 GM TUBE NS SCH (21:10)
[2021-11-29] MEDS: VANCOMYCIN 0.75 GM in IV D5W 250 ML IV SCH ×3 (01:37→16:51)
[2021-11-29 04:00] VITALS: BP 127/68
[2021-11-29] MEDS: HYDROCODONE/APAP 5/325MG TABLET PO PRN (04:33)
[2021-11-29] MEDS: PIPERACILLIN /TAZOBACTAM 3.375 G in IV D5W 100 ML IV SCH ×3 (04:56→20:24)
[2021-11-29] MEDS: INSULIN REGULAR, HUMAN 100 UNIT/ML 3 ML VIAL SQ PRN ×2 (06:22→16:48)
[2021-11-29] MEDS: BLOOD SUGAR DIAGNOSTIC 1 EACH STRIP VI SCH ×4 (06:24→21:41)
--- NOTE | 2021-11-29 06:38 | NUR ---
MS/TELE/RN PATIENT IS AWAKE, ALERT, ORIENTED, COMFORTABLE, NO DISTRESS NOTED, IVF/ANTIBIOTIC INFUSING, ALL NEEDS ATTENDED AT THIS TIME, WILL CONTINUE TO MONITOR.
[2021-11-29 07:09] LABS: CALCIUM, SERUM 8.6 mg/dL (8.5-10.1); CREATININE 0.8 mg/dL (0.6-1.3); POTASSIUM 4.4 mmol/L (3.5-5.1)
--- NOTE | 2021-11-29 08:00 | NUR ---
RN OPENING NOTE PATIENT RECEIVED IN BED, AO X 4, IN NO ACUTE DISTRESS NOTED. RESPIRATORY EVEN AND UNLABORED ON ROOM AIR. SKIN IS WARM TO TOUCH, KEEP CLEAN/DRY, INTACT IV SITE. KEPT ELEVATED HOB FOR ENSURE AIRWAY AND ASPIRATION PRECAUTION, ALSO LOWEST POSITION OF THE BED, S/R UP X 2 FOR SAFETY. ALL SAFETY PRECAUTION APPLIED. CALL LIGHT WITHIN REACH, WILL CONTINUE TO MONITOR.
[2021-11-29 08:06] VITALS: BP 108/69
[2021-11-29] MEDS: DAKINS QUARTER STRENGTH (0.125%) 480 ML BOTTLE TOP SCH (08:36)
[2021-11-29] MEDS: SILVER SULFADIAZINE CREAM 25 GM TUBE TP SCH (08:36)
[2021-11-29] MEDS: MUPIROCIN OINT 2% 22 GM TUBE NS SCH ×2 (08:37→20:48)
[2021-11-29] MEDS: GABAPENTIN 400 MG CAPSULE PO SCH ×3 (08:38→16:43)
[2021-11-29] MEDS: METFORMIN 500 MG TABLET PO SCH ×2 (08:38→16:43)
[2021-11-29] MEDS: MORPHINE SULFATE INJ 2 MG/ML DISP.SYRIN IV PRN ×3 (08:39→20:35)
[2021-11-29] MEDS: ESCITALOPRAM OXALATE (10 MG) 10 MG TABLET PO SCH (08:39)
[2021-11-29] MEDS: *INSULIN REGULAR(HUMULIN R)HUM 100 UNIT/ML VIAL SQ PRN ×2 (11:48→21:40)
[2021-11-29 16:00] VITALS: BP 129/81
--- NOTE | 2021-11-29 18:35 | NUR ---
RN CLOSING NOTE PATENT IN BED, REMAINS AO X 4, IN NO ACUTE DISTRESS OBSERVED. RESPIRATORY EVEN AND UNLABORED ON ROOM AIR. SKIN IS WARM TO TOUCH KEEP CLEAN/DRY, INTACT NEW IV SITE. KEPT ELEVATE HOB FOR ASPIRATION PRECAUTION AND ENSURE AIRWAY, ALSO LOWEST POSITION OF THE BED FOR SAFETY. CALL LIGHT WITHIN REACH, WILL ENDORSE TO INDUCTION HEAT TREATER.
--- NOTE | 2021-11-29 19:35 | NUR ---
RN NOTES RECEIVED PATIENT AWAKE ON BED, A/OX4, RIGHT FOOT CELLULITIS, DENIES PAIN AT THIS TIME, NO SOB, CALL LIGHT WITHIN REACH, SIDERAILSUPX2, WILL CONTINUE TO MONITOR
[2021-11-29 20:00] VITALS: BP 121/74
--- NOTE | 2021-11-29 20:48 | NUR ---
RN NOTES COMPLAINED OF RIGHT FOOT PAIN- MORPHINE 2 MG IV GIVEN ORDERED, V/S STABLE
[2021-11-29] MEDS: INSULIN GLARGINE, 100 UNIT/ML CARTRIDGE SQ SCH (21:38)
[2021-11-30] MEDS: VANCOMYCIN 0.75 GM in IV D5W 250 ML IV SCH (01:54)
[2021-11-30] MEDS: IV NS 0.9% 1,000 ML IV PRN (04:30)
[2021-11-30] MEDS: PIPERACILLIN /TAZOBACTAM 3.375 G in IV D5W 100 ML IV SCH (04:30)
[2021-11-30] MEDS: MORPHINE SULFATE INJ 2 MG/ML DISP.SYRIN IV PRN ×5 (04:43→22:25)
--- NOTE | 2021-11-30 04:47 | NUR ---
RN NOTES COMPLAINED OF RIGHT FOOT PAIN- MORPHINE 2 MG IV GIVEN ORDERED, V/S STABLE
--- NOTE | 2021-11-30 06:50 | NUR ---
RN NOTES AWAKE, WAITING TO BE PICK-UP FOR DEBRIDEMENT IN OR, DENIES PAIN, NO SOB, MORNING CARE RENDERED, CALL LIGHT WITHIN REACH, SIDERAILSUPX2, PT. NEEDS ATTENDED
[2021-11-30] MEDS ORDERED: ANESTHESIA TRAY IN PYXIS 1 EA TRAY MC ONE (07:03)
[2021-11-30] MEDS ORDERED: LIDOCAINE 1% INJ 50 ML MDV IJ ONE (07:03)
[2021-11-30] MEDS ORDERED: BUPIVACAINE 0.5 % PF 150 MG/30 ML VIAL ONE (07:03)
[2021-11-30 07:05] LABS: CREATININE 0.9 mg/dL (0.6-1.3); POTASSIUM 4.1 mmol/L (3.5-5.1)
[2021-11-30] MEDS: BLOOD SUGAR DIAGNOSTIC 1 EACH STRIP VI SCH ×4 (07:10→22:29)
[2021-11-30] MEDS ORDERED: FENTANYL PF 100MCG/2ML AMPUL ONE (07:18)
[2021-11-30] MEDS ORDERED: MIDAZOLAM HCL 2 MG/2ML VIAL ONE (07:18)
--- NOTE | 2021-11-30 07:30 | NUR ---
MS RN OPENING NOTES PATIENT OUT OF THE ROOM; CURRENTLY AT OR FOR DEBRIDEMENT.
[2021-11-30] MEDS ORDERED: HYDROMORPHONE 1 MG/1 ML DISP.SYRIN ONE (08:37)
[2021-11-30] MEDS: MUPIROCIN OINT 2% 22 GM TUBE NS SCH ×2 (09:00→21:43)
[2021-11-30] MEDS: GABAPENTIN 400 MG CAPSULE PO SCH ×3 (09:00→17:37)
[2021-11-30] MEDS: SILVER SULFADIAZINE CREAM 25 GM TUBE TP SCH (09:00)
[2021-11-30] MEDS: METFORMIN 500 MG TABLET PO SCH ×2 (09:00→17:37)
[2021-11-30] MEDS: DAKINS QUARTER STRENGTH (0.125%) 480 ML BOTTLE TOP SCH (09:00)
[2021-11-30 09:35] VITALS: BP 119/77
--- NOTE | 2021-11-30 09:35 | NUR ---
MS RN NOTES PATIENT IS BACK IN ROOM FROM OR; S/P RIGHT FOOT DEBRIDEMENT WITH DRESSING INTACT, NO SIGNS OF BLEEDING NOTED. VS STABLE DENIES PAIN. WILL CONTINUE TO MONITOR
--- NOTE | 2021-11-30 12:50 | NUR ---
"SS consult: SS Consult requested for homelessness. The pt. is a 36-year-old male patient who admitted to Med surg due Left lower leg cellulitis per EMR. Upon SS consult, the pt. is Alert & Oriented x 4 and makes good eye contact. The pt. appears well-groomed and presents with euthymic mood & affect. Pt.s speech is clear Pt.s thought process is WNL. JOSHUA explored pt.s living situation. Patient states he has been living at [facility] [phone] for the past 3 weeks. Prior to that pt. states he was living with his mother, Cierra Isaacs [phone] who is his [facility] Caregiver. Per pt. he could no longer stay with his mother as she did not like him drinking alcohol. JOSHUA explored pt.s drug & ETOH use. Pt. states he drinks beer and burrell does not feel it is a problem for him. JOSHUA explored pt.s mental health Hx. Pt. states he does not know all the diagnosis & states he has been diagnosed with PTSD, Bipolar Disorder and Schizophrenia. Pt. denies current SI/HI and Pt. denies visual or auditory hallucinations. Per pt. he is not ambulatory and uses his electric wheelchair. Pt. states he needs some assistance with his ADLs. JOSHUA explored pt.s support system. Pt. states his family & his care worker, Sabrina from [facility] are his support system. Plan: Pt. states he was discharged from [facility] because they feel he needs a higher level of care. Per CM note, the pt. will need IV antibiotics for the next two weeks and will require SNF placement. Pt. is aware and agreeable. Pt. stated he will ask his CM, Sabrina from [facility] to assist him with placement after SNF. Pt. SW provided pt. with homeless resources and pt. refused them. Pt. signed homeless waiver and it was placed in the chart. Year-round shelters: [facility] [address] [place] [address] ; [facility] [address] [place] [address]; [facility] [id number] [facility]. [facility] [address] Winter Shelters: SPA 2 | [facility]: [facility] Address: Confidential (call for location ) Population Served: Coed # of Beds: 57 SPA 4 | [facility] Provider: Home at Last Address: [address] [facility], [address] # of Beds: 49 Population Served: Coed SPA 6 | [facility] Provider: Home at Last Address: [address] [facility], [address] # of Beds: 49 Population Served: Coed [facility] Provider: Ronald [facility] Address: [address] [facility] [address] # of Beds: 20 Population Served: Women [facility] Facility Provider: Home at Last Address: [address] [facility] [address] # of Beds: 30 Population Served: Women SPA 8 | [facility] Provider: Jaime colindres Tabitha Address: [address] [facility] [address] # of Beds: 65 Population Served: Coed Hygiene: [place] [facility]: [address] [facility] ; [facility] [address] [facility] ; [facility] [address] [facility] . Food Resources: [place] [employer] [facility] at [facility]- [address] [facility]; Meet Each Need with Dignity ([facility]) [address] [facility]; [facility] [address] [facility]; [facility] [address] [facility] [place]. Mental Health resources provided: [facility] [address] [place] [address] ; [facility] [place] [address] [facility] [address], [place] [address] ; [facility] [address] [place] [address] ; [facility] [place], [place] [id number] Healthcare Clinics: [facility] [address] [facility], [address] [place]. [place] ; [facility] [address] [facility] [address] [place] [address]; [facility] [address] [facility] [place] [address] [phone] Counseling--Outpatient [facility] [address] [facility], [place] [address] (Specializes in in-depth psychotherapy for emotional distress: anxiety, depression, interpersonal conflicts, life transitions, childhood abuse) [facility] [address] [place] [address] (Assist with solving problem marital difficulties, separation & divorce, aging parents, & grief, chronic & terminal illness) [facility] [address] [place] [address] (Deal with loss & grief, anxiety, marital difficulties) Homebound/Mental Health Services [address] [facility], [address] [place] [address] (Provide in-home mental services to people who are incapable of leaving their homes) [facility] Elder[facility] [address] [place] [address] [facility] [address] [place] [address] PSYCHIATRIC OUTPATIENT SERVICES [facility] Partial Hospitalization and Intensive Outpatient Program (Managed Care and Rochelle Only)[address] Rafita Moran. [facility] [phone] [facility] Partial Hospitalization and Outpatient [id number] [facility]. [address] [place], [place] [phone] VAN N[facility] [id number] [address] [facility]. [address] [place], [place] [phone] [facility] Partial Hospitalization and Outpatient [id number] Cecily Byers, [phone] Substance Abuse resources provided included: [facility] Substance Abuse Self-Helpline ([facility]) ; CRI -HELP [address] [facility]. [place] [id number] ; [facility] [place] [address] [facility] [address] ; [facility] Rehabilitation Program [address] [facility] [address] ; [facility] [address] [facility] [phone] ; [facility] [address] [facility] [address] ; [facility] [address] [facility] [phone] ; [facility] Substance Abuse Helpline([facility] ; [facility] ; [facility]; [facility] [place]; [facility] [place]; [facility] [place]; [facility] [place]; [facility] [place]; [facility] [place]; [facility]. [facility]; Alcoholics Anonymous -SFV; Gm-Hqms-Tdlndbj ; Marijuana Anonymous -SFV; Narcotics Anonymous www.na.org;"
[2021-11-30] MEDS: ESCITALOPRAM OXALATE (10 MG) 10 MG TABLET PO SCH (13:42)
[2021-11-30] MEDS: CEFTRIAXONE 1 G in IV D5W 50 ML IV SCH (13:43)
--- NOTE | 2021-11-30 14:00 | NUR ---
MS RN NOTES DUE MEDS GIVEN ORALLY ORDERED. PATIENT COMPLAINS OF PAIN 8/10 ON HIS RIGHT FOOT; PRN MORPHINE IV GIVEN; WILL REASSESS
[2021-11-30] MEDS: VANCOMYCIN HCL 0.75 GM in IV D5W 250 ML IV SCH (15:02)
[2021-11-30 16:00] VITALS: BP 114/69
--- NOTE | 2021-11-30 17:30 | NUR ---
MS RN NOTES BLOOD SUGAR CHECKED; 151 MG/DL, INSULIN COVERAGE 2 UNITS GIVEN PER SCALE ORDERED.
[2021-11-30] MEDS: INSULIN REGULAR, HUMAN 100 UNIT/ML 3 ML VIAL SQ PRN (17:40)
[2021-11-30] MEDS ORDERED: LIDOCAINE 2% JEL 5 ML TUBE MC ONE (19:00)
--- NOTE | 2021-11-30 19:30 | NUR ---
EXECUTIVE ASSISTANT CLOSING NOTES PATIENT IS IN BED, AWAKE, ALERT AND RESPONSIVE. VS STABLE. NO COMPLAINS OF PAIN. ENDORSED TO NABIL RN FOR ANY SANDEEP.
--- NOTE | 2021-11-30 19:30 | NUR ---
MS RN OPENING NOTE PATIENT RECEIVED AWAKE IN BED. A/OX4. NO S/S OF DISTRESS, BREATHING UNLABORED ON RM AIR. ALISON MIDLINE SL INTACT AND PATENT; RW INTACT AND PATENT W/ NS 75ML/HR. SAFETY MEASURES IN PLACE: BED AT LOWEST POSITION, RAILS UP X3, CALL HERNANDEZ WITHIN REACH. WILL CONTINUE TO MONITOR PATIENT.
[2021-11-30 19:50] VITALS: BP 158/100
[2021-11-30] MEDS: HYDROCODONE/APAP 5/325MG TABLET PO PRN (21:01)
[2021-11-30] MEDS: INSULIN GLARGINE, 100 UNIT/ML CARTRIDGE SQ SCH (22:33)
[2021-11-30] MEDS: *INSULIN REGULAR(HUMULIN R)HUM 100 UNIT/ML VIAL SQ PRN (22:35)
[2021-12-01] MEDS: VANCOMYCIN HCL 0.75 GM in IV D5W 250 ML IV SCH ×2 (01:48→15:24)
[2021-12-01] MEDS: BLOOD SUGAR DIAGNOSTIC 1 EACH STRIP VI SCH ×4 (06:31→21:36)
[2021-12-01] MEDS: INSULIN REGULAR, HUMAN 100 UNIT/ML 3 ML VIAL SQ PRN ×2 (06:32→21:35)
--- NOTE | 2021-12-01 06:38 | NUR ---
MS RN CLOSING NOTE PATIENT ASLEEP IN BED. A/OX4. NO S/S OF DISTRESS, BREATHING UNLABORED ON RM AIR. ALISON MIDLINE SL INTACT AND PATENT; RW #22 NS 75ML/HR INTACT AND PATENT. SAFETY MEASURES IN PLACE: BED AT LOWEST POSITION, RAILS UP X3, CALL HERNANDEZ WITHIN REACH. ALL NEEDS ATTENDED TO. WILL ENDORSE TO FOLLOWING SHIFT FOR SANDEEP.
--- NOTE | 2021-12-01 07:30 | NUR ---
RN MS OPENING NOTES PATIENT IN BED; AWAKE, ALERT AND ORIENTED. VS STABLE, NO SOB AND NO SIGNS/SYMPTOMS OF ANY RESPIRATORY DISTRESS. ON ROOM AIR, TOLERATING WELL. WITH MIDLINE AT LEFT UPPER ARM SALINE LOCKED; DRY, PATENT AND INTACT. WITH IV INFUSION OF NS AT 75 ML/HR AT RIGHT WRIST G22, INFUSING WELL. BED IS IN LOWEST LOCKED POSITION. SIDE RAILS UP TIMES 2. TABLE AND CALL LIGHT WITHIN REACH. SAFETY MEASURES IN PLACED. WILL CONTINUE TO MONITOR
[2021-12-01] MEDS: METFORMIN 500 MG TABLET PO SCH ×2 (08:23→17:39)
[2021-12-01] MEDS: ESCITALOPRAM OXALATE (10 MG) 10 MG TABLET PO SCH (08:25)
[2021-12-01] MEDS: GABAPENTIN 400 MG CAPSULE PO SCH ×3 (08:25→17:39)
[2021-12-01] MEDS: HYDROCODONE/APAP 5/325MG TABLET PO PRN ×2 (08:30→18:35)
[2021-12-01] MEDS: MUPIROCIN OINT 2% 22 GM TUBE NS SCH ×2 (08:37→17:40)
--- NOTE | 2021-12-01 10:00 | NUR ---
RN MS NOTES DUE MEDS GIVEN ORALLY ORDERED
[2021-12-01] MEDS: DOCUSATE SODIUM 100 MG CAPSULE PO SCH ×2 (10:52→17:39)
--- NOTE | 2021-12-01 12:30 | NUR ---
RN MS NOTES BLOOD SUGAR CHECKED; 132 MG/DL. NO COVERAGE GIVEN.
[2021-12-01] MEDS: CEFTRIAXONE 1 G in IV D5W 50 ML IV SCH (14:04)
[2021-12-01 16:00] VITALS: BP 128/82
[2021-12-01 16:24] LABS: CALCIUM, SERUM 8.6 mg/dL (8.5-10.1); POTASSIUM 4.3 mmol/L (3.5-5.1)
[2021-12-01] MEDS: SILVER SULFADIAZINE CREAM 25 GM TUBE TP SCH (17:41)
[2021-12-01] MEDS: DAKINS QUARTER STRENGTH (0.125%) 480 ML BOTTLE TOP SCH (17:41)
--- NOTE | 2021-12-01 19:09 | NUR ---
RN MS CLOSING NOTES PATIENT IS IN BED, ALERT, AWAKE AND RESPONSIVE TIMES 4. VS STABLE. DENIES ANY PAIN. SAFETY MEASURES IN PLACE. ENDORSED TO NABIL ALVAREZ.
--- NOTE | 2021-12-01 19:27 | NUR ---
MS RN OPENING NOTE PATIENT RECEIVED AWAKE IN BED. A/OX4. NO S/S OF DISTRESS. BREATHING UNLABORED ON RM AIR. ALISON MIDLINE INTACT AND PATENT; RW #22 INTACT AND PATENT W/ NS 75ML/HR. SAFETY MEASURES IN PLACE: BED AT LOWEST POSITION, RAILS UP X3, CALL HERNANDEZ WITHIN REACH. WILL CONTINUE TO MONITOR PATIENT.
[2021-12-01 20:00] VITALS: BP 116/85
[2021-12-01] MEDS: INSULIN GLARGINE, 100 UNIT/ML CARTRIDGE SQ SCH (21:34)
[2021-12-02] MEDS: IV NS 0.9% 1,000 ML IV PRN (01:02)
[2021-12-02] MEDS: VANCOMYCIN HCL 0.75 GM in IV D5W 250 ML IV SCH (01:02)
[2021-12-02] MEDS: MORPHINE SULFATE INJ 2 MG/ML DISP.SYRIN IV PRN ×2 (05:43→19:59)
--- NOTE | 2021-12-02 07:04 | NUR ---
MS RN CLOSING NOTE PATIENT IS AWAKE IN BED. A/OX4. NO S/S OF DISTRESS, BREATHING UNLABORED ON RM AIR. ALISON MIDLINE SL INTACT AND PATENT; RW #22 NS 75ML/HR. SAFETY MEASURES IN PLACE: BED AT LOWEST POSITION, RAILS UP X3, CALL HERNANDEZ WITHIN REACH. WILL ENDORSE TO NEXT SHIFT FOR SANDEEP.
[2021-12-02] MEDS: BLOOD SUGAR DIAGNOSTIC 1 EACH STRIP VI SCH ×4 (07:07→22:01)
[2021-12-02] MEDS: INSULIN REGULAR, HUMAN 100 UNIT/ML 3 ML VIAL SQ PRN ×3 (07:07→18:09)
--- NOTE | 2021-12-02 07:30 | NUR ---
/ Addendum: 12/02/21 at 0754 by BLAKE OCASIO RN MS ALVAREZ OPENING NOTES RECEIVED ON BED, AWAKE, ALERT AND ORIENTED TIMES 4. NOT IN ANY FORM OF RESPIRATORY DISTRESS. NO SHORTNESS OF BREATH NOTED. ON ROOM AIR, TOLERATING WELL. WITH MIDLINE AT LEFT UPPER ARM; SALINE LOCKED; DRY AND INTACT. WITH IVF OF NS 1L INFUSING AT 75 ML/HR ON RIGHT WRIST G22; DRY, PATENT AND INTACT. DENIES ANY PAIN. BED PLACED IN LOWEST LOCKED POSITION. TABLE AND CALL LIGHT WITHIN REACHED. SAFETY MEASURES IN PLACED. WILL CONTINUE TO MONITOR
[2021-12-02 08:00] VITALS: BP 119/67
[2021-12-02] MEDS: DOCUSATE SODIUM 100 MG CAPSULE PO SCH ×3 (09:00→16:26)
[2021-12-02] MEDS: ESCITALOPRAM OXALATE (10 MG) 10 MG TABLET PO SCH (09:05)
[2021-12-02] MEDS: METFORMIN 500 MG TABLET PO SCH ×2 (09:05→16:26)
[2021-12-02] MEDS: GABAPENTIN 400 MG CAPSULE PO SCH ×3 (09:05→16:26)
[2021-12-02] MEDS: SILVER SULFADIAZINE CREAM 25 GM TUBE TP SCH (09:17)
[2021-12-02] MEDS: MUPIROCIN OINT 2% 22 GM TUBE NS SCH ×2 (09:18→21:23)
[2021-12-02] MEDS: DAKINS QUARTER STRENGTH (0.125%) 480 ML BOTTLE TOP SCH (09:18)
[2021-12-02 10:37] LABS: CALCIUM, SERUM 8.5 mg/dL (8.5-10.1); CREATININE 0.8 mg/dL (0.6-1.3); POTASSIUM 4.1 mmol/L (3.5-5.1)
[2021-12-02] MEDS: CEFTRIAXONE 1 G in IV D5W 50 ML IV SCH (11:25)
--- NOTE | 2021-12-02 12:00 | NUR ---
RN MS NOTES BLOOD SUGAR CHECKED; 149 MG/DL. 2 UNITS OF REGULAR INSULIN PER SLIDING SCALE GIVEN ORDERED.
[2021-12-02] MEDS: HYDROCODONE/APAP 5/325MG TABLET PO PRN (12:03)
[2021-12-02] MEDS: VANCOMYCIN 1 GM in IV D5W 250 ML IV SCH (12:03)
--- NOTE | 2021-12-02 12:15 | NUR ---
RN MS NOTES SEEN AND EXAMINED BY TATYANA GONZALEZ MD.
--- NOTE | 2021-12-02 13:00 | NUR ---
RN MS NOTES PATIENT COMPLAINED OF PAIN WITH SCALE OF 8/10. PRN MED GIVEN ORALLY ORDERED. WILL REASSESS THEREAFTER
[2021-12-02 16:00] VITALS: BP 117/75
--- NOTE | 2021-12-02 18:01 | NUR ---
ms rn on bedside,no distress noted,denies pain at this time, will endorse to [facility] shift lead for brady.
--- NOTE | 2021-12-02 19:21 | NUR ---
MS RN OPENING NOTE PATIENT RECEIVED AWAKE IN BED. A/OX4. NO S/S OF DISTRESS, BREATHING UNLABORED ON RM AIR. ALISON MIDLINE INTACT AND PATENT. SAFETY MEASURES IN PLACE: BED AT LOWEST POSITION, RAILS UP X2, CALL HERNANDEZ WITHIN REACH. WILL CONTINUE TO MONITOR PATIENT.
[2021-12-02 20:00] VITALS: BP 101/71
[2021-12-02] MEDS: INSULIN GLARGINE, 100 UNIT/ML CARTRIDGE SQ SCH (22:00)
[2021-12-02] MEDS: *INSULIN REGULAR(HUMULIN R)HUM 100 UNIT/ML VIAL SQ PRN (22:02)
[2021-12-03] MEDS: VANCOMYCIN 1 GM in IV D5W 250 ML IV SCH ×2 (00:25→12:55)
[2021-12-03] MEDS: IV NS 0.9% 1,000 ML IV PRN ×2 (01:22→18:24)
[2021-12-03] MEDS: MORPHINE SULFATE INJ 2 MG/ML DISP.SYRIN IV PRN ×4 (02:44→20:09)
--- NOTE | 2021-12-03 06:46 | NUR ---
MS RN CLOSING NOTE PATIENT AWAKE IN BED. A/OX4. NO S/S OF DISTRESS, BREATHING ON ROOM AIR. ALISON MIDLINE INTACT AND PATENT W/ NS 75ML/HR. SAFETY MEASURES IN PLACE: BED AT LOWEST POSITION, RAILS UP X2, CALL HERNANDEZ WITHIN REACH. WILL ENDORSE TO NEXT SHIFT FOR SANDEEP.
[2021-12-03] MEDS: BLOOD SUGAR DIAGNOSTIC 1 EACH STRIP VI SCH ×4 (07:22→22:00)
[2021-12-03] MEDS: INSULIN REGULAR, HUMAN 100 UNIT/ML 3 ML VIAL SQ PRN (07:23)
--- NOTE | 2021-12-03 07:30 | NUR ---
MS RN NOTES RECEIVED PATIEN AWAKE IN BED. A/OX4. NO S/S OF DISTRESS NOTED. BREATHING EVEN AND UNLABORED ON ROOM AIR. ALISON MIDLINE INTACT AND PATENT. ABLE TO MAKE NEEDS KNOWN. RIGHT FOOT CELLULITIS DRESSING INTACT. SAFETY MEASURES IN PLACE: BED AT LOWEST POSITION AND LOCKED. RAILS UP X2, CALL HERNANDEZ WITHIN REACH. WILL CONTINUE TO MONITOR PATIENT.
[2021-12-03] MEDS: ESCITALOPRAM OXALATE (10 MG) 10 MG TABLET PO SCH (08:14)
[2021-12-03] MEDS: METFORMIN 500 MG TABLET PO SCH ×2 (08:14→16:26)
[2021-12-03] MEDS: GABAPENTIN 400 MG CAPSULE PO SCH ×3 (08:14→16:26)
[2021-12-03] MEDS: DAKINS QUARTER STRENGTH (0.125%) 480 ML BOTTLE TOP SCH (08:15)
[2021-12-03] MEDS: MUPIROCIN OINT 2% 22 GM TUBE NS SCH ×2 (08:15→23:02)
[2021-12-03] MEDS: SILVER SULFADIAZINE CREAM 25 GM TUBE TP SCH (08:16)
[2021-12-03 08:31] VITALS: BP 112/70
[2021-12-03 11:02] LABS: CALCIUM, SERUM 8.5 mg/dL (8.5-10.1); CREATININE 0.8 mg/dL (0.6-1.3); POTASSIUM 4.3 mmol/L (3.5-5.1)
[2021-12-03] MEDS: CEFTRIAXONE 1 G in IV D5W 50 ML IV SCH (12:09)
[2021-12-03 15:46] VITALS: BP 122/83
[2021-12-03] MEDS: DOCUSATE SODIUM 100 MG CAPSULE PO SCH (16:26)
[2021-12-03] MEDS: HYDROCODONE/APAP 5/325MG TABLET PO PRN (16:40)
--- NOTE | 2021-12-03 18:36 | NUR ---
MS RN CLOSING NOTES PATIEN AWAKE IN BED. A/OX4. NO S/S OF DISTRESS NOTED. BREATHING EVEN AND UNLABORED ON ROOM AIR. ALISON MIDLINE INTACT AND PATENT. ON IV HYDRATION OF NS AT 75 ML/HR.ABLE TO MAKE NEEDS KNOWN. RIGHT FOOT CELLULITIS DRESSING CHANGED,TREATMENT DONE,ALL DUE MEDS GIVEN ORDERED . SAFETY MEASURES IN PLACE: BED AT LOWEST POSITION AND LOCKED. RAILS UP X2, CALL HERNANDEZ WITHIN REACH. WILL ENDORSE FOR SANDEEP..
--- NOTE | 2021-12-03 19:51 | NUR ---
MS RN OPENING NOTES: RECEIVED PATIENT AWAKE IN BED, BED IN LOW POSITION CALL LIGHTS WITHIN REACH,NO COMPLAIN OF PAIN AND DISCOMFORT AT THIS TIME, PATIENT IS A/OX4 AMBULATORY WITH SUPERVISION, WITH ALISON GUERRA- WITH ONGOING NSS@75MLPER HOUR INFUSING WELL, ON ROOM AUR SATURATING WELL, NO SOB WAS OBSERVED, PATIENT KEPT CLEAN AND DRY ALL NEEDS MET WILL CONTINUE TO MONITOR.
[2021-12-03 20:00] VITALS: BP 120/72
[2021-12-03] MEDS: INSULIN GLARGINE, 100 UNIT/ML CARTRIDGE SQ SCH (23:07)
[2021-12-03] MEDS: *INSULIN REGULAR(HUMULIN R)HUM 100 UNIT/ML VIAL SQ PRN (23:11)
[2021-12-04] MEDS: VANCOMYCIN 1 GM in IV D5W 250 ML IV SCH ×2 (00:34→12:30)
[2021-12-04] MEDS: MORPHINE SULFATE INJ 2 MG/ML DISP.SYRIN IV PRN (02:33)
--- NOTE | 2021-12-04 06:45 | NUR ---
RN NOTES: BS-95 NO INSULIN GIVEN PER SLIDING SCALE
--- NOTE | 2021-12-04 06:51 | NUR ---
RN CLOSING NOTES: PATIENT SLEEP IN BED COMFORTABLY, AROUSABLE TO VERBAL STIMULI, BED IN LOW POSITION, CALL LIGHTS WITHIN REACH, NO COMPLAIN OF PAIN AND DISCOMFORT AT THIS TIME, WITH IV LINE AT ALISON ML WITH ONGOING NS@75ML PER HOUR INFUSING WELL, ON ROOM AIR SATURATING WELL, PATIENT KEPT CLEAN AND DRY ALL NEEDS MET ENDORSE TO INCOMING SHIFT.
[2021-12-04] MEDS: BLOOD SUGAR DIAGNOSTIC 1 EACH STRIP VI SCH ×2 (07:25→11:24)
--- NOTE | 2021-12-04 07:37 | NUR ---
MS RN OPENING NOTES RECEIVED PATIENT IN BED, AWAKE, A/O X4. PATIENT ON ROOM AIR; BREATHING EVEN AND INTACT; NO SOB NOTED. COMPLAINING OF MILD PAIN IN THE LEG. ALISON MIDLINE PRESENT AND INTACT INFUSING NS @75 MLS/HR. SAFETY PRECAUTIONS IN PLACE; BED IN LOW POSITION AND LOCKED, RAILS UP X2, CALL LIGHT WITHIN REACH. WILL CONTINUE TO MONITOR PATIENT.
[2021-12-04 08:03] VITALS: BP_SYST 118; BP_SYST 128; BP_DIAS 63; BP_DIAS 71
[2021-12-04] MEDS: METFORMIN 500 MG TABLET PO SCH (08:22)
[2021-12-04] MEDS: GABAPENTIN 400 MG CAPSULE PO SCH ×2 (08:22→12:30)
[2021-12-04] MEDS: DOCUSATE SODIUM 100 MG CAPSULE PO SCH (08:22)
[2021-12-04] MEDS: ESCITALOPRAM OXALATE (10 MG) 10 MG TABLET PO SCH (08:22)
[2021-12-04] MEDS: DAKINS QUARTER STRENGTH (0.125%) 480 ML BOTTLE TOP SCH (08:25)
[2021-12-04] MEDS: SILVER SULFADIAZINE CREAM 25 GM TUBE TP SCH (08:26)
[2021-12-04] MEDS: MUPIROCIN OINT 2% 22 GM TUBE NS SCH (08:26)
[2021-12-04] MEDS: HYDROCODONE/APAP 5/325MG TABLET PO PRN (08:28)
--- NOTE | 2021-12-04 08:33 | NUR ---
MS RN NOTES PATIENT COMPLAINING OF PAIN 7 OUT OF 10 IN HIS LEG. REQUESTING PRN PAIN MEDICATION. NORCO [phone] ADMINISTERED. WILL REASSESS.
[2021-12-04] MEDS: IV NS 0.9% 1,000 ML IV PRN (10:22)
[2021-12-04] MEDS: CEFTRIAXONE 1 G in IV D5W 50 ML IV SCH (11:19)
[2021-12-04] MEDS ORDERED: SULF1TAB48 PO (13:51)
[2021-12-04] MEDS ORDERED: AMOX500C2 PO (13:51)
[2021-12-04] MEDS ORDERED: Insulin Glargine,Hum SQ (13:52)
[2021-12-04] MEDS ORDERED: Hydrocodone/Apap 5/325MG PO (13:52)
[2021-12-04] MEDS ORDERED: SILV50CR32 TP (13:52)
--- NOTE | 2021-12-04 13:57 | NUR ---
SS Note: Pt. is getting discharged today. Pt. stated that he is able to go stay with his mom [Cierra [phone], [address] [place] [address]]. Pt. rejected snf resources.
[2021-12-04] MEDS ORDERED: INSU100V7 SQ (14:53)
[2021-12-04] MEDS ORDERED: SYRI1DIS86 MC (14:54)
--- NOTE | 2021-12-04 14:54 | NUR ---
MS DIGITAL MARKETER NOTES PATIENT DISCHARGED HOME IN MEDICALLY STABLE CONDITION. A/O X4 ABLE TO MAKE NEEDS KNOWN. ALL DISCHARGE DOCUMENTATION READY AND PHYSICIAN DISCHARGE INSTRUCTIONS PROVIDED TO PATIENT. PATIENT VERBALIZED UNDERSTANDING AND PAPERWORK SIGNED. BELONGINGS ACCOUNTED FOR AND FORM SIGNED WELL. IV ACCESS REMOVED. PATIENT LEFT THE UNIT VIA WHEELCHAIR AND WILL TAKE A BUS.
== END 2021-12-04 14:30 | disposition home or self-care (01) | DRG 364 ==
LOC: ER 11:55 → TRANSITION 13:35 → MED 13:54
PROVIDERS: ADMIT Nurse Practitioner Acute Care; ATTEND Nurse Practitioner Acute Care
PROC: 0JBQ0ZZ Excision of Right Foot Subcutaneous Tissue and Fascia, Open Approach (ICD-10-PCS; principal; 2021-11-28)
PROC: 0J9Q0ZZ Drainage of Right Foot Subcutaneous Tissue and Fascia, Open Approach (ICD-10-PCS; 2021-11-30)
PROC: 05HC33Z Insertion of Infusion Device into Left Basilic Vein, Percutaneous Approach (ICD-10-PCS; 2021-11-30)
DX: L03.115 Cellulitis of right lower limb (principal); G93.40 Encephalopathy, unspecified; N17.9 Acute kidney failure, unspecified; L97.519 Non-pressure chronic ulcer of other part of right foot with unspecified severity; E87.1 Hypo-osmolality and hyponatremia; E11.21 Type 2 diabetes mellitus with diabetic nephropathy; E11.42 Type 2 diabetes mellitus with diabetic polyneuropathy; D64.9 Anemia, unspecified; E11.621 Type 2 diabetes mellitus with foot ulcer; L97.529 Non-pressure chronic ulcer of other part of left foot with unspecified severity; L03.116 Cellulitis of left lower limb; E11.65 Type 2 diabetes mellitus with hyperglycemia; Z20.822 Contact with and (suspected) exposure to COVID-19; E78.5 Hyperlipidemia, unspecified; E86.0 Dehydration; E11.69 Type 2 diabetes mellitus with other specified complication; L02.611 Cutaneous abscess of right foot; E78.00 Pure hypercholesterolemia, unspecified; F31.9 Bipolar disorder, unspecified; F43.10 Post-traumatic stress disorder, unspecified; Z79.899 Other long term (current) drug therapy; Z59.00 Homelessness unspecified; I10 Essential (primary) hypertension; Z79.84 Long term (current) use of oral hypoglycemic drugs; E86.1 Hypovolemia; Z98.890 Other specified postprocedural states; Z86.61 Personal history of infections of the central nervous system; Z99.3 Dependence on wheelchair; Z83.3 Family history of diabetes mellitus
CPT/HCPCS: 36410; 36415; 71045-TC; 73630-TC; 80048-TC; 80061-TC; 80076-TC; 80202-TC; 81001; 82962-TC; 83605-TC; 83735-TC; 84100-TC; 84484-TC; 85025-TC; 85652-TC; 85730-TC; 87040-TC; 87070-TC; 87075-TC; 87081-TC; 87086-TC; 87186-TC; 97116-TC; 97530-TC; A6403; G0378; J0696; J1170; J1815; J2250; J2270; J2543; J2704; J3010; J3370; J3490; J7030; J7060

== ENCOUNTER 2021-12-27 23:32 | Emergency (ER) | payer OTHER ==
[~2021-12-27] VITALS: Ht 188 cm; Wt 77.1 kg
[~2021-12-27 23:32] MED LIST changes: -ACET325T53 MC; +AMOX500C2 PO; -BLOO-668 IN; -DIVA500T2 PO; +ESCI10TA PO; +GABA800T11 PO; +Hydrocodone/Apap 5/325MG PO; -INSU100C10 SQ; +INSU100V7 SQ; -INSU3INS6 SQ; +Insulin Glargine,Hum SQ; -QUET200T PO; +SILV50CR32 TP; +SULF1TAB48 PO; +SYRI1DIS86 MC; -ZOLP5TAB2 PO
--- NOTE | 2021-12-28 | NUR ---
PT C/O RIGHT FOOT PAIN. HX OF FOOT INFECTION. PT IS A/O X 4, RR EVEN AND UNLABORED, NO SOB NOTED, PT VSS. TAKEN TO ER BED 11.
[2021-12-28] MEDS ORDERED: ACETAMINOPHEN 325 MG TABLET ONE (00:17)
[2021-12-28] MEDS ORDERED: ACETAMINOPHEN 325 MG TABLET PO ONE (00:30)
[2021-12-28] MEDS ORDERED: INSULIN LISPRO/ASPART 100 UNIT/ML CARTRIDGE SQ ONE (00:30)
[2021-12-28] MEDS ORDERED: IV NS 0.9% 1,000 ML IV ONE (00:30)
[2021-12-28] MEDS ORDERED: INSULIN REGULAR, HUMAN 100 UNIT/ML 10 ML VIAL SQ ONE (01:00)
[2021-12-28] MEDS ORDERED: INSULIN REGULAR, HUMAN 100 UNIT/ML 10 ML VIAL ONE (01:04)
[2021-12-28 01:13] LABS: BASOPHILS % (AUTO) 0.8 % (0.0-2.0); EOSINOPHILS % (AUTO) 6.5 % (0.0-6.0); HEMATOCRIT 36 % (39-51); HEMOGLOBIN 12.4 g/dL (13.5-17.5); LYMPHOCYTES # (AUTO) 1.7 K/uL (0.8-4.8); LYMPHOCYTES % (AUTO) 43.4 % (20.0-44.0); MEAN CORPUSCULAR HGB CONC 34 g/dl (31.0-36.0); MEAN CORPUSCULAR VOLUME 83 fL (80-96); MONOCYTES # (AUTO) 0.3 K/uL (0.1-1.30); MONOCYTES % (AUTO) 6.5 % (2.0-12.0); NEUTROPHILS # (AUTO) 1.7 K/uL (1.8-8.9); NEUTROPHILS % (AUTO) 42.8 % (43.0-81.0); PLATELET COUNT (AUTO) 218 K/uL (150-450); RED BLOOD CELL COUNT(AUTO) 4.35 MIL/uL (4.5-6.0); WHITE BLOOD COUNT (AUTO) 3.9 K/uL (4.3-11.0)
[2021-12-28 01:20] LABS: CALCIUM, SERUM 9.1 mg/dL (8.5-10.1); CREATININE 0.9 mg/dL (0.6-1.3); POTASSIUM 3.9 mmol/L (3.5-5.1)
[2021-12-28] MEDS ORDERED: VALPROIC ACID 250 MG/5 ML UDC PO ONE (01:30)
[2021-12-28] MEDS ORDERED: SULFAMETH/TRIMETH 800/160 MG 1 UDTAB TABLET PO ONE (01:30)
[2021-12-28] MEDS ORDERED: AMOX500C2 PO (01:35)
[2021-12-28] MEDS ORDERED: VALP250C3 PO (01:35)
[2021-12-28] MEDS ORDERED: SULF1TAB48 PO (01:35)
[2021-12-28] MEDS ORDERED: AMOXICILLIN TRIHYDRATE 500 MG CAPSULE PO ONE (02:00)
[2021-12-28] MEDS ORDERED: DIVALPROEX SODIUM 250 MG TABLET.DR PO ONE (02:24)
[2021-12-28] MEDS ORDERED: AMOX/CLAVULANATE 250 MG TABLET ONE (02:24)
[2021-12-28] MEDS ORDERED: SULFAMETH/TRIMETH 800/160 MG 1 UDTAB TABLET ONE (02:25)
--- NOTE | 2021-12-28 02:33 | NUR ---
IV removed. Catheter intact and site benign. Pressure and 4x4 applied to site. No bleeding noted.
--- NOTE | 2021-12-28 02:44 | NUR ---
Patient discharged to home in stable condition. Written and verbal after care instructions given. Patient verbalizes understanding of instruction.
[2021-12-28 03:21] VITALS: BP 121/66
== END 2021-12-28 02:50 | disposition home or self-care (01) ==
LOC: ER 23:38
DX: G40.89 Other seizures (principal); E11.65 Type 2 diabetes mellitus with hyperglycemia; E11.621 Type 2 diabetes mellitus with foot ulcer; D50.0 Iron deficiency anemia secondary to blood loss (chronic); D72.819 Decreased white blood cell count, unspecified; E78.00 Pure hypercholesterolemia, unspecified; Z79.4 Long term (current) use of insulin; Z88.8 Allergy status to other drugs, medicaments and biological substances; Z79.84 Long term (current) use of oral hypoglycemic drugs; Z79.899 Other long term (current) drug therapy
CPT/HCPCS: 36415; 80048; 82962; 85025; 96360; 96372; 99283; J1815 ×2; J7030

== ENCOUNTER 2022-04-29 16:29 | Emergency (ER) | payer OTHER ==
[~2022-04-29] VITALS: Ht 188 cm; Wt 77.1 kg
[~2022-04-29 16:29] MED LIST changes: +VALP250C3 PO
[2022-04-29 18:14] VITALS: BP 109/80
--- NOTE | 2022-04-29 18:54 | NUR ---
ENGINEERING SUPPLIES SALES AT BEDSIDE FOR BLOOD DRAW
[2022-04-29 19:13] LABS: CALCIUM, SERUM 9.5 mg/dL (8.5-10.1); CREATININE 1.3 mg/dL (0.6-1.3); POTASSIUM 4.4 mmol/L (3.5-5.1)
--- NOTE | 2022-04-29 19:14 | NUR ---
LAB CALLED BLOOD SUGAR 544 DR. JUDGE INFORMED.
--- NOTE | 2022-04-29 19:47 | NUR ---
Patient does not wish to proceed with medical care recommended by Dr. Newell. Patient given information related to possible complications, up to and including , which could occur as a result of leaving the hospital at this time. Patient verbalizes understanding of risks involved due to leaving against medical advice. Patient has signed AMA form.
[2022-04-29 19:56] LABS: BASOPHILS # (AUTO) 0.1 K/uL (0.0-0.2); EOSINOPHILS % (AUTO) 5.3 % (0.0-6.0); HEMATOCRIT 41 % (39-51); HEMOGLOBIN 14.4 g/dL (13.5-17.5); LYMPHOCYTES # (AUTO) 2.7 K/uL (0.8-4.8); LYMPHOCYTES % (AUTO) 39.3 % (20.0-44.0); MEAN CORPUSCULAR HGB CONC 35 g/dl (31.0-36.0); MEAN CORPUSCULAR VOLUME 82 fL (80-96); MONOCYTES # (AUTO) 0.4 K/uL (0.1-1.30); NEUTROPHILS # (AUTO) 3.3 K/uL (1.8-8.9); NEUTROPHILS % (AUTO) 48.4 % (43.0-81.0); PLATELET COUNT (AUTO) 277 K/uL (150-450); RED BLOOD CELL COUNT(AUTO) 5.05 MIL/uL (4.5-6.0); WHITE BLOOD COUNT (AUTO) 6.7 K/uL (4.3-11.0)
[2022-04-29] MEDS: HYDROCODONE/APAP 5/325MG TABLET PO ONE (20:36)
== END 2022-04-29 20:00 | disposition home or self-care (01) ==
LOC: ER 16:31
DX: G89.18 Other acute postprocedural pain (principal); M79.675 Pain in left toe(s); E11.65 Type 2 diabetes mellitus with hyperglycemia; E78.00 Pure hypercholesterolemia, unspecified; Z90.89 Acquired absence of other organs; Z88.8 Allergy status to other drugs, medicaments and biological substances; Z79.4 Long term (current) use of insulin; Z79.899 Other long term (current) drug therapy
CPT/HCPCS: 36415; 80048-TC; 85025-TC

== ENCOUNTER 2022-07-23 13:07 | Inpatient (IN) | payer OTHER ==
[~2022-07-23] VITALS: Ht 188 cm; Wt 122.5 kg
--- NOTE | 2022-07-23 13:10 | NUR ---
REceived pt 37 yrs old male came by seun c/o GLF THIS morning c/o pain redness and swallen on rt foot wound on rt foot
--- NOTE | 2022-07-23 13:19 | NUR ---
[facility] to ER, S/P GLF, + ETOH
--- NOTE | 2022-07-23 14:00 | NUR ---
TO CT SCAN OFF LEG
[2022-07-23 14:05] LABS: BILIRUBIN,URINE NEGATIVE (NEGATIVE); COLOR,URINE YELLOW (YELLOW); LEUKOCYTE ESTERASE ,URINE NEGATIVE (NEGATIVE); NITRITE, URINE NEGATIVE (NEGATIVE); PROTEIN,URINE NEGATIVE (NEGATIVE); UGLUCOSE 3+ mg/dL (NEGATIVE); UROBILINOGEN,URINE 0.2 EU/dL (0.2)
[2022-07-23 14:20] LABS: BASOPHILS # (AUTO) 0.1 K/uL (0.0-0.2); BASOPHILS % (AUTO) 0.8 % (0.0-2.0); EOSINOPHILS % (AUTO) 5.6 % (0.0-6.0); HEMATOCRIT 40 % (39-51); HEMOGLOBIN 13.6 g/dL (13.5-17.5); MEAN CORPUSCULAR HGB CONC 34 g/dl (31.0-36.0); MEAN CORPUSCULAR VOLUME 86 fL (80-96); MONOCYTES # (AUTO) 0.5 K/uL (0.1-1.30); MONOCYTES % (AUTO) 7.4 % (2.0-12.0); NEUTROPHILS # (AUTO) 4.1 K/uL (1.8-8.9); NEUTROPHILS % (AUTO) 58.2 % (43.0-81.0); PLATELET COUNT (AUTO) 157 K/uL (150-450); RED BLOOD CELL COUNT(AUTO) 4.71 MIL/uL (4.5-6.0); WHITE BLOOD COUNT (AUTO) 7.1 K/uL (4.3-11.0)
[2022-07-23 14:34] LABS: ALBUMIN 3.6 g/dL (3.4-5.0); BILIRUBIN,DIRECT 0.1 mg/dL (0.0-0.2); BILIRUBIN,TOTAL 0.3 mg/dL (0.2-1.0); CALCIUM, SERUM 8.7 mg/dL (8.5-10.1); CREATININE 1.1 mg/dL (0.6-1.3); POTASSIUM 4.2 mmol/L (3.5-5.1); TOTAL PROTEIN, SERUM 7.2 g/dL (6.4-8.2)
[2022-07-23 14:37] LABS: BACTERIA,URINE None seen /HPF (None Seen); RBC,URINE NONE SEEN /HPF (0-2); SQUAMOUS EPITHELIAL CELL,UR None Seen /HPF (None Seen); WBC,URINE NONE SEEN /HPF (0-3)
--- NOTE | 2022-07-23 15:45 | NUR ---
MAIN FROM LAB CALLED , CRITICAL LAB GLUCOSE = [phone] INFORMED MD
[2022-07-23] MEDS ORDERED: INSULIN REGULAR, HUMAN 100 UNIT/ML 10 ML VIAL SQ ONE (16:00)
[2022-07-23] MEDS ORDERED: IV NS 0.9% 1,000 ML IV ONE (16:00)
--- NOTE | 2022-07-23 16:24 | NUR ---
COVID SWAB COLLECTED AND SENT TO LAB
[2022-07-23] MEDS ORDERED: INSU100I26 SQ (16:40)
[2022-07-23] MEDS ORDERED: INSU100I14 SQ (16:40)
[2022-07-23] MEDS ORDERED: LISI-768 PO (16:40)
[2022-07-23] MEDS ORDERED: INSULIN REGULAR, HUMAN 100 UNIT/ML 10 ML VIAL ONE (16:50)
--- NOTE | 2022-07-23 17:06 | NUR ---
ACCUCHE DONE 523MG/LD REGRALE INSULIN 10 UNIT QS GIVEN
--- NOTE | 2022-07-23 17:59 | NUR ---
LINDA FOR MED SURGERY BED PT AWAKE AND ALERT
[2022-07-23] MEDS ORDERED: Z GUARD REMEDY 4 OZ OINT TP PRN (18:30)
[2022-07-23] MEDS ORDERED: DEXTROSE 50%-WATER 50 ML DISP.SYRIN IV PRN (18:30)
[2022-07-23] MEDS ORDERED: MAGNESIUM HYDROXIDE 30 ML UDC PO PRN (18:30)
[2022-07-23] MEDS ORDERED: ZOLPIDEM TARTRATE 5 MG TABLET PO PRN (18:30)
[2022-07-23] MEDS ORDERED: ONDANSETRON HCL/PF 4 MG/2 ML VIAL IVP PRN (18:30)
[2022-07-23] MEDS ORDERED: MAG HYDROX/AL HYDROX/SIMETH 30 ML UDC PO PRN (18:30)
--- NOTE | 2022-07-23 19:28 | NUR ---
HAND OFF RICHELLE ALVAREZ
[2022-07-23] MEDS ORDERED: VANCOMYCIN 1.5 GM in IV D5W 500 ML IV ONE (21:00)
[2022-07-23] MEDS: BLOOD SUGAR DIAGNOSTIC 1 EACH STRIP IN SCH (21:12)
[2022-07-23] MEDS: IV NS 0.9% 1,000 ML IV PRN (22:45)
[2022-07-23] MEDS ORDERED: ACETAMINOPHEN 325 MG TABLET ONE (22:46)
[2022-07-23] MEDS: ACETAMINOPHEN 325 MG TABLET PO PRN (22:48)
[2022-07-24] MEDS: BLOOD SUGAR DIAGNOSTIC 1 EACH STRIP IN SCH ×6 (01:00→21:49)
[2022-07-24] MEDS ORDERED: INSULIN REGULAR, HUMAN 100 UNIT/ML 10 ML VIAL ONE (05:29)
[2022-07-24] MEDS: INSULIN REGULAR, HUMAN 100 UNIT/ML 3 ML VIAL SQ PRN ×5 (05:31→22:00)
[2022-07-24 05:44] LABS: BASOPHILS % (AUTO) 0.5 % (0.0-2.0); EOSINOPHILS % (AUTO) 5.9 % (0.0-6.0); HEMATOCRIT 41 % (39-51); HEMOGLOBIN 14.1 g/dL (13.5-17.5); LYMPHOCYTES # (AUTO) 2.1 K/uL (0.8-4.8); LYMPHOCYTES % (AUTO) 31.8 % (20.0-44.0); MEAN CORPUSCULAR HGB CONC 35 g/dl (31.0-36.0); MEAN CORPUSCULAR VOLUME 84 fL (80-96); MONOCYTES # (AUTO) 0.5 K/uL (0.1-1.30); MONOCYTES % (AUTO) 8.3 % (2.0-12.0); NEUTROPHILS # (AUTO) 3.5 K/uL (1.8-8.9); NEUTROPHILS % (AUTO) 53.5 % (43.0-81.0); PLATELET COUNT (AUTO) 170 K/uL (150-450); RED BLOOD CELL COUNT(AUTO) 4.86 MIL/uL (4.5-6.0); WHITE BLOOD COUNT (AUTO) 6.5 K/uL (4.3-11.0)
[2022-07-24 05:53] LABS: CALCIUM, SERUM 8.9 mg/dL (8.5-10.1); PHOSPHORUS 3.7 mg/dL (2.5-4.9); POTASSIUM 4.4 mmol/L (3.5-5.1)
[2022-07-24 05:58] LABS: THYROID STIMULATING HORMONE 2.444 uIU/mL (0.358-3.74)
--- NOTE | 2022-07-24 07:15 | NUR ---
Receved pt from KATELYNN ALVAREZ
--- NOTE | 2022-07-24 07:30 | NUR ---
WATING FOR MEDICALE FLOOR BED
[2022-07-24] MEDS ORDERED: VANCOMYCIN 1.25 GM in IV D5W 250 ML IV SCH (08:00)
--- NOTE | 2022-07-24 09:00 | NUR ---
VITAL SIGNS WITHIN NORMAL LIMITS.
[2022-07-24] MEDS ORDERED: VANCOMYCIN 1 GM VIAL ONE (09:41)
[2022-07-24] MEDS ORDERED: ESCITALOPRAM OXALATE (10 MG) 10 MG TABLET ONE (09:41)
[2022-07-24] MEDS ORDERED: LISINOPRIL (20MG) 20 MG TABLET ONE (09:42)
[2022-07-24] MEDS ORDERED: PANTOPRAZOLE 40 MG TABLET.DR PO ONE (09:42)
[2022-07-24] MEDS ORDERED: ACETAMINOPHEN 325 MG TABLET ONE (09:43)
[2022-07-24] MEDS: PANTOPRAZOLE 40 MG TABLET.DR PO SCH (09:45)
[2022-07-24] MEDS: ESCITALOPRAM OXALATE (10 MG) 10 MG TABLET PO SCH (09:47)
[2022-07-24] MEDS: ACETAMINOPHEN 325 MG TABLET PO PRN (09:52)
[2022-07-24] MEDS: LISINOPRIL (5MG) 5 MG TABLET PO SCH (09:56)
--- NOTE | 2022-07-24 10:08 | NUR ---
accuckeck done 154mg/ld hold dose regrale insulin pt did not eat this morning
--- NOTE | 2022-07-24 10:30 | NUR ---
SEEN BY WOUND NURSE RN FOR EVAULATION
--- NOTE | 2022-07-24 11:49 | NUR ---
SEEM BY PROVIDER spook with pt ABOUT PLAN OF CARE
--- NOTE | 2022-07-24 12:52 | NUR ---
WOUND CARE CONSULT: PT WAS SEEN THIS AM FOR RT FOOT WOUND. RT PLANTAR FOOT IS TENDER WITH CALLUS/ESCHAR, PRESENT ON ADMISSION. DR AWAD CALLED FOR DPM CONSULT. IN AGREEMENT WITH PLAN OF CARE.
--- NOTE | 2022-07-24 13:32 | NUR ---
GOT BED 323-1
[2022-07-24] MEDS ORDERED: GABAPENTIN 300 MG CAPSULE ONE (13:50)
[2022-07-24] MEDS ORDERED: GABAPENTIN 300 MG CAPSULE PO SCH ×3 (14:00→17:00)
--- NOTE | 2022-07-24 14:34 | NUR ---
HAND OFF MARI ALVAREZ TO ROOM 323-1 VIA TR
--- NOTE | 2022-07-24 14:40 | NUR ---
MS PROFESSOR OF PHYSICS NOTES: PT RECEIVED FROM ER VIA DEVANTE. RECEIVED REPORT BY PHONE FROM DENI. PT WAS TRANSFERRED TO BED BY 3 STAFF. PT IS AWAKE, A/O X4, VERBALIZES NEEDS. ORIENTED TO UNIT AND STAFF. VS WNL, NO S/S OF SOB OR ACUTE DISTRESS ON RA. TELE BOX READING SR, HR- 78. IV ACCESS NOTED AT L WRIST #20, RUNNING NS AT 75ML/HR. BLE SKIN ISSUES NOTED, PHOTOS TAKEN AND PLACED IN CHART. SAFETY MEASURES IN PLACE, URINAL CALL LIGHT AND BED WITHIN REACH. PT REPORTS HE AMBULATES WITH WALKER AND ASSISTANCE, WALKER AT BEDSIDE. ENCOURAGED PT TO USE CALL LIGHT FOR ASSISTANCE; WILL CONT WITH PLAN OF CARE DURING SHIFT. Addendum: 07/24/22 at 2030 by SHIRA COULTER RN EUGENE ALVAREZ
[2022-07-24] MEDS: ENOXAPARIN SODIUM 40 MG/0.4 ML DISP.SYRIN SQ SCH (16:49)
[2022-07-24] MEDS: VANCOMYCIN 1.25 GM in IV D5W 250 ML IV SCH (17:03)
[2022-07-24 20:00] VITALS: BP 129/86
--- NOTE | 2022-07-24 20:06 | NUR ---
RN OPENING NOTE PATIENT AWAKE IN BED. A/OX4. NO S/S OF DISTRESS, BREATHING WITHOUT DIFFICULTY ON ROOM AIR. L-WRIST INTACT AND PATENT W/ NS 75 ML/HR. TELE READS SR 89 W/ BBB. SAFETY MEASURES IN PLACE: BED LOCKED IN LOWEST POSITION, RAILS UP X2, CALL HERNANDEZ WITHIN REACH. WILL CONTINUE TO MONITOR PATIENT.
--- NOTE | 2022-07-24 20:27 | NUR ---
PURCHASING CONTRACTING CLERK CLOSING NOTES: PT AWAKE IN BED, NO S/S OF SOB OR DISTRESS. ON RA TOLERATING WELL. SAFETY MEASURES IN PLACE, ALL NEEDS MET AT THIS TIME. ENDORSED TO PM SHIFT.
--- NOTE | 2022-07-24 20:39 | NUR ---
RN NOTE PATIENT COMPLAINING OF 8/10 PAIN D/T RT FOOT ABSCESS. CONTACTED ON-CALL LUIZ PARKER, WHO PLACED ORDER FOR MORPHINE. ONCE VERIFIED BY PHARMACY, MEDICATION WILL BE ADMINISTERED PER ORDERS. PATIENT O/W STABLE; WILL CONTINUE TO MONITOR PATIENT.
[2022-07-24] MEDS: MUPIROCIN OINT 2% 22 GM TUBE TP SCH (21:49)
[2022-07-24] MEDS: MORPHINE SULFATE INJ 2 MG/ML DISP.SYRIN IV PRN (21:49)
[2022-07-24] MEDS: INSULIN GLARGINE, 100 UNIT/ML CARTRIDGE SQ SCH (22:01)
[2022-07-25] VITALS: BP 120/69
[2022-07-25] MEDS: IV NS 0.9% 1,000 ML IV PRN ×2 (01:04→15:23)
[2022-07-25] MEDS: INSULIN REGULAR, HUMAN 100 UNIT/ML 3 ML VIAL SQ PRN ×6 (01:05→21:31)
[2022-07-25] MEDS: BLOOD SUGAR DIAGNOSTIC 1 EACH STRIP IN SCH ×6 (01:09→21:26)
[2022-07-25] MEDS: MORPHINE SULFATE INJ 2 MG/ML DISP.SYRIN IV PRN ×4 (02:03→18:51)
[2022-07-25] MEDS: VANCOMYCIN 1.25 GM in IV D5W 250 ML IV SCH ×2 (02:59→09:14)
[2022-07-25 04:00] VITALS: BP 124/70
--- NOTE | 2022-07-25 06:41 | NUR ---
RN CLOSING NOTE PATIENT ASLEEP IN BED. A/OX4. NO S/S OF DISTRESS, BREATHING WITHOUT DIFFICULTY ON ROOM AIR. L-WRIST #20 INTACT AND PATENT W/ NS 125ML/HR. TELE READS SR 78 W/ BBB. SAFETY MEASURES IN PLACE: BED LOCKED AND AT LOWEST POSITION, RAILS UP X2, CALL HERNANDEZ WITHIN REACH. WILL ENDORSE TO NEXT SHIFT FOR SANDEEP.
[2022-07-25 06:54] LABS: CALCIUM, SERUM 8.7 mg/dL (8.5-10.1); CREATININE 0.9 mg/dL (0.6-1.3); POTASSIUM 3.7 mmol/L (3.5-5.1)
--- NOTE | 2022-07-25 07:35 | NUR ---
APPLICATION SUPPORT LEAD OPENING NOTE PATIENT AWAKE IN BED, A/OX4, ABLE TO MAKE NEEDS KNOWN, ON ROOM AIR TOLERATING WELL WITH NO S/S OF DISTRESS, BREATHING WITHOUT DIFFICULTY. PATIENT WITH L WRIST G#20 PATENT, INTACT AND FLUSHING WELL WITH RUNNING AT 125 ML/HR. TELE READS SR AT 78 BPM. PATIENT DENIES PAIN NOR DISCOMFORT AT THIS TIME. SAFETY MEASURES IN PLACE: BED LOCKED IN LOWEST POSITION, RAILS UP X2, CALL HERNANDEZ WITHIN REACH. WILL CONTINUE TO MONITOR PATIENT.
[2022-07-25 08:00] VITALS: BP 132/81
[2022-07-25] MEDS: PANTOPRAZOLE 40 MG TABLET.DR PO SCH (08:14)
[2022-07-25] MEDS: GABAPENTIN 400 MG CAPSULE PO SCH ×3 (08:41→16:57)
[2022-07-25] MEDS: LISINOPRIL (5MG) 5 MG TABLET PO SCH (08:42)
[2022-07-25] MEDS: ESCITALOPRAM OXALATE (10 MG) 10 MG TABLET PO SCH (08:42)
--- NOTE | 2022-07-25 08:43 | NUR ---
WOUND CARE: RECEIVED 2ND CONSULT FOR LOWER EXTREMITY WOUND. PT FOLLOWED BY PODIATRY FOR LOWER EXTREMITIES. DEFER TO DPM CURRENTLY ON CASE. CURRENT ALICIA IS 20. WILL SEE PRN.
--- NOTE | 2022-07-25 08:45 | NUR ---
RN NOTES - PAIN MGT PATIENT REPORTS 8/10 PAIN ON THE R FOOT, REQUESTED FOR PAIN MEDICATION - ADMINISTERED MORPHINE SULPHATE 1 ML/2 MG VIA IV. WILL CONTINUE TO MONITOR.
[2022-07-25] MEDS: MUPIROCIN OINT 2% 22 GM TUBE TP SCH ×2 (08:57→21:26)
--- NOTE | 2022-07-25 11:28 | NUR ---
RN NOTES - DC'D TELEMETRY EXTERNAL XEROX MACHINE MECHANIC REMOVED AND RETURNED TO NE.
--- NOTE | 2022-07-25 12:43 | NUR ---
RN NOTES - PAIN MGT 9/10 PAIN ON THE R FOOT THIS TIME, REQUESTED FOR PAIN MEDICATION - ADMINISTERED MORPHINE SULPHATE 1 ML/2 MG VIA IV. WILL CONTINUE TO MONITOR.
--- NOTE | 2022-07-25 13:16 | NUR ---
RN NOTES - WOUND DEBRIDEMENT OF R FOOT BEING DONE AT BEDSIDE.
--- NOTE | 2022-07-25 14:14 | NUR ---
RN NOTES RECEIVED SPECIMEN FOR THE WOUND CULTURE, CALLED LAB TO MANAGER COMMUNITY RELATIONS - SPOKE TO
[2022-07-25] MEDS: ENOXAPARIN SODIUM 40 MG/0.4 ML DISP.SYRIN SQ SCH (15:20)
[2022-07-25 16:00] VITALS: BP 130/77
[2022-07-25] MEDS: VANCOMYCIN 1 GM in IV D5W 250 ML IV SCH (17:03)
--- NOTE | 2022-07-25 17:06 | NUR ---
RN NOTES - MRSA RECEIVED A CALL FROM [facility] - PATIENT IS + FOR MRSA ON BOTH NARE, SPOKE TO HELEN RUTLEDGE ORDER ATB.
--- NOTE | 2022-07-25 19:06 | NUR ---
MS ALVAREZ OPENING NOTE PATIENT AWAKE IN BED, A/OX4, ABLE TO MAKE NEEDS KNOWN, ON ROOM AIR TOLERATING WELL WITH NO S/S OF DISTRESS, BREATHING WITHOUT DIFFICULTY. PATIENT WITH L WRIST G#20 PATENT, INTACT AND FLUSHING WELL WITH NS RUNNING AT 125 ML/HR. PATIENT DENIES PAIN NOR DISCOMFORT AT THIS TIME. ALL DUE MEDS GIVEN, ALL NEEDS MET. SAFETY MEASURES MAINTAINED: BED LOCKED IN LOWEST POSITION, RAILS UP X2, CALL HERNANDEZ WITHIN REACH. WILL ENDORSE TO COMMERCIAL PLUMBER. Addendum: 07/26/22 at 1945 by JYOTI BRITO RN MS ALVAREZ CLOSING NOTE
--- NOTE | 2022-07-25 19:25 | NUR ---
RN OPENING NOTE PATIENT IN BED, AWAKE. A/O X 4, ABLE TO MAKE NEEDS KNOWN. PATIENT IS ON RA, TOLERATING WELL, BREATHING EVEN AND UNLABORED. PATIENT IS S/P R FOOT WOUND DEBRIDEMENT TODAY, R FOOT WRAPPED IN DRY DSG, C/D/I. PATIENT DOES NOT REPORT ANY PAIN AT THIS TIME. PATIENT HAS A L WRIST 20 G WITH NS AT 125 ML/HR ONGOING. INFUSING WELL. SAFETY MEASURES IN PLACE: BED LOCKED AND IN LOWEST POSITION, CALL LIGHT WITHIN REACH, SIDE RAILS UP.
[2022-07-25 20:00] VITALS: BP 123/54
[2022-07-25] MEDS ORDERED: MUPIROCIN OINT 2% 22 GM TUBE NS SCH (21:00)
[2022-07-25] MEDS: INSULIN GLARGINE, 100 UNIT/ML CARTRIDGE SQ SCH (21:28)
--- NOTE | 2022-07-25 21:40 | NUR ---
BS 195 MG/DL, 4 UNITS REGULAR INSULIN COVERAGE GIVEN AND LANTUS ADMINISTERED ORDERED. SNACKS PROVIDED. WILL MONITOR FOR HYPO/HYPERGLYCEMIA.
[2022-07-26] MEDS: BLOOD SUGAR DIAGNOSTIC 1 EACH STRIP IN SCH ×6 (01:01→21:24)
[2022-07-26] MEDS: MORPHINE SULFATE INJ 2 MG/ML DISP.SYRIN IV PRN ×6 (01:02→22:13)
[2022-07-26] MEDS: INSULIN REGULAR, HUMAN 100 UNIT/ML 3 ML VIAL SQ PRN ×6 (01:08→21:28)
[2022-07-26] MEDS: IV NS 0.9% 1,000 ML IV PRN ×2 (01:13→18:35)
[2022-07-26] MEDS: VANCOMYCIN 1 GM in IV D5W 250 ML IV SCH ×3 (01:45→18:12)
--- NOTE | 2022-07-26 07:00 | NUR ---
RN CLOSING NOTE PATIENT IN BED, ASLEEP BUT EASY TO AROUSE AND RESPONSIVE. ABLE TO COMMUNICATE NEEDS WITH THE STAFFS. AFEBRILE AND NOT IN ANY FORM OF ACUTE DISTRESS. BREATHING EVEN AND NON LABORED. NO SOB/WHEEZING NOTED. WITH IV ACCESS ON LEFT WRIST 20G, INFUSING WITH NS AT 125ML/HR. MEDICATED ORDERED. MANAGED PAIN BY ADMINISTERING MORPHINE VIA IV AND WAS EFFECTIVE. OFFERED AND ENCOURAGED FLUIDS TOLERATED. ADVISED TO TURN AND REPOSITION EVERY 2 HOURS AND TOLERATED. SAFETY MEASURES IN PLACE. KEPT BED IN LOCKED AND IN LOW POSITION TO REDUCE INJURY. SIDE RAILS UP. ADVISED TO USE THE CALL LIGHT WHEN IN NEED OF ASSISTANCE. ALL NURSING NEEDS ATTENDED.
--- NOTE | 2022-07-26 07:35 | NUR ---
MS RN OPENING NOTE PATIENT AWAKE IN BED, A/OX4, ABLE TO MAKE NEEDS KNOWN, ON ROOM AIR TOLERATING WELL WITH NO S/S OF DISTRESS, BREATHING WITHOUT DIFFICULTY. PATIENT WITH L WRIST G#20 PATENT, INTACT AND FLUSHING WELL WITH RUNNING AT 125 ML/HR. PATIENT DENIES PAIN NOR DISCOMFORT AT THIS TIME. SAFETY MEASURES IN PLACE: BED LOCKED IN LOWEST POSITION, RAILS UP X2, CALL HERNANDEZ WITHIN REACH. WILL CONTINUE TO MONITOR PATIENT.
[2022-07-26] MEDS: PANTOPRAZOLE 40 MG TABLET.DR PO SCH (07:52)
[2022-07-26 07:59] LABS: CALCIUM, SERUM 8.4 mg/dL (8.5-10.1); CREATININE 0.9 mg/dL (0.6-1.3)
[2022-07-26 08:00] VITALS: BP 112/66
[2022-07-26] MEDS: GABAPENTIN 400 MG CAPSULE PO SCH ×3 (08:11→17:04)
[2022-07-26] MEDS: ESCITALOPRAM OXALATE (10 MG) 10 MG TABLET PO SCH (08:11)
[2022-07-26] MEDS: LISINOPRIL (5MG) 5 MG TABLET PO SCH (08:11)
[2022-07-26] MEDS: MUPIROCIN OINT 2% 22 GM TUBE TP SCH ×2 (08:17→21:25)
[2022-07-26 10:00] LABS: BASOPHILS % (AUTO) 0.9 % (0.0-2.0); EOSINOPHILS % (AUTO) 8.4 % (0.0-6.0); HEMATOCRIT 38 % (39-51); HEMOGLOBIN 12.7 g/dL (13.5-17.5); LYMPHOCYTES # (AUTO) 1.6 K/uL (0.8-4.8); LYMPHOCYTES % (AUTO) 35.6 % (20.0-44.0); MEAN CORPUSCULAR HGB CONC 34 g/dl (31.0-36.0); MEAN CORPUSCULAR VOLUME 87 fL (80-96); MONOCYTES # (AUTO) 0.4 K/uL (0.1-1.30); NEUTROPHILS # (AUTO) 2.1 K/uL (1.8-8.9); NEUTROPHILS % (AUTO) 46.1 % (43.0-81.0); PLATELET COUNT (AUTO) 158 K/uL (150-450); RED BLOOD CELL COUNT(AUTO) 4.32 MIL/uL (4.5-6.0); WHITE BLOOD COUNT (AUTO) 4.5 K/uL (4.3-11.0)
--- NOTE | 2022-07-26 13:04 | NUR ---
SS Consult: SS consult requested for alcohol use disorder, adjustment to illness and community Resources. The pt. is a 37-year-old male patient who came in for recent fall at home. Upon SS consult, the pt. is Alert & Oriented x 4 and makes good eye contact. The pt. appears well-groomed with depressed mood & affect. Pt.s speech is WNL. Pt. remained calm & cooperative throughout interview. Pt. denies SI/HI and denies hallucinations. Pt. states that he was drinking that day and was intoxicated while going us the stairs to his apt while also carrying his walker and he fell backwards about 5 steps and does not remember how he arrived to the hospital. SW explored pt.s drug & ETOH use. Pt. denies any drug use and admits to drinking 1-6 beers 2-3 x /weekly. Pt. states he self-medicated when he is feeling sad or mad. Pt. states he was sober the entire year of 2021 and relapsed. Pt. states he was last at a rehab in 2018. SW provided psychoeducation on alcohol dependence and offered referrals to rehab and pt. refused rehab referral and stated he is diabetic and has a disability so he rather go home due to dietary reasons. Pt. also stated he does not feel rehabs have helped him int he past. SW provided pt. with addiction resources and encouraged pt. to find maybe outpatient services or join AA to seek treatment. Pt. is agreeable and stated he will use the resources provided to seek treatment that works for him. SW explored if pt. is independent with ADL's. Pt. stated he ambulates with a walker due being disabled and his mother is his caregiver who helps him as needed. SW explored pt.s support system. Pt. states he has a [facility] foster care case manager, Nereida Alonso who is helping him with getting his own apt. soon. Pt. states that he receives mental health treatment at [facility] and his therapist is Dahiana who he seeks to 1x/week and his psychiatrist is Dr. Calvillo. JOSHUA explored pt.s history of mental illness and pt. stated he has been diagnosed in the past with Anxiety & Depression and at was prescribed Zoloft, however, he is being given Lexapro during hospital stay. SW explored pt.s living situation. Patient states she lives at home [[address] [place] [address]; [phone]] with his mother, Cierra Isaacs [phone] and a sister. Plan: Per pt. he would like to return back home [[address] [place] [address]; [phone]] when ready to discharge. SW provided pt. with the following addiction resources and the pt. accepted them: ADDICTION RESOURCES For Drugs and Alcohol [facility] sober living Referrals For Rehabilitation once sober Address:[address] [place] [address] [facility] Rehabilitation Program [address] [place] [address] Detox/residential [facility] Substance Abuse Helpline ([facility]) Outpatient, residential treatment, recovery support for youth/adults [facility] www.[employer] [facility] Teen programs for drug/alcohol education and support [facility]. Program for adults, sliding scale provides support and education [facility] www.Social ToolsVoiceit.org [place]; Detox/residential treatment programs; transition to sober living [facility] www.cri-help.org [place]; Outpatient and residential treatment programs; transition to sober living [facility] TEL: [phone] [facility] Abuse [facility] [place]; Outpatient education and supportive programs for teens and adults [facility] www.oasiswomensrecovery.org [facility]; Residential treatment and work program for females only [facility] www.[facility].org [place]: Outpatient/residential treatment program for teens and young adults [facility] www.[facility].org [facility] Detox, inpatient, outpatient for adults and youth [facility] [place]; Outpatient programs and referrals to community residential programs. Alcoholics Anonymous -sfv information and meeting and scheduleswww.aa-intergroup.org Nf-Ssfx-Mybwnml https://al-anoshruthi.org/ [place] support groups for family of alcoholics. Marijuana Anonymous www.BBspace6.org -sfv listing of meetings Narcotics Anonymous www.na.org SOBER LIVING RESOURCES [facility] www.soberhousing.net A non-profit agency that provides resources to recovery and sober living homes throughout [place], [facility] Sober Living Homes: A Work in Progress, [facility] Recovery Advocates, [place] [facility] Women Sober Living Homes: [facility] x [phone] [place], [place] [facility] Sober Living Homes: [facility] Counseling--Outpatient [facility] [address] [place] [address] [place] [address] (Specializes in in-depth psychotherapy for emotional distress: anxiety, depression, interpersonal conflicts, life transitions, childhood abuse) [facility] [address] [place] [address] (Assist with solving problem marital difficulties, separation & divorce, aging parents, & grief, chronic & terminal illness) [facility] [address] [place] [address] (Deal with loss & grief, anxiety, marital difficulties) Homebound/Mental Health Services [address] [place] [address] (Provide in-home mental services to people who are incapable of leaving their homes) [facility] the Elderly Senior Service/Resource Center [address] [place] [address] [facility] [address] [place] [address] Mental Health Services [facility] [place] [address] [place] [address] Services: Outpatient therapy for children, teens, young adults, adults, older adults, and families; Psychiatric services, medication support Psychiatric Outpatient Services [facility] Partial Hospitalization and Intensive Outpatient Program (Managed Care and [place] Only)[address] [facility] [phone] [facility] Partial Hospitalization and Outpatient Pkalmtn[address] [facility] [address] [place], [place] [phone] [facility] Mental Health [place] [id number] [facility] [address] [place], [place] [phone] [facility] Partial Hospitalization and Outpatient Ufglcrp[address] [place], [phone] Crisis and Hotline Telephone Numbers 24-Hour service unless stated [place] Crisis Hotlines: [facility] Mental Health/Crisis Line........[phone] Suicide Prevention Center (24 Hours).......[phone] Suicide Prevention Crisis Center.......[phone] (24 Hours) Assaults Against Women Hotline.........457.225.2947 (24 Hours -- [facility]) Women and Children Crisis Retirement...........[phone] (24 Hours) Child Abuse Hotline............635.473.5160 ([facility] [place] of Childrens Services [facility] Treatment [facility] (24 Hours)..........[phone] Alcoholics Anonymous (24 Hours)..........[phone] Cocaine Anonymous (24 Hours)............[phone] Narcotics Anonymous (24 Hours)..........[phone] [address] [facility] [address], [place] [address]
--- NOTE | 2022-07-26 14:00 | NUR ---
RN NOTES - L WRIST IV ACCESS INFILTRATED, REMOVED. PT REFUSED TO HAVE A LINE ACCESS FOR NOW, AWAITING PICC LINE
[2022-07-26] MEDS: ENOXAPARIN SODIUM 40 MG/0.4 ML DISP.SYRIN SQ SCH (14:07)
[2022-07-26 16:10] VITALS: BP 135/74
--- NOTE | 2022-07-26 17:39 | NUR ---
RN NOTES - PICC LINE NURSE AT BEDSIDE.
--- NOTE | 2022-07-26 19:30 | NUR ---
MS RN OPENING NOTES RECEIVED PATIENT IN BED AWAKE. A/O X4. BREATHING EVEN AND NON-LABORED ON ROOM AIR. NOT IN APPARENT DISTRESS. DENIES PAIN AT THIS TIME. HAS RIGHT UPPER ARM PICC LINE WITH IVPB VANCO RUNNING AT 125 ML/HR. NO S/S OF INFILTRATION NOTED. RIGHT FOOT WOUND DRESSING C/D/I. SAFETY PRECAUTIONS IN PLACE: BED LOW AND LOCKED, SIDE RAILS UP X2, CALL LIGHT WITHIN REACH. WILL CONTINUE POC.
--- NOTE | 2022-07-26 19:46 | NUR ---
MS RN CLOSING NOTE PATIENT AWAKE IN BED, A/OX4, ABLE TO MAKE NEEDS KNOWN, ON ROOM AIR TOLERATING WELL WITH NO S/S OF DISTRESS, BREATHING WITHOUT DIFFICULTY. PATIENT WITH GENE G#18 PICC LINE PATENT, INTACT AND FLUSHING WELL WITH RUNNING AT 125 ML/HR AND VANCOMYCIN PIGGYBACK AT 125 ML/HR. PATIENT DENIES PAIN NOR DISCOMFORT AT THIS TIME. ALL DUE MEDS GIVEN, ALL NEEDS MET. SAFETY MEASURES MAINTAINED: BED LOCKED IN LOWEST POSITION, RAILS UP X2, CALL HERNANDEZ WITHIN REACH. WILL CONTINUE TO MONITOR PATIENT.
[2022-07-26 20:00] VITALS: BP 122/85
[2022-07-26] MEDS: INSULIN GLARGINE, 100 UNIT/ML CARTRIDGE SQ SCH (21:28)
--- NOTE | 2022-07-26 22:20 | NUR ---
MS RN NOTES PATIENT C/O SHARP BURNING RIGHT FOOT PAIN 05/26. ADMINISTERED PRN MORPHINE SULFATE 2MG, TOLERATED WELL. WILL CONTINUE TO MONITOR.
[2022-07-26] MEDS ORDERED: LORAZEPAM 0.5 MG TABLET PO ONE (23:30)
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
[2022-07-27] MEDS: BLOOD SUGAR DIAGNOSTIC 1 EACH STRIP IN SCH ×4 (01:05→12:51)
[2022-07-27] MEDS: INSULIN REGULAR, HUMAN 100 UNIT/ML 3 ML VIAL SQ PRN ×4 (01:06→12:58)
[2022-07-27] MEDS: VANCOMYCIN 1 GM in IV D5W 250 ML IV SCH ×2 (01:09→01:32)
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
--- NOTE | 2022-07-27 01:32 | NUR ---
MS RN NOTES STOPPED VANCO ADMINISTRATION SINCE TROUGH IS 22.
[2022-07-27] MEDS: MORPHINE SULFATE INJ 2 MG/ML DISP.SYRIN IV PRN ×3 (03:36→15:09)
--- NOTE | 2022-07-27 03:40 | NUR ---
MS RN NOTES PATIENT C/O RIGHT FOOT PAIN 8/. ADMINISTERED PRN MORPHINE SULFATE 2MG, TOLERATED WELL. WILL CONTINUE PAIN MGT.
[2022-07-27] MEDS: IV NS 0.9% 1,000 ML IV PRN (05:32)
--- NOTE | 2022-07-27 06:51 | NUR ---
MS RN CLOSING NOTES PATIENT SITTING ON BEDSIDE. A/O X4. ABLE TO VERBALIZE NEEDS. NO SOB OR NOTED, TOLERATING ROOM AIR WELL. NO C/O PAIN OR DISCOMFORT. AFEBRILE. HAS RIGHT UPPER ARM PICC LINE WITH NS RUNNING AT 125 ML/HR. INTACT, PATENT AND FLUSHING. RIGHT FOOT WOUND DRESSING C/D/I. ALL DUE MEDS GIVEN AND NEEDS ATTENDED. SAFETY PRECAUTIONS MAINTAINED. WILL ENDORSE TO NEXT SHIFT FOR SANDEEP.
--- NOTE | 2022-07-27 07:30 | NUR ---
RN MS NOTES PT AWAKE, ALERT AND ORIENTED, SITTING IN BED, NO COMPLAINT OF PAIN OR ANY DISCOMFORT, RESPIRATIONS NORMAL, CALL LIGHT WITHIN REACH, NEEDS ATTENDED.
[2022-07-27 07:44] LABS: CALCIUM, SERUM 8.8 mg/dL (8.5-10.1)
[2022-07-27] MEDS: PANTOPRAZOLE 40 MG TABLET.DR PO SCH (08:55)
[2022-07-27] MEDS: ESCITALOPRAM OXALATE (10 MG) 10 MG TABLET PO SCH (09:02)
[2022-07-27] MEDS: GABAPENTIN 400 MG CAPSULE PO SCH ×2 (09:03→12:52)
[2022-07-27] MEDS: LISINOPRIL (5MG) 5 MG TABLET PO SCH (09:04)
[2022-07-27] MEDS: MUPIROCIN OINT 2% 22 GM TUBE TP SCH (09:13)
[2022-07-27 09:36] VITALS: BP 112/68
[2022-07-27] MEDS ORDERED: VANCOMYCIN 0.75 GM in IV D5W 250 ML IV SCH (10:00)
[2022-07-27] MEDS ORDERED: GABA-536 PO (11:47)
[2022-07-27] MEDS ORDERED: IBUP-1955 PO (11:47)
[2022-07-27] MEDS ORDERED: VANC750P13 IV (11:47)
[2022-07-27] MEDS ORDERED: DOXY-326 PO (12:13)
[2022-07-27] MEDS: ENOXAPARIN SODIUM 40 MG/0.4 ML DISP.SYRIN SQ SCH (15:11)
[2022-07-27 16:18] VITALS: BP 102/66
--- NOTE | 2022-07-27 18:05 | NUR ---
MS RN OPENING NOTES PATIENT LYING ON BEDSIDE. A/O X4. ABLE TO VERBALIZE NEEDS. NO SOB OR NOTED, TOLERATING ROOM AIR WELL. NO C/O PAIN OR DISCOMFORT. AFEBRILE. HAS RIGHT UPPER ARM PICC LINE WITH NS RUNNING AT 125 ML/HR. INTACT, PATENT AND FLUSHING. RIGHT FOOT WOUND DRESSING C/D/I. ALL DUE MEDS GIVEN AND NEEDS ATTENDED. SAFETY PRECAUTIONS MAINTAINED. WILL MONITOR.
--- NOTE | 2022-07-27 18:11 | NUR ---
DISCHARGED NOTE PATIENT WAS DISCHARGED FROM THE HOSPITAL ACCOMPANIED BY AMBULANCE WITH STABLE STATUS. NO SIGNS OF RESPIRATORY OR CARDIAC DISTRESS. KEPT WOUND DRY AND INTACT. WOUND CARE RENDERED. IV AND PICC LINE WERE REMOVED. ALL DUE MEDS GIVEN. DISCHARGED.
== END 2022-07-27 18:00 | disposition home health service (06) | DRG 380 ==
LOC: ER 13:17 → TRANSITION 07-24 00:19 → TELE 07-24 13:43 → MED 07-25 20:34
PROVIDERS: ADMIT Student in an Organized Health Care Education/Training Program; ATTEND Nurse Practitioner Acute Care
PROC: 0JBQ0ZZ Excision of Right Foot Subcutaneous Tissue and Fascia, Open Approach (ICD-10-PCS; principal; 2022-07-25)
PROC: 02HV33Z Insertion of Infusion Device into Superior Vena Cava, Percutaneous Approach (ICD-10-PCS; 2022-07-26)
PROC: B548ZZA Ultrasonography of Superior Vena Cava, Guidance (ICD-10-PCS; 2022-07-26)
DX: E11.621 Type 2 diabetes mellitus with foot ulcer (principal); L97.519 Non-pressure chronic ulcer of other part of right foot with unspecified severity; E11.00 Type 2 diabetes mellitus with hyperosmolarity without nonketotic hyperglycemic-hyperosmolar coma (NKHHC); E11.42 Type 2 diabetes mellitus with diabetic polyneuropathy; L03.115 Cellulitis of right lower limb; E87.1 Hypo-osmolality and hyponatremia; L02.611 Cutaneous abscess of right foot; F10.129 Alcohol abuse with intoxication, unspecified; Z79.84 Long term (current) use of oral hypoglycemic drugs; Y90.8 Blood alcohol level of 240 mg/100 ml or more; M19.071 Primary osteoarthritis, right ankle and foot; E11.65 Type 2 diabetes mellitus with hyperglycemia; W10.9XXA Fall (on) (from) unspecified stairs and steps, initial encounter; Y92.009 Unspecified place in unspecified non-institutional (private) residence as the place of occurrence of the external cause; E78.00 Pure hypercholesterolemia, unspecified; Z90.49 Acquired absence of other specified parts of digestive tract; Z98.890 Other specified postprocedural states; Z88.8 Allergy status to other drugs, medicaments and biological substances; Z83.3 Family history of diabetes mellitus; Z79.4 Long term (current) use of insulin; Z79.899 Other long term (current) drug therapy; F12.20 Cannabis dependence, uncomplicated; Q66.89 Other specified congenital deformities of feet; Z89.422 Acquired absence of other left toe(s); E78.5 Hyperlipidemia, unspecified; F43.10 Post-traumatic stress disorder, unspecified; Z20.822 Contact with and (suspected) exposure to COVID-19
CPT/HCPCS: 36415; 36569; 70450-TC; 71045-TC; 73620-TC; 80048-TC; 80076-TC; 80202-TC; 81001; 82140-TC; 82962-TC; 83735-TC; 84100-TC; 84443-TC; 85025-TC; 85652-TC; 87070-TC; 87081-TC; 87186-TC; A6253; C9803; G0378; G0480; J1650; J1815; J2270; J3370; J7030; J7060

== ENCOUNTER 2022-08-30 11:05 | Inpatient (IN) | payer OTHER ==
[~2022-08-30] VITALS: Ht 188 cm; Wt 89.8 kg
[~2022-08-30 11:05] MED LIST changes: -AMOX500C2 PO; +DOXY-326 PO; +GABA-536 PO; -GABA800T11 PO; -Hydrocodone/Apap 5/325MG PO; +IBUP-1955 PO; +INSU100I14 SQ; +INSU100I26 SQ; -INSU100V7 SQ; -Insulin Glargine,Hum SQ; +LISI-768 PO; -SILV50CR32 TP; -SULF1TAB48 PO; -SYRI1DIS86 MC; -VALP250C3 PO
--- NOTE | 2022-08-30 11:10 | NUR ---
RECEIVED PT FROM HOME C/O SWALLEN AND DRAING ON RT FOOT DID NOT GOT HEALING
--- NOTE | 2022-08-30 11:24 | NUR ---
EKG AT BED SIDE
--- NOTE | 2022-08-30 11:34 | NUR ---
RICCI MCNAMARA SENT TO LAB
--- NOTE | 2022-08-30 11:35 | NUR ---
BLOOD DROW BY LAB TACH
--- NOTE | 2022-08-30 11:40 | NUR ---
UNABLE TO INSERTE IV LINE CALLED FOR MED LINE
[2022-08-30] MEDS ORDERED: VANCOMYCIN 1 GM in IV D5W 250 ML IV ONE (12:00)
[2022-08-30] MEDS ORDERED: IV NS 0.9% 1,000 ML BAG IV ONE (12:00)
[2022-08-30] MEDS ORDERED: PIPERACILLIN /TAZOBACTAM 3.375 G in IV D5W 50 ML IV ONE (12:00)
[2022-08-30 12:23] LABS: BASOPHILS % (AUTO) 0.5 % (0.0-2.0); EOSINOPHILS % (AUTO) 5.4 % (0.0-6.0); HEMATOCRIT 43 % (39-51); LYMPHOCYTES # (AUTO) 1.7 K/uL (0.8-4.8); LYMPHOCYTES % (AUTO) 28.2 % (20.0-44.0); MEAN CORPUSCULAR HGB CONC 33 g/dl (31.0-36.0); MEAN CORPUSCULAR VOLUME 88 fL (80-96); MONOCYTES # (AUTO) 0.5 K/uL (0.1-1.30); MONOCYTES % (AUTO) 8.1 % (2.0-12.0); NEUTROPHILS # (AUTO) 3.4 K/uL (1.8-8.9); NEUTROPHILS % (AUTO) 57.8 % (43.0-81.0); PLATELET COUNT (AUTO) 203 K/uL (150-450); RED BLOOD CELL COUNT(AUTO) 4.82 MIL/uL (4.5-6.0); WHITE BLOOD COUNT (AUTO) 5.9 K/uL (4.3-11.0)
[2022-08-30 13:10] LABS: CALCIUM, SERUM 8.5 mg/dL (8.5-10.1); CREATININE 1.2 mg/dL (0.6-1.3); POTASSIUM 4.4 mmol/L (3.5-5.1)
[2022-08-30] MEDS ORDERED: INSULIN REGULAR, HUMAN 100 UNIT/ML 10 ML VIAL SQ ONE (13:30)
--- NOTE | 2022-08-30 13:39 | NUR ---
ASLEEPY NO SOB
[2022-08-30 13:53] LABS: C-REACTIVE PROTEIN 0.6 mg/dL (0.0-0.9)
--- NOTE | 2022-08-30 14:30 | NUR ---
INSERTED MEDLINE ON LT UPPER ARM AT BED SIDE
[2022-08-30] MEDS ORDERED: INSULIN REGULAR, HUMAN 100 UNIT/ML 10 ML VIAL ONE (15:02)
--- NOTE | 2022-08-30 15:02 | NUR ---
C/O PAIN ON RT LEG NORCO 5/325 MG GIVEN PT FEELYING BEATTER AND IMMPROVING
[2022-08-30] MEDS ORDERED: HYDROCODONE/APAP 5/325MG TABLET PO ONE (16:30)
[2022-08-30] MEDS ORDERED: HYDROCODONE/APAP 5/325MG TABLET ONE (16:36)
--- NOTE | 2022-08-30 17:45 | NUR ---
ACCUCHECK 465 20 UN REGRALE INSULIN GIVEN AND PROVIDRER NOTEFED
--- NOTE | 2022-08-30 17:52 | NUR ---
PT CONDTION STABLE WATING FOR MEDICALE FLOOR BED
[2022-08-30] MEDS ORDERED: ONDANSETRON HCL/PF 4 MG/2 ML VIAL IVP PRN (18:00)
[2022-08-30] MEDS ORDERED: Z GUARD REMEDY 4 OZ OINT TP PRN (18:00)
[2022-08-30] MEDS ORDERED: ACETAMINOPHEN 325 MG TABLET PO PRN (18:00)
[2022-08-30] MEDS ORDERED: DEXTROSE 50%-WATER 50 ML DISP.SYRIN IV PRN (18:00)
[2022-08-30] MEDS ORDERED: MAGNESIUM HYDROXIDE 30 ML UDC PO PRN (18:00)
[2022-08-30] MEDS ORDERED: ZOLPIDEM TARTRATE 5 MG TABLET PO PRN (18:00)
[2022-08-30] MEDS ORDERED: MAG HYDROX/AL HYDROX/SIMETH 30 ML UDC PO PRN (18:00)
[2022-08-30] MEDS: INSULIN REGULAR, HUMAN 100 UNIT/ML 3 ML VIAL SQ PRN ×2 (18:47→23:47)
--- NOTE | 2022-08-30 19:32 | NUR ---
HAND OFF LAUREN ALVAREZ
[2022-08-30] MEDS ORDERED: MORPHINE SULFATE INJ 2 MG/ML DISP.SYRIN IV ONE (21:30)
[2022-08-30] MEDS ORDERED: MORPHINE SULFATE INJ 4 MG/ML DISP.SYRIN ONE (21:52)
[2022-08-30] MEDS ORDERED: ZOSYN IVPB 3.375 G in IV D5W 50ml IV SCH (22:00)
[2022-08-30] MEDS ORDERED: INSULIN GLARGINE,BASAGLAR 100 UNIT/ML INSULN.PEN SQ SCH (22:00)
--- NOTE | 2022-08-30 22:06 | NUR ---
REPORT GIVEN TO NATI LarkinW RN FOR SANDEEP
--- NOTE | 2022-08-30 22:35 | NUR ---
RN NOTES; PATIENT RECEIVED FROM ER RIDING HIS ELECTRIC WHEELCHAIR IN RM 320-2,AAOX4 ABLE TO MAKE NEEDS KNOWN,VARUN WELL ON RM AIR,NO SIGN SOB/DISTRESS NOTED,NO COMPLAIN OF PAIN/DISCOMFORT AT THIS TIME,PT WAS ORIENT THE RM AND VERBALIZE UNDERSTANDING,SAFETY MEASURE IN PLACE,CALL LIGHT WITHIN REACH,WILL CONTINUE TO MONITOR.
--- NOTE | 2022-08-30 22:37 | NUR ---
PT TRANSFERRING TO [facility]- VIA HOSPITAL PROTOCOL. VSS. ALL BELONGINGS WITH PT.
[2022-08-30] MEDS ORDERED: PIPERACILLIN /TAZOBACTAM 3.375 G VIAL IV ONE (23:29)
[2022-08-30] MEDS: BLOOD SUGAR DIAGNOSTIC 1 EACH STRIP IN SCH (23:57)
[2022-08-31] MEDS ORDERED: VANCOMYCIN 1.25 GM in IV D5W 250 ML IV SCH ×2
[2022-08-31] MEDS: HYDROCODONE/APAP 5/325MG TABLET PO PRN ×3 (00:15→15:10)
[2022-08-31] MEDS ORDERED: VANCOMYCIN 1 GM VIAL ONE (00:53)
[2022-08-31 05:50] VITALS: BP 116/69
[2022-08-31 06:20] LABS: BASOPHILS % (AUTO) 0.7 % (0.0-2.0); EOSINOPHILS % (AUTO) 7.7 % (0.0-6.0); HEMATOCRIT 34 % (39-51); HEMOGLOBIN 11.7 g/dL (13.5-17.5); LYMPHOCYTES # (AUTO) 1.5 K/uL (0.8-4.8); LYMPHOCYTES % (AUTO) 35.8 % (20.0-44.0); MEAN CORPUSCULAR HGB CONC 34 g/dl (31.0-36.0); MEAN CORPUSCULAR VOLUME 86 fL (80-96); MONOCYTES # (AUTO) 0.5 K/uL (0.1-1.30); MONOCYTES % (AUTO) 11.2 % (2.0-12.0); NEUTROPHILS # (AUTO) 1.9 K/uL (1.8-8.9); NEUTROPHILS % (AUTO) 44.6 % (43.0-81.0); PLATELET COUNT (AUTO) 189 K/uL (150-450); RED BLOOD CELL COUNT(AUTO) 3.98 MIL/uL (4.5-6.0); WHITE BLOOD COUNT (AUTO) 4.2 K/uL (4.3-11.0)
--- NOTE | 2022-08-31 06:23 | NUR ---
RN CLOSING NOTES; PATIENT IN BED AAOX4 ABLE TO MAKE NEEDS KNOWN,VARUN WELL ON RM AIR,NO SIGN SOB/DISTRESS NOTED,NO COMPLAIN OF PAIN/DISCOMFORT DURING SHIFT,DUE MEDS GIVEN ORDER,ALL NEEDS ATTENDED,,SAFETY MEASURE IN PLACE,CALL LIGHT WITHIN REACH,WILL ENODRSED TO NEXT SHIFT.
[2022-08-31] MEDS: INSULIN REGULAR, HUMAN 100 UNIT/ML 3 ML VIAL SQ PRN ×3 (06:39→16:53)
[2022-08-31 06:52] LABS: CALCIUM, SERUM 7.5 mg/dL (8.5-10.1); CREATININE 0.8 mg/dL (0.6-1.3); MAGNESIUM 1.7 mg/dL (1.8-2.4); PHOSPHORUS 4.6 mg/dL (2.5-4.9); POTASSIUM 3.4 mmol/L (3.5-5.1)
[2022-08-31 07:00] VITALS: BP 130/77
--- NOTE | 2022-08-31 07:00 | NUR ---
MS ALVAREZ OPENINGF
--- NOTE | 2022-08-31 07:00 | NUR ---
MS RN OPENING NOTES: RECEIVED PT IN BED AWAKE ALERT AND ORIENTED X 4 AND ABLE TO MAKE NEEDS KNOWN. NO SOB OR CARDIAC DISTRESS NOTED. ON PAIN MANAGEMENT ORDERED. IV ACCESS ON ALISON MIDLINE PATENT AND INTACT AND SL. SAFETY MEASURES MAINTAINED: BED LOCKED AND IN LOWEST POSITION, SIDE RAILS UP X 2 CALL LIGHT IN EASY REACH FOR HELP/ASSISTANCE. WILL MONITOR PT ACCORDINGLY.
[2022-08-31] MEDS: BLOOD SUGAR DIAGNOSTIC 1 EACH STRIP IN SCH ×4 (07:47→22:36)
--- NOTE | 2022-08-31 08:45 | NUR ---
WOUND CARE CONSULT: PT EATING BREAKFAST AT THIS TIME. ADMISSION PHOTOS INDICATE FOOT WOUNDS, PRESENT ON ADMISSION. DR AWAD CALLED FOR DPM CONSULT. IN AGREEMENT WITH PLAN OF CARE.
[2022-08-31] MEDS ORDERED: POTASSIUM CHLORIDE 20 MEQ TAB.PRT.SR PO SCH (11:00)
[2022-08-31] MEDS ORDERED: MAGNESIUM OXIDE 400 MG TABLET PO ONE (11:00)
[2022-08-31 12:00] VITALS: BP 108/60
[2022-08-31] MEDS ORDERED: POTASSIUM CHLORIDE 10 MEQ TABLET.SA PO ONE (12:00)
[2022-08-31] MEDS: PIPERACILLIN /TAZOBACTAM 3.375 G in IV D5W 50 ML IV SCH ×3 (12:06→23:18)
[2022-08-31] MEDS: VANCOMYCIN 1.25 GM in IV D5W 250 ML IV SCH (12:06)
[2022-08-31] MEDS: Magnesium 1GM/D5W 100ML PREMIX 100 ML IV SCH ×2 (12:08→14:43)
--- NOTE | 2022-08-31 15:23 | NUR ---
RN NOTES: PT IS ASKING IF HE CAN HAVE MORPHINE IV FOR PAIN, INFORMED DR SALDANA. DR SALDANA STATED " NO, I EXPLAINED TO PT THAT HE CANT TAKE MORPHINE IV ROUTINE FOR CHRONIC WOUND, HE CAN ORDER MORPHINE IV PRIOR TO DEBRIDEMENT. EXPLAINED TO PT AND PT VERBALIZED UNDERSTANDING.
--- NOTE | 2022-08-31 18:44 | NUR ---
MS RN CLOSING NOTES: PT IN BED AWAKE ALERT AND ORIENTED X 4 AND ABLE TO MAKE NEEDS KNOWN. NO SOB OR CARDIAC DISTRESS NOTED. ON PAIN MANAGEMENT ORDERED. IV ACCESS ON ALISON MIDLINE PATENT AND INTACT AND SL. SAFETY MEASURES MAINTAINED: BED LOCKED AND IN LOWEST POSITION, SIDE RAILS UP X 2 CALL LIGHT IN EASY REACH FOR HELP/ASSISTANCE. WILL MONITOR PT ACCORDINGLY. ENDORSED TO BESSEMER CONVERTER OPERATORWATER HAULER FOR CONTINUITY OF CARE.
--- NOTE | 2022-08-31 19:50 | NUR ---
MS RN OPENING NOTE PATIENT AWAKE IN BED, ALERT/ORIENTED X 4, PT ABLE TO MAKE NEEDS KNOWN. PATIENT STABLE ON RA, NO S/S OF DISTRESS OR SOB NOTED, BREATHING EVEN AND UNLABORED. PATIENT C/O OF 10/10 PAIN ON DIABETIC FOOT ULCER, STATES CURRENT PAIN MEDS HAVE NOT BEEN ALLEVIATING PAIN. IV ACCESS ON ALISON ML INTACT AND SALINE LOCKED. SAFETY MEASURES IN PLACE: CALL LIGHT WITHIN REACH, SIDE RAILS UP X 2, BED LOCKED IN LOWEST POSITION, BED ALARM ON. WILL CONTINUE TO MONITOR PATIENT
[2022-08-31 20:00] VITALS: BP 130/87
--- NOTE | 2022-08-31 20:36 | NUR ---
MS RN NOTE PATIENT C/O OF SEVERE PAIN, STATES NORCO 5-325 MG HAS NOT BEEN HELPING WITH HIS PAIN. NOTIFIED LEASING ASSOCIATE MD BRANDAN KRUSE WITH ORDER FOR NORCO 10-325 MG PRN Q4H FOR SEVERE PAIN. ORDER CONFIRMED AND CARRIED OUT
[2022-08-31] MEDS: HYDROCODONE/APAP 10/325MG TABLET PO PRN (20:53)
[2022-08-31] MEDS ORDERED: INSULIN GLARGINE, 100 UNIT/ML CARTRIDGE SQ SCH (22:00)
[2022-08-31] MEDS ORDERED: *INSULIN REGULAR(HUMULIN R)HUM 100 UNIT/ML VIAL SQ PRN (23:00)
[2022-09-01] MEDS: VANCOMYCIN 1.25 GM in IV D5W 250 ML IV SCH ×2 (00:08→12:18)
[2022-09-01] MEDS: HYDROCODONE/APAP 10/325MG TABLET PO PRN ×4 (02:20→18:22)
[2022-09-01] MEDS: PIPERACILLIN /TAZOBACTAM 3.375 G in IV D5W 50 ML IV SCH ×3 (06:24→17:12)
[2022-09-01] MEDS: BLOOD SUGAR DIAGNOSTIC 1 EACH STRIP IN SCH ×4 (06:37→23:42)
[2022-09-01] MEDS: INSULIN REGULAR, HUMAN 100 UNIT/ML 3 ML VIAL SQ PRN ×4 (06:52→23:13)
--- NOTE | 2022-09-01 07:05 | NUR ---
MS RN OPENING NOTES RECEIVED PATIENT AWAKE IN BED, A/Ox4, ABLE TO MAKE NEEDS KNOWN. PATIENT ON ROOM AIR NO S/S OF RESPIRATORY DISTRESS OR DISCOMFORT. PATIENT HAS IV ACCESS ALISON MIDLINE S/L. INTACT AND PATENT. PATIENT IS CONTINENT USES URINAL. CAN AMBULATE WITH WALKER OR SCOOTER. SKIN ISSUES: R FOOT POSTERIOR ULCER AND R FOOT REDNESS. SAFETY MEASURES IN PLACE: BED LOCKED AND IN LOWEST POSITION, SIDE RAILS UPx2, CALL LIGHT WITHIN REACH, HOB ELEVATED. WILL CONTINUE TO MONITOR.
[2022-09-01 07:09] LABS: BASOPHILS % (AUTO) 0.7 % (0.0-2.0); EOSINOPHILS % (AUTO) 7.8 % (0.0-6.0); HEMATOCRIT 36 % (39-51); HEMOGLOBIN 12.5 g/dL (13.5-17.5); LYMPHOCYTES # (AUTO) 1.5 K/uL (0.8-4.8); LYMPHOCYTES % (AUTO) 34.4 % (20.0-44.0); MEAN CORPUSCULAR HGB CONC 34 g/dl (31.0-36.0); MEAN CORPUSCULAR VOLUME 86 fL (80-96); MONOCYTES # (AUTO) 0.4 K/uL (0.1-1.30); MONOCYTES % (AUTO) 9.9 % (2.0-12.0); NEUTROPHILS % (AUTO) 47.2 % (43.0-81.0); PLATELET COUNT (AUTO) 209 K/uL (150-450); RED BLOOD CELL COUNT(AUTO) 4.23 MIL/uL (4.5-6.0); WHITE BLOOD COUNT (AUTO) 4.3 K/uL (4.3-11.0)
--- NOTE | 2022-09-01 07:19 | NUR ---
MS RN CLOSING NOTE PATIENT AWAKE IN BED, ALERT/ORIENTED X 4, PT ABLE TO MAKE NEEDS KNOWN. PATIENT STABLE ON RA, NO S/S OF DISTRESS OR SOB NOTED, BREATHING EVEN AND UNLABORED. IV ACCESS ON ALISON ML INTACT AND INFUSING ZOSYN @ 100 ML/HR. MEDICATIONS GIVEN ORDERED, PT NEEDS MET THROUGHOUT SHIFT. PATIENT'S PAIN ALLEVIATED WITH NORCO 10-325 MG. SAFETY MEASURES IN PLACE: CALL LIGHT WITHIN REACH, SIDE RAILS UP X 2, BED LOCKED IN LOWEST POSITION, BED ALARM ON. ENDORSED TO DAYSHIFT RN FOR CONTINUITY OF CARE
[2022-09-01 07:21] LABS: MAGNESIUM 2.1 mg/dL (1.8-2.4); PHOSPHORUS 4.6 mg/dL (2.5-4.9); POTASSIUM 3.9 mmol/L (3.5-5.1)
[2022-09-01 08:00] VITALS: BP 111/67
--- NOTE | 2022-09-01 13:00 | NUR ---
RN NOTES PATIENT COMPLAINED OF PAIN OF R FOOT. PRN NARCO 10-325MG ADMINISTERED. WILL CONTINUE TO MONITOR.
[2022-09-01 16:00] VITALS: BP 114/72
--- NOTE | 2022-09-01 18:37 | NUR ---
RN NOTES PATIENT COMPLAINED OF R FOOT PAIN. PRN NARCO 10-325MG ADMINISTERED. WILL CONTINUE TO MONITOR.
--- NOTE | 2022-09-01 18:45 | NUR ---
MS RN CLOSING NOTES PATIENT AWAKE IN BED, A/Ox4, ABLE TO MAKE NEEDS KNOWN. PATIENT STABLE ON ROOM AIR NO S/S OF RESPIRATORY DISTRESS OR DISCOMFORT. PATIENT HAS IV ACCESS ALISON MIDLINE S/L. INTACT AND PATENT. PATIENT IS CONTINENT USES URINAL. CAN AMBULATE WITH WALKER OR SCOOTER. SKIN ISSUES: R FOOT POSTERIOR ULCER AND R FOOT REDNESS. SAFETY MEASURES MAINTAINED: BED LOCKED AND IN LOWEST POSITION, SIDE RAILS UPx2, CALL LIGHT WITHIN REACH, HOB ELEVATED. WILL ENDORSE TO NEXT SHIFT ANY SANDEEP.
--- NOTE | 2022-09-01 19:21 | NUR ---
RN OPENING NOTES; RECEIVED PATIENT IN BED AAOX4 ABLE TO MAKE NEEDS KNOWN,VARUN WELL ON RM AIR,NO SIGN SOB/DISTRESS NOTED,NO COMPLAIN OF PAIN/DISCOMFORT AT THIS TIME,IV ACCESS ON ALISON ML SL,PATENT AND INTACT,SAFETY MEASURE IN PLACE,CALL LIGHT WITHIN REACH,WILL CONTINUE TO MONITOR.
[2022-09-01 20:00] VITALS: BP 121/74
[2022-09-01] MEDS ORDERED: INSULIN GLARGINE, 100 UNIT/ML CARTRIDGE SQ SCH (22:00)
[2022-09-02] MEDS: PIPERACILLIN /TAZOBACTAM 3.375 G in IV D5W 50 ML IV SCH ×4 (00:17→12:00)
[2022-09-02] MEDS: VANCOMYCIN 1.25 GM in IV D5W 250 ML IV SCH ×4 (00:17→12:03)
[2022-09-02] MEDS: HYDROCODONE/APAP 10/325MG TABLET PO PRN (01:20)
--- NOTE | 2022-09-02 01:25 | NUR ---
rn notes pt complained of left foot pain 03/25.prn norco 5-325mg was given,no a/r noted.
[2022-09-02 06:24] LABS: BASOPHILS # (AUTO) 0.1 K/uL (0.0-0.2); BASOPHILS % (AUTO) 0.8 % (0.0-2.0); EOSINOPHILS % (AUTO) 6.1 % (0.0-6.0); HEMATOCRIT 37 % (39-51); HEMOGLOBIN 12.5 g/dL (13.5-17.5); LYMPHOCYTES # (AUTO) 1.8 K/uL (0.8-4.8); LYMPHOCYTES % (AUTO) 30.2 % (20.0-44.0); MEAN CORPUSCULAR HGB CONC 34 g/dl (31.0-36.0); MEAN CORPUSCULAR VOLUME 86 fL (80-96); MONOCYTES # (AUTO) 0.5 K/uL (0.1-1.30); NEUTROPHILS # (AUTO) 3.2 K/uL (1.8-8.9); NEUTROPHILS % (AUTO) 53.9 % (43.0-81.0); PLATELET COUNT (AUTO) 215 K/uL (150-450); RED BLOOD CELL COUNT(AUTO) 4.24 MIL/uL (4.5-6.0)
--- NOTE | 2022-09-02 06:28 | NUR ---
RN CLOSING NOTES; PATIENT IN BED AAOX4 ABLE TO MAKE NEEDS KNOWN,VARUN WELL ON RM AIR,NO SIGN SOB/DISTRESS NOTED,DUE MEDS GIVEN ORDER,ALL NEEDS ATTENDED,IV ACCESS ON ALISON MIDLINE SL,PATENT AND INTACT,SAFETY MEASURE IN PLACE,CALL LIGHT WITHIN REACH,WILL ENODRSED TO NEXT SHIFT.
[2022-09-02 06:33] LABS: CALCIUM, SERUM 7.4 mg/dL (8.5-10.1); CREATININE 0.9 mg/dL (0.6-1.3); MAGNESIUM 1.9 mg/dL (1.8-2.4); PHOSPHORUS 4.6 mg/dL (2.5-4.9); POTASSIUM 3.4 mmol/L (3.5-5.1)
[2022-09-02] MEDS: INSULIN REGULAR, HUMAN 100 UNIT/ML 3 ML VIAL SQ PRN (06:53)
--- NOTE | 2022-09-02 07:32 | NUR ---
rn notes dahe from pharmacy called to bactroban tube bid for mrsa.
[2022-09-02] MEDS: BLOOD SUGAR DIAGNOSTIC 1 EACH STRIP IN SCH ×2 (07:42→12:01)
[2022-09-02 08:00] VITALS: BP 123/74
[2022-09-02] MEDS: MUPIROCIN OINT 2% 22 GM TUBE NS SCH ×2 (09:00→10:35)
[2022-09-02] MEDS ORDERED: POTASSIUM CHLORIDE 20 MEQ TAB.PRT.SR PO SCH (10:00)
[2022-09-02] MEDS ORDERED: MUPIROCIN OINT 2% 22 GM TUBE TP SCH (10:00)
--- NOTE | 2022-09-02 10:46 | NUR ---
Duplicate Bactroban not given.
[2022-09-02] MEDS ORDERED: DOXY-326 PO (12:16)
[2022-09-02] MEDS ORDERED: INSU100I30 SQ (12:16)
[2022-09-02] MEDS ORDERED: HYDR-3980 PO (12:16)
--- NOTE | 2022-09-02 14:47 | NUR ---
Patient discharged. Discharge package provided and explained. Midline removed per protocol without complications. Patient escorted off unit to hospital entrance by staff.
== END 2022-09-02 14:40 | disposition home or self-care (01) | DRG 380 ==
LOC: ER 11:10 → MED 21:27
PROVIDERS: ADMIT Nurse Practitioner Acute Care; ATTEND Nurse Practitioner Acute Care
PROC: 05HA33Z Insertion of Infusion Device into Left Brachial Vein, Percutaneous Approach (ICD-10-PCS; principal; 2022-08-30)
DX: E11.621 Type 2 diabetes mellitus with foot ulcer (principal); L97.519 Non-pressure chronic ulcer of other part of right foot with unspecified severity; E11.42 Type 2 diabetes mellitus with diabetic polyneuropathy; E87.1 Hypo-osmolality and hyponatremia; L03.115 Cellulitis of right lower limb; Z79.84 Long term (current) use of oral hypoglycemic drugs; E11.65 Type 2 diabetes mellitus with hyperglycemia; Z20.822 Contact with and (suspected) exposure to COVID-19; E78.5 Hyperlipidemia, unspecified; I10 Essential (primary) hypertension; Z90.49 Acquired absence of other specified parts of digestive tract; Z98.890 Other specified postprocedural states; Z88.8 Allergy status to other drugs, medicaments and biological substances; Z83.3 Family history of diabetes mellitus; Z79.4 Long term (current) use of insulin; Z79.899 Other long term (current) drug therapy; E87.6 Hypokalemia; F12.20 Cannabis dependence, uncomplicated
CPT/HCPCS: 36415; 73630-TC; 73718-TC; 80048-TC; 80202-TC; 82962-TC; 83735-TC; 84100-TC; 85025-TC; 85652-TC; 86140-TC; 87040-TC; 87081-TC; C9803; G0378; J1815; J2270; J2543; J3370; J3475; J7030; J7040; J7050; J7060

== ENCOUNTER 2022-09-17 12:10 | Emergency (ER) | payer OTHER ==
[~2022-09-17] VITALS: Ht 170.2 cm; Wt 62.6 kg
[~2022-09-17 12:10] MED LIST changes: -ESCI10TA PO; -GABA-536 PO; +HYDR-3980 PO; -IBUP-1955 PO; -INSU100I26 SQ; +INSU100I30 SQ; -LISI-768 PO; -METF-440 PO
--- NOTE | 2022-09-17 12:40 | NUR ---
BIBS W/ C/O RIGHT FOOT WOUND SWELLING X2 WEEKS. TO ER BED 11.
[2022-09-17] MEDS ORDERED: ACETAMINOPHEN ES 500 MG TABLET ONE (13:29)
[2022-09-17] MEDS ORDERED: ACETAMINOPHEN ES 500 MG TABLET PO ONE (13:30)
--- NOTE | 2022-09-17 13:30 | NUR ---
PRINTING ENGINEER AT BEDSIDE FOR XRAY
--- NOTE | 2022-09-17 13:31 | NUR ---
TYLENOL PO GIVEN INDICATED, VARUN WELL
[2022-09-17 14:10] LABS: BASOPHILS # (AUTO) 0.1 K/uL (0.0-0.2); BASOPHILS % (AUTO) 0.8 % (0.0-2.0); EOSINOPHILS % (AUTO) 6.4 % (0.0-6.0); HEMATOCRIT 45 % (39-51); HEMOGLOBIN 15.3 g/dL (13.5-17.5); LYMPHOCYTES # (AUTO) 2.2 K/uL (0.8-4.8); LYMPHOCYTES % (AUTO) 33.9 % (20.0-44.0); MEAN CORPUSCULAR HGB CONC 34 g/dl (31.0-36.0); MEAN CORPUSCULAR VOLUME 86 fL (80-96); MONOCYTES # (AUTO) 0.3 K/uL (0.1-1.30); MONOCYTES % (AUTO) 4.8 % (2.0-12.0); NEUTROPHILS # (AUTO) 3.5 K/uL (1.8-8.9); NEUTROPHILS % (AUTO) 54.1 % (43.0-81.0); PLATELET COUNT (AUTO) 200 K/uL (150-450); RED BLOOD CELL COUNT(AUTO) 5.28 MIL/uL (4.5-6.0); WHITE BLOOD COUNT (AUTO) 6.4 K/uL (4.3-11.0)
[2022-09-17 14:29] LABS: CALCIUM, SERUM 8.8 mg/dL (8.5-10.1); POTASSIUM 4.2 mmol/L (3.5-5.1)
[2022-09-17] MEDS ORDERED: IV NS 0.9% 1,000 ML BAG IV ONE (15:30)
--- NOTE | 2022-09-17 16:39 | NUR ---
URINE SAMPLE COLLECTED AND SENT TO LAB
[2022-09-17] MEDS ORDERED: INSULIN REGULAR, HUMAN 100 UNIT/ML 10 ML VIAL IV ONE (17:00)
[2022-09-17 17:56] LABS: BILIRUBIN,URINE NEGATIVE (NEGATIVE); COLOR,URINE YELLOW (YELLOW); LEUKOCYTE ESTERASE ,URINE NEGATIVE (NEGATIVE); NITRITE, URINE NEGATIVE (NEGATIVE); PROTEIN,URINE NEGATIVE (NEGATIVE); UGLUCOSE 3+ mg/dL (NEGATIVE); UROBILINOGEN,URINE 0.2 EU/dL (0.2)
--- NOTE | 2022-09-17 18:27 | NUR ---
ACCUCHECK BS 318MG/DL
--- NOTE | 2022-09-17 18:30 | NUR ---
PHLEB AT BEDSIDE FOR BLOOD DRAW
[2022-09-17 18:52] LABS: CALCIUM, SERUM 8.4 mg/dL (8.5-10.1); CREATININE 0.9 mg/dL (0.6-1.3); POTASSIUM 4.2 mmol/L (3.5-5.1)
[2022-09-17 19:17] LABS: BACTERIA,URINE None seen /HPF (None Seen); RBC,URINE 0-2 /HPF (0-2); SQUAMOUS EPITHELIAL CELL,UR 0-2 /HPF (None Seen); WBC,URINE 0-2 /HPF (0-3)
[2022-09-17] MEDS ORDERED: CEPH500C2 PO (19:23)
--- NOTE | 2022-09-17 19:49 | NUR ---
CALLED CALL THE CAR AND SET UP TRANSPORT FOR ELECTRIC WHEELCHAIR. SHANEL WILL CALL BACK WITH TRANSPORT INFO
--- NOTE | 2022-09-17 21:50 | NUR ---
CALLED CALL THE CAR ABOUT TRANSPORT INFO BUT IT HAS NOT BEEN SET UP YET. THEY WILL CALL BACK
[2022-09-17 23:08] VITALS: BP 132/71
--- NOTE | 2022-09-17 23:08 | NUR ---
Patient discharged to home in stable condition. Written and verbal after care instructions given. Patient verbalizes understanding of instruction.
== END 2022-09-17 23:09 | disposition home or self-care (01) ==
LOC: ER 12:25
DX: E11.65 Type 2 diabetes mellitus with hyperglycemia (principal); L03.115 Cellulitis of right lower limb; I10 Essential (primary) hypertension; E78.5 Hyperlipidemia, unspecified; E78.00 Pure hypercholesterolemia, unspecified; Z90.89 Acquired absence of other organs; Z88.1 Allergy status to other antibiotic agents; Z79.4 Long term (current) use of insulin; Z79.899 Other long term (current) drug therapy
CPT/HCPCS: 99284; 96360; 73630; 85025; 80048 ×2; 81001; 36415; 82962; 86140; 96372; J1815; J7030

== ENCOUNTER 2022-10-22 18:08 | Emergency (ER) | payer OTHER ==
[~2022-10-22] VITALS: Ht 185.4 cm; Wt 81.6 kg
[~2022-10-22 18:08] MED LIST changes: +CEPH500C2 PO
--- NOTE | 2022-10-22 18:12 | NUR ---
BIBS C/O R FOOT WOUND THAT HES HAD FOR A YEAR, STATED THAT HE HAS HAD A 9/10 PAIN BURNING X4DAYS
--- NOTE | 2022-10-22 19:15 | NUR ---
Dr. Shore at bedside
--- NOTE | 2022-10-22 19:25 | NUR ---
technology training associate at bedside
[2022-10-22] MEDS ORDERED: HYDROCODONE/APAP 10/325MG TABLET PO ONE (19:30)
[2022-10-22] MEDS ORDERED: HYDROCODONE/APAP 10/325MG TABLET ONE (19:33)
--- NOTE | 2022-10-22 20:01 | NUR ---
DR ANGELES IS MADE AWARE ABOUT BS OF 537
[2022-10-22] MEDS ORDERED: IV NS 0.9% 1,000 ML IV ONE (20:30)
[2022-10-22 20:56] LABS: BASOPHILS % (AUTO) 0.7 % (0.0-2.0); EOSINOPHILS % (AUTO) 5.5 % (0.0-6.0); HEMATOCRIT 43 % (39-51); HEMOGLOBIN 14.5 g/dL (13.5-17.5); LYMPHOCYTES # (AUTO) 1.8 K/uL (0.8-4.8); LYMPHOCYTES % (AUTO) 33.7 % (20.0-44.0); MEAN CORPUSCULAR HGB CONC 34 g/dl (31.0-36.0); MEAN CORPUSCULAR VOLUME 85 fL (80-96); MONOCYTES # (AUTO) 0.4 K/uL (0.1-1.30); MONOCYTES % (AUTO) 8.4 % (2.0-12.0); NEUTROPHILS # (AUTO) 2.8 K/uL (1.8-8.9); NEUTROPHILS % (AUTO) 51.7 % (43.0-81.0); PLATELET COUNT (AUTO) 223 K/uL (150-450); RED BLOOD CELL COUNT(AUTO) 5.02 MIL/uL (4.5-6.0); WHITE BLOOD COUNT (AUTO) 5.3 K/uL (4.3-11.0)
--- NOTE | 2022-10-22 21:09 | NUR ---
IV CANNULA #1 G22 INSERTED ON RIGHT HAND. IV CANNULA #2 G20 INSERTED ON LEFT FA.
--- NOTE | 2022-10-22 21:11 | NUR ---
URINE SPECIMEN SENT TO LAB
[2022-10-22 22:12] LABS: C-REACTIVE PROTEIN 2.4 mg/dL (0.0-0.9)
[2022-10-22 22:13] LABS: CALCIUM, SERUM 9.4 mg/dL (8.5-10.1); POTASSIUM 4.8 mmol/L (3.5-5.1)
[2022-10-22 22:14] LABS: BILIRUBIN,URINE NEGATIVE (NEGATIVE); COLOR,URINE YELLOW (YELLOW); LEUKOCYTE ESTERASE ,URINE NEGATIVE (NEGATIVE); NITRITE, URINE NEGATIVE (NEGATIVE); PROTEIN,URINE NEGATIVE (NEGATIVE); UGLUCOSE 3+ mg/dL (NEGATIVE); UROBILINOGEN,URINE 0.2 EU/dL (0.2)
--- NOTE | 2022-10-22 22:15 | NUR ---
CRITICAL LAB GLUCOSE 526
[2022-10-22 22:33] LABS: BACTERIA,URINE Rare /HPF (None Seen); RBC,URINE 0-2 /HPF (0-2); SQUAMOUS EPITHELIAL CELL,UR Few /HPF (None Seen)
[2022-10-22] MEDS ORDERED: IBUP-1953 PO (22:33)
[2022-10-22] MEDS ORDERED: oxyCODONE/APAP (5/325 MG) 1 UDTAB TABLET PO ONE (23:00)
[2022-10-22] MEDS ORDERED: oxyCODONE/APAP (5/325 MG) 1 UDTAB TABLET ONE (23:15)
--- NOTE | 2022-10-22 23:24 | NUR ---
IV CANNULA REMOVED
--- NOTE | 2022-10-22 23:24 | NUR ---
Patient discharged to home in stable condition. Written and verbal after care instructions given. Patient verbalizes understanding of instruction.
[2022-10-22 23:26] VITALS: BP 129/73
[2022-10-27] MEDS ORDERED: AMOX-430 PO (11:02)
== END 2022-10-22 23:26 | disposition home or self-care (01) ==
LOC: ER 18:09
DX: S92.412A Displaced fracture of proximal phalanx of left great toe, initial encounter for closed fracture (principal); S92.512A Displaced fracture of proximal phalanx of left lesser toe(s), initial encounter for closed fracture; E11.65 Type 2 diabetes mellitus with hyperglycemia; E11.621 Type 2 diabetes mellitus with foot ulcer; I10 Essential (primary) hypertension; E78.5 Hyperlipidemia, unspecified; E78.00 Pure hypercholesterolemia, unspecified; Z90.49 Acquired absence of other specified parts of digestive tract; Z98.890 Other specified postprocedural states; Z79.899 Other long term (current) drug therapy; Z79.4 Long term (current) use of insulin; Z88.8 Allergy status to other drugs, medicaments and biological substances; W05.0XXA Fall from non-moving wheelchair, initial encounter; Y93.89 Activity, other specified; Y92.89 Other specified places as the place of occurrence of the external cause; Y99.8 Other external cause status
CPT/HCPCS: 99284; 96360; 73630; 73660; 85025; 80048; 87086; 83605; 85652; 81001; 36415; 82962; 86140; J7030

== ENCOUNTER 2022-10-24 15:29 | Inpatient (IN) | payer OTHER ==
[~2022-10-24] VITALS: Ht 188 cm; Wt 86.2 kg
[~2022-10-24 15:29] MED LIST changes: +IBUP-1953 PO
[2022-10-24] MEDS ORDERED: PIPERACILLIN /TAZOBACTAM 3.375 G in IV D5W 50 ML IV ONE (16:00)
[2022-10-24] MEDS ORDERED: INSU100V7 SQ (16:00)
[2022-10-24] MEDS ORDERED: VANCOMYCIN 1 GM in IV D5W 250 ML IV ONE (16:00)
--- NOTE | 2022-10-24 16:00 | NUR ---
XRAY AT BEDSIDE.
--- NOTE | 2022-10-24 16:09 | NUR ---
COVID SWAB COLLECTED AND SENT TO LAB.
--- NOTE | 2022-10-24 17:15 | NUR ---
midline nurse at bedside
--- NOTE | 2022-10-24 17:32 | NUR ---
CALLED DR. AWAD [phone] LEFT .
[2022-10-24 17:38] LABS: BASOPHILS % (AUTO) 0.8 % (0.0-2.0); EOSINOPHILS % (AUTO) 6.8 % (0.0-6.0); HEMATOCRIT 36 % (39-51); HEMOGLOBIN 12.3 g/dL (13.5-17.5); LYMPHOCYTES # (AUTO) 1.7 K/uL (0.8-4.8); LYMPHOCYTES % (AUTO) 37.5 % (20.0-44.0); MEAN CORPUSCULAR HGB CONC 34 g/dl (31.0-36.0); MEAN CORPUSCULAR VOLUME 85 fL (80-96); MONOCYTES # (AUTO) 0.3 K/uL (0.1-1.30); MONOCYTES % (AUTO) 5.9 % (2.0-12.0); NEUTROPHILS # (AUTO) 2.2 K/uL (1.8-8.9); PLATELET COUNT (AUTO) 214 K/uL (150-450); RED BLOOD CELL COUNT(AUTO) 4.27 MIL/uL (4.5-6.0); WHITE BLOOD COUNT (AUTO) 4.6 K/uL (4.3-11.0)
--- NOTE | 2022-10-24 17:41 | NUR ---
[facility] CALLED BAGGAGE CHECKER PAGED.
[2022-10-24] MEDS ORDERED: ONDANSETRON HCL/PF 4 MG/2 ML VIAL ONE (18:41)
[2022-10-24] MEDS ORDERED: MORPHINE SULFATE INJ 4 MG/ML DISP.SYRIN ONE (18:41)
[2022-10-24 19:00] LABS: C-REACTIVE PROTEIN 1.5 mg/dL (0.0-0.9)
[2022-10-24] MEDS ORDERED: MORPHINE SULFATE INJ 2 MG/ML DISP.SYRIN IV ONE (19:00)
[2022-10-24] MEDS ORDERED: ONDANSETRON HCL/PF 4 MG/2 ML VIAL IV ONE (19:00)
[2022-10-24 19:04] LABS: CALCIUM, SERUM 8.6 mg/dL (8.5-10.1); CREATININE 1.3 mg/dL (0.6-1.3); POTASSIUM 4.1 mmol/L (3.5-5.1)
[2022-10-24] MEDS ORDERED: INSULIN REGULAR, HUMAN 100 UNIT/ML 10 ML VIAL SQ ONE (19:30)
[2022-10-24] MEDS ORDERED: INSULIN REGULAR, HUMAN 100 UNIT/ML 10 ML VIAL ONE (19:31)
[2022-10-24] MEDS ORDERED: CEFEPIME 1 GM VIAL ONE (19:35)
[2022-10-24] MEDS ORDERED: ONDANSETRON HCL/PF 4 MG/2 ML VIAL IVP PRN (20:00)
[2022-10-24] MEDS ORDERED: Z GUARD REMEDY 4 OZ OINT TP PRN (20:00)
[2022-10-24] MEDS ORDERED: ACETAMINOPHEN 325 MG TABLET PO PRN (20:00)
--- NOTE | 2022-10-24 20:03 | NUR ---
REPORT GIVEN TO NATI LarkinW RN FOR SANDEEP
--- NOTE | 2022-10-24 20:39 | NUR ---
Note undone in [facility] - 10/24/22 at 2041 by ARPITA PT TRANSFERRING TO [facility] 113-2 VIA ACLS PROTOCOL. VSS. ALL BELONGINGS WITH PT Addendum: 10/24/22 at 2040 by ARPITA Amendment undone in [facility] - 10/24/22 at 2041 by VICTOR MP PT TRANSFERRING TO [facility] 313-1 VIA ACLS PROTOCOL. VSS. ALL BELONGINGS WITH PT
[2022-10-24 20:40] VITALS: BP 139/78
--- NOTE | 2022-10-24 20:42 | NUR ---
PT TRANSFERRING TO [facility] 313-1 VIA ACLS PROTOCOL. VSS. ALL BELONGINGS WITH PT
--- NOTE | 2022-10-24 21:07 | NUR ---
RN NOTE; RECEIVED PT FROM ER WITH ELECTRIC SCOOTER ACCOMPANY WITH ONE ER PERSONNEL,CLAY ABLE TO VERBALIZE NEEDS,VARUN WELL ON RM AIR SATTING 98%,NO SOB/DISTRESS NOTED,IV ACCESS ON ALISON 18G INTACT AND PATENT,PT WAS ORIENT THE RM AND VERBALIZE UNDERSTANDING,SAFETY MEASURE IN PLACE,CALL LIGHT WITHIN REACH,WILL CONTINUE TO MONITOR.
[2022-10-24] MEDS ORDERED: INSULIN GLARGINE, 100 UNIT/ML CARTRIDGE SQ SCH (22:00)
[2022-10-24] MEDS: CEFEPIME 1 GM in IV D5W 50 ML IV SCH (22:23)
[2022-10-24 23:37] LABS: BILIRUBIN,DIRECT 0.1 mg/dL (0.0-0.2); BILIRUBIN,TOTAL 0.3 mg/dL (0.2-1.0)
[2022-10-25] VITALS: BP 129/76
[2022-10-25] MEDS: MORPHINE SULFATE INJ 2 MG/ML DISP.SYRIN IV PRN ×5 (00:55→20:31)
--- NOTE | 2022-10-25 00:55 | NUR ---
RN NOTE; PATIENT COMPLAINED OF BOTH LOWER EXT, PAIN 9/10.PRN MORPHINE 2MG WAS GIVEN,NO A/R NOTED.
[2022-10-25 04:00] VITALS: BP 125/76
[2022-10-25] MEDS: CEFEPIME 1 GM in IV D5W 50 ML IV SCH ×3 (04:37→21:00)
[2022-10-25] MEDS: VANCOMYCIN 1.25 GM in IV D5W 250 ML IV SCH ×2 (05:06→18:26)
--- NOTE | 2022-10-25 06:29 | NUR ---
RN CLOSING TONY; PATIENT IN BED AAOX4 ABLE TO VERBALIZE NEEDS,VARUN WELL ON RM AIR SATTING 97.6%,NO SOB/DISTRESS NOTED,DUE MEDS GIVEN ORDER,ALL NEEDS ATTENDED,IV ACCESS ON ALISON 18G INTACT AND PATENT,SAFETY MEASURE IN PLACE,CALL LIGHT WITHIN REACH,WILL ENDORSED TO NEXT SHIFT.
--- NOTE | 2022-10-25 07:20 | NUR ---
DIVISION HEAD NOTE RECEIVED PATIENT ALERT AND ORIENTED X 4 ABLE TO MAKE NEEDS KNOWN. PATIENT IS ON ROOM AIR WITH EQUAL AND UNLABORED BREATHING WITH NO SIGNS OF RESPIRATORY DISTRESS NOTED. NO COMPLAIN OF PAIN AT THIS TIME. WITH IV ACCESS ONT EH LEFT UPPER ARM ON SALINE LOCK, PATENT AND INTACT. WITH WOUND ON BOTH LOWER EXTREMITIES, DRY. NOTED SKIN ISSUES. ON TELE MONITOR ON SR 76 AT THIS TIME. SAFETY MEASURES ENFORCED WITH BED ON LOW, LOCKED POSITION. SIDERAILS RAISED, ALARM ON AND CALL LIGHT WITHIN REACH AT ALL TIMES. IN STABLE CONDITION WILL CONTINUE WITH PLAN OF CARE.
[2022-10-25 07:23] LABS: BASOPHILS % (AUTO) 0.4 % (0.0-2.0); EOSINOPHILS % (AUTO) 6.5 % (0.0-6.0); HEMATOCRIT 32 % (39-51); HEMOGLOBIN 10.6 g/dL (13.5-17.5); LYMPHOCYTES # (AUTO) 1.5 K/uL (0.8-4.8); LYMPHOCYTES % (AUTO) 38.1 % (20.0-44.0); MEAN CORPUSCULAR HGB CONC 33 g/dl (31.0-36.0); MEAN CORPUSCULAR VOLUME 87 fL (80-96); MONOCYTES # (AUTO) 0.3 K/uL (0.1-1.30); MONOCYTES % (AUTO) 8.1 % (2.0-12.0); NEUTROPHILS # (AUTO) 1.8 K/uL (1.8-8.9); NEUTROPHILS % (AUTO) 46.9 % (43.0-81.0); PLATELET COUNT (AUTO) 157 K/uL (150-450); RED BLOOD CELL COUNT(AUTO) 3.63 MIL/uL (4.5-6.0); WHITE BLOOD COUNT (AUTO) 3.9 K/uL (4.3-11.0)
--- NOTE | 2022-10-25 07:50 | NUR ---
AIRBORNE SENSOR SPECIALIST NOTE COMPLAINED OF PAIN. MORPHINE GIVEN ORDERED. COMFORT MEASURES PROVIDED.
[2022-10-25 08:21] VITALS: BP_SYST 142; BP_SYST 148; BP_DIAS 66; BP_DIAS 90
[2022-10-25] MEDS ORDERED: DEXTROSE 50%-WATER 50 ML DISP.SYRIN IV PRN (08:30)
[2022-10-25] MEDS: BLOOD SUGAR DIAGNOSTIC 1 EACH STRIP IN SCH ×4 (08:30→21:07)
[2022-10-25 09:36] LABS: ALBUMIN 3.1 g/dL (3.4-5.0); BILIRUBIN,TOTAL 0.4 mg/dL (0.2-1.0); CALCIUM, SERUM 8.3 mg/dL (8.5-10.1); CREATININE 1.1 mg/dL (0.6-1.3); MAGNESIUM 1.8 mg/dL (1.8-2.4); PHOSPHORUS 3.5 mg/dL (2.5-4.9); POTASSIUM 4.4 mmol/L (3.5-5.1); TOTAL PROTEIN, SERUM 6.1 g/dL (6.4-8.2)
--- NOTE | 2022-10-25 09:45 | NUR ---
ELECTRONIC DATA PROCESSING AUDITOR NOTE RECEIVED CALL FROM LAB REGARDING CRITICAL LAB RESULT. PATIENT IS ASYMPTOMATIC AND SAID THAT HIS BS IS SOMETIMES LIKE THAT. MD NOTIFIED AND ORDER RECEIVED TO RECHECK BLOOD SUGAR.
[2022-10-25 12:00] VITALS: BP 146/95
--- NOTE | 2022-10-25 12:00 | NUR ---
SMOKE JUMPER SUPERVISOR NOTE PATIENT WAS REFUSING BLOOD SUGAR CHECK BUT FINALLY AGREED. BS RECHECKED AND WAS 478MG/DL. MD NOTIFIED WITH ORDER TO GIVE COVERAGE AND RECHECK AGAIN AFTER 2-4 HOURS.
--- NOTE | 2022-10-25 12:10 | NUR ---
SUPERVISOR REAL ESTATE OFFICE NOTE PICKED UP FOR MRI ORDERED. IN STABLE CONDITION.
--- NOTE | 2022-10-25 12:15 | NUR ---
MANGLE ROLL OPERATOR NOTE PAIN MEDICATION GIVEN ORDERED FOR PAIN LEVEL COMPLAINED BY PATIENT. PROVIDED VISUAL DISTRACTION, HEALTH TEACHING GIVEN ON RELAXATION TECHNIQUES.
[2022-10-25] MEDS: INSULIN REGULAR, HUMAN 100 UNIT/ML 3 ML VIAL SQ PRN ×3 (12:23→17:25)
[2022-10-25] MEDS: POVIDONE-IODINE OINT 28.4 GM TUBE TP SCH ×2 (13:03→17:11)
[2022-10-25] MEDS: CHLORHEXIDINE GLUCONATE 4% 118 ML BOTTLE TP SCH (13:03)
--- NOTE | 2022-10-25 13:32 | NUR ---
DIESEL ELECTRICIAN NOTE BACK FROM MRI
[2022-10-25 15:54] VITALS: BP 123/82
[2022-10-25] MEDS: INSULIN GLARGINE, 100 UNIT/ML CARTRIDGE SQ SCH ×2 (16:31→17:21)
--- NOTE | 2022-10-25 16:40 | NUR ---
PHYSICAL THERAPIST NOTE COMPLAINED OF PAIN. MORPHINE GIVEN ORDERED. COMFORT MEASURES PROVIDED.
--- NOTE | 2022-10-25 17:00 | NUR ---
PROTOTYPE FABRICATOR NOTE LATEST BS 306 MG/DL WITH INSULIN COVERAGE WITH MD ORDER TO START LANTUS. INSULIN GIVEN ORDERED. HEALTH TEACHING DONE AND VERBALIZED UNDERSTANDING AND APPRECIATION. PATIENT REMAINS ASYMPTOMATIC. IN STABLE CONDITION.
--- NOTE | 2022-10-25 19:00 | NUR ---
BOAT OUTBOARD ENGINE MECHANIC CLOSING NOTE PATIENT ALERT AND ORIENTED X 4 ABLE TO MAKE NEEDS KNOWN. PATIENT IS ON ROOM AIR WITH EQUAL AND UNLABORED BREATHING WITH NO SIGNS OF RESPIRATORY DISTRESS NOTED. NO COMPLAIN OF PAIN AT THIS TIME. WITH IV ACCESS ONT EH LEFT UPPER ARM ON SALINE LOCK, PATENT AND INTACT. WOUND CARE DONE ON BOTH LOWER EXTREMITIES ORDERED. NEEDS ATTENDED. SAFETY MEASURES ENFORCED WITH BED ON LOW, LOCKED POSITION. SIDERAILS RAISED, ALARM ON AND CALL LIGHT WITHIN REACH AT ALL TIMES. IN STABLE CONDITION WILL ENDORSE TO NEXT SHIFT FOR CONTINUITY OF CARE.
--- NOTE | 2022-10-25 19:54 | NUR ---
RN OPENING NOTES Received pt in bed, awake, watching videos on phone. AOx4, able to make needs known. On RA and tolerating well. No SOB noted. No s/sx of respiratory distress noted. Tele monitor detects SR with rate of 80. IV access in ALISON Midline #18G. IV is intact, patent, and flushing well. Pt requesting pain medication but morphine is not due until 2031. Patient made aware. Per patient, "okay". Will administer when due. Safety precautions in place: bed in lowest, locked position, siderails upX2, and brakes on. Table and call light within reach. All needs met at this time.
[2022-10-25 20:00] VITALS: BP 114/72
--- NOTE | 2022-10-25 20:31 | NUR ---
RN Notes Administered morphine for pain per MD Order for pain 05/26. VS WNL.
[2022-10-25] MEDS: *INSULIN REGULAR(HUMULIN R)HUM 100 UNIT/ML VIAL SQ PRN (21:07)
[2022-10-25] MEDS ORDERED: INSULIN GLARGINE, 100 UNIT/ML CARTRIDGE SQ SCH (22:00)
[2022-10-26] VITALS (7 sets, daily range): BP systolic 90–126; BP diastolic 49–81
--- NOTE | 2022-10-26 00:10 | NUR ---
RN Note Assessed patient due to hypotension. Patient AOx4 and asymptomatic.
[2022-10-26] MEDS: MORPHINE SULFATE INJ 2 MG/ML DISP.SYRIN IV PRN ×5 (01:16→21:03)
--- NOTE | 2022-10-26 01:16 | NUR ---
RN Notes Administered morphine per MD order for pain 05/26. Blood pressure of 126/79 and pulse of 79.
[2022-10-26 04:45] LABS: BILIRUBIN,URINE NEGATIVE (NEGATIVE); COLOR,URINE YELLOW (YELLOW); LEUKOCYTE ESTERASE ,URINE NEGATIVE (NEGATIVE); NITRITE, URINE NEGATIVE (NEGATIVE); PROTEIN,URINE NEGATIVE (NEGATIVE); UGLUCOSE 1+ mg/dL (NEGATIVE); UROBILINOGEN,URINE 0.2 EU/dL (0.2)
[2022-10-26 05:02] LABS: BACTERIA,URINE Rare /HPF (None Seen); RBC,URINE 0-2 /HPF (0-2); SQUAMOUS EPITHELIAL CELL,UR Few /HPF (None Seen); WBC,URINE 0-2 /HPF (0-3)
[2022-10-26] MEDS: CEFEPIME 1 GM in IV D5W 50 ML IV SCH ×3 (05:17→21:03)
[2022-10-26] MEDS: VANCOMYCIN 1.25 GM in IV D5W 250 ML IV SCH ×2 (06:10→17:48)
--- NOTE | 2022-10-26 06:20 | NUR ---
RN Notes Administered morphine for pain per MD Order for pain 04/25. VS WNL.
[2022-10-26 06:31] LABS: CALCIUM, SERUM 8.9 mg/dL (8.5-10.1); CREATININE 0.9 mg/dL (0.6-1.3); POTASSIUM 3.8 mmol/L (3.5-5.1)
[2022-10-26] MEDS: BLOOD SUGAR DIAGNOSTIC 1 EACH STRIP IN SCH ×4 (06:39→21:16)
[2022-10-26] MEDS: INSULIN REGULAR, HUMAN 100 UNIT/ML 3 ML VIAL SQ PRN ×2 (06:39→12:21)
--- NOTE | 2022-10-26 06:44 | NUR ---
RN Closing Notes Pt in bed, asleep, awakens to verbal stimuli. AOx4, able to make needs known. On RA and tolerating well. No SOB noted. No s/sx of respiratory distress noted. Tele monitor detects SR with BBB. IV access in ALISON Midline #18G. IV is intact, patent, and flushing well. All orders carried out. All needs met. Pt kept clean and dry. Treated pain throughout shift. Safety precautions in place: bed in lowest, locked position, siderails upX2, and brakes on. Table and call light within reach. Will endorse to oncoming shift for SANDEEP.
--- NOTE | 2022-10-26 07:30 | NUR ---
DIRECTOR OF EXHIBIT DEVELOPMENT NOTE RECEIVED PATIENT IN BED AWAKE , ALERT AND ORIENTED X 4 ABLE TO MAKE NEEDS KNOWN. ON ROOM AIR WITH NO SOB OR DISTRESS NOTED . NO COMPLAIN OF PAIN AND DISCOMFORT AT THIS TIME. IV ACCESS ONT ALISON ML #18 G ON SALINE LOCK, PATENT AND INTACT. WITH WOUND ON BOTH LOWER EXTREMITIES, DRY. NOTED SKIN ISSUES. ON TELE MONITOR ON SR WITH BBB HR 76 . SAFETY MEASURES ENFORCED WITH BED ON LOW, LOCKED POSITION. SIDERAILS RAISED, ALARM ON AND CALL LIGHT WITHIN REACH AT ALL TIMES. IN STABLE CONDITION WILL CONTINUE WITH PLAN OF CARE.
[2022-10-26] MEDS: INSULIN GLARGINE, 100 UNIT/ML CARTRIDGE SQ SCH ×2 (08:48→17:20)
--- NOTE | 2022-10-26 08:58 | NUR ---
WOUND CARE CONSULT: PT FOLLOWED BY DR AWAD FOR LOWER EXTREMITIES. PT STATES IS ABLE TO TRANSFER IN AND OUT OF HIS WHEELCHAIR. DEFER TO PODIATRY FOR WOUND TREATMENT PLAN. WILL SEE PRN.
[2022-10-26] MEDS: CHLORHEXIDINE GLUCONATE 4% 118 ML BOTTLE TP SCH (09:44)
[2022-10-26] MEDS: POVIDONE-IODINE OINT 28.4 GM TUBE TP SCH ×2 (09:45→17:18)
[2022-10-26] MEDS: PROSOURCE / PROSTAT (PYXIS) 30 ML UDC PO SCH (17:17)
--- NOTE | 2022-10-26 19:29 | NUR ---
DIRECTOR LABOR STANDARDS CLOSING NOTES NOTE PATIENT IN BED AWAKE , ALERT AND ORIENTED X 4 ABLE TO MAKE NEEDS KNOWN. ON ROOM AIR WITH NO SOB OR DISTRESS NOTED . NO COMPLAIN OF PAIN AND DISCOMFORT AT THIS TIME. IV ACCESS ONT ALISON ML #18 G ON SALINE LOCK, PATENT AND INTACT. WITH WOUND ON BOTH LOWER EXTREMITIES, DRY. NOTED SKIN ISSUES. ON TELE MONITOR ON SR WITH BBB HR 76 . ALL DUE MEDS ORDERED , SAFETY MEASURES ENFORCED WITH BED ON LOW, LOCKED POSITION. SIDERAILS RAISED, ALARM ON AND CALL LIGHT WITHIN REACH AT ALL TIMES. IN STABLE CONDITION AND ENDORSED TO NEXT SHIFT
--- NOTE | 2022-10-26 19:40 | NUR ---
RN Opening Notes Received pt in bed, awake, watching TV. AOx4, able to make needs known. On RA and tolerating well. No SOB noted. No s/sx of respiratory distress noted. Tele monitor detects SR with rate of with BBB. IV access in ALISON Midline #18G. IV is intact, patent, and flushing well. Safety precautions in place: bed in lowest, locked position, siderails upX2, and brakes on. Table and call light within reach. All needs met at this time.
--- NOTE | 2022-10-26 21:04 | NUR ---
RN NOTES Administered morphine for pain 04/25 per MD order. VS WNL.
[2022-10-26] MEDS: *INSULIN REGULAR(HUMULIN R)HUM 100 UNIT/ML VIAL SQ PRN (21:18)
[2022-10-27] MEDS: MORPHINE SULFATE INJ 2 MG/ML DISP.SYRIN IV PRN ×2 (02:41→11:13)
--- NOTE | 2022-10-27 02:41 | NUR ---
RN NOTES Administered morphine for pain 04/25 per MD order. VS WNL.
[2022-10-27 03:59] VITALS: BP 117/71
[2022-10-27] MEDS: CEFEPIME 1 GM in IV D5W 50 ML IV SCH ×2 (05:17→12:56)
[2022-10-27 05:48] LABS: BASOPHILS % (AUTO) 0.6 % (0.0-2.0); EOSINOPHILS % (AUTO) 8.3 % (0.0-6.0); HEMATOCRIT 38 % (39-51); HEMOGLOBIN 12.8 g/dL (13.5-17.5); LYMPHOCYTES # (AUTO) 1.8 K/uL (0.8-4.8); LYMPHOCYTES % (AUTO) 34.4 % (20.0-44.0); MEAN CORPUSCULAR HGB CONC 34 g/dl (31.0-36.0); MEAN CORPUSCULAR VOLUME 86 fL (80-96); MONOCYTES # (AUTO) 0.4 K/uL (0.1-1.30); MONOCYTES % (AUTO) 7.9 % (2.0-12.0); NEUTROPHILS # (AUTO) 2.5 K/uL (1.8-8.9); NEUTROPHILS % (AUTO) 48.8 % (43.0-81.0); PLATELET COUNT (AUTO) 207 K/uL (150-450); RED BLOOD CELL COUNT(AUTO) 4.41 MIL/uL (4.5-6.0); WHITE BLOOD COUNT (AUTO) 5.2 K/uL (4.3-11.0)
[2022-10-27] MEDS: VANCOMYCIN 1.25 GM in IV D5W 250 ML IV SCH (06:04)
[2022-10-27 06:07] LABS: CALCIUM, SERUM 8.7 mg/dL (8.5-10.1); CREATININE 0.9 mg/dL (0.6-1.3); MAGNESIUM 1.9 mg/dL (1.8-2.4); PHOSPHORUS 4.7 mg/dL (2.5-4.9); POTASSIUM 3.8 mmol/L (3.5-5.1)
[2022-10-27] MEDS: BLOOD SUGAR DIAGNOSTIC 1 EACH STRIP IN SCH ×2 (06:31→12:02)
[2022-10-27] MEDS: INSULIN REGULAR, HUMAN 100 UNIT/ML 3 ML VIAL SQ PRN ×2 (06:33→12:39)
--- NOTE | 2022-10-27 06:51 | NUR ---
RN Closing Notes Pt in bed, asleep, awakens to verbal stimuli. AOx4, able to make needs known. On RA and tolerating well. No SOB noted. No s/sx of respiratory distress noted. Tele monitor detects SR with rate of with BBB. IV access in ALISON Midline #18G. IV is intact, patent, and flushing well. All orders carried out. All needs met. Pt kept clean and dry. Safety precautions in place: bed in lowest, locked position, siderails upX2, and brakes on. Table and call light within reach. Will endorse to oncoming shift for SANDEEP.
--- NOTE | 2022-10-27 07:35 | NUR ---
IN SERVICE EDUCATION TEACHER NOTE RECEIVED PATIENT IN BED AWAKE , ALERT AND ORIENTED X 4 ABLE TO MAKE NEEDS KNOWN. ON ROOM AIR WITH NO SOB OR DISTRESS NOTED . NO COMPLAIN OF PAIN AND DISCOMFORT AT THIS TIME. IV ACCESS ONT ALISON ML #18 G ON SALINE LOCK, PATENT AND INTACT. WITH WOUND ON BOTH LOWER EXTREMITIES, DRY. NOTED SKIN ISSUES. ON TELE MONITOR SR WITH BBB @85 HR . SAFETY MEASURES ENFORCED WITH BED ON LOW, LOCKED POSITION. SIDERAILS RAISED, ALARM ON AND CALL LIGHT WITHIN REACH AT ALL TIMES. IN STABLE CONDITION WILL CONTINUE WITH PLAN OF CARE.
[2022-10-27 08:00] VITALS: BP 117/74
[2022-10-27] MEDS: PROSOURCE / PROSTAT (PYXIS) 30 ML UDC PO SCH (08:19)
[2022-10-27] MEDS: CHLORHEXIDINE GLUCONATE 4% 118 ML BOTTLE TP SCH (09:15)
[2022-10-27] MEDS: POVIDONE-IODINE OINT 28.4 GM TUBE TP SCH (09:15)
[2022-10-27] MEDS: INSULIN GLARGINE, 100 UNIT/ML CARTRIDGE SQ SCH (09:37)
[2022-10-27] MEDS ORDERED: AMOX-430 PO (11:02)
--- NOTE | 2022-10-27 15:12 | NUR ---
FUEL HOUSE ATTENDANT NOTES PATIENT IS ALERT AND ORIENTED X 4 ABLE TO MAKE NEEDS KNOWN. ON ROOM AIR WITH NO SOB OR DISTRESS NOTED . COMPLAIN OF PAIN AND DISCOMFORT AND DUE GIVEN ORDERED . SEEN BY DR HERNANDES AND WITH ORDER FOR DISCHARGE TO HOME , DISCHARGE PAPER WORK WAS PREPARED AND DISCHARGED INSTRUCTIONS PROVIDED TO THE PATIENT REGARDING TO CONTINUE PO ATB AT HOME FOR 10 DAYS , FOLLOW UP WITH PCP/ PODIATRY , CALL 911 IN CASE OF EMERGENCY ALL BELONGINGS WERE BROUGHT AND FORM WAS SIGNED BY THE PATIENT . IV ACCESS AND ID BAND REMOVED , PATIENT LEFT USING THE MOTORIZED WHEEL CHAIR, ALERT AND ABLE TO MANUEVER MOTORIZED WHEEL , NO PAIN AND DISCOMFORT NOTED AND NO NO SOB OR DISTRESS NOTED WHEN PATIENT LEFT . PATIENT LEFT IN A STABLE CONDITION .
== END 2022-10-27 15:00 | disposition home or self-care (01) | DRG 342 ==
LOC: ER 15:38 → MED 20:24 → TELE 22:41
PROVIDERS: ADMIT Internal Medicine; ATTEND Student in an Organized Health Care Education/Training Program
PROC: 05HC33Z Insertion of Infusion Device into Left Basilic Vein, Percutaneous Approach (ICD-10-PCS; principal; 2022-10-24)
DX: S92.402A Displaced unspecified fracture of left great toe, initial encounter for closed fracture (principal); M86.671 Other chronic osteomyelitis, right ankle and foot; E87.1 Hypo-osmolality and hyponatremia; E11.69 Type 2 diabetes mellitus with other specified complication; M86.672 Other chronic osteomyelitis, left ankle and foot; L03.116 Cellulitis of left lower limb; D64.9 Anemia, unspecified; E11.65 Type 2 diabetes mellitus with hyperglycemia; E78.5 Hyperlipidemia, unspecified; G40.909 Epilepsy, unspecified, not intractable, without status epilepticus; W23.0XXA Caught, crushed, jammed, or pinched between moving objects, initial encounter; Y92.89 Other specified places as the place of occurrence of the external cause; R26.9 Unspecified abnormalities of gait and mobility; Z90.49 Acquired absence of other specified parts of digestive tract; Z88.8 Allergy status to other drugs, medicaments and biological substances; Z99.3 Dependence on wheelchair; Z83.3 Family history of diabetes mellitus; Z86.61 Personal history of infections of the central nervous system; W05.0XXA Fall from non-moving wheelchair, initial encounter; Z79.4 Long term (current) use of insulin; I10 Essential (primary) hypertension; Z87.19 Personal history of other diseases of the digestive system; S90.812A Abrasion, left foot, initial encounter; S90.811A Abrasion, right foot, initial encounter; M21.172 Varus deformity, not elsewhere classified, left ankle; M21.171 Varus deformity, not elsewhere classified, right ankle; S92.502A Displaced unspecified fracture of left lesser toe(s), initial encounter for closed fracture
CPT/HCPCS: 36415; 71045-TC; 73630-TC; 73718-TC; 80048-TC; 80053-TC; 80202-TC; 81001; 82247-TC; 82248-TC; 82962-TC; 83605-TC; 83735-TC; 84100-TC; 85025-TC; 85652-TC; 85730-TC; 86140-TC; 87040-TC; 87081-TC; A6403; C9803; G0378; J0692; J1815; J2270; J2405; J2543; J3370; J7030; J7050; J7060

== ENCOUNTER 2023-01-29 12:03 | Inpatient (IN) | payer OTHER ==
[~2023-01-29] VITALS: Ht 188 cm; Wt 83.9 kg
[~2023-01-29 12:03] MED LIST changes: +AMOX-430 PO; -CEPH500C2 PO; -DOXY-326 PO; -HYDR-3980 PO; -IBUP-1953 PO; -INSU100I30 SQ; +INSU100V7 SQ
[2023-01-29] MEDS ORDERED: VANCOMYCIN 1 GM in IV D5W 250 ML IV ONE (12:30)
[2023-01-29] MEDS ORDERED: PIPERACILLIN /TAZOBACTAM 3.375 G in IV D5W 50 ML IV ONE (12:30)
[2023-01-29] MEDS ORDERED: ONDANSETRON HCL/PF 4 MG/2 ML VIAL IV ONE (12:30)
[2023-01-29] MEDS ORDERED: MORPHINE SULFATE INJ 2 MG/ML DISP.SYRIN IV ONE (12:30)
[2023-01-29] MEDS ORDERED: IV NS 0.9% 1,000 ML IV ONE ×2 (12:30→17:00)
--- NOTE | 2023-01-29 12:40 | NUR ---
BIBRA FOR CELLULITIS. A/O X 3, ABLE TO MAKE NEEDS KNOWN, USES ELECTRIC WHEELCHAIR. NON-AMBULATORY.
--- NOTE | 2023-01-29 13:27 | NUR ---
MIDLINE NURSE CALLED
--- NOTE | 2023-01-29 13:30 | NUR ---
COVID SWAB OBTAINED
--- NOTE | 2023-01-29 13:53 | NUR ---
CALLED NURSING SUP REGARDING PT BED
--- NOTE | 2023-01-29 14:00 | NUR ---
BLOOD SAMPLES OBTAINED
--- NOTE | 2023-01-29 14:00 | NUR ---
David cevallos in [facility] - 01/29/23 at 1509 by AMBER 20 g Viktor hilario
[2023-01-29 15:15] LABS: BASOPHILS % (AUTO) 0.7 % (0.0-2.0); EOSINOPHILS % (AUTO) 7.1 % (0.0-6.0); HEMATOCRIT 43 % (39-51); HEMOGLOBIN 14.4 g/dL (13.5-17.5); LYMPHOCYTES # (AUTO) 1.9 K/uL (0.8-4.8); LYMPHOCYTES % (AUTO) 33.5 % (20.0-44.0); MEAN CORPUSCULAR HGB CONC 33 g/dl (31.0-36.0); MEAN CORPUSCULAR VOLUME 87 fL (80-96); MONOCYTES # (AUTO) 0.4 K/uL (0.1-1.30); MONOCYTES % (AUTO) 7.1 % (2.0-12.0); NEUTROPHILS # (AUTO) 2.9 K/uL (1.8-8.9); NEUTROPHILS % (AUTO) 51.6 % (43.0-81.0); PLATELET COUNT (AUTO) 197 K/uL (150-450); RED BLOOD CELL COUNT(AUTO) 4.97 MIL/uL (4.5-6.0); WHITE BLOOD COUNT (AUTO) 5.6 K/uL (4.3-11.0)
[2023-01-29] MEDS ORDERED: IV NS 0.9% 1,000 ML BAG IV ONE (15:30)
[2023-01-29] MEDS ORDERED: ONDANSETRON HCL/PF 4 MG/2 ML VIAL ONE (15:59)
[2023-01-29] MEDS ORDERED: MORPHINE SULFATE INJ 4 MG/ML DISP.SYRIN ONE (15:59)
[2023-01-29 16:00] VITALS: BP 124/75
--- NOTE | 2023-01-29 16:04 | NUR ---
ROOM 307-2
[2023-01-29 16:12] LABS: CALCIUM, SERUM 8.8 mg/dL (8.5-10.1); CARBON DIOXIDE 19 mmol/L (21-32); CHLORIDE 93 mmol/L (98-107); POTASSIUM 5.1 mmol/L (3.5-5.1); SODIUM SERUM 130 mmol/L (136-145); UREA NITROGEN, BLOOD 14 mg/dL (7-18)
[2023-01-29 16:19] LABS: GLUCOSE 604 mg/dL (74-106)
--- NOTE | 2023-01-29 16:58 | NUR ---
REPORT GIVEN TO ANTONIO YANDEL
[2023-01-29] MEDS ORDERED: DEXTROSE 50%-WATER 50 ML DISP.SYRIN IV PRN (17:00)
[2023-01-29] MEDS ORDERED: MAG HYDROX/AL HYDROX/SIMETH 30 ML UDC PO PRN (17:00)
[2023-01-29] MEDS ORDERED: ONDANSETRON HCL/PF 4 MG/2 ML VIAL IVP PRN (17:00)
[2023-01-29] MEDS ORDERED: MAGNESIUM HYDROXIDE 30 ML UDC PO PRN (17:00)
[2023-01-29] MEDS ORDERED: ACETAMINOPHEN 325 MG TABLET PO PRN (17:00)
[2023-01-29] MEDS ORDERED: ENOXAPARIN SODIUM 40 MG/0.4 ML DISP.SYRIN SQ SCH (17:00)
[2023-01-29] MEDS ORDERED: Z GUARD REMEDY 4 OZ OINT TP PRN (17:00)
--- NOTE | 2023-01-29 17:11 | NUR ---
PATIENT TRANSFERED TO [facility]-2, ALL CARE ENDORSED TO RN YANDEL
[2023-01-29] MEDS: ENOXAPARIN SODIUM 40 MG/0.4 ML DISP.SYRIN SQ SCH (17:45)
[2023-01-29] MEDS: BLOOD SUGAR DIAGNOSTIC 1 EACH STRIP IN SCH ×2 (17:45→22:17)
[2023-01-29] MEDS: MORPHINE SULFATE INJ 2 MG/ML DISP.SYRIN IV PRN (17:46)
[2023-01-29] MEDS: INSULIN REGULAR, HUMAN 100 UNIT/ML 3 ML VIAL SQ PRN ×2 (17:59→22:22)
[2023-01-29 18:11] LABS: BILIRUBIN,URINE NEGATIVE (NEGATIVE); COLOR,URINE YELLOW (YELLOW); LEUKOCYTE ESTERASE ,URINE NEGATIVE (NEGATIVE); NITRITE, URINE NEGATIVE (NEGATIVE); PROTEIN,URINE NEGATIVE (NEGATIVE); UGLUCOSE 3+ mg/dL (NEGATIVE); UROBILINOGEN,URINE 0.2 EU/dL (0.2)
[2023-01-29 18:28] LABS: BACTERIA,URINE None seen /HPF (None Seen); SQUAMOUS EPITHELIAL CELL,UR Few /HPF (None Seen); WBC,URINE NONE SEEN /HPF (0-3)
[2023-01-29 18:29] LABS: YEAST,URINE Few /HPF (None Seen)
[2023-01-29] MEDS: IV NS 0.9% 1,000 ML IV PRN (19:43)
--- NOTE | 2023-01-29 19:45 | NUR ---
MSRN FULLY AWAKE. BOLUS OF NS DONE. PRESENT IVF NOW TO RUN AT 125 CC/HR INFUSING WELL. SPOKE TO LAB STATED UNABLE TO DRAW AND WILL HAVE SOMEBODY DRAW AGAIN. PLAN OF CARE AND MEDICATION REGIMEN DISCUSSED WITH PATIENT APPEARS TO UNDERSTAND. ALL NEEDS ATTENDED.
--- NOTE | 2023-01-29 19:49 | NUR ---
ADMISSION NOTE Received patient via gurney from ER. Patient is A/O x4, able to make needs known. IV access on RFA #22, intact and patent. Patient oriented to room and how to use the call light. VS taken as follows: BP 124/75, DE 102, RR 16, Temp 98.1, SPO2 97%. Skin assessment done, photos of skin issues taken and placed in chart. Accucheck done, 566, rechecked on other finger, 550. 20 units of Insulin given per protocol and Malcolm Barger NP notified. Due meds given. All needs attended to. Procedure consent obtained and place in chart. Safety precaution in place: bed in low, locked position; siderails up x 2; call light within reach. Will endorse to film processing shift supervisor nurse for SANDEEP. Addendum: 01/29/23 at 1954 by ILIA MCNULTY RN ADD: Patient arrived in unit at 1710
[2023-01-29 20:10] LABS: CALCIUM, SERUM 8.8 mg/dL (8.5-10.1); POTASSIUM 4.3 mmol/L (3.5-5.1)
[2023-01-29 20:13] VITALS: BP 139/85
--- NOTE | 2023-01-29 20:27 | NUR ---
MSRN PATIENT STILL IN OR. TO CONTIINUE Addendum: 01/29/23 at 2029 by JORGE CAMPBELL RN ABOVE DOCUMENTATION NOT FOR THIS PATIENT. ERROR.DISREGARD.
[2023-01-29 20:31] LABS: BILIRUBIN,DIRECT 0.1 mg/dL (0.0-0.2); BILIRUBIN,TOTAL 0.4 mg/dL (0.2-1.0)
[2023-01-29] MEDS: VANCOMYCIN 1.25 GM in IV D5W 250 ML IV SCH (21:17)
[2023-01-29] MEDS: HYDROCODONE/APAP 5/325MG TABLET PO PRN (21:26)
--- NOTE | 2023-01-29 22:00 | NUR ---
MSRN BS AT THIS TIME WAS 407. COVERED WITH LANTUS AND REGULAR INSULIN PER ORDERES. SNACKS PROVIDED. THEN NPO POST MIDNIGHT. PATIENT INSTRUCTED WELL UNDERSTOOD. IVF CONTINUED.
[2023-01-29] MEDS: INSULIN GLARGINE, 100 UNIT/ML CARTRIDGE SQ SCH (22:19)
[2023-01-30] MEDS: BLOOD SUGAR DIAGNOSTIC 1 EACH STRIP IN SCH ×6 (01:00→20:44)
[2023-01-30] MEDS: VANCOMYCIN 1.25 GM in IV D5W 250 ML IV SCH (04:45)
[2023-01-30] MEDS: MORPHINE SULFATE INJ 2 MG/ML DISP.SYRIN IV PRN ×4 (05:05→21:36)
[2023-01-30 06:20] LABS: BASOPHILS # (AUTO) 0.1 K/uL (0.0-0.2); EOSINOPHILS % (AUTO) 6.3 % (0.0-6.0); HEMATOCRIT 38 % (39-51); HEMOGLOBIN 13.2 g/dL (13.5-17.5); LYMPHOCYTES # (AUTO) 1.3 K/uL (0.8-4.8); LYMPHOCYTES % (AUTO) 24.8 % (20.0-44.0); MEAN CORPUSCULAR HGB CONC 35 g/dl (31.0-36.0); MEAN CORPUSCULAR VOLUME 86 fL (80-96); MONOCYTES # (AUTO) 0.7 K/uL (0.1-1.30); MONOCYTES % (AUTO) 12.9 % (2.0-12.0); NEUTROPHILS # (AUTO) 2.9 K/uL (1.8-8.9); PLATELET COUNT (AUTO) 147 K/uL (150-450); RED BLOOD CELL COUNT(AUTO) 4.44 MIL/uL (4.5-6.0); WHITE BLOOD COUNT (AUTO) 5.2 K/uL (4.3-11.0)
[2023-01-30 06:51] LABS: CALCIUM, SERUM 8.8 mg/dL (8.5-10.1); CREATININE 0.8 mg/dL (0.6-1.3); PHOSPHORUS 4.9 mg/dL (2.5-4.9); POTASSIUM 3.6 mmol/L (3.5-5.1)
--- NOTE | 2023-01-30 07:00 | NUR ---
MSRN KEPT NPO, FOR DEBRIDEMENT AT 1230. IVF CONTINUED.
--- NOTE | 2023-01-30 07:21 | NUR ---
WOUND CARE CONSULT: PT RESTING AT THIS TIME. ADMISSION PHOTOS AND DOCUMENTATION INDICATES RT FOOT INFECTION AND WOUNDS, PRESENT ON ADMISSION. DR AWAD CALLED FOR DPM CONSULT. IN AGREEMENT WITH PLAN OF CARE.
[2023-01-30] MEDS: PANTOPRAZOLE 40 MG TABLET.DR PO SCH (07:30)
--- NOTE | 2023-01-30 07:30 | NUR ---
MS RN OPENING NOTES RECEIVED PT IN BED, AWAKE, AOX4. STABLE ON ROOM AIR, NO SIGNS OF DISTRESS. IV ACCESS ON R WRIST RUNNING NS 125 ML/HR. AWAITING FOR SURGERY THIS AM. SAFETY MEASURES IN PLACED, SIDE RAILS UP X2, CALL LIGHT WITHIN REACH. PT ON NPO. WILL GIVE MEDS ORDERED AND CONTINUE TO MONITOR.
[2023-01-30 08:00] VITALS: BP 113/73
--- NOTE | 2023-01-30 09:00 | NUR ---
PT LEFT ROOM AT 0900 FOR SURGERY. ALL CONSENTS SIGNED. VITALS TAKEN AND STABLE.
[2023-01-30] MEDS ORDERED: FENTANYL PF 100MCG/2ML AMPUL ONE (09:02)
[2023-01-30] MEDS ORDERED: HYDROMORPHONE INJ 2 MG/ML DISP.SYRIN ONE (09:02)
[2023-01-30] MEDS ORDERED: MIDAZOLAM HCL 2 MG/2ML VIAL ONE (09:03)
[2023-01-30] MEDS ORDERED: FAMOTIDINE/PF INJ 20 MG/2 ML VIAL IV ONE (09:03)
[2023-01-30] MEDS ORDERED: VANCOMYCIN 1 GM VIAL ONE (09:22)
[2023-01-30] MEDS ORDERED: LIDOCAINE 1% INJ 50 ML MDV IJ ONE (09:22)
[2023-01-30] MEDS ORDERED: HYDROMORPHONE 1 MG/1 ML DISP.SYRIN ONE (10:47)
[2023-01-30] MEDS ORDERED: MUPIROCIN OINT 2% 22 GM TUBE TP SCH (11:30)
[2023-01-30 11:40] VITALS: BP 124/79
--- NOTE | 2023-01-30 11:45 | NUR ---
RN NOTES PT BACK TO ROOM FROM SURGERY AT 1135. RECEIVED REPORT FROM OPAL ALVAREZ. PT AWAKE, IN NO DISTRESS, STABLE. PAIN 6/10. VITALS TAKEN AND ARE WNL. WILL RESUME DIET AND CONTINUE TO MONITOR.
[2023-01-30 12:00] VITALS: BP 124/79
[2023-01-30] MEDS: INSULIN REGULAR, HUMAN 100 UNIT/ML 3 ML VIAL SQ PRN ×2 (13:51→17:48)
[2023-01-30] MEDS ORDERED: VANCOMYCIN 1 GM in IV D5W 250ml IV SCH (14:00)
[2023-01-30] MEDS: IV NS 0.9% 1,000 ML IV PRN (14:38)
[2023-01-30 16:00] VITALS: BP 109/73
--- NOTE | 2023-01-30 19:01 | NUR ---
MS RN CLOSING NOTES PT RESTING IN BED, AWAKE, AOX4. STABLE ON ROOM AIR, NO SIGNS OF DISTRESS. IV ACCESS ON L UPPER ARM MIDLINE RUNNING NS 125 ML/HR. PAIN MGT ORDERED. BILATERAL FEET COVERED WITH JOSEFINA BANDAGE. CONTINENT, USIES URINAL. ON DIABETIC DIET. NO COMPLAINTS AT THIS TIME. SAFETY MEASURES IN PLACED, SIDE RAILS UP X2, CALL LIGHT WITHIN REACH. PT ON NPO. ALL MEDS GIVEN ORDERED. WILL ENDORSE TO NEXT SHIFT.
[2023-01-30] MEDS: HYDROCODONE/APAP 5/325MG TABLET PO PRN (19:27)
--- NOTE | 2023-01-30 19:45 | NUR ---
MS RN NOTES RECEIVED LYING ON BED,A/O X4,S/P SURGERY ON LEFT FOOT SECOND TOE.DRESSING INTACT AND DRY WRAPPED WITH ELASTIC BANDAGE.DVT PUMP IN USED FOR DVT PROPHYLAXIS.WILL MONITOR FOR PAIN,CALL LIGHT IN REACH,NEEDS ANTICIPATED.
[2023-01-30 20:00] VITALS: BP_SYST 124; BP_SYST 129; BP_DIAS 86
[2023-01-30] MEDS: MUPIROCIN OINT 2% 22 GM TUBE TP SCH (20:33)
[2023-01-30] MEDS: VANCOMYCIN 1 GM in IV D5W 250ml IV SCH (20:42)
--- NOTE | 2023-01-30 20:44 | NUR ---
MS RN NOTES ACCUCHECK BLOOD SUGAR CHECK 125MG/DL,NO INSULIN COVERAGE.
[2023-01-30] MEDS: ENOXAPARIN SODIUM 40 MG/0.4 ML DISP.SYRIN SQ SCH (21:01)
--- NOTE | 2023-01-30 21:36 | NUR ---
MS RN NOTES C/O PAIN 8/10 ON PAIN SCALE ON RIGHT FOOT,MORPHINE 2MG IV GIVEN ORDERED.VITAL SIGNS STABLE.
[2023-01-30] MEDS: INSULIN GLARGINE, 100 UNIT/ML CARTRIDGE SQ SCH (21:45)
--- NOTE | 2023-01-30 21:45 | NUR ---
MS RN NOTES DUE LANTUS 15UNITS GIVEN SCHEDULED.BLOOD SUGAR CHECK 125MG/DL
--- NOTE | 2023-01-31 01:00 | NUR ---
MS RN NOTES ACCU-CHECK BLOOD SUGAR CHECK 203MG/DL,COVERED WITH HUMULIN R 8 UNITS PER SLIDING SCALE.
[2023-01-31] MEDS: BLOOD SUGAR DIAGNOSTIC 1 EACH STRIP IN SCH ×6 (01:07→21:55)
[2023-01-31] MEDS: INSULIN REGULAR, HUMAN 100 UNIT/ML 3 ML VIAL SQ PRN ×6 (01:08→22:02)
[2023-01-31] MEDS: MORPHINE SULFATE INJ 2 MG/ML DISP.SYRIN IV PRN ×4 (04:33→20:34)
--- NOTE | 2023-01-31 04:33 | NUR ---
MS RN NOTES PAIN MANAGEMENT HAVING PAIN 8/10 ON PAIN BILATERAL FOOT,MORPHINE 2MG IV GIVEN ORDERED.
[2023-01-31] MEDS: VANCOMYCIN 1 GM in IV D5W 250ml IV SCH ×3 (04:53→22:28)
--- NOTE | 2023-01-31 05:00 | NUR ---
MS RN NOTES ACCU-CHECK BLOOD SUGAR CHECK 212MG/DL,COVERED WITH HUMULIN R 8 UNITS PER AGGRESSIVE SLIDING SCALE.WILL MONITOR FOR HYPOGLYCEMIA.
--- NOTE | 2023-01-31 06:48 | NUR ---
MS RN NOTES FAIRLY RESTED AT NIGHT,PAIN MANAGEMENT EFFECTIVE.DRESSING TO BILATERAL FOOT INTACT AND DRY.VOIDING FREELY PER URINAL.IN NO ACUTE DISTRESS.
[2023-01-31 07:00] VITALS: BP 139/89
--- NOTE | 2023-01-31 07:15 | NUR ---
MS RN OPENING NOTES RECEIVED PT IN BED RESTING, APPEARS COMFORTABLE, AWAKE, AOX4, ABLE TO MAKE HIS NEEDS KNOWN, DENIES ANY PAIN AT THIS TIME, ON ROOM AIR, STABLE. NO SIGNS OF RESPIRATORY DISTRESS. IV ACCESS ON ALISON MIDLINE INTACT RUNNING NS AT 125 ML/HR, FLUSHING WELL. DRESSINGS ON BOTH FEET DRY AND INTACT, SAFETY MEASURES IN PLACED, SIDE RAILS UP X2, CALL LIGHT WITHIN REACH. WILL GIVE MEDS ORDERED AND CONTINUE TO MONITOR.
[2023-01-31] MEDS: PANTOPRAZOLE 40 MG TABLET.DR PO SCH (08:29)
--- NOTE | 2023-01-31 09:15 | NUR ---
RN NOTE PATIENT C/O BILAT FEET PAIN 8/10 SCALE AND PRN MORPHINE 2MG IVP ADMINISTERED AT 0910 AND WILL CONTINUE TO MONITOR AND REASSESS PATIENT.
--- NOTE | 2023-01-31 11:07 | NUR ---
RN NOTES UN-ABLE TO DRAW BLOOD FROM MIDLINE. PROFESSOR OF ENVIRONMENTAL ENGINEERING TRIED TO DRAW BLOOD FROM OTHER SITE BUT PT REFUSED.
[2023-01-31] MEDS: HYDROCODONE/APAP 5/325MG TABLET PO PRN ×2 (11:23→18:46)
--- NOTE | 2023-01-31 12:26 | NUR ---
RN NOTE PATIENT REFUSED BLOOD DRAW. REPORTED TO ROBIN MARSH WITH NO NEW ORDERS AND STATED TO TRY AGAIN TOMORROW AM.
[2023-01-31 16:00] VITALS: BP 122/82
[2023-01-31] MEDS: IV NS 0.9% 1,000 ML IV PRN (17:28)
--- NOTE | 2023-01-31 18:34 | NUR ---
MS RN OPENING NOTES PT IS IN BED AWAKE AND WATCHING TV AT THIS TIME. AOX4, ABLE TO MAKE HIS NEEDS KNOWN. ON ROOM AIR, STABLE. NO SIGNS OF RESPIRATORY DISTRESS. IV ACCESS ON ALISON MIDLINE INTACT RUNNING NS AT 125 ML/HR, FLUSHING WELL. DRESSINGS ON BOTH FEET DRY AND INTACT, SAFETY MEASURES IN PLACED, SIDE RAILS UP X2, CALL LIGHT WITHIN REACH. SCHEDULED MEDICATIONS WAS ADMINSITERED, WOUND CARE DONE ON RIGHT FOOT, PATIENT TOLERATED WELL, ALL NEEDS ATTENDED AND ANTICIPATED.
--- NOTE | 2023-01-31 19:53 | NUR ---
ivelisse rn opening Received patient in bed, a/ox4. no s/s of apparent distress on room air. c/o 03/25 burning pain after [place] on his bila. foot. ALISON midline running NS @125mls/hr. safety in place, bed in lowest, locked position, call light within reach, side rails up X3, bed alarm in place. will continue with patient's plan of care.
[2023-01-31] MEDS: MUPIROCIN OINT 2% 22 GM TUBE TP SCH (20:02)
[2023-01-31 20:29] VITALS: BP 129/82
--- NOTE | 2023-01-31 20:40 | NUR ---
noc rn note Patient refused blood draw after 1 attempt of magnetic locater. Midline not drawing any blood at the moment. will attempt in the am to draw from the midline again.
--- NOTE | 2023-01-31 20:42 | NUR ---
noc rn note- pain management patient c/o sharp, burning pain on his bila. foot, 04/25. Given Morphine 2mg as ordered PRN.
--- NOTE | 2023-01-31 20:51 | NUR ---
noc rn note Midline started working again, and had a blood draw. Charge nurse, Licha aware and said just to order the BMP and vanco again at 2100. Talked with lab for the new order.
--- NOTE | 2023-01-31 21:43 | NUR ---
noc rn note was able to draw blood from midline. Awaiting result for Vanco trough to hang scheduled 2100 Vanco. Will probably have to call Pharmacy to change time.
[2023-01-31] MEDS: ENOXAPARIN SODIUM 40 MG/0.4 ML DISP.SYRIN SQ SCH (21:54)
[2023-01-31] MEDS: INSULIN GLARGINE, 100 UNIT/ML CARTRIDGE SQ SCH (22:00)
[2023-01-31 22:19] LABS: CALCIUM, SERUM 8.4 mg/dL (8.5-10.1); CREATININE 0.9 mg/dL (0.6-1.3); POTASSIUM 4.2 mmol/L (3.5-5.1)
--- NOTE | 2023-01-31 22:29 | NUR ---
noc rn note- late administration called [facility] regarding late administration of Vanco, since patient Vanco trough was drawn late. Per Pharmacist, hernán Hollingsworth looks good on their end and no need to change time and just document late administration. Vancomycin hanged at this time. Vanco through = 17.
[2023-02-01] MEDS: BLOOD SUGAR DIAGNOSTIC 1 EACH STRIP IN SCH ×6 (01:34→21:31)
[2023-02-01] MEDS: INSULIN REGULAR, HUMAN 100 UNIT/ML 3 ML VIAL SQ PRN ×5 (01:36→21:34)
[2023-02-01] MEDS: MORPHINE SULFATE INJ 2 MG/ML DISP.SYRIN IV PRN ×4 (01:49→21:24)
--- NOTE | 2023-02-01 01:54 | NUR ---
noc rn note- pain management patient c/o 8/10 burning pain on his bilateral feet. Given morphine 2mg as ordered PRN. will re-assess.
[2023-02-01] MEDS: VANCOMYCIN 1 GM in IV D5W 250ml IV SCH ×3 (05:06→21:18)
[2023-02-01] MEDS: HYDROCODONE/APAP 5/325MG TABLET PO PRN ×3 (05:09→19:51)
[2023-02-01 06:09] LABS: BASOPHILS # (AUTO) 0.1 K/uL (0.0-0.2); BASOPHILS % (AUTO) 0.9 % (0.0-2.0); EOSINOPHILS % (AUTO) 4.9 % (0.0-6.0); HEMATOCRIT 37 % (39-51); HEMOGLOBIN 12.6 g/dL (13.5-17.5); LYMPHOCYTES # (AUTO) 2.7 K/uL (0.8-4.8); LYMPHOCYTES % (AUTO) 44.9 % (20.0-44.0); MEAN CORPUSCULAR HGB CONC 34 g/dl (31.0-36.0); MEAN CORPUSCULAR VOLUME 86 fL (80-96); MONOCYTES # (AUTO) 0.8 K/uL (0.1-1.30); MONOCYTES % (AUTO) 12.6 % (2.0-12.0); NEUTROPHILS # (AUTO) 2.2 K/uL (1.8-8.9); NEUTROPHILS % (AUTO) 36.7 % (43.0-81.0); PLATELET COUNT (AUTO) 144 K/uL (150-450); RED BLOOD CELL COUNT(AUTO) 4.29 MIL/uL (4.5-6.0)
[2023-02-01 06:26] LABS: CALCIUM, SERUM 8.9 mg/dL (8.5-10.1); CREATININE 0.8 mg/dL (0.6-1.3); MAGNESIUM 1.9 mg/dL (1.8-2.4); PHOSPHORUS 3.8 mg/dL (2.5-4.9); POTASSIUM 3.2 mmol/L (3.5-5.1)
--- NOTE | 2023-02-01 07:18 | NUR ---
noc rn closing notE patient in bed, a/ox4. no s/s of apparent distress on room air. pain managed with medications. IV NS running @125 mls/hr. all needs attended. all scheduled medications administered. safety kept in place throughout shift. Endorsed to Fany morning shift rn for continuity of patient care.
--- NOTE | 2023-02-01 07:29 | NUR ---
MS RN OPENING NOTES: Received pt in bed, awake. A/O x 4, able to make needs known. Midline in the ALISON #20g with ongoing NS at 125ml/hr, infusing well. On room air, tolerating well. Safety measures implemented: bed locked in lowest position, hob elevated, side rails up x 3, call light and tray table within easy reach. Will continue to monitor.
[2023-02-01] MEDS: PANTOPRAZOLE 40 MG TABLET.DR PO SCH (08:00)
--- NOTE | 2023-02-01 08:05 | NUR ---
RN NOTE Patient verbalized he is in pain, Morphine sulfate 2mg/ml IV prn given at 0800. Will continue to monitor.
[2023-02-01 09:47] VITALS: BP 138/91
[2023-02-01] MEDS: POTASSIUM CHLORIDE 20 MEQ TAB.PRT.SR PO SCH ×2 (11:06→12:03)
--- NOTE | 2023-02-01 13:25 | NUR ---
RN NOTE Patient verbalized he is in pain, Weikert 5-325mg tab prn given at 1319. Will continue to monitor.
--- NOTE | 2023-02-01 15:10 | NUR ---
RN NOTE Patient verbalized he is in pain, Morphine sulfate 2mg/ml IV prn given at 1516. Will continue to monitor.
[2023-02-01] MEDS: PROSOURCE / PROSTAT (PYXIS) 30 ML UDC GT SCH (17:00)
[2023-02-01 17:53] VITALS: BP 146/86
--- NOTE | 2023-02-01 18:43 | NUR ---
MS RN CLOSING NOTES: Patient resting in bed. A/O x 4, able to make needs known. Midline in the ALISON #20g, sl. On room air, tolerating well. Needs attended. Safety measures implemented: bed locked in lowest position, hob elevated, side rails up x 3, call light and tray table within easy reach. Will endorse brady to shift mgr.
--- NOTE | 2023-02-01 19:30 | NUR ---
noc rn opening note Received patient in bed, a/ox4. no s/s of apparent distress on room air. c/o 03/25 burning pain on his bila. foot at this time. ALISON midline on saline lock safety in place, bed in lowest, locked position, call light within reach, side rails up X3, bed alarm in place. will continue with patient's plan of care.
--- NOTE | 2023-02-01 19:51 | NUR ---
noc rn note patient c/o 7/10 pain on his bila. feet. Given [place] 5 as ordered PRN for pain. will re-assess.
[2023-02-01] MEDS: MUPIROCIN OINT 2% 22 GM TUBE TP SCH (20:09)
[2023-02-01] MEDS: ENOXAPARIN SODIUM 40 MG/0.4 ML DISP.SYRIN SQ SCH (21:25)
[2023-02-01] MEDS: INSULIN GLARGINE, 100 UNIT/ML CARTRIDGE SQ SCH (21:35)
[2023-02-02] MEDS: BLOOD SUGAR DIAGNOSTIC 1 EACH STRIP IN SCH ×6 (01:11→21:26)
[2023-02-02] MEDS: INSULIN REGULAR, HUMAN 100 UNIT/ML 3 ML VIAL SQ PRN ×6 (01:12→21:11)
[2023-02-02] MEDS: MORPHINE SULFATE INJ 2 MG/ML DISP.SYRIN IV PRN ×4 (04:10→20:24)
--- NOTE | 2023-02-02 04:14 | NUR ---
noc rn note-- pain management patient c/o 04/25 burning pain on his bilateral foot. given Morphine 2mg as ordered PRN. will re-assess.
[2023-02-02] MEDS: VANCOMYCIN 1 GM in IV D5W 250ml IV SCH ×3 (04:32→20:23)
[2023-02-02] MEDS: ZOSYN IVPB 3.375 G in IV D5W 50ml IV SCH ×6 (06:05→23:21)
[2023-02-02] MEDS: HYDROCODONE/APAP 5/325MG TABLET PO PRN ×3 (06:56→18:46)
[2023-02-02 07:27] LABS: BASOPHILS % (AUTO) 1.2 % (0.0-2.0); EOSINOPHILS % (AUTO) 7.7 % (0.0-6.0); HEMATOCRIT 37 % (39-51); HEMOGLOBIN 12.3 g/dL (13.5-17.5); LYMPHOCYTES # (AUTO) 1.4 K/uL (0.8-4.8); LYMPHOCYTES % (AUTO) 34.8 % (20.0-44.0); MEAN CORPUSCULAR HGB CONC 33 g/dl (31.0-36.0); MEAN CORPUSCULAR VOLUME 86 fL (80-96); MONOCYTES # (AUTO) 0.4 K/uL (0.1-1.30); MONOCYTES % (AUTO) 10.1 % (2.0-12.0); NEUTROPHILS # (AUTO) 1.9 K/uL (1.8-8.9); NEUTROPHILS % (AUTO) 46.2 % (43.0-81.0); PLATELET COUNT (AUTO) 143 K/uL (150-450); RED BLOOD CELL COUNT(AUTO) 4.28 MIL/uL (4.5-6.0); WHITE BLOOD COUNT (AUTO) 4.1 K/uL (4.3-11.0)
--- NOTE | 2023-02-02 07:30 | NUR ---
noc rn closing needs attended. report given to Sandeep Gr for continuity of patient care.
--- NOTE | 2023-02-02 07:30 | NUR ---
MS RN OPENING NOTES RECEIVED PT IN BED, AWAKE, AOX4. STABLE ON ROOM AIR, NO SIGNS OF DISTRESS. IV ACCESS ON ALISON MIDLINE SALINE LOCK. CONTINENT USING URINAL. WILL REASSESS FOR PAIN AND FOLLOW PAIN MGT PROTOCOL. BILATERAL FEET WRAPPED WITH DRESSING AND JOSEFINA. SAFETY MEASURES IN PLACED, SIDE RAILS UP X2, CALL LIGHT WITHIN REACH. PT ON DIABETIC DIET. WILL GIVE MEDS ORDERED AND CONTINUE TO MONITOR.
[2023-02-02 07:42] LABS: CALCIUM, SERUM 8.7 mg/dL (8.5-10.1); CREATININE 0.8 mg/dL (0.6-1.3); MAGNESIUM 1.8 mg/dL (1.8-2.4); PHOSPHORUS 4.4 mg/dL (2.5-4.9); POTASSIUM 3.8 mmol/L (3.5-5.1)
[2023-02-02 08:00] VITALS: BP 133/85
[2023-02-02] MEDS: PROSOURCE / PROSTAT (PYXIS) 30 ML UDC GT SCH ×3 (08:19→17:27)
[2023-02-02] MEDS: PANTOPRAZOLE 40 MG TABLET.DR PO SCH (08:19)
[2023-02-02 16:00] VITALS: BP 124/81
--- NOTE | 2023-02-02 18:29 | NUR ---
MS RN CLOSING NOTES PT IN BED, AWAKE, RESTING COMFORTABLY, AOX4. STABLE ON ROOM AIR, NO SIGNS OF DISTRESS. IV ACCESS ON ALISON MIDLINE SALINE LOCK. CONTINENT USING URINAL. WILL REASSESS FOR PAIN AND FOLLOW PAIN MGT PROTOCOL. BILATERAL FEET WRAPPED WITH DRESSING AND JOSEFINA. SAFETY MEASURES IN PLACED, SIDE RAILS UP X2, CALL LIGHT WITHIN REACH. PT ON DIABETIC DIET. ALL SCHEDULED MEDS GIVEN ORDERED.
--- NOTE | 2023-02-02 19:00 | NUR ---
RN OPENING NOTE RECEIVED PT AWAKE IN BED. PT IS A/O X 4, ABLE TO MAKE NEEDS KNOWN. PT IS IN RA, TOLERATING WELL, BREATHING EVEN AND UNLABORED @ THIS TIME. PT IV PRESENT ON LEFT UPPER ARM MIDLINE #20G SALINE LOCK, PATENT, INTACT AND FLUSHES WELL W/ NO S &SX OF INFILTRATION @ SITE NOTED. PT URINAL IS @ BEDSIDE. SAFETY MEASURES IS IN PLACE . BED IN LOWEST AND LOCKED POSITION. SIDE RAILS UP X 4. BEDSIDE TABLE AND CALL IS EASY REACH. BED ALARM IS ON. WILL CONTINUE TO MONITOR PT ACCORDINGLY.
[2023-02-02 20:00] VITALS: BP 148/89
[2023-02-02] MEDS: MUPIROCIN OINT 2% 22 GM TUBE TP SCH (20:23)
[2023-02-02] MEDS: MUPIROCIN OINT 2% 22 GM TUBE NS SCH (21:00)
[2023-02-02] MEDS: ENOXAPARIN SODIUM 40 MG/0.4 ML DISP.SYRIN SQ SCH (21:08)
[2023-02-02] MEDS: INSULIN GLARGINE, 100 UNIT/ML CARTRIDGE SQ SCH (21:09)
[2023-02-03] MEDS: BLOOD SUGAR DIAGNOSTIC 1 EACH STRIP IN SCH ×6 (00:05→20:52)
[2023-02-03] MEDS: INSULIN REGULAR, HUMAN 100 UNIT/ML 3 ML VIAL SQ PRN ×4 (00:10→21:04)
[2023-02-03] MEDS: HYDROCODONE/APAP 5/325MG TABLET PO PRN ×4 (01:14→22:24)
[2023-02-03] MEDS: IV NS 0.9% 1,000 ML IV PRN (03:41)
[2023-02-03] MEDS: VANCOMYCIN 1 GM in IV D5W 250ml IV SCH ×3 (04:03→20:35)
[2023-02-03] MEDS: MORPHINE SULFATE INJ 2 MG/ML DISP.SYRIN IV PRN ×3 (04:50→17:39)
[2023-02-03] MEDS: ZOSYN IVPB 3.375 G in IV D5W 50ml IV SCH ×4 (05:00→23:19)
--- NOTE | 2023-02-03 06:46 | NUR ---
RN CLOSING NOTE PT IS AWAKE & RESTING COMFORATBLY IN BED. PT IS A/O X 4, RESPONSIVE AND FOLLOWS VERBAL COMMAND. PT IS IN RA W/ NO S & SX OF RESPIRATORY DISTRESS @ THIS TIME. PT IV PRESENT ON LEFT UPPER ARM MIDLINE @20G RUNNING NS 75 MLS/HR, PATENT INTACT AND FLUSHES WELL W/ NO S & SX OF INFILTRATION @ SITE NOTED. PT KEPT CLEAN AND DRY. ADMINISTERED MEDICATION PER MD'S ORDER. SAFETY MEASURES IS IN PLACE. BED IN LOWEST AND LOCKED POSITION. SIDERAILS UP X 2. BEDISDE TABLE AND CALL LIGHT IS EASY REACH. BED ALARM IS ON. WILL ENDORSE PT TO THE NEXT SHIFT FOR SANDEEP.
--- NOTE | 2023-02-03 07:20 | NUR ---
MS RN OPENING NOTES RECEIVED PT IN BED, AWAKE, AOX4. ON ROOM AIR, WITH EVEN AND UNLABORED BREATHING, NO SIGNS OF DISTRESS. IV ACCESS ON ALISON MIDLINE SALINE LOCK. PATIENT USING URINAL AVAILABLE AT BEDSIDE. WILL REASSESS FOR PAIN AND FOLLOW PAIN MGT PROTOCOL. BILATERAL FEET WRAPPED WITH DRESSING AND JOSEFINA. SAFETY MEASURES IN PLACED, SIDE RAILS UP X2, CALL LIGHT WITHIN REACH. PT ON DIABETIC DIET. WILL CONTINUE WITH PLAN OF CARE AND WILL MONITOR FOR ANY CHANGES.
[2023-02-03] MEDS: PANTOPRAZOLE 40 MG TABLET.DR PO SCH (07:50)
[2023-02-03 08:00] VITALS: BP 122/79
[2023-02-03] MEDS: PROSOURCE / PROSTAT (PYXIS) 30 ML UDC GT SCH ×3 (09:18→17:21)
[2023-02-03] MEDS: MUPIROCIN OINT 2% 22 GM TUBE NS SCH ×3 (09:18→20:36)
--- NOTE | 2023-02-03 11:50 | NUR ---
MS RN NOTE SEEN AND EXAMINED BY HOSPITALIST
[2023-02-03 14:31] LABS: EOSINOPHILS % (AUTO) 5.5 % (0.0-6.0); HEMATOCRIT 38 % (39-51); HEMOGLOBIN 12.7 g/dL (13.5-17.5); LYMPHOCYTES # (AUTO) 1.3 K/uL (0.8-4.8); LYMPHOCYTES % (AUTO) 27.4 % (20.0-44.0); MEAN CORPUSCULAR HGB CONC 34 g/dl (31.0-36.0); MEAN CORPUSCULAR VOLUME 87 fL (80-96); MONOCYTES # (AUTO) 0.4 K/uL (0.1-1.30); MONOCYTES % (AUTO) 8.3 % (2.0-12.0); NEUTROPHILS # (AUTO) 2.8 K/uL (1.8-8.9); NEUTROPHILS % (AUTO) 57.8 % (43.0-81.0); PLATELET COUNT (AUTO) 153 K/uL (150-450); RED BLOOD CELL COUNT(AUTO) 4.33 MIL/uL (4.5-6.0); WHITE BLOOD COUNT (AUTO) 4.9 K/uL (4.3-11.0)
[2023-02-03 14:42] LABS: CALCIUM, SERUM 8.8 mg/dL (8.5-10.1); CREATININE 0.9 mg/dL (0.6-1.3); MAGNESIUM 1.8 mg/dL (1.8-2.4); PHOSPHORUS 4.9 mg/dL (2.5-4.9); POTASSIUM 3.9 mmol/L (3.5-5.1)
[2023-02-03 16:20] VITALS: BP 127/81
--- NOTE | 2023-02-03 18:50 | NUR ---
MS RN CLOSING NOTES PATIENT AWAKE, ALERT/ORIENTED X 4, COMFORTABLY RESTING IN BED, ON ROOM AIR, NO SIGNS OF DISTRESS, WITH EVEN AND UNLABORED BREATHING, NEW IV ACCESS INSERTED ON GENE MIDLINE SALINE LOCK, PATENT AND INTACT. CONTINENT USING URINAL. ADMINISTERED PAIN MEDICATION ORDERED NORCO AND MORPHINE AND REASSESSED FOR EFFECTIVENESS. BLOOD SUGAR 256 1700 ADMINISTERED 12 UNITS BASED ON SLIDING SCALE. BILATERAL FEET WRAPPED WITH DRESSING AND JOSEFINA. WILL CONTINUE PAIN MANAGEMENT AND AGGRESIVE INSULIN SLIDING SCALE AND ANTIOBIOTIC THERAPY ORDERED. ENDORSE ACCORDINGLY TO PM SHIFT.
--- NOTE | 2023-02-03 19:00 | NUR ---
RN OPENING NOTE RECEIVED PT AWAKE IN BED. PT IS A/O X 4, ABLE TO MAKE NEEDS KNOWN. PT IS IN RA, TOLERATING WELL, BREATHING EVEN AND UNLABORED @ THIS TIME. PT IV PRESENT ON RIGHT UPPER ARM MIDLINE SALINE LOCK, PATENT, INTACT AND FLUSHES WELL W/ NO S & SX OF INFILTRATION @ SITE NOTED. PT BESIDE COMMODE AND URINAL IS @ BEDSIDE WITHIN EASY REACH. SAFETY MEASURES IS IN PLACE. BED IN LOWEST AND LOCKED POSITION. SIDERAILS UP X 2. BEDSIDE TABLE AND CALL LIGHT IS WITHIN REACH. BED ALARM IS ON. WILL CONTINUE TO MONITOR PT ACCORDINGLY.
[2023-02-03 20:00] VITALS: BP 107/72
[2023-02-03] MEDS: MUPIROCIN OINT 2% 22 GM TUBE TP SCH (20:21)
[2023-02-03] MEDS: ENOXAPARIN SODIUM 40 MG/0.4 ML DISP.SYRIN SQ SCH (20:38)
[2023-02-03] MEDS: INSULIN GLARGINE, 100 UNIT/ML CARTRIDGE SQ SCH (21:02)
[2023-02-04] MEDS: BLOOD SUGAR DIAGNOSTIC 1 EACH STRIP IN SCH ×6 (01:00→21:21)
[2023-02-04] MEDS: INSULIN REGULAR, HUMAN 100 UNIT/ML 3 ML VIAL SQ PRN ×5 (01:04→22:03)
[2023-02-04] MEDS: MORPHINE SULFATE INJ 2 MG/ML DISP.SYRIN IV PRN ×4 (04:03→20:47)
[2023-02-04] MEDS: VANCOMYCIN 1 GM in IV D5W 250ml IV SCH ×2 (04:03→13:00)
[2023-02-04] MEDS: ZOSYN IVPB 3.375 G in IV D5W 50ml IV SCH ×4 (05:01→23:59)
[2023-02-04 06:34] LABS: CALCIUM, SERUM 9.3 mg/dL (8.5-10.1); CREATININE 0.9 mg/dL (0.6-1.3); POTASSIUM 3.8 mmol/L (3.5-5.1)
--- NOTE | 2023-02-04 06:43 | NUR ---
RN CLOSING NOTE PT AWAKE & RESTING COMFORTABLY IN BED. PT IS A/O X 4, RESPONSIVE & FOLLOWS VERBAL COMMAND. PT IS IN RA, W/ NO S &SX OF RESPIRATORY DISTRESS @ THIS TIME. PT IV PRESENT ON RIGHT UPPER ARM MIDLINE SALINE LOCK, PATENT, INTACT AND FLUSHES WELL W/ NO S & SX OF INFILTRATION @ SITE NOTED. ADMINISTERED MEDICATION ACCORDINGLY PER MD'S ORDER. SAFETY MEASURES IS IN PLACE. BED IN LOWEST AND LOCKED POSITION. SIDERAILS UP X 2. BEDSIDE TABLE AND CALL LIGHT IS WITHIN REACH. BED ALARM IS ON. WILL ENDORSE TO THE NEXT SHIFT FOR SANDEEP.
--- NOTE | 2023-02-04 07:15 | NUR ---
MS RN OPENING NOTES RECEIVED PATIENT IN BED, AWAKE, A/O X4, ABLE TO MAKE NEEDS KNOWN. NO ACUTE DISTRESS NOTED AT THIS TIME. ON ROOM AIR, TOLERATING WELL. NO SOB NOTED, BREATHING EVEN AND UNLABORED. WITH GENE ML-SL. DENIES ANY PAIN AT THIS TIME. SAFETY MEASURES PUT IN PLACED. BED IN LOW AND LOCKED POSITION; SIDE RAILS UP X2, CALL LIGHT AND TABLE WITHIN EASY REACH. WILL CONTINUE WITH PLAN OF CARE.
[2023-02-04 08:00] VITALS: BP 129/81
[2023-02-04] MEDS: PANTOPRAZOLE 40 MG TABLET.DR PO SCH (08:28)
[2023-02-04] MEDS: PROSOURCE / PROSTAT (PYXIS) 30 ML UDC GT SCH ×3 (08:56→18:17)
[2023-02-04] MEDS: MUPIROCIN OINT 2% 22 GM TUBE NS SCH ×2 (10:21→21:22)
[2023-02-04 16:00] VITALS: BP 109/75
--- NOTE | 2023-02-04 19:05 | NUR ---
MS RN OPENING NOTES PATIENT IN BED, AWAKE, A/O X4, ABLE TO MAKE NEEDS KNOWN. NO ACUTE DISTRESS NOTED AT THIS TIME. ON ROOM AIR, TOLERATING WELL. NO SOB NOTED, BREATHING EVEN AND UNLABORED. WITH GENE ML-SL, INTACT, PATENT AND FLUSHING WELL. DENIES ANY PAIN AT THIS TIME. ALL DUE MEDS GIVEN. ALL NURSING NEEDS ATTENDED. SAFETY MEASURES IMPLEMENTED. BED IN LOW AND LOCKED POSITION; SIDE RAILS UP X2, CALL LIGHT AND TABLE WITHIN EASY REACH. WILL ENDORSE TO STOCKROOM COORDINATOR NURSE FOR SANDEEP.
--- NOTE | 2023-02-04 19:30 | NUR ---
MSRN FULLY AWAKE. PLAN OF CARE AND MEDICATION REGIMEN DISCUSSED WITH PATIENT APPEARS TO UNDERSTAND. PAIN MGT DISCUSSED. REMINDED TO CALL STAFF FOR ANY ASSISTANCE OR DISCOMFORTS CALL LIGHT WITHIN REACH. SAFETY PRECAUTIONS EMPHASIZED. BSC .
[2023-02-04 20:00] VITALS: BP 108/63
[2023-02-04] MEDS: IV NS 0.9% 1,000 ML IV PRN (20:45)
[2023-02-04] MEDS: VANCOMYCIN HCL 0.75 GM in IV D5W 250 ML IV SCH (21:21)
[2023-02-04] MEDS: MUPIROCIN OINT 2% 22 GM TUBE TP SCH (21:24)
[2023-02-04] MEDS: ENOXAPARIN SODIUM 40 MG/0.4 ML DISP.SYRIN SQ SCH (21:58)
[2023-02-04] MEDS: INSULIN GLARGINE, 100 UNIT/ML CARTRIDGE SQ SCH (22:00)
[2023-02-05] MEDS: BLOOD SUGAR DIAGNOSTIC 1 EACH STRIP IN SCH ×4 (01:00→12:07)
--- NOTE | 2023-02-05 01:00 | NUR ---
MSRGrace BS AT THIS TIME NOT DONE PATIENT WANTED EARLY AM INSTEAD. HAD NORCO FEW MIN AGO. AND WANTED TO GO BACK TO SLEEP.
[2023-02-05] MEDS: VANCOMYCIN HCL 0.75 GM in IV D5W 250 ML IV SCH (05:28)
--- NOTE | 2023-02-05 06:40 | NUR ---
MSRN GOOD HOURS OF SLEEP. ALEKSANDRA FOOT DRESSINGS DRY AND INTACT.
[2023-02-05] MEDS: ZOSYN IVPB 3.375 G in IV D5W 50ml IV SCH ×2 (06:47→11:17)
[2023-02-05 08:00] VITALS: BP 112/69
--- NOTE | 2023-02-05 08:10 | NUR ---
MS RN OPENING NOTES PATIENT IN BED, AWAKE, A/O X4, ABLE TO MAKE NEEDS KNOWN. NO ACUTE DISTRESS NOTED AT THIS TIME. ON ROOM AIR, TOLERATING WELL. NO SOB NOTED, BREATHING EVEN AND UNLABORED. WITH GENE ML-SL, INTACT, PATENT AND FLUSHING WELL. DENIES ANY PAIN AT THIS TIME. SAFETY MEASURES IMPLEMENTED. BED IN LOW AND LOCKED POSITION; SIDE RAILS UP X2, CALL LIGHT AND TABLE WITHIN EASY REACH. WILL CONTINUE TO MONITOR.
[2023-02-05] MEDS: PANTOPRAZOLE 40 MG TABLET.DR PO SCH (08:27)
[2023-02-05] MEDS: MORPHINE SULFATE INJ 2 MG/ML DISP.SYRIN IV PRN ×2 (08:28→12:45)
[2023-02-05] MEDS: PROSOURCE / PROSTAT (PYXIS) 30 ML UDC GT SCH ×2 (08:31→12:07)
[2023-02-05] MEDS: MUPIROCIN OINT 2% 22 GM TUBE NS SCH (08:48)
[2023-02-05] MEDS: INSULIN REGULAR, HUMAN 100 UNIT/ML 3 ML VIAL SQ PRN ×2 (08:54→12:21)
[2023-02-05 09:38] LABS: CALCIUM, SERUM 9.2 mg/dL (8.5-10.1)
[2023-02-05] MEDS: HYDROCODONE/APAP 5/325MG TABLET PO PRN ×2 (10:48)
[2023-02-05] MEDS ORDERED: CEFT2FRO2 IV (11:15)
[2023-02-05] MEDS ORDERED: VANC750F2 IV (11:20)
--- NOTE | 2023-02-05 12:56 | NUR ---
RN NOTES PATIENT REFUSED LAB WORKS (CBC), NOTIFIED RONY KELLY SORT WORKER. WILL MONITOR.
--- NOTE | 2023-02-05 13:25 | NUR ---
DISCHARGED NOTES PATIENT DISCHARGED TO HOME WITH HOME HEALTH IN STABLE CONDITION, A/OX4. ON RA, TOLERATING WELL. VITALS TAKEN, STABLE AND RECORDED. DISCHARGED INSTRUCTIONS/ EDUCATION RELAYED TO PATIENT. EXPLAINED THE IMPORTANCE OF WOUND CARE, MEDICATION COMPLIANCE AND TO FOLLOW UP WITH DOCTORS. ALL BELONGINGS ACCOUNTED TO THE PATIENT. MIDLINE IV ACCESS STAYS IN PLACED, PATIENT WILL BE NEEDING IV ANTIBIOTICS AT HOME. PATIENT IS VERY EAGER TO GO HOME, ADVISED AND ENCOURAGED TO WAIT FOR TRANSPORTATION HOWEVER, PATIENT REFUSED, OFFERED SUPPLIES FOR WOUND BUT PATIENT REFUSED, PT. STATED HE HAS SUPPLIES AT HOME. PATIENT LEFT THE UNIT VIA HIS OWN WHEELCHAIR. DISCHARGED.
== END 2023-02-05 13:25 | disposition home health service (06) | DRG 623 ==
LOC: ER 12:04 → MED 16:22
PROVIDERS: ADMIT Nurse Practitioner Acute Care; ATTEND Nurse Practitioner Acute Care
PROC: 0QBR0ZZ Excision of Left Toe Phalanx, Open Approach (ICD-10-PCS; principal; 2023-01-30)
PROC: 0KBV0ZZ Excision of Right Foot Muscle, Open Approach (ICD-10-PCS; principal; 2023-01-30)
PROC: 05HY33Z Insertion of Infusion Device into Upper Vein, Percutaneous Approach (ICD-10-PCS; 2023-01-30)
PROC: 05H933Z Insertion of Infusion Device into Right Brachial Vein, Percutaneous Approach (ICD-10-PCS; 2023-02-03)
DX: E11.621 Type 2 diabetes mellitus with foot ulcer (principal); E87.1 Hypo-osmolality and hyponatremia; M86.8X7 Other osteomyelitis, ankle and foot; M84.478A Pathological fracture, left toe(s), initial encounter for fracture; E11.10 Type 2 diabetes mellitus with ketoacidosis without coma; E11.69 Type 2 diabetes mellitus with other specified complication; L97.519 Non-pressure chronic ulcer of other part of right foot with unspecified severity; L97.529 Non-pressure chronic ulcer of other part of left foot with unspecified severity; E11.42 Type 2 diabetes mellitus with diabetic polyneuropathy; E78.5 Hyperlipidemia, unspecified; E86.1 Hypovolemia; E86.0 Dehydration; G40.909 Epilepsy, unspecified, not intractable, without status epilepticus; I10 Essential (primary) hypertension; M20.42 Other hammer toe(s) (acquired), left foot; M20.41 Other hammer toe(s) (acquired), right foot; M77.31 Calcaneal spur, right foot; Z20.822 Contact with and (suspected) exposure to COVID-19; Z89.422 Acquired absence of other left toe(s); Z99.3 Dependence on wheelchair; Z86.61 Personal history of infections of the central nervous system; Z82.49 Family history of ischemic heart disease and other diseases of the circulatory system; Z83.3 Family history of diabetes mellitus
CPT/HCPCS: 36415; 71045-TC; 73630-TC; 80048-TC; 80061-TC; 80202-TC; 81001; 82247-TC; 82248-TC; 82962-TC; 83605-TC; 83735-TC; 84100-TC; 85025-TC; 85652-TC; 85730-TC; 86140-TC; 86850-TC; 87040-TC; 87081-TC; 88305-TC; 88311-TC; A4223; A6253; A6403; C9803; G0378; J0690; J1170; J1650; J1815; J2250; J2270; J2405; J2543; J2704; J2765; J3010; J3370; J3490; J7030; J7040; J7042; J7060

== ENCOUNTER 2023-02-10 18:47 | Inpatient (IN) | payer OTHER ==
[~2023-02-10] VITALS: Ht 188 cm; Wt 80.7 kg
[~2023-02-10 18:47] MED LIST changes: -AMOX-430 PO; +CEFT2FRO2 IV; +VANC750F2 IV
--- NOTE | 2023-02-10 19:15 | NUR ---
PATIENT BIBS C/O GENERALIZED PAIN STATING ""I NEED MY OXYCODONE 5MG NOW" W/ 06/25 PAIN SCALE. PLACED IN BED, IN NAD. VITALS CHECKED.
--- NOTE | 2023-02-10 19:30 | NUR ---
SINGLE LUMEN PICC ON ALISON NOTED, DRESSING C/D/I, PATENT.
[2023-02-10] MEDS ORDERED: VANCOMYCIN HCL 1.25 GM in IV D5W 260 ML IV ONE (20:00)
[2023-02-10] MEDS ORDERED: KETOROLAC TROMETHAMINE INJ 30 MG/ML VIAL IV ONE (20:00)
[2023-02-10] MEDS ORDERED: MORPHINE SULFATE INJ 2 MG/ML DISP.SYRIN IV ONE (20:00)
[2023-02-10] MEDS ORDERED: KETOROLAC TROMETHAMINE 15 MG/ML VIAL ONE (20:14)
[2023-02-10] MEDS ORDERED: VANCOMYCIN 500 MG VIAL ONE (20:14)
[2023-02-10] MEDS ORDERED: MORPHINE SULFATE INJ 4 MG/ML DISP.SYRIN ONE (20:14)
[2023-02-10] MEDS ORDERED: WATER FOR INJECTION,STERILE 10 ML ONE (20:15)
--- NOTE | 2023-02-10 20:30 | NUR ---
WAITER/WAITRESS COUNTER AT BEDSIDE; BLOOD CXS & BLOOD WORK COLLECTED
[2023-02-10 20:35] LABS: BASOPHILS # (AUTO) 0.1 K/uL (0.0-0.2); BASOPHILS % (AUTO) 1.3 % (0.0-2.0); EOSINOPHILS % (AUTO) 6.4 % (0.0-6.0); HEMATOCRIT 35 % (39-51); LYMPHOCYTES # (AUTO) 2.4 K/uL (0.8-4.8); LYMPHOCYTES % (AUTO) 39.6 % (20.0-44.0); MEAN CORPUSCULAR HGB CONC 34 g/dl (31.0-36.0); MEAN CORPUSCULAR VOLUME 86 fL (80-96); MONOCYTES # (AUTO) 0.4 K/uL (0.1-1.30); MONOCYTES % (AUTO) 7.3 % (2.0-12.0); NEUTROPHILS # (AUTO) 2.7 K/uL (1.8-8.9); NEUTROPHILS % (AUTO) 45.4 % (43.0-81.0); PLATELET COUNT (AUTO) 228 K/uL (150-450); RED BLOOD CELL COUNT(AUTO) 4.09 MIL/uL (4.5-6.0)
--- NOTE | 2023-02-10 20:56 | NUR ---
COVID SWAB COLLECTED, SENT TO LAB
[2023-02-10 20:59] LABS: CALCIUM, SERUM 8.4 mg/dL (8.5-10.1); CREATININE 0.9 mg/dL (0.6-1.3); POTASSIUM 3.8 mmol/L (3.5-5.1)
--- NOTE | 2023-02-10 22:01 | NUR ---
REPORT GIVEN TO ANTONIO GARZA. PATIENT GOING TO [facility] [place] [facility]– [place]. WILL TRANSPORT PATIENT ONCE COVID ANTIGEN RESULTED.
--- NOTE | 2023-02-10 22:21 | NUR ---
CALLED KAYLA ALVAREZ TO UPDATE THAT THIS PATIENT WILL GO TO A DIFFERENT ROOM
--- NOTE | 2023-02-10 22:54 | NUR ---
BED 109.
--- NOTE | 2023-02-10 23:09 | NUR ---
REPORT GIVEN TO JULIENNE ALVAREZ
--- NOTE | 2023-02-10 23:24 | NUR ---
PT TRANSPORTED TO 109 USING HIS MOTORIZED WHEELCHAIR, ACCOMPANIED BY EMT
--- NOTE | 2023-02-10 23:35 | NUR ---
MS RN ADMITTING NOTE RECEIVED PATIENT VIA ELECTRICAL SCOOTER. AWAKE, A/O X4. ABLE TO MAKE NEEDS KNOWN. ACCESS ON LEFT UPPER ARM PICC LINE NOTED TO BE PATENT, CLEAN AND INTACT SALINE LOCK. PATIENT ON ROOM AIR TOLERATING WELL NO SOB, BREATHING EVENLY AND UNLABORED. BODY CHECK IS DONE WITH PATIENTS PERMISSION. SKIN ASSESSMENT IS DONE: NOTED TO HAVE LEFT SECOND TOE POST SURGICAL DRESSING NOTED TO BE CLEAN AND INTACT. WITH BILATERAL SCATTERED SCABS ON HIS FEET. PATIENT IS ORIENTED TO THE ROOM AND THOUGHT HOW TO USE THE CALL LIGHT PATIENT VERBALIZES UNDERSTANDING. ALL PATIENT BELONGINGS ARE ACCOUNTED FOR. SAFETY MEASURE IN PLACED: BED LOCKED AND IN LOWEST POSITION, SIDE RAILS UP X2, CALL LIGHT AND BEDSIDE TABLE WITHIN PATIENT REACH.
[2023-02-11] MEDS ORDERED: MAG HYDROX/AL HYDROX/SIMETH 30 ML UDC PO PRN (01:00)
[2023-02-11] MEDS ORDERED: IBUPROFEN 600 MG TABLET PO PRN (01:00)
[2023-02-11] MEDS ORDERED: ACETAMINOPHEN 325 MG TABLET PO PRN (01:00)
[2023-02-11] MEDS ORDERED: ONDANSETRON HCL/PF 4 MG/2 ML VIAL IVP PRN (01:00)
[2023-02-11] MEDS ORDERED: DEXTROSE 50%-WATER 50 ML DISP.SYRIN IV PRN (01:00)
[2023-02-11] MEDS ORDERED: MAGNESIUM HYDROXIDE 30 ML UDC PO PRN (01:00)
[2023-02-11] MEDS ORDERED: Z GUARD REMEDY 4 OZ OINT TP PRN (01:00)
[2023-02-11] MEDS: *INSULIN REGULAR(HUMULIN R)HUM 100 UNIT/ML VIAL SQ PRN ×4 (01:07→21:53)
[2023-02-11] MEDS ORDERED: CEFTRIAXONE 1GM BAG (ER ONLY) 50 ML IV ONE (01:16)
[2023-02-11] MEDS: CEFTRIAXONE 1 G in IV D5W 50 ML IV SCH (01:19)
[2023-02-11] MEDS: HYDROCODONE/APAP 5/325MG TABLET PO PRN ×2 (03:50→12:18)
--- NOTE | 2023-02-11 04:01 | NUR ---
RN NOTE PATIENT IS COMPLAINING OF PAIN ON LEFT FOOT SCALE OF 7/10. PATIENT IS GIVEN HYDROCODONE ORDERED ACCORDING TO PAIN SCALE. WILL REASSESS.
--- NOTE | 2023-02-11 04:53 | NUR ---
RN NOTE REASSESSED PATIENT PAIN SCALE OF 2/10.
[2023-02-11 06:24] LABS: BASOPHILS # (AUTO) 0.1 K/uL (0.0-0.2); BASOPHILS % (AUTO) 1.8 % (0.0-2.0); EOSINOPHILS % (AUTO) 8.4 % (0.0-6.0); HEMATOCRIT 34 % (39-51); HEMOGLOBIN 11.7 g/dL (13.5-17.5); LYMPHOCYTES # (AUTO) 1.8 K/uL (0.8-4.8); LYMPHOCYTES % (AUTO) 41.7 % (20.0-44.0); MEAN CORPUSCULAR HGB CONC 34 g/dl (31.0-36.0); MEAN CORPUSCULAR VOLUME 87 fL (80-96); MONOCYTES # (AUTO) 0.4 K/uL (0.1-1.30); MONOCYTES % (AUTO) 8.9 % (2.0-12.0); NEUTROPHILS # (AUTO) 1.7 K/uL (1.8-8.9); NEUTROPHILS % (AUTO) 39.2 % (43.0-81.0); PLATELET COUNT (AUTO) 211 K/uL (150-450); RED BLOOD CELL COUNT(AUTO) 3.96 MIL/uL (4.5-6.0); WHITE BLOOD COUNT (AUTO) 4.4 K/uL (4.3-11.0)
[2023-02-11 06:37] LABS: CALCIUM, SERUM 8.4 mg/dL (8.5-10.1); MAGNESIUM 1.8 mg/dL (1.8-2.4); PHOSPHORUS 3.2 mg/dL (2.5-4.9); POTASSIUM 3.8 mmol/L (3.5-5.1)
--- NOTE | 2023-02-11 06:54 | NUR ---
RN NOTE RECEIVED CALL FROM LAB CRITICAL VALUE GLUCOSE OF PATIENT 371. WAS GIVEN 15 UNITS REGULAR INSULIN PER SLIDING SCALE.
--- NOTE | 2023-02-11 06:56 | NUR ---
MS RN CLOSING NOTE PATIENT IN BED AWAKE, A/O X4. ABLE TO MAKE NEEDS KNOWN. ACCESS ON LEFT UPPER ARM PICC LINE NOTED TO BE PATENT, CLEAN AND INTACT SALINE LOCK. PATIENT ON ROOM AIR TOLERATING WELL NO SOB, BREATHING EVENLY AND UNLABORED. ALL NEEDS ARE MET. MADE SURE PATIENT IS CLEAN AND COMFORTABLE. ALL DUE MEDICATION IS GIVEN ORDERED. SAFETY MEASURE IN PLACED: BED LOCKED AND IN LOWEST POSITION, SIDE RAILS UP X2, CALL LIGHT AND BEDSIDE TABLE WITHIN PATIENT REACH. WILL ENDORSE TO NEXT SHIFT NURSE FOR CONTINUITY OF CARE.
[2023-02-11] MEDS: INSULIN REGULAR, HUMAN 100 UNIT/ML 3 ML VIAL SQ PRN (07:01)
--- NOTE | 2023-02-11 07:15 | NUR ---
PRODUCTION SUPERINTENDENT HYDRO OPENING NOTES Received pt awake in bed AOX4. No complaints of pain or discomfort at this time. Pt is on RA and tolerating it well. IV access on ALISON PICC line SL patent and intact. HOB elevated to pts comfort. Siderails up at all times x2. Call light within reach. Will continue to monitor.
[2023-02-11] MEDS: BLOOD SUGAR DIAGNOSTIC 1 EACH STRIP VI SCH ×4 (07:44→21:51)
[2023-02-11] MEDS: VANCOMYCIN 1.25 GM in IV D5W 250 ML IV SCH ×3 (07:47→23:52)
[2023-02-11 08:00] VITALS: BP 153/71
[2023-02-11] MEDS: ENOXAPARIN SODIUM 40 MG/0.4 ML DISP.SYRIN SQ SCH (09:30)
[2023-02-11] MEDS: MORPHINE SULFATE INJ 2 MG/ML DISP.SYRIN IV PRN ×3 (09:42→20:16)
[2023-02-11 16:00] VITALS: BP 149/95
--- NOTE | 2023-02-11 18:43 | NUR ---
[employer] MANAGER CLOSING NOTES All due meds and tx given as ordered. Pt tolerated everything well. All needs attended to. Call light within reach. Will endorse to oncoming nurse.
--- NOTE | 2023-02-11 19:30 | NUR ---
MS RN OPENING NOTE RECEIVED PT IN BED AWAKE, A/O X4. ABLE TO MAKE NEEDS KNOWN. ACCESS ON LEFT UPPER ARM PICC LINE NOTED TO BE PATENT, CLEAN AND INTACT SALINE LOCK. ON ROOM AIR TOLERATING WELL NO SOB, BREATHING EVENLY AND UNLABORED. C/O 8/10 PAIN ON FEET. EDEMA ON BILATERAL FOOT NOTED 1+ PITTING. SAFETY MEASURES IN PLACE: BED LOCKED AND IN LOWEST POSITION, SIDE RAILS UP X2, CALL LIGHT AND BEDSIDE TABLE WITHIN PATIENT REACH. WILL CONTINUE TO MONITOR AND ASSIST.
[2023-02-11 20:00] VITALS: BP 165/92
--- NOTE | 2023-02-11 21:08 | NUR ---
RN NOTE BP AT 1999 WAS 165/92, PT C/O PAIN 04/25. GIVEN PRN MORPHINE PER REQUEST. BP REASSESSED AFTER ABOUT AN HOUR, NOW 151/88. WILL CONTINUE TO MONITOR.
[2023-02-12] MEDS: CEFTRIAXONE 1 G in IV D5W 50 ML IV SCH (01:53)
[2023-02-12] MEDS: MORPHINE SULFATE INJ 2 MG/ML DISP.SYRIN IV PRN ×4 (02:09→20:14)
[2023-02-12 04:00] VITALS: BP 141/80
--- NOTE | 2023-02-12 06:36 | NUR ---
MS RN CLOSING NOTE PT RESTING IN BED AT THIS TIME. A/O X4, ABLE TO MAKE NEEDS KNOWN. ON ROOM AIR TOLERATING WELL NO SOB, BREATHING EVENLY AND UNLABORED. DENIES PAIN AT THIS TIME. IV ACCESS ON LEFT UPPER ARM PICC LINE SL, PATENT, INTACT, FLUSHING WELL. CENTRAL LINE CARE PROVIDED. EDEMA ON BILATERAL FOOT NOTED 1+ PITTING. ALL CARE PROVIDED AND MEDS TOLERATED WELL. SAFETY MEASURES MAINTAINED: BED LOCKED AND IN LOWEST POSITION, SIDE RAILS UP X2, CALL LIGHT AND BEDSIDE TABLE WITHIN PATIENT REACH. WILL ENDORSE SANDEEP TO DAY SHIFT NURSE.
--- NOTE | 2023-02-12 07:32 | NUR ---
MS RN OPENING NOTE: RECEIVED PT IN BED AWAKE, A/O X4. ABLE TO MAKE NEEDS KNOWN. ACCESS ON LEFT UPPER ARM PICC LINE NOTED TO BE PATENT, CLEAN AND INTACT SALINE LOCK. ON ROOM AIR TOLERATING WELL NO SOB, BREATHING EVENLY AND UNLABORED. SAFETY MEASURES IN PLACE: BED LOCKED AND IN LOWEST POSITION, SIDE RAILS UP X2, CALL LIGHT AND BEDSIDE TABLE WITHIN PATIENT REACH.
[2023-02-12] MEDS: BLOOD SUGAR DIAGNOSTIC 1 EACH STRIP VI SCH ×4 (07:39→22:24)
[2023-02-12] MEDS: *INSULIN REGULAR(HUMULIN R)HUM 100 UNIT/ML VIAL SQ PRN ×3 (07:45→16:31)
[2023-02-12] MEDS: VANCOMYCIN 1.25 GM in IV D5W 250 ML IV SCH ×3 (07:46→23:35)
[2023-02-12 08:00] VITALS: BP 167/87
[2023-02-12] MEDS: ENOXAPARIN SODIUM 40 MG/0.4 ML DISP.SYRIN SQ SCH (08:07)
--- NOTE | 2023-02-12 09:15 | NUR ---
WOUND CARE CONSULT: PT PRESENTS WITH TOE WOUNDS WITH DRY/INTACT DRESSINGS, PRESENT ON ADMISSION. DR AWAD CALLED FOR DPM CONSULT. PT STATES NEEDS ADVOCACY. PT NOTED TO BE EMOTIONAL AND STATES DOES NOT WANT TO GO TO SNF. SOCIAL SERVICE CONSULT PLACED. SKIN PROTECTION DISCUSSED WITH NURSING STAFF. MD IN AGREEMENT WITH PLAN OF CARE.
--- NOTE | 2023-02-12 09:18 | NUR ---
MS RN NOTE: PT AMBULATED WITH PHYSICAL THERAPIST IN THE HALLWAY.
[2023-02-12 09:26] LABS: BASOPHILS # (AUTO) 0.1 K/uL (0.0-0.2); EOSINOPHILS % (AUTO) 7.1 % (0.0-6.0); HEMATOCRIT 38 % (39-51); HEMOGLOBIN 12.8 g/dL (13.5-17.5); LYMPHOCYTES # (AUTO) 2.1 K/uL (0.8-4.8); MEAN CORPUSCULAR HGB CONC 34 g/dl (31.0-36.0); MEAN CORPUSCULAR VOLUME 84 fL (80-96); MONOCYTES # (AUTO) 0.4 K/uL (0.1-1.30); MONOCYTES % (AUTO) 5.3 % (2.0-12.0); NEUTROPHILS # (AUTO) 4.1 K/uL (1.8-8.9); NEUTROPHILS % (AUTO) 57.6 % (43.0-81.0); PLATELET COUNT (AUTO) 244 K/uL (150-450); RED BLOOD CELL COUNT(AUTO) 4.48 MIL/uL (4.5-6.0); WHITE BLOOD COUNT (AUTO) 7.1 K/uL (4.3-11.0)
[2023-02-12 09:42] LABS: CALCIUM, SERUM 8.9 mg/dL (8.5-10.1); CREATININE 0.9 mg/dL (0.6-1.3); MAGNESIUM 1.7 mg/dL (1.8-2.4); PHOSPHORUS 3.9 mg/dL (2.5-4.9)
[2023-02-12] MEDS: HYDROCODONE/APAP 5/325MG TABLET PO PRN (10:22)
[2023-02-12] MEDS ORDERED: IBUP-1957 PO (12:13)
[2023-02-12] MEDS ORDERED: HYDR-3972 PO (12:13)
--- NOTE | 2023-02-12 13:30 | NUR ---
MS RN NOTE: BRANDAN DNP AT BEDSIDE.
[2023-02-12 16:00] VITALS: BP 168/90
--- NOTE | 2023-02-12 17:23 | NUR ---
MS RN NOTE: DR. ZHANG VASCULAR MD AT BEDSIDE
--- NOTE | 2023-02-12 18:18 | NUR ---
MS RN CLOSING NOTE PT RESTING IN BED AT THIS TIME. A/O X4, ABLE TO MAKE NEEDS KNOWN. ON ROOM AIR TOLERATING WELL NO SOB, BREATHING EVENLY AND UNLABORED. DENIES PAIN AT THIS TIME. IV ACCESS ON LEFT UPPER ARM PICC LINE SL, PATENT, INTACT, FLUSHING WELL. ALL CARE PROVIDED AND MEDS TOLERATED WELL. SAFETY MEASURES MAINTAINED: BED LOCKED AND IN LOWEST POSITION, SIDE RAILS UP X2, CALL LIGHT AND BEDSIDE TABLE WITHIN PATIENT REACH.
--- NOTE | 2023-02-12 19:50 | NUR ---
MS RN OPENING NOTES RECEIVED PATIENT IN BED WATCHING TV. A/O X 4, ABLE TO MAKE NEEDS KNOWN. ON ROOM AIR, BREATHING EVEN AND UNLABORED, NO SIGNS OF DISTRESS OR SOB NOTED AT THIS TIME. IV ACCESS ALISON PICC LINE ON SALINE LOCK, INTACT AND PATENT. SAFETY MEASURES IN PLACE WITH BED IN LOWEST LOCKED POSITION. SIDE RAILS UP X 2. CALL LIGHT AND TRAY WITHIN EASY REACH. WILL CONTINUE WITH THE PLAN OF CARE.
[2023-02-12 20:00] VITALS: BP 164/94
[2023-02-12] MEDS: CEFTRIAXONE 2 G in IV D5W 100 ML IV SCH (20:03)
--- NOTE | 2023-02-12 20:15 | NUR ---
RN NOTES-MORPHINE GIVEN PATIENT C/O OF LEG PAIN WITH SCALE OF 8/10. MORPHINE IV GIVEN PRN. WILL CONTINUE TO MONITOR THE PATIENT.
[2023-02-12] MEDS ORDERED: INSULIN GLARGINE, 100 UNIT/ML CARTRIDGE SQ SCH (22:00)
[2023-02-12] MEDS: ZOLPIDEM TARTRATE 5 MG TABLET PO PRN (22:40)
[2023-02-13 04:00] VITALS: BP 138/96
--- NOTE | 2023-02-13 07:30 | NUR ---
MS RN OPENING NOTES RECEIVED PATIENT IN BED AWAKE. A/O X 4, ABLE TO MAKE NEEDS KNOWN. ON ROOM AIR, BREATHING EVEN AND UNLABORED, NO SIGNS OF DISTRESS OR SOB NOTED AT THIS TIME. IV ACCESS ALISON PICC LINE ON SALINE LOCK, INTACT AND PATENT. SAFETY MEASURES MAINTAINED. BED LOCKED IN LOWEST POSITION, SIDE RAILS UP X2, CALL LIGHT WITHIN REACH. ALL NEEDS ATTENDED. WILLADMINISTER ALL SCHEDULED MEDS ORDERED.
--- NOTE | 2023-02-13 07:36 | NUR ---
MS RN CLOSING NOTES PATIENT IN BED AWAKE. A/O X 4, ABLE TO MAKE NEEDS KNOWN. ON ROOM AIR, BREATHING EVEN AND UNLABORED, NO SIGNS OF DISTRESS OR SOB NOTED AT THIS TIME. IV ACCESS ALISON PICC LINE ON SALINE LOCK, INTACT AND PATENT. SAFETY MEASURES MAINTAINED. ALL NEEDS ATTENDED. WILL ENDORSE TO THE NEXT SHIFT.
[2023-02-13] MEDS: BLOOD SUGAR DIAGNOSTIC 1 EACH STRIP VI SCH ×4 (07:51→21:44)
[2023-02-13 08:00] VITALS: BP 166/99
[2023-02-13] MEDS: VANCOMYCIN 1.25 GM in IV D5W 250 ML IV SCH (08:08)
[2023-02-13] MEDS: BENAZEPRIL HCL 20 MG TABLET PO SCH (08:09)
[2023-02-13] MEDS: oxyCODONE/APAP (5/325 MG) 1 UDTAB TABLET PO PRN ×2 (08:10→20:45)
[2023-02-13] MEDS: ENOXAPARIN SODIUM 40 MG/0.4 ML DISP.SYRIN SQ SCH (08:11)
[2023-02-13] MEDS: INSULIN REGULAR, HUMAN 100 UNIT/ML 3 ML VIAL SQ PRN ×3 (08:12→17:58)
[2023-02-13 10:09] LABS: CALCIUM, SERUM 8.8 mg/dL (8.5-10.1); POTASSIUM 4.1 mmol/L (3.5-5.1)
[2023-02-13] MEDS: MORPHINE SULFATE INJ 2 MG/ML DISP.SYRIN IV PRN ×2 (11:49→19:53)
[2023-02-13] MEDS: GABAPENTIN 100 MG CAPSULE PO SCH ×2 (11:49→16:12)
[2023-02-13] MEDS ORDERED: MUPIROCIN OINT 2% 22 GM TUBE TP SCH (14:00)
[2023-02-13 16:00] VITALS: BP 152/91
[2023-02-13] MEDS ORDERED: INSULIN ASPART/LISPRO 100 UNIT/ML CARTRIDGE SQ SCH (17:00)
--- NOTE | 2023-02-13 18:02 | NUR ---
RN NOTES AROUND 1744, PT COMPLAINED OF NUMBNESS ON RIGHT SIDE EXTREMITY. ASSESSED PT, VERBALLY RESPONSIVE. ABLE TO MOVE EXTREMITIES. PT STATED THAT HE HAS HISTORY OF SEIZURE AND FELT LIKE AN AURA AND NUMBNESS IS RELATED TO IT. CHECKED VITALS, WNL BP 143/85 VA 79, RR 18. REPORTED TO FREDERICK KRUSE, ABLE TO SPEAK WITH PT, NO ORDERS GIVEN BUT WILL REFER FOR NEURO CONSULT. PT CURRENTLY NOT ON SEIZURE MEDS, ALLERGIC TO KEPPRA. PT STABLE, WITHOUT DISTRESS. REASSESSED PT NOW, CONDITION IMPROVED. PER AIXA DYE PADDER OPERATOR, D/C INSULIN LISPRO AND CONTINUE COVERAGE FOR ACCUCHECKS.
--- NOTE | 2023-02-13 18:48 | NUR ---
MS RN CLOSING NOTES PATIENT IN RESTING IN BED AWAKE. A/O X 4, ABLE TO MAKE NEEDS KNOWN. ON ROOM AIR, BREATHING EVEN AND UNLABORED, NO SIGNS OF DISTRESS OR SOB NOTED AT THIS TIME. IV ACCESS ALISON PICC LINE ON SALINE LOCK, INTACT AND PATENT. ALL DUE MEDS GIVEN ORDERED. ACCUCHECKS DONE. I&O RECORDED. SAFETY MEASURES MAINTAINED. BED LOCKED IN LOWEST POSITION, SIDE RAILS UP X2, CALL LIGHT WITHIN REACH. ALL NEEDS ATTENDED. WILL ENDORSE TO THE NEXT SHIFT.
--- NOTE | 2023-02-13 19:44 | NUR ---
MS RN OPENING NOTE PATIENT AWAKE IN BED, ALERT/ORIENTED X 4, PT ABLE TO MAKE NEEDS KNOWN. PATIENT C/O OF 10/10 PAIN ON BILATERAL LEGS, WILL ADMINISTER MORPHINE IF VITAL SIGNS WNL. PATIENT STABLE ON RA, NO S/S OF DISTRESS OR SOB NOTED, BREATHING EVEN AND UNLABORED. IV ACCESS - ALISON PICC LINE INTACT AND SALINE LOCKED. SAFETY MEASURES IN PLACE: CALL LIGHT AND SIDE TABLE WITHIN REACH, SIDE RAILS UP X 2, BED LOCKED IN LOWEST POSITION. WILL CONTINUE TO MONITOR PATIENT
[2023-02-13] MEDS: CEFTRIAXONE 2 G in IV D5W 100 ML IV SCH (19:53)
[2023-02-13 20:00] VITALS: BP 161/102
[2023-02-13] MEDS: NEOMY SULF/BACITRAC ZN/POLY 15 GM TUBE TP SCH (20:44)
--- NOTE | 2023-02-13 20:55 | NUR ---
MS RN NOTE PATIENT STILL C/O OF 8/10 BILATERAL FEET PAIN DESPITE MORPHINE GIVEN AN HOUR AGO. PRN PERCOCET 5-325 MG PO GIVEN ORDERED. WILL CONTINUE TO MONITOR PATIENT
[2023-02-13] MEDS: INSULIN GLARGINE, 100 UNIT/ML CARTRIDGE SQ SCH (21:53)
[2023-02-13] MEDS: *INSULIN REGULAR(HUMULIN R)HUM 100 UNIT/ML VIAL SQ PRN (21:53)
[2023-02-13] MEDS: ZOLPIDEM TARTRATE 5 MG TABLET PO PRN (21:54)
--- NOTE | 2023-02-13 21:57 | NUR ---
MS RN NOTE PATIENT REQUESTED AMBIEN FOR SLEEP, MEDICATION GIVEN ORDERED. WILL CONTINUE TO MONITOR PATIENT
[2023-02-14 04:00] VITALS: BP 135/83
[2023-02-14] MEDS: oxyCODONE/APAP (5/325 MG) 1 UDTAB TABLET PO PRN (06:21)
--- NOTE | 2023-02-14 06:49 | NUR ---
MS RN CLOSING NOTE PATIENT AWAKE IN BED, ALERT/ORIENTED X 4, PT ABLE TO MAKE NEEDS KNOWN. PATIENT STABLE ON RA, NO S/S OF DISTRESS OR SOB NOTED, BREATHING EVEN AND UNLABORED. IV ACCESS - ALISON PICC LINE INTACT AND SALINE LOCKED. MEDICATIONS GIVEN ORDERED, PT NEEDS MET THROUGHOUT SHIFT, NO SIGNIFICANT CHANGES. SAFETY MEASURES IN PLACE: CALL LIGHT AND SIDE TABLE WITHIN REACH, SIDE RAILS UP X 2, BED LOCKED IN LOWEST POSITION. WILL ENDORSE TO DAYSHIFT RN FOR CONTINUITY OF CARE
--- NOTE | 2023-02-14 07:03 | NUR ---
RN OPENING NOTE PATIENT AWAKE IN BED, ALERT/ORIENTED X 4, ABLE TO MAKE NEEDS KNOWN. STABLE ON RA, NO S/S OF DISTRESS OR SOB NOTED, BREATHING EVEN AND UNLABORED. IV ACCESS - ALISON PICC LINE INTACT AND SALINE LOCKED. USING URINAL. SAFETY MEASURES IN PLACE: CALL LIGHT AND SIDE TABLE WITHIN REACH, SIDE RAILS UP X 2, BED LOCKED IN LOWEST POSITION. WILL CONTINUE TO MONITOR PATIENT
[2023-02-14 07:30] LABS: CALCIUM, SERUM 9.3 mg/dL (8.5-10.1); CREATININE 0.8 mg/dL (0.6-1.3); POTASSIUM 3.5 mmol/L (3.5-5.1)
[2023-02-14] MEDS: BLOOD SUGAR DIAGNOSTIC 1 EACH STRIP VI SCH ×4 (07:45→21:54)
[2023-02-14] MEDS: INSULIN REGULAR, HUMAN 100 UNIT/ML 3 ML VIAL SQ PRN ×3 (07:48→17:37)
[2023-02-14 08:00] VITALS: BP 145/93
[2023-02-14] MEDS: VANCOMYCIN 1 GM in IV D5W 250 ML IV SCH ×2 (08:31→16:24)
[2023-02-14] MEDS: NEOMY SULF/BACITRAC ZN/POLY 15 GM TUBE TP SCH ×2 (08:31→21:39)
[2023-02-14] MEDS: MORPHINE SULFATE INJ 2 MG/ML DISP.SYRIN IV PRN ×3 (08:42→19:58)
[2023-02-14] MEDS: GABAPENTIN 100 MG CAPSULE PO SCH ×2 (08:48→17:06)
[2023-02-14] MEDS: BENAZEPRIL HCL 20 MG TABLET PO SCH (08:49)
[2023-02-14] MEDS: ENOXAPARIN SODIUM 40 MG/0.4 ML DISP.SYRIN SQ SCH (08:51)
[2023-02-14 16:00] VITALS: BP 130/89
--- NOTE | 2023-02-14 18:48 | NUR ---
RN CLOSING NOTE PATIENT AWAKE IN BED, ALERT/ORIENTED X 4, ABLE TO MAKE NEEDS KNOWN. STABLE ON RA, NO SOB NOTED, BREATHING EVEN AND UNLABORED. IV ACCESS - ALISON PICC LINE INTACT AND SALINE LOCKED. USING URINAL. SAFETY MEASURES IN PLACE: CALL LIGHT AND SIDE TABLE WITHIN REACH, SIDE RAILS UP X 2, BED LOCKED IN LOWEST POSITION. WILL ENDORSE TO THE NEXT SHIFT NURSE FOR SANDEEP.
[2023-02-14 20:00] VITALS: BP 140/83
[2023-02-14] MEDS: CEFTRIAXONE 2 G in IV D5W 100 ML IV SCH (20:19)
[2023-02-14] MEDS: *INSULIN REGULAR(HUMULIN R)HUM 100 UNIT/ML VIAL SQ PRN (21:53)
[2023-02-14] MEDS: INSULIN GLARGINE, 100 UNIT/ML CARTRIDGE SQ SCH (21:54)
[2023-02-14] MEDS: ZOLPIDEM TARTRATE 5 MG TABLET PO PRN (21:57)
[2023-02-15 04:17] VITALS: BP 146/80
[2023-02-15] MEDS: MORPHINE SULFATE INJ 2 MG/ML DISP.SYRIN IV PRN ×3 (04:35→20:27)
--- NOTE | 2023-02-15 06:00 | NUR ---
END OF SHIFT REPORT Patient in bed, Alert Oriented x4. Oxygen sat 100% in RA. ALISON PICC line cath intact. On IV abx. Afebrile during the night. Accu check ACHS with sliding insulin parameters, good appetite. Had BM, voided urine without difficulty. Neosporin applied to stevie foot toes wound, pain controlled with IV Morphine. Denies chest pain. Plan for cont IV abx for 6 weeks, dc planning SNF. F/U on medical records- recent MRI from [facility], request was sent on 02/13/23. Will endorse to oncoming RN.
[2023-02-15 07:02] LABS: CALCIUM, SERUM 9.2 mg/dL (8.5-10.1); CREATININE 0.9 mg/dL (0.6-1.3); POTASSIUM 3.8 mmol/L (3.5-5.1)
[2023-02-15] MEDS: INSULIN REGULAR, HUMAN 100 UNIT/ML 3 ML VIAL SQ PRN ×3 (07:24→18:31)
[2023-02-15] MEDS: BLOOD SUGAR DIAGNOSTIC 1 EACH STRIP VI SCH ×4 (07:43→21:41)
[2023-02-15] MEDS: VANCOMYCIN 1 GM in IV D5W 250 ML IV SCH ×4 (07:45→15:57)
[2023-02-15] MEDS: NEOMY SULF/BACITRAC ZN/POLY 15 GM TUBE TP SCH ×2 (08:33→21:43)
[2023-02-15] MEDS: BENAZEPRIL HCL 20 MG TABLET PO SCH (08:58)
[2023-02-15] MEDS: GABAPENTIN 100 MG CAPSULE PO SCH ×2 (08:59→16:45)
[2023-02-15] MEDS: ENOXAPARIN SODIUM 40 MG/0.4 ML DISP.SYRIN SQ SCH (09:00)
[2023-02-15 12:00] VITALS: BP 133/89
[2023-02-15] MEDS: PROSOURCE / PROSTAT (PYXIS) 30 ML UDC GT SCH ×2 (12:19→16:45)
[2023-02-15 20:00] VITALS: BP 144/90
--- NOTE | 2023-02-15 20:00 | NUR ---
RN OPENING NOTE PATIENT AWAKE IN BED W/ FAMILY AT BEDSIDE. A/OX4. NO S/S OF DISTRESS, BREATHING WITHOUT DIFFICULTY ON ROOM AIR. ALISON PICC LINE SL INTACT AND PATENT. SAFETY MEASURES IN PLACE; BED LOCKED AND AT LOWEST POSITION, RAILS UP X2, CALL HERNANDEZ WITHIN REACH. WILL CONTINUE TO MONITOR PATIENT.
[2023-02-15] MEDS: CEFTRIAXONE 2 G in IV D5W 100 ML IV SCH (20:26)
[2023-02-15] MEDS: METRONIDAZOLE 500 MG TABLET PO SCH (21:41)
[2023-02-15] MEDS: *INSULIN REGULAR(HUMULIN R)HUM 100 UNIT/ML VIAL SQ PRN (21:48)
[2023-02-15] MEDS ORDERED: INSULIN GLARGINE, 100 UNIT/ML CARTRIDGE SQ SCH (22:00)
[2023-02-16] MEDS: MORPHINE SULFATE INJ 2 MG/ML DISP.SYRIN IV PRN ×3 (02:40→16:46)
[2023-02-16] MEDS: METRONIDAZOLE 500 MG TABLET PO SCH ×2 (04:13→12:36)
[2023-02-16] MEDS: VANCOMYCIN 1.5 GM in IV D5W 500ml IV SCH ×2 (04:25→16:56)
[2023-02-16 04:53] VITALS: BP 114/70
--- NOTE | 2023-02-16 06:33 | NUR ---
RN CLOSING NOTE PATIENT AWAKE IN BED. NO S/S OF DISTRESS, BREATHING WITHOUT DIFFICULTY ON ROOM AIR. ALISON PICC SL INTACT AND PATENT. SAFETY MEASURES IN PLACE: BED LOCKED AND AT LOWEST POSITION, RAILS UP X2, CALL HERNANDEZ WITHIN REACH. WILL ENDORSE TO NEXT SHIFT FOR SANDEEP.
--- NOTE | 2023-02-16 07:00 | NUR ---
RN OPENING NOTE PATIENT AWAKE IN BED. NO S/S OF DISTRESS, BREATHING WITHOUT DIFFICULTY ON ROOM AIR. ALISON PICC SL C/D/I. SAFETY MEASURES IN PLACE: BED LOCKED AND AT LOWEST POSITION, RAILS UP X2, CALL HERNANDEZ WITHIN REACH. WILL CONTINUE TO MONITOR THE PATIENT.
[2023-02-16] MEDS: BLOOD SUGAR DIAGNOSTIC 1 EACH STRIP VI SCH ×3 (07:51→17:34)
[2023-02-16 08:00] VITALS: BP 112/67
[2023-02-16] MEDS: PROSOURCE / PROSTAT (PYXIS) 30 ML UDC GT SCH ×3 (08:42→16:56)
[2023-02-16] MEDS: BENAZEPRIL HCL 20 MG TABLET PO SCH (08:51)
[2023-02-16] MEDS: GABAPENTIN 100 MG CAPSULE PO SCH ×2 (08:51→16:46)
[2023-02-16] MEDS: ENOXAPARIN SODIUM 40 MG/0.4 ML DISP.SYRIN SQ SCH (08:54)
[2023-02-16] MEDS: NEOMY SULF/BACITRAC ZN/POLY 15 GM TUBE TP SCH (09:14)
--- NOTE | 2023-02-16 09:45 | NUR ---
Attempted to draw blood from PICC line 2x but unsuccessful. Patient refused blood draw 2x today via IV, charge nurse, made aware
[2023-02-16] MEDS: *INSULIN REGULAR(HUMULIN R)HUM 100 UNIT/ML VIAL SQ PRN (12:30)
[2023-02-16 16:00] VITALS: BP 115/77
[2023-02-16] MEDS ORDERED: METR500T PO (17:11)
--- NOTE | 2023-02-16 19:30 | NUR ---
PT DC TO [facility] AT THIS TIME, VIA WHEEL CHAIR, BY [place], ACCOMPANIED BY 1 EMT, PT LEFT IN STABLE CONDITION, ON RA, NO S/S OF ACUTE DISTRESS.
--- NOTE | 2023-02-16 19:42 | NUR ---
Patient discharged to SNF, stable A/O x4, able to make needs known, no complains of pain nor s/s of pain or any discomfort. Discharged summary discussed both verbally and in writing with the patient, SNF and dental technician metal who picked up the patient secured in a gurney, photos taken on bilateral feet & file in the chart, all belongings accounted for, IV access--PICC line not removed due to continuation of antibiotics to SNF, all needs attended. Patient left approximately 193 via ambulance with 2 dental technician metal. Charge nurse aware
== END 2023-02-16 17:00 | DRG 638 ==
LOC: ER 18:58 → MED 21:57 → MEDSG1 22:55
PROVIDERS: ADMIT Nurse Practitioner Acute Care; ATTEND Nurse Practitioner Acute Care
DX: E11.69 Type 2 diabetes mellitus with other specified complication (principal); M86.172 Other acute osteomyelitis, left ankle and foot; G40.909 Epilepsy, unspecified, not intractable, without status epilepticus; D63.8 Anemia in other chronic diseases classified elsewhere; E11.65 Type 2 diabetes mellitus with hyperglycemia; Z20.822 Contact with and (suspected) exposure to COVID-19; I10 Essential (primary) hypertension; E78.5 Hyperlipidemia, unspecified; E78.00 Pure hypercholesterolemia, unspecified; Z90.49 Acquired absence of other specified parts of digestive tract; Z98.890 Other specified postprocedural states; Z88.8 Allergy status to other drugs, medicaments and biological substances; Z79.4 Long term (current) use of insulin; Z79.899 Other long term (current) drug therapy; F32.9 Major depressive disorder, single episode, unspecified; E11.42 Type 2 diabetes mellitus with diabetic polyneuropathy; E11.621 Type 2 diabetes mellitus with foot ulcer; L97.519 Non-pressure chronic ulcer of other part of right foot with unspecified severity; Z82.49 Family history of ischemic heart disease and other diseases of the circulatory system; Z83.3 Family history of diabetes mellitus; Z86.14 Personal history of Methicillin resistant Staphylococcus aureus infection; Z89.422 Acquired absence of other left toe(s); Z99.3 Dependence on wheelchair
CPT/HCPCS: 36415; 73630-TC; 73718-TC; 80048-TC; 80202-TC; 82962-TC; 83735-TC; 84100-TC; 85025-TC; 85652-TC; 86140-TC; 86803; 87081-TC; 87806; 97112-TC; 97116-TC; 97530-TC; A4223; G0378; J0696; J1650; J1815; J1885; J2270; J3370; J7040; J7050; J7060

== ENCOUNTER 2023-04-16 12:56 | Emergency (ER) | payer OTHER ==
[~2023-04-16] VITALS: Ht 188 cm; Wt 77.1 kg
[~2023-04-16 12:56] MED LIST changes: +HYDR-3972 PO; +IBUP-1957 PO; +METR500T PO
[2023-04-16] MEDS ORDERED: MORPHINE SULFATE INJ 2 MG/ML DISP.SYRIN IM ONE (14:00)
[2023-04-16] MEDS ORDERED: MORPHINE SULFATE INJ 4 MG/ML DISP.SYRIN ONE (14:26)
[2023-05-03 22:26] VITALS: BP 104/68; TEMP 98.4; O2SAT 97
== END 2023-04-16 15:06 | disposition home or self-care (01) ==
LOC: ER 13:00
DX: R20.2 Paresthesia of skin (principal); M79.672 Pain in left foot; M79.671 Pain in right foot; M79.605 Pain in left leg; M79.604 Pain in right leg; I10 Essential (primary) hypertension; E78.5 Hyperlipidemia, unspecified; E11.9 Type 2 diabetes mellitus without complications; E78.00 Pure hypercholesterolemia, unspecified; Z88.8 Allergy status to other drugs, medicaments and biological substances; Z79.4 Long term (current) use of insulin; Z79.899 Other long term (current) drug therapy
CPT/HCPCS: 99283; 96372; J2270

== ENCOUNTER 2023-05-26 19:02 | Inpatient (IN) | payer MEDICARE, OTHER ==
[~2023-05-26] VITALS: Ht 188 cm; Wt 73.0 kg
[2023-05-26] MEDS ORDERED: ACETAMINOPHEN 325 MG TABLET ONE ×2 (19:24→19:27)
[2023-05-26] MEDS ORDERED: GABAPENTIN 100 MG CAPSULE PO ONE (19:30)
[2023-05-26] MEDS ORDERED: ACETAMINOPHEN 325 MG TABLET PO ONE (19:30)
[2023-05-26] MEDS ORDERED: GABAPENTIN 300 MG CAPSULE ONE (19:30)
[2023-05-26] MEDS ORDERED: IV NS 0.9% 1,000 ML IV ONE ×2 (19:30→20:30)
[2023-05-26 20:03] LABS: BASOPHILS # (AUTO) 0.1 K/uL (0.0-0.2); BASOPHILS % (AUTO) 1.9 % (0.0-2.0); EOSINOPHILS # (AUTO) 0.4 K/uL (0.0-0.7); EOSINOPHILS % (AUTO) 7.1 % (0.0-6.0); HEMATOCRIT 40 % (39-51); HEMOGLOBIN 13.2 g/dL (13.5-17.5); LYMPHOCYTES # (AUTO) 1.9 K/uL (0.8-4.8); LYMPHOCYTES % (AUTO) 36.4 % (20.0-44.0); MEAN CORPUSCULAR HEMOGLOBIN 28 PG (26.0-33.0); MEAN CORPUSCULAR HGB CONC 33 g/dl (31.0-36.0); MEAN CORPUSCULAR VOLUME 85 fL (80-96); MONOCYTES # (AUTO) 0.2 K/uL (0.1-1.30); MONOCYTES % (AUTO) 4.6 % (2.0-12.0); NEUTROPHILS # (AUTO) 2.6 K/uL (1.8-8.9); PLATELET COUNT (AUTO) 192 K/uL (150-450); RED CELL DISTRIBUTION WIDTH 13.8 % (11.5-15.0); WHITE BLOOD COUNT (AUTO) 5.1 K/uL (4.3-11.0)
[2023-05-26 20:20] LABS: CALCIUM, SERUM 8.9 mg/dL (8.5-10.1); CARBON DIOXIDE 21 mmol/L (21-32); CHLORIDE 92 mmol/L (98-107); CREATININE 1.3 mg/dL (0.6-1.3); POTASSIUM 4.6 mmol/L (3.5-5.1); SODIUM SERUM 129 mmol/L (136-145); UREA NITROGEN, BLOOD 14 mg/dL (7-18)
[2023-05-26 20:22] LABS: ACETONE, SERUM NEGATIVE (NEGATIVE)
[2023-05-26 20:25] LABS: GLUCOSE 771 mg/dL (74-106)
[2023-05-26] MEDS ORDERED: INSULIN LISPRO/ASPART 100 UNIT/ML CARTRIDGE SQ ONE (20:30)
[2023-05-26] MEDS ORDERED: IV PREMIX NS +20MEQ KCL 1 L IV ONE (20:50)
[2023-05-26 20:53] LABS: MAGNESIUM 2.1 mg/dL (1.8-2.4); PHOSPHORUS 4.1 mg/dL (2.5-4.9)
[2023-05-26] MEDS ORDERED: KETOROLAC TROMETHAMINE 15 MG/ML VIAL ONE (20:53)
[2023-05-26] MEDS ORDERED: INSULIN REGULAR, HUMAN 100 UNITS in IV NS 0.9% 100 ML IV PRN ×2 (21:00)
[2023-05-26] MEDS ORDERED: IV PREMIX NS +20MEQ KCL 1 L IV PRN (21:00)
[2023-05-26] MEDS ORDERED: KETOROLAC TROMETHAMINE INJ 30 MG/ML VIAL IV ONE (21:00)
[2023-05-26] MEDS ORDERED: INSULIN REGULAR, HUMAN 100 UNIT/ML 10 ML VIAL ONE (21:45)
[2023-05-26] MEDS ORDERED: MORPHINE SULFATE INJ 4 MG/ML DISP.SYRIN ONE (22:17)
[2023-05-26 22:26] LABS: SITE, VBG Other; VBG BASE EXCESS -1.7 mmol/L (-3-3); VBG COHb 0.8 %; VBG MetHb 0.4 %; VBG O2Hb 76.2 %; VBG OXYGEN SATURATION 77.1 %; VBG PCO2 41.5 mmHg (40-52); VBG PH 7.371 (7.31-7.41); VBG PO2 42.1 mmHg (30-50); VBG TOTAL HEMOGLOBIN 14.4 G/dL (13.5-18.0); VENT MODE, VBG RA 21%
[2023-05-26] MEDS ORDERED: MORPHINE SULFATE INJ 2 MG/ML DISP.SYRIN IV ONE (22:30)
[2023-05-26 23:09] LABS: CALCIUM, SERUM 8.3 mg/dL (8.5-10.1); CREATININE 1.2 mg/dL (0.6-1.3); MAGNESIUM 1.6 mg/dL (1.8-2.4); PHOSPHORUS 3.4 mg/dL (2.5-4.9); POTASSIUM 4.1 mmol/L (3.5-5.1)
[2023-05-26 23:19] LABS: ALBUMIN 3.2 g/dL (3.4-5.0); BILIRUBIN,DIRECT 0.1 mg/dL (0.0-0.2); BILIRUBIN,TOTAL 0.2 mg/dL (0.2-1.0); TOTAL PROTEIN, SERUM 6.6 g/dL (6.4-8.2)
[2023-05-26] MEDS ORDERED: ACETAMINOPHEN 325 MG TABLET PO PRN (23:30)
[2023-05-26] MEDS ORDERED: INSULIN GLARGINE, 100 UNIT/ML CARTRIDGE SQ SCH (23:30)
[2023-05-26] MEDS ORDERED: ONDANSETRON HCL/PF 4 MG/2 ML VIAL IVP PRN (23:30)
[2023-05-26] MEDS ORDERED: IV 1/2NS 1000 ML 1,000 ML IV PRN (23:30)
[2023-05-26] MEDS ORDERED: MAGNESIUM HYDROXIDE 30 ML UDC PO PRN (23:30)
[2023-05-26] MEDS ORDERED: INSULIN REGULAR, HUMAN 100 UNIT/ML 10 ML VIAL SQ ONE (23:30)
[2023-05-26] MEDS ORDERED: Z GUARD REMEDY 4 OZ OINT TP PRN (23:30)
[2023-05-27] MEDS ORDERED: DEXTROSE 50%-WATER 50 ML DISP.SYRIN IV PRN
[2023-05-27] MEDS ORDERED: *INSULIN REGULAR(HUMULIN R)HUM 100 UNIT/ML VIAL SQ PRN
[2023-05-27 00:58] VITALS: BP 112/75; TEMP 97.9; O2SAT 94
[2023-05-27] MEDS ORDERED: INSULIN GLARGINE, 100 UNIT/ML CARTRIDGE SQ SCH ×2 (01:10→22:00)
[2023-05-27 01:20] VITALS: BP 117/75; TEMP 97.9; O2SAT 94
[2023-05-27] MEDS ORDERED: INSULIN REGULAR, HUMAN 100 UNIT/ML 10 ML VIAL SQ ONE (01:30)
[2023-05-27] MEDS: ENOXAPARIN SODIUM 40 MG/0.4 ML DISP.SYRIN SQ SCH ×2 (01:41→23:03)
[2023-05-27] MEDS: HYDROCODONE/APAP 5/325MG TABLET PO PRN ×2 (02:03→08:25)
[2023-05-27] MEDS ORDERED: INSULIN GLARGINE, 100 UNIT/ML CARTRIDGE SQ ONE (02:14)
[2023-05-27] MEDS: Magnesium 1GM/D5W 100ML PREMIX 100 ML IV SCH ×2 (02:21→03:53)
[2023-05-27] MEDS: BLOOD SUGAR DIAGNOSTIC 1 EACH STRIP VI SCH ×5 (06:30→22:25)
[2023-05-27] MEDS: INSULIN REGULAR, HUMAN 100 UNIT/ML 3 ML VIAL SQ PRN ×3 (06:34→17:23)
[2023-05-27 07:30] VITALS: BP 126/83; TEMP 98.4; O2SAT 98
[2023-05-27] MEDS ORDERED: INSU100V7 SQ (07:37)
[2023-05-27] MEDS ORDERED: INSU100V SQ (07:37)
[2023-05-27] MEDS: PANTOPRAZOLE 40 MG TABLET.DR PO SCH (08:18)
[2023-05-27] MEDS ORDERED: IV NS 0.9% 1,000 ML IV PRN (11:00)
[2023-05-27 11:17] LABS: BASOPHILS % (AUTO) 0.9 % (0.0-2.0); EOSINOPHILS # (AUTO) 0.4 K/uL (0.0-0.7); EOSINOPHILS % (AUTO) 7.3 % (0.0-6.0); HEMATOCRIT 37 % (39-51); HEMOGLOBIN 12.4 g/dL (13.5-17.5); MEAN CORPUSCULAR HEMOGLOBIN 29 PG (26.0-33.0); MEAN CORPUSCULAR HGB CONC 34 g/dl (31.0-36.0); MEAN CORPUSCULAR VOLUME 85 fL (80-96); MONOCYTES # (AUTO) 0.5 K/uL (0.1-1.30); MONOCYTES % (AUTO) 9.1 % (2.0-12.0); NEUTROPHILS # (AUTO) 2.7 K/uL (1.8-8.9); NEUTROPHILS % (AUTO) 47.7 % (43.0-81.0); PLATELET COUNT (AUTO) 106 K/uL (150-450); RED BLOOD CELL COUNT(AUTO) 4.32 MIL/uL (4.5-6.0); RED CELL DISTRIBUTION WIDTH 13.6 % (11.5-15.0); WHITE BLOOD COUNT (AUTO) 5.6 K/uL (4.3-11.0)
[2023-05-27 11:48] LABS: CALCIUM, SERUM 8.4 mg/dL (8.5-10.1); MAGNESIUM 2.3 mg/dL (1.8-2.4); PHOSPHORUS 4.1 mg/dL (2.5-4.9); POTASSIUM 4.2 mmol/L (3.5-5.1)
[2023-05-27] MEDS: MORPHINE SULFATE INJ 4 MG/ML DISP.SYRIN IV PRN ×4 (13:20→22:41)
[2023-05-27 16:00] VITALS: BP 127/87; TEMP 98.7; O2SAT 98
[2023-05-27] MEDS: INSULIN LISPRO/ASPART 100 UNIT/ML CARTRIDGE SQ SCH (17:22)
[2023-05-27 20:00] VITALS: BP 123/91; TEMP 97.7; O2SAT 99
[2023-05-28] MEDS: MORPHINE SULFATE INJ 4 MG/ML DISP.SYRIN IV PRN ×3 (03:25→14:05)
[2023-05-28 07:30] VITALS: BP 124/87; TEMP 97.2; O2SAT 98
[2023-05-28] MEDS: PANTOPRAZOLE 40 MG TABLET.DR PO SCH (08:22)
[2023-05-28] MEDS: BLOOD SUGAR DIAGNOSTIC 1 EACH STRIP VI SCH ×2 (08:22→12:22)
[2023-05-28] MEDS: INSULIN LISPRO/ASPART 100 UNIT/ML CARTRIDGE SQ SCH (08:54)
[2023-05-28 11:12] LABS: BASOPHILS % (AUTO) 0.9 % (0.0-2.0); EOSINOPHILS # (AUTO) 0.4 K/uL (0.0-0.7); EOSINOPHILS % (AUTO) 7.3 % (0.0-6.0); HEMATOCRIT 42 % (39-51); HEMOGLOBIN 14.3 g/dL (13.5-17.5); LYMPHOCYTES % (AUTO) 38.3 % (20.0-44.0); MEAN CORPUSCULAR HEMOGLOBIN 29 PG (26.0-33.0); MEAN CORPUSCULAR HGB CONC 34 g/dl (31.0-36.0); MEAN CORPUSCULAR VOLUME 84 fL (80-96); MONOCYTES # (AUTO) 0.3 K/uL (0.1-1.30); MONOCYTES % (AUTO) 6.4 % (2.0-12.0); NEUTROPHILS # (AUTO) 2.4 K/uL (1.8-8.9); NEUTROPHILS % (AUTO) 47.1 % (43.0-81.0); PLATELET COUNT (AUTO) 192 K/uL (150-450); RED BLOOD CELL COUNT(AUTO) 4.98 MIL/uL (4.5-6.0); RED CELL DISTRIBUTION WIDTH 14.2 % (11.5-15.0); WHITE BLOOD COUNT (AUTO) 5.2 K/uL (4.3-11.0)
[2023-05-28 11:44] LABS: ALBUMIN 3.5 g/dL (3.4-5.0); BILIRUBIN,TOTAL 0.2 mg/dL (0.2-1.0); CALCIUM, SERUM 9.3 mg/dL (8.5-10.1); CREATININE 0.8 mg/dL (0.6-1.3); PHOSPHORUS 3.9 mg/dL (2.5-4.9); POTASSIUM 4.4 mmol/L (3.5-5.1); TOTAL PROTEIN, SERUM 7.3 g/dL (6.4-8.2)
[2023-05-28] MEDS: INSULIN REGULAR, HUMAN 100 UNIT/ML 3 ML VIAL SQ PRN (12:26)
== END 2023-05-28 15:30 | disposition home health service (06) | DRG 638 ==
LOC: ER 19:02 → MED 05-27 00:40
PROVIDERS: ADMIT Nurse Practitioner Family
DX: E10.10 Type 1 diabetes mellitus with ketoacidosis without coma (principal); E44.1 Mild protein-calorie malnutrition; L97.419 Non-pressure chronic ulcer of right heel and midfoot with unspecified severity; E10.42 Type 1 diabetes mellitus with diabetic polyneuropathy; E10.621 Type 1 diabetes mellitus with foot ulcer; Z79.4 Long term (current) use of insulin; G40.909 Epilepsy, unspecified, not intractable, without status epilepticus; W05.0XXA Fall from non-moving wheelchair, initial encounter; Y92.009 Unspecified place in unspecified non-institutional (private) residence as the place of occurrence of the external cause; I10 Essential (primary) hypertension; E78.00 Pure hypercholesterolemia, unspecified; Z90.49 Acquired absence of other specified parts of digestive tract; Z88.8 Allergy status to other drugs, medicaments and biological substances; Z98.890 Other specified postprocedural states; M54.9 Dorsalgia, unspecified; Z59.00 Homelessness unspecified; Z82.49 Family history of ischemic heart disease and other diseases of the circulatory system; M89.8X9 Other specified disorders of bone, unspecified site; E88.09 Other disorders of plasma-protein metabolism, not elsewhere classified; Z83.3 Family history of diabetes mellitus; Z87.440 Personal history of urinary (tract) infections; F32.A Depression, unspecified; F12.90 Cannabis use, unspecified, uncomplicated; D64.9 Anemia, unspecified; E83.42 Hypomagnesemia; E86.0 Dehydration
CPT/HCPCS: 36415; 73080-TC; 80048-TC; 80053-TC; 80076-TC; 82010-TC; 82803-TC; 82962-TC; 83735-TC; 84100-TC; 85025-TC; 87081-TC; 97112-TC; 97116-TC; 97530-TC; A4223; G0378; J1650; J1815; J1885; J2270; J3475; J3490; J7030

== ENCOUNTER 2023-07-18 12:44 | Inpatient (IN) | payer MEDICARE, OTHER ==
[~2023-07-18] VITALS: Ht 185.4 cm; Wt 73.5 kg
[~2023-07-18 12:44] MED LIST changes: -CEFT2FRO2 IV; -HYDR-3972 PO; -IBUP-1957 PO; -INSU100I14 SQ; +INSU100V SQ; -METR500T PO; -VANC750F2 IV
[2023-07-18] MEDS ORDERED: INSU100I40 SQ (14:19)
[2023-07-18] MEDS ORDERED: BLOO-668 IN (14:19)
[2023-07-18] MEDS ORDERED: VANCOMYCIN 1 GM in IV D5W 250 ML IV ONE (14:30)
[2023-07-18] MEDS ORDERED: PIPERACILLIN /TAZOBACTAM 3.375 G in IV D5W 50 ML IV ONE (14:30)
[2023-07-18] MEDS ORDERED: IV NS 0.9% 1,000 ML BAG IV ONE (14:30)
[2023-07-18] MEDS ORDERED: MAG HYDROX/AL HYDROX/SIMETH 30 ML UDC PO PRN (17:00)
[2023-07-18] MEDS ORDERED: ONDANSETRON HCL/PF 4 MG/2 ML VIAL IVP PRN (17:00)
[2023-07-18] MEDS ORDERED: Z GUARD REMEDY 4 OZ OINT TP PRN (17:00)
[2023-07-18] MEDS ORDERED: MAGNESIUM HYDROXIDE 30 ML UDC PO PRN (17:00)
[2023-07-18] MEDS ORDERED: DEXTROSE 50%-WATER 50 ML DISP.SYRIN IV PRN (17:00)
[2023-07-18] MEDS ORDERED: ACETAMINOPHEN 325 MG TABLET PO PRN (17:00)
[2023-07-18] MEDS ORDERED: HYDROCODONE/APAP 5/325MG TABLET ONE (19:36)
[2023-07-18] MEDS: HYDROCODONE/APAP 5/325MG TABLET PO PRN (19:39)
[2023-07-18 20:54] LABS: BASOPHILS % (AUTO) 0.8 % (0.0-2.0); EOSINOPHILS # (AUTO) 0.2 K/uL (0.0-0.7); HEMATOCRIT 44 % (39-51); HEMOGLOBIN 14.7 g/dL (13.5-17.5); LYMPHOCYTES # (AUTO) 1.3 K/uL (0.8-4.8); LYMPHOCYTES % (AUTO) 36.5 % (20.0-44.0); MEAN CORPUSCULAR HEMOGLOBIN 29 PG (26.0-33.0); MEAN CORPUSCULAR HGB CONC 34 g/dl (31.0-36.0); MEAN CORPUSCULAR VOLUME 86 fL (80-96); MONOCYTES # (AUTO) 0.3 K/uL (0.1-1.30); MONOCYTES % (AUTO) 9.4 % (2.0-12.0); NEUTROPHILS # (AUTO) 1.7 K/uL (1.8-8.9); NEUTROPHILS % (AUTO) 47.3 % (43.0-81.0); PLATELET COUNT (AUTO) 182 K/uL (150-450); RED CELL DISTRIBUTION WIDTH 14.6 % (11.5-15.0); WHITE BLOOD COUNT (AUTO) 3.5 K/uL (4.3-11.0)
[2023-07-18] MEDS ORDERED: MORPHINE SULFATE INJ 4 MG/ML DISP.SYRIN ONE (20:56)
[2023-07-18 21:07] LABS: INR 0.95 (0.91-1.10); PARTIAL THROMBOPLASTIN TIME 22.7 SEC (24.3-34.3); PROTHROMBIN TIME 10.1 SECS (9.2-11.1)
[2023-07-18 21:15] VITALS: BP 143/95; TEMP 98.1; O2SAT 98
[2023-07-18 21:17] LABS: CALCIUM, SERUM 9.6 mg/dL (8.5-10.1); CARBON DIOXIDE 26 mmol/L (21-32); CHLORIDE 103 mmol/L (98-107); CREATININE 0.9 mg/dL (0.6-1.3); GLUCOSE 311 mg/dL (74-106); POTASSIUM 4.5 mmol/L (3.5-5.1); SODIUM SERUM 139 mmol/L (136-145); UREA NITROGEN, BLOOD 12 mg/dL (7-18)
[2023-07-18 21:21] LABS: ALANINE AMINOTRANSFERASE 67 U/L (12-78); ALBUMIN 4.1 g/dL (3.4-5.0); ALKALINE PHOSPHATASE 140 U/L (46-116); ASPARTATE AMINOTRANSFERASE 21 U/L (15-37); BILIRUBIN,TOTAL 0.2 mg/dL (0.2-1.0)
[2023-07-18] MEDS ORDERED: MORPHINE SULFATE INJ 4 MG/ML DISP.SYRIN IV ONE (21:30)
[2023-07-18] MEDS ORDERED: INSULIN GLARGINE, 100 UNIT/ML CARTRIDGE SQ SCH (22:00)
[2023-07-18] MEDS: *INSULIN REGULAR(HUMULIN R)HUM 100 UNIT/ML VIAL SQ PRN (23:00)
[2023-07-18] MEDS: BLOOD SUGAR DIAGNOSTIC 1 EACH STRIP VI SCH (23:03)
[2023-07-19] MEDS: HYDROCODONE/APAP 5/325MG TABLET PO PRN (00:03)
[2023-07-19] MEDS: MORPHINE SULFATE INJ 2 MG/ML DISP.SYRIN IV PRN ×3 (01:54→17:42)
[2023-07-19] MEDS: INSULIN REGULAR, HUMAN 100 UNIT/ML 3 ML VIAL SQ PRN ×2 (06:37→12:04)
[2023-07-19] MEDS: BLOOD SUGAR DIAGNOSTIC 1 EACH STRIP VI SCH ×4 (06:37→21:52)
[2023-07-19] MEDS ORDERED: IV NS 0.9% 250 ML BAG IV PRN (07:00)
[2023-07-19] MEDS ORDERED: IV NS 0.9% 250 ML BAG IV ONE (07:00)
[2023-07-19] MEDS: ZOSYN IVPB 3.375 G in IV D5W 50ml IV SCH ×3 (07:00→18:46)
[2023-07-19] MEDS ORDERED: VANCOMYCIN 1.5 GM in IV D5W 500ml IV ONE (08:00)
[2023-07-19] MEDS: PANTOPRAZOLE 40 MG TABLET.DR PO SCH (08:14)
[2023-07-19] MEDS: BACITRACIN ZINC OINT (15 GM) 15 GM TUBE TP SCH ×2 (09:47→17:35)
[2023-07-19] MEDS: MUPIROCIN OINT 2% 22 GM TUBE TP SCH ×2 (09:48→21:52)
[2023-07-19] MEDS ORDERED: INSU100V7 SQ (14:24)
[2023-07-19 16:00] VITALS: BP 136/89; TEMP 97.5; O2SAT 100
[2023-07-19] MEDS: INSULIN ASPART/LISPRO 100 UNIT/ML CARTRIDGE SQ SCH (17:30)
[2023-07-19] MEDS: VANCOMYCIN 1 GM in IV D5W 250ml IV SCH ×2 (17:34→23:56)
[2023-07-19 20:38] VITALS: BP 120/86; TEMP 98.2; O2SAT 97
[2023-07-19] MEDS: INSULIN GLARGINE, 100 UNIT/ML CARTRIDGE SQ SCH (21:30)
[2023-07-19] MEDS: *INSULIN REGULAR(HUMULIN R)HUM 100 UNIT/ML VIAL SQ PRN (21:39)
[2023-07-20] MEDS: MORPHINE SULFATE INJ 2 MG/ML DISP.SYRIN IV PRN ×4 (00:24→23:01)
[2023-07-20] MEDS: ZOSYN IVPB 3.375 G in IV D5W 50ml IV SCH ×5 (01:23→23:02)
[2023-07-20 05:56] LABS: BASOPHILS # (AUTO) 0.1 K/uL (0.0-0.2); BASOPHILS % (AUTO) 2.1 % (0.0-2.0); EOSINOPHILS # (AUTO) 0.3 K/uL (0.0-0.7); EOSINOPHILS % (AUTO) 7.4 % (0.0-6.0); HEMATOCRIT 38 % (39-51); HEMOGLOBIN 12.9 g/dL (13.5-17.5); LYMPHOCYTES # (AUTO) 1.5 K/uL (0.8-4.8); LYMPHOCYTES % (AUTO) 35.5 % (20.0-44.0); MEAN CORPUSCULAR HEMOGLOBIN 29 PG (26.0-33.0); MEAN CORPUSCULAR HGB CONC 34 g/dl (31.0-36.0); MEAN CORPUSCULAR VOLUME 85 fL (80-96); MONOCYTES # (AUTO) 0.4 K/uL (0.1-1.30); NEUTROPHILS # (AUTO) 1.9 K/uL (1.8-8.9); PLATELET COUNT (AUTO) 170 K/uL (150-450); RED BLOOD CELL COUNT(AUTO) 4.49 MIL/uL (4.5-6.0); RED CELL DISTRIBUTION WIDTH 14.2 % (11.5-15.0); WHITE BLOOD COUNT (AUTO) 4.2 K/uL (4.3-11.0)
[2023-07-20] MEDS: HYDROCODONE/APAP 5/325MG TABLET PO PRN ×2 (06:15→20:46)
[2023-07-20 06:29] LABS: ALBUMIN 3.1 g/dL (3.4-5.0); BILIRUBIN,TOTAL 0.5 mg/dL (0.2-1.0); CALCIUM, SERUM 8.8 mg/dL (8.5-10.1); CREATININE 0.9 mg/dL (0.6-1.3); MAGNESIUM 1.9 mg/dL (1.8-2.4); PHOSPHORUS 4.4 mg/dL (2.5-4.9); POTASSIUM 4.2 mmol/L (3.5-5.1); TOTAL PROTEIN, SERUM 6.3 g/dL (6.4-8.2)
[2023-07-20] MEDS: BLOOD SUGAR DIAGNOSTIC 1 EACH STRIP VI SCH ×4 (06:35→21:35)
[2023-07-20] MEDS: INSULIN REGULAR, HUMAN 100 UNIT/ML 3 ML VIAL SQ PRN (06:37)
[2023-07-20] MEDS: INSULIN ASPART/LISPRO 100 UNIT/ML CARTRIDGE SQ SCH ×3 (07:30→17:26)
[2023-07-20 08:00] VITALS: BP 123/78; TEMP 97.9; O2SAT 99
[2023-07-20] MEDS: PANTOPRAZOLE 40 MG TABLET.DR PO SCH (08:08)
[2023-07-20] MEDS: VANCOMYCIN 1 GM in IV D5W 250ml IV SCH ×3 (08:36→23:44)
[2023-07-20] MEDS: MUPIROCIN OINT 2% 22 GM TUBE TP SCH ×2 (09:09→20:42)
[2023-07-20] MEDS: BACITRACIN ZINC OINT (15 GM) 15 GM TUBE TP SCH ×2 (09:09→17:28)
[2023-07-20] MEDS ORDERED: GADOTERATE MEGLUMINE 10 MMOL/20 ML VIAL IV ONE (12:28)
[2023-07-20 16:00] VITALS: BP 115/69; TEMP 98.1; O2SAT 100
[2023-07-20 20:00] VITALS: BP 121/75; TEMP 98.3; O2SAT 98
[2023-07-20] MEDS: *INSULIN REGULAR(HUMULIN R)HUM 100 UNIT/ML VIAL SQ PRN (21:44)
[2023-07-20] MEDS: INSULIN GLARGINE, 100 UNIT/ML CARTRIDGE SQ SCH (21:48)
[2023-07-21] MEDS: ZOSYN IVPB 3.375 G in IV D5W 50ml IV SCH ×3 (05:02→17:12)
[2023-07-21] MEDS: MORPHINE SULFATE INJ 2 MG/ML DISP.SYRIN IV PRN (06:15)
[2023-07-21] MEDS: BLOOD SUGAR DIAGNOSTIC 1 EACH STRIP VI SCH ×4 (06:38→21:34)
[2023-07-21] MEDS: INSULIN REGULAR, HUMAN 100 UNIT/ML 3 ML VIAL SQ PRN ×2 (06:41→17:14)
[2023-07-21 07:19] LABS: CALCIUM, SERUM 8.9 mg/dL (8.5-10.1); CREATININE 0.9 mg/dL (0.6-1.3); POTASSIUM 4.4 mmol/L (3.5-5.1)
[2023-07-21 08:29] VITALS: BP 121/77; TEMP 98.1; O2SAT 97
[2023-07-21] MEDS: VANCOMYCIN 1 GM in IV D5W 250ml IV SCH ×3 (08:43→23:17)
[2023-07-21] MEDS: PANTOPRAZOLE 40 MG TABLET.DR PO SCH (08:43)
[2023-07-21] MEDS: INSULIN ASPART/LISPRO 100 UNIT/ML CARTRIDGE SQ SCH ×3 (08:45→17:16)
[2023-07-21] MEDS: BACITRACIN ZINC OINT (15 GM) 15 GM TUBE TP SCH ×2 (08:47→17:18)
[2023-07-21] MEDS: MUPIROCIN OINT 2% 22 GM TUBE TP SCH ×2 (08:47→21:29)
[2023-07-21] MEDS: MORPHINE SULFATE INJ 4 MG/ML DISP.SYRIN IV PRN ×2 (12:56→19:36)
[2023-07-21 16:11] VITALS: BP 112/75; TEMP 97.9; O2SAT 97
[2023-07-21 20:00] VITALS: BP 114/69; TEMP 97.7; O2SAT 99
[2023-07-21] MEDS: INSULIN GLARGINE, 100 UNIT/ML CARTRIDGE SQ SCH (21:48)
[2023-07-22] MEDS: ZOSYN IVPB 3.375 G in IV D5W 50ml IV SCH ×5 (00:33→23:40)
[2023-07-22] MEDS: HYDROCODONE/APAP 5/325MG TABLET PO PRN ×4 (00:44→20:25)
[2023-07-22] MEDS: MORPHINE SULFATE INJ 4 MG/ML DISP.SYRIN IV PRN ×4 (03:48→22:43)
[2023-07-22] MEDS: BLOOD SUGAR DIAGNOSTIC 1 EACH STRIP VI SCH ×4 (06:40→21:58)
[2023-07-22] MEDS: INSULIN REGULAR, HUMAN 100 UNIT/ML 3 ML VIAL SQ PRN ×3 (06:45→17:15)
[2023-07-22 07:04] LABS: CREATININE 0.8 mg/dL (0.6-1.3); POTASSIUM 3.8 mmol/L (3.5-5.1)
[2023-07-22 08:00] VITALS: BP 117/79; TEMP 97.8; O2SAT 100
[2023-07-22] MEDS: PANTOPRAZOLE 40 MG TABLET.DR PO SCH (08:09)
[2023-07-22] MEDS: INSULIN ASPART/LISPRO 100 UNIT/ML CARTRIDGE SQ SCH ×3 (08:16→17:15)
[2023-07-22] MEDS: MUPIROCIN OINT 2% 22 GM TUBE TP SCH ×2 (08:16→21:40)
[2023-07-22] MEDS: BACITRACIN ZINC OINT (15 GM) 15 GM TUBE TP SCH ×2 (08:16→17:16)
[2023-07-22] MEDS: VANCOMYCIN 1 GM in IV D5W 250ml IV SCH ×2 (08:17→16:02)
[2023-07-22 16:00] VITALS: BP 120/88; TEMP 98.4; O2SAT 96
[2023-07-22 20:00] VITALS: BP 113/83; TEMP 97.9; O2SAT 100
[2023-07-22] MEDS: INSULIN GLARGINE, 100 UNIT/ML CARTRIDGE SQ SCH (22:00)
[2023-07-23] MEDS: VANCOMYCIN 1 GM in IV D5W 250ml IV SCH ×3 (00:15→16:00)
[2023-07-23] MEDS: BLOOD SUGAR DIAGNOSTIC 1 EACH STRIP VI SCH ×4 (05:43→22:42)
[2023-07-23] MEDS: ZOSYN IVPB 3.375 G in IV D5W 50ml IV SCH ×3 (05:43→17:00)
[2023-07-23] MEDS: INSULIN REGULAR, HUMAN 100 UNIT/ML 3 ML VIAL SQ PRN (05:56)
[2023-07-23] MEDS: MORPHINE SULFATE INJ 4 MG/ML DISP.SYRIN IV PRN ×3 (06:06→19:32)
[2023-07-23 07:00] VITALS: BP 112/80; TEMP 97.7; O2SAT 100
[2023-07-23 07:16] LABS: CALCIUM, SERUM 9.2 mg/dL (8.5-10.1); CREATININE 1.1 mg/dL (0.6-1.3); POTASSIUM 4.2 mmol/L (3.5-5.1)
[2023-07-23] MEDS ORDERED: LIDOCAINE HCL/MPF 1% 30 ML VIAL IJ ONE (07:19)
[2023-07-23] MEDS ORDERED: BUPIVACAINE 0.5 % PF 150 MG/30 ML VIAL ONE (07:19)
[2023-07-23] MEDS: PANTOPRAZOLE 40 MG TABLET.DR PO SCH (07:30)
[2023-07-23] MEDS: INSULIN ASPART/LISPRO 100 UNIT/ML CARTRIDGE SQ SCH ×3 (08:04→17:30)
[2023-07-23] MEDS: MUPIROCIN OINT 2% 22 GM TUBE TP SCH ×2 (09:00→21:00)
[2023-07-23] MEDS: BACITRACIN ZINC OINT (15 GM) 15 GM TUBE TP SCH ×2 (09:00→16:20)
[2023-07-23] MEDS ORDERED: FENTANYL PF 100MCG/2ML AMPUL ONE (09:46)
[2023-07-23] MEDS ORDERED: HYDROMORPHONE INJ 2 MG/ML DISP.SYRIN ONE (09:46)
[2023-07-23] MEDS ORDERED: MIDAZOLAM HCL 2 MG/2ML VIAL ONE (09:46)
[2023-07-23] MEDS ORDERED: FENTANYL PF 250MCG/5ML AMPUL ONE (09:46)
[2023-07-23] MEDS ORDERED: FAMOTIDINE/PF INJ 20 MG/2 ML VIAL IV ONE (09:47)
[2023-07-23] MEDS ORDERED: BACITRACIN/POLYMYXIN B 15 GM TUBE TP ONE (11:14)
[2023-07-23] MEDS ORDERED: HYDROMORPHONE 1 MG/1 ML DISP.SYRIN ONE (11:45)
[2023-07-23] MEDS ORDERED: ANESTHESIA TRAY IN PYXIS 1 EA TRAY MC ONE (13:20)
[2023-07-23 16:31] VITALS: BP 128/82; TEMP 97.6; O2SAT 98
[2023-07-23] MEDS: HYDROCODONE/APAP 5/325MG TABLET PO PRN (17:39)
[2023-07-23 20:00] VITALS: BP 113/74; TEMP 98.6; O2SAT 98
[2023-07-23] MEDS: INSULIN GLARGINE, 100 UNIT/ML CARTRIDGE SQ SCH (22:45)
[2023-07-23] MEDS: *INSULIN REGULAR(HUMULIN R)HUM 100 UNIT/ML VIAL SQ PRN (22:47)
[2023-07-24] MEDS: VANCOMYCIN HCL 0.75 GM in IV D5W 250 ML IV SCH ×3 (00:46→17:48)
[2023-07-24] MEDS: MORPHINE SULFATE INJ 4 MG/ML DISP.SYRIN IV PRN ×4 (01:58→20:06)
[2023-07-24] MEDS: HYDROCODONE/APAP 5/325MG TABLET PO PRN ×2 (04:08→17:50)
[2023-07-24] MEDS: BLOOD SUGAR DIAGNOSTIC 1 EACH STRIP VI SCH ×4 (06:34→21:48)
[2023-07-24 06:38] LABS: CALCIUM, SERUM 9.3 mg/dL (8.5-10.1); CREATININE 1.2 mg/dL (0.6-1.3); POTASSIUM 4.2 mmol/L (3.5-5.1)
[2023-07-24] MEDS: INSULIN REGULAR, HUMAN 100 UNIT/ML 3 ML VIAL SQ PRN (06:48)
[2023-07-24] MEDS: PANTOPRAZOLE 40 MG TABLET.DR PO SCH (07:38)
[2023-07-24] MEDS: INSULIN ASPART/LISPRO 100 UNIT/ML CARTRIDGE SQ SCH ×3 (07:51→16:33)
[2023-07-24 08:00] VITALS: BP 121/99; TEMP 98.2; O2SAT 99
[2023-07-24] MEDS: BACITRACIN ZINC OINT (15 GM) 15 GM TUBE TP SCH ×2 (09:00→16:25)
[2023-07-24] MEDS: MUPIROCIN OINT 2% 22 GM TUBE TP SCH ×2 (09:00→21:40)
[2023-07-24] MEDS: RIFAMPIN 300 MG CAPSULE PO SCH (10:25)
[2023-07-24] MEDS ORDERED: HYDROMORPHONE 1 MG/1 ML DISP.SYRIN IV ONE (11:00)
[2023-07-24 16:00] VITALS: BP 120/58; TEMP 98.2; O2SAT 97
[2023-07-24 20:00] VITALS: BP 138/96; TEMP 98.6; O2SAT 96
[2023-07-24] MEDS: INSULIN GLARGINE, 100 UNIT/ML CARTRIDGE SQ SCH (21:47)
[2023-07-24] MEDS: *INSULIN REGULAR(HUMULIN R)HUM 100 UNIT/ML VIAL SQ PRN (21:49)
[2023-07-25] MEDS: VANCOMYCIN HCL 0.75 GM in IV D5W 250 ML IV SCH ×2 (00:16→07:40)
[2023-07-25] MEDS: MORPHINE SULFATE INJ 4 MG/ML DISP.SYRIN IV PRN ×3 (02:07→14:20)
[2023-07-25] MEDS: HYDROCODONE/APAP 5/325MG TABLET PO PRN ×2 (04:30→11:34)
[2023-07-25] MEDS: BLOOD SUGAR DIAGNOSTIC 1 EACH STRIP VI SCH ×2 (06:29→11:11)
[2023-07-25] MEDS: INSULIN REGULAR, HUMAN 100 UNIT/ML 3 ML VIAL SQ PRN ×2 (06:31→11:12)
[2023-07-25 06:36] LABS: CALCIUM, SERUM 8.9 mg/dL (8.5-10.1); CREATININE 1.1 mg/dL (0.6-1.3)
[2023-07-25] MEDS: PANTOPRAZOLE 40 MG TABLET.DR PO SCH (07:22)
[2023-07-25] MEDS: INSULIN ASPART/LISPRO 100 UNIT/ML CARTRIDGE SQ SCH ×2 (08:05→11:12)
[2023-07-25] MEDS: RIFAMPIN 300 MG CAPSULE PO SCH (08:12)
[2023-07-25] MEDS: BACITRACIN ZINC OINT (15 GM) 15 GM TUBE TP SCH (08:13)
[2023-07-25] MEDS: MUPIROCIN OINT 2% 22 GM TUBE TP SCH (08:14)
[2023-07-25 08:25] VITALS: BP 135/68; TEMP 98.2; O2SAT 97
== END 2023-07-25 15:00 | disposition home health service (06) | DRG 571 ==
LOC: ER 12:44 → MED 17:07 → TELE 07-22 16:04 → MED 07-22 16:36
PROVIDERS: ATTEND Internal Medicine
PROC: 0JBQ0ZZ Excision of Right Foot Subcutaneous Tissue and Fascia, Open Approach (ICD-10-PCS; principal; 2023-07-19)
PROC: 0QBN0ZX Excision of Right Metatarsal, Open Approach, Diagnostic (ICD-10-PCS; 2023-07-23)
PROC: 0QBQ0ZZ Excision of Right Toe Phalanx, Open Approach (ICD-10-PCS; 2023-07-23)
PROC: 0SNP0ZZ Release Right Toe Phalangeal Joint, Open Approach (ICD-10-PCS; 2023-07-23)
PROC: 0L8V0ZZ Division of Right Foot Tendon, Open Approach (ICD-10-PCS; 2023-07-23)
PROC: 0SGP04Z Fusion of Right Toe Phalangeal Joint with Internal Fixation Device, Open Approach (ICD-10-PCS; 2023-07-23)
DX: L03.115 Cellulitis of right lower limb (principal); M86.8X7 Other osteomyelitis, ankle and foot; E11.69 Type 2 diabetes mellitus with other specified complication; L97.519 Non-pressure chronic ulcer of other part of right foot with unspecified severity; G40.909 Epilepsy, unspecified, not intractable, without status epilepticus; E11.621 Type 2 diabetes mellitus with foot ulcer; E11.42 Type 2 diabetes mellitus with diabetic polyneuropathy; M20.41 Other hammer toe(s) (acquired), right foot; E78.5 Hyperlipidemia, unspecified; I10 Essential (primary) hypertension; Z90.49 Acquired absence of other specified parts of digestive tract; Z85.841 Personal history of malignant neoplasm of brain; Z98.890 Other specified postprocedural states; F31.9 Bipolar disorder, unspecified; F41.9 Anxiety disorder, unspecified; Z79.4 Long term (current) use of insulin; Z83.3 Family history of diabetes mellitus; Z82.49 Family history of ischemic heart disease and other diseases of the circulatory system; Z88.8 Allergy status to other drugs, medicaments and biological substances; D63.8 Anemia in other chronic diseases classified elsewhere; M20.42 Other hammer toe(s) (acquired), left foot; M12.871 Other specific arthropathies, not elsewhere classified, right ankle and foot; A49.02 Methicillin resistant Staphylococcus aureus infection, unspecified site
CPT/HCPCS: 36410; 36415; 36569; 38221; 71045-TC; 73620-TC; 73630-TC; 73720-TC; 80048-TC; 80053-TC; 80076-TC; 80202-TC; 82962-TC; 83605-TC; 83735-TC; 84100-TC; 85025-TC; 85652-TC; 85730-TC; 86140-TC; 87040-TC; 97110-TC; 97116-TC; 97530-TC; A4223; A6403; A9575; G0378; J0690; J1170; J1815; J2250; J2270; J2405; J2543; J2704; J2765; J3010; J3370; J3490; J7030; J7050; J7060

== ENCOUNTER 2023-10-09 15:41 | Inpatient (IN) | payer MEDICARE, OTHER ==
[~2023-10-09] VITALS: Ht 188 cm; Wt 73.5 kg
[~2023-10-09 15:41] MED LIST changes: +BLOO-668 IN; +INSU100I40 SQ; -INSU100V SQ
[2023-10-09] MEDS ORDERED: INSU100I14 SQ (17:05)
[2023-10-09] MEDS ORDERED: BLOOD SUGAR DIAGNOSTIC 1 EACH STRIP IN SCH (17:30)
[2023-10-09] MEDS ORDERED: INSULIN REGULAR, HUMAN 100 UNIT/ML 3 ML VIAL SQ PRN (17:30)
[2023-10-09] MEDS ORDERED: DEXTROSE 50%-WATER 50 ML DISP.SYRIN IV PRN ×2 (17:30→21:30)
[2023-10-09] MEDS ORDERED: ONDANSETRON HCL/PF 4 MG/2 ML VIAL IVP PRN (17:30)
[2023-10-09] MEDS ORDERED: ACETAMINOPHEN 325 MG TABLET PO PRN (17:30)
[2023-10-09 17:37] LABS: BASOPHILS % (AUTO) 0.6 % (0.0-2.0); EOSINOPHILS # (AUTO) 0.3 K/uL (0.0-0.7); HEMATOCRIT 38 % (39-51); HEMOGLOBIN 12.7 g/dL (13.5-17.5); LYMPHOCYTES # (AUTO) 1.7 K/uL (0.8-4.8); LYMPHOCYTES % (AUTO) 23.2 % (20.0-44.0); MEAN CORPUSCULAR HEMOGLOBIN 27 PG (26.0-33.0); MEAN CORPUSCULAR HGB CONC 34 g/dl (31.0-36.0); MEAN CORPUSCULAR VOLUME 80 fL (80-96); MONOCYTES # (AUTO) 0.5 K/uL (0.1-1.30); MONOCYTES % (AUTO) 6.7 % (2.0-12.0); NEUTROPHILS # (AUTO) 4.8 K/uL (1.8-8.9); NEUTROPHILS % (AUTO) 65.5 % (43.0-81.0); PLATELET COUNT (AUTO) 286 K/uL (150-450); RED BLOOD CELL COUNT(AUTO) 4.72 MIL/uL (4.5-6.0); RED CELL DISTRIBUTION WIDTH 13.3 % (11.5-15.0); WHITE BLOOD COUNT (AUTO) 7.4 K/uL (4.3-11.0)
[2023-10-09 17:48] LABS: CALCIUM, SERUM 9.6 mg/dL (8.5-10.1); CREATININE 0.9 mg/dL (0.6-1.3); POTASSIUM 4.3 mmol/L (3.5-5.1)
[2023-10-09 17:51] LABS: INR 0.95 (0.91-1.10); PARTIAL THROMBOPLASTIN TIME 30.8 SEC (24.3-34.3); PROTHROMBIN TIME 10.1 SECS (9.2-11.1)
[2023-10-09 17:54] LABS: ALBUMIN 3.4 g/dL (3.4-5.0); BILIRUBIN,DIRECT 0.1 mg/dL (0.0-0.2); BILIRUBIN,TOTAL 0.2 mg/dL (0.2-1.0); TOTAL PROTEIN, SERUM 8.9 g/dL (6.4-8.2)
[2023-10-09] MEDS: IV NS 0.9% 1,000 ML BAG IV ONE (19:55)
[2023-10-09] MEDS: PIPERACILLIN /TAZOBACTAM 3.375 G in IV D5W 50 ML IV ONE (19:55)
[2023-10-09 20:30] VITALS: BP 118/87; TEMP 98.4; O2SAT 98
[2023-10-09] MEDS ORDERED: CEFTAZIDIME 1 G in IV D5W 50 ML IV SCH (21:00)
[2023-10-09] MEDS: INSULIN REGULAR, HUMAN 100 UNIT/ML 10 ML VIAL SQ ONE (21:23)
[2023-10-09] MEDS: *INSULIN REGULAR(HUMULIN R)HUM 100 UNIT/ML VIAL SQ PRN (21:24)
[2023-10-09] MEDS: BLOOD SUGAR DIAGNOSTIC 1 EACH STRIP VI SCH (21:24)
[2023-10-09 21:26] LABS: APPEARANCE,URINE CLEAR (CLEAR); BILIRUBIN,URINE NEGATIVE (NEGATIVE); BLOOD, URINE TRACE-INTA Ery/uL (NEGATIVE); COLOR,URINE YELLOW (YELLOW); KETONES,URINE 1+ mg/dL (NEGATIVE); LEUKOCYTE ESTERASE ,URINE NEGATIVE (NEGATIVE); NITRITE, URINE NEGATIVE (NEGATIVE); PH,URINE 5.5 (5.0-8.0); PROTEIN,URINE NEGATIVE (NEGATIVE); UGLUCOSE 3+ mg/dL (NEGATIVE); UROBILINOGEN,URINE 0.2 EU/dL (0.2)
[2023-10-09] MEDS: HYDROCODONE/APAP 10/325MG TABLET PO PRN (21:28)
[2023-10-09] MEDS: VANCOMYCIN 1 GM in IV D5W 250 ML IV ONE (22:07)
[2023-10-09] MEDS: INSULIN GLARGINE, 100 UNIT/ML CARTRIDGE SQ SCH (22:37)
[2023-10-09] MEDS: CEFTAZIDIME 1 G in IV D5W 50 ML IV SCH (23:52)
[2023-10-10] MEDS: VANCOMYCIN 1 GM in IV D5W 250ml IV SCH (05:53)
[2023-10-10] MEDS: INSULIN REGULAR, HUMAN 100 UNIT/ML 3 ML VIAL SQ PRN ×2 (06:35→16:49)
[2023-10-10 07:00] VITALS: BP 117/83; TEMP 98.4; O2SAT 99
[2023-10-10] MEDS: HYDROCODONE/APAP 10/325MG TABLET PO PRN (12:21)
[2023-10-10] MEDS ORDERED: DEXTROSE 50%-WATER 50 ML DISP.SYRIN IV PRN (12:30)
[2023-10-10 14:44] LABS: BASOPHILS % (AUTO) 0.7 % (0.0-2.0); EOSINOPHILS # (AUTO) 0.3 K/uL (0.0-0.7); HEMATOCRIT 36 % (39-51); HEMOGLOBIN 12.3 g/dL (13.5-17.5); LYMPHOCYTES # (AUTO) 1.7 K/uL (0.8-4.8); LYMPHOCYTES % (AUTO) 27.3 % (20.0-44.0); MEAN CORPUSCULAR HEMOGLOBIN 27 PG (26.0-33.0); MEAN CORPUSCULAR HGB CONC 34 g/dl (31.0-36.0); MEAN CORPUSCULAR VOLUME 79 fL (80-96); MONOCYTES # (AUTO) 0.5 K/uL (0.1-1.30); MONOCYTES % (AUTO) 7.2 % (2.0-12.0); NEUTROPHILS # (AUTO) 3.8 K/uL (1.8-8.9); NEUTROPHILS % (AUTO) 59.8 % (43.0-81.0); PLATELET COUNT (AUTO) 251 K/uL (150-450); RED BLOOD CELL COUNT(AUTO) 4.52 MIL/uL (4.5-6.0); RED CELL DISTRIBUTION WIDTH 13.2 % (11.5-15.0); WHITE BLOOD COUNT (AUTO) 6.4 K/uL (4.3-11.0)
[2023-10-10 14:58] LABS: CREATININE 0.9 mg/dL (0.6-1.3); MAGNESIUM 1.7 mg/dL (1.8-2.4); PHOSPHORUS 3.7 mg/dL (2.5-4.9); POTASSIUM 4.1 mmol/L (3.5-5.1)
[2023-10-10 16:00] VITALS: BP 99/67; TEMP 97; O2SAT 97
[2023-10-10] MEDS: BLOOD SUGAR DIAGNOSTIC 1 EACH STRIP IN SCH (16:51)
[2023-10-10] MEDS: *INSULIN REGULAR(HUMULIN R)HUM 100 UNIT/ML VIAL SQ PRN (21:10)
[2023-10-10 22:56] VITALS: BP 112/73; TEMP 98.4; O2SAT 98
[2023-10-11 06:12] LABS: CREATININE 1.1 mg/dL (0.6-1.3)
[2023-10-11 06:29] LABS: MAGNESIUM 1.7 mg/dL (1.8-2.4); PHOSPHORUS 4.2 mg/dL (2.5-4.9); THYROID STIMULATING HORMONE 4.544 uIU/mL (0.358-3.74); URIC ACID 4.5 mg/dL (2.6-7.2)
[2023-10-11 07:00] VITALS: BP 114/75; TEMP 97.9; O2SAT 98
[2023-10-11] MEDS: MAGNESIUM OXIDE 400 MG TABLET PO ONE (09:38)
[2023-10-11] MEDS: GLUCERNA SHAKE 237 ML CAN PO SCH (12:09)
[2023-10-11] MEDS: MUPIROCIN OINT 2% 22 GM TUBE TP SCH (12:32)
[2023-10-11] MEDS: VANCOMYCIN 0.75 GM in IV D5W 250 ML IV SCH (13:37)
[2023-10-11 16:00] VITALS: BP 114/75; TEMP 97.7; O2SAT 99
[2023-10-11 20:00] VITALS: BP_SYST 141; BP_SYST 148; BP_DIAS 75; BP_DIAS 97; TEMP 98.1; TEMP 98.4; O2SAT 97; O2SAT 98
[2023-10-12] MEDS: PHENYTOIN EXTENDED RELEASE 100 MG CAPSULE PO SCH (04:25)
[2023-10-12 07:00] VITALS: BP 111/79; TEMP 97.9; O2SAT 99
[2023-10-12 08:16] LABS: CALCIUM, SERUM 9.3 mg/dL (8.5-10.1); POTASSIUM 4.1 mmol/L (3.5-5.1)
[2023-10-12] MEDS ORDERED: HYDR-3972 PO (09:11)
[2023-10-12] MEDS ORDERED: DOXY100C2 PO (09:11)
[2023-10-12] MEDS ORDERED: INSU100V7 SQ (09:16)
== END 2023-10-12 16:06 | disposition home health service (06) | DRG 602 ==
LOC: ER 15:47 → MED 19:46
PROVIDERS: ADMIT Nurse Practitioner Acute Care; ATTEND Nurse Practitioner Acute Care
DX: L03.115 Cellulitis of right lower limb (principal); G82.50 Quadriplegia, unspecified; E87.1 Hypo-osmolality and hyponatremia; D63.8 Anemia in other chronic diseases classified elsewhere; E11.42 Type 2 diabetes mellitus with diabetic polyneuropathy; E11.621 Type 2 diabetes mellitus with foot ulcer; E11.65 Type 2 diabetes mellitus with hyperglycemia; L97.519 Non-pressure chronic ulcer of other part of right foot with unspecified severity; G40.909 Epilepsy, unspecified, not intractable, without status epilepticus; E78.5 Hyperlipidemia, unspecified; I10 Essential (primary) hypertension; Z90.49 Acquired absence of other specified parts of digestive tract; Z98.890 Other specified postprocedural states; Z88.8 Allergy status to other drugs, medicaments and biological substances; Z79.4 Long term (current) use of insulin; Z83.3 Family history of diabetes mellitus; Z82.49 Family history of ischemic heart disease and other diseases of the circulatory system; Z86.011 Personal history of benign neoplasm of the brain; F31.9 Bipolar disorder, unspecified; Z89.422 Acquired absence of other left toe(s); K58.1 Irritable bowel syndrome with constipation; K59.00 Constipation, unspecified
CPT/HCPCS: 36415; 71045-TC; 73630-TC; 80048-TC; 80076-TC; 80202-TC; 82962-TC; 83735-TC; 84100-TC; 84443-TC; 84550-TC; 85025-TC; 85652-TC; 85730-TC; 86140-TC; 87040-TC; 87086-TC; A4223; A6403; G0378; J0713; J1815; J2543; J3370; J7030; J7050; J7060

== ENCOUNTER 2023-11-20 14:24 | Emergency (ER) | payer MEDICARE, OTHER ==
[~2023-11-20] VITALS: Ht 185.4 cm; Wt 68.0 kg
[~2023-11-20 14:24] MED LIST changes: -BLOO-668 IN; +DOXY100C2 PO; +HYDR-3972 PO; +INSU100I14 SQ; -INSU100I40 SQ
[2023-11-20] MEDS ORDERED: HYDROCODONE/APAP 5/325MG TABLET ONE (17:02)
[2023-11-20] MEDS: HYDROCODONE/APAP 5/325MG TABLET PO ONE (17:10)
[2023-11-20] MEDS ORDERED: KETOROLAC TROMETHAMINE 15 MG/ML VIAL ONE (19:06)
[2023-11-20] MEDS: KETOROLAC TROMETHAMINE 15 MG/ML VIAL IM ONE (19:10)
[2023-11-20] MEDS ORDERED: HYDR-4303 PO (19:31)
[2023-11-20] MEDS ORDERED: DOCU-141 PO (19:31)
[2023-11-20 19:43] VITALS: BP 110/74; TEMP 98.5; O2SAT 98
== END 2023-11-20 19:44 | disposition home or self-care (01) ==
LOC: ER 15:22
DX: S62.300A Unspecified fracture of second metacarpal bone, right hand, initial encounter for closed fracture (principal); S62.308A Unspecified fracture of other metacarpal bone, initial encounter for closed fracture; I10 Essential (primary) hypertension; E78.5 Hyperlipidemia, unspecified; E11.9 Type 2 diabetes mellitus without complications; Z79.4 Long term (current) use of insulin; E78.00 Pure hypercholesterolemia, unspecified; Z90.89 Acquired absence of other organs; Z88.8 Allergy status to other drugs, medicaments and biological substances; X50.1XXA Overexertion from prolonged static or awkward postures, initial encounter; Y93.89 Activity, other specified; Y92.89 Other specified places as the place of occurrence of the external cause; Y99.8 Other external cause status
CPT/HCPCS: 29125; 73130; 96372; 99283; J1885

== ENCOUNTER 2024-09-16 13:15 | Emergency (ER) | payer MEDICARE, OTHER ==
[~2024-09-16] VITALS: Ht 167.6 cm; Wt 83.9 kg
[~2024-09-16 13:15] MED LIST changes: +DOCU-141 PO; +HYDR-4303 PO
[2024-09-16] MEDS ORDERED: HALOPERIDOL LACTATE INJ 5 MG/ML VIAL ONE (13:45)
[2024-09-16] MEDS: HALOPERIDOL LACTATE INJ 5 MG/ML VIAL IM ONE (13:53)
[2024-09-16] MEDS ORDERED: BACITRACIN ZINC OINT PACKET 1 EA PACKET TP ONE (14:56)
[2024-09-16 15:09] LABS: SITE, VBG RIGHT RADIAL; VBG BASE EXCESS -3.8 mmol/L (-2.0-3.0); VBG COHb 0.3 % (0.5-1.5); VBG HCO3 21.6 mmol/L (22.0-29.0); VBG MetHb 0.1 % (0.5-1.5); VBG O2Hb 95.2 % (0-79); VBG OXYGEN SATURATION 95.6 % (60.0-85.0); VBG PCO2 40.4 mmHg (38.0-54.0); VBG PH 7.346 (7.320-7.430); VBG PO2 87.2 mmHg (23.0-48.0); VBG TOTAL HEMOGLOBIN 13.6 G/dL (13.5-17.5)
[2024-09-16] MEDS: INSULIN REGULAR, HUMAN 100 UNIT/ML 10 ML VIAL SQ ONE (15:12)
[2024-09-16] MEDS: IV NS 0.9% 1,000 ML BAG IV ONE (15:21)
[2024-09-16] MEDS: BACI/NEOM/POLY B OINT PKT 1 UDPKT PACKET TP ONE (15:27)
[2024-09-16] MEDS: TDAP [DIPH/PERTUSSIS/TET] 0.5 ML VIAL IM ONE (15:31)
[2024-09-16 15:36] LABS: BASOPHILS # (AUTO) 0.1 K/uL (0.0-0.2); BASOPHILS % (AUTO) 1.1 % (0.0-2.0); EOSINOPHILS # (AUTO) 0.3 K/uL (0.0-0.7); EOSINOPHILS % (AUTO) 6.4 % (0.0-6.0); HEMATOCRIT 37 % (39-51); HEMOGLOBIN 12.8 g/dL (13.5-17.5); LYMPHOCYTES # (AUTO) 1.4 K/uL (0.8-4.8); MEAN CORPUSCULAR HEMOGLOBIN 29 PG (26.0-33.0); MEAN CORPUSCULAR HGB CONC 35 g/dl (31.0-36.0); MEAN CORPUSCULAR VOLUME 83 fL (80-96); MONOCYTES # (AUTO) 0.2 K/uL (0.1-1.30); MONOCYTES % (AUTO) 4.3 % (2.0-12.0); NEUTROPHILS # (AUTO) 2.8 K/uL (1.8-8.9); NEUTROPHILS % (AUTO) 59.2 % (43.0-81.0); PLATELET COUNT (AUTO) 209 K/uL (150-450); RED BLOOD CELL COUNT(AUTO) 4.48 MIL/uL (4.5-6.0); RED CELL DISTRIBUTION WIDTH 14.3 % (11.5-15.0); WHITE BLOOD COUNT (AUTO) 4.7 K/uL (4.3-11.0)
[2024-09-16 15:45] LABS: SERUM AMMONIA 14 umol/L (11-32)
[2024-09-16 15:50] LABS: ALANINE AMINOTRANSFERASE 23 U/L (12-78); ALBUMIN 3.5 g/dL (3.4-5.0); ALCOHOL, BLOOD 234 mg/dL (0-10); ALKALINE PHOSPHATASE 94 U/L (46-116); ASPARTATE AMINOTRANSFERASE 19 U/L (15-37); BILIRUBIN,DIRECT 0.1 mg/dL (0.0-0.2); BILIRUBIN,TOTAL 0.2 mg/dL (0.2-1.0); CARBON DIOXIDE 28 mmol/L (21-32); CHLORIDE 102 mmol/L (98-107); CREATININE 1.1 mg/dL (0.6-1.3); POTASSIUM 4.1 mmol/L (3.5-5.1); SODIUM SERUM 139 mmol/L (136-145); TOTAL PROTEIN, SERUM 7.4 g/dL (6.4-8.2); UREA NITROGEN, BLOOD 12 mg/dL (7-18)
[2024-09-16 15:51] LABS: ACETAMINOPHEN <10 ug/ml (10-30); GLUCOSE 512 mg/dL (74-106); SALICYLATE 1.1 mg/dL (2.8-20.0)
[2024-09-16 15:56] LABS: ACETONE, SERUM NEGATIVE (NEGATIVE)
[2024-09-16 16:49] LABS: APPEARANCE,URINE CLEAR (CLEAR); BILIRUBIN,URINE NEGATIVE (NEGATIVE); BLOOD, URINE 1+ Ery/uL (NEGATIVE); COLOR,URINE YELLOW (YELLOW); KETONES,URINE NEGATIVE (NEGATIVE); LEUKOCYTE ESTERASE ,URINE NEGATIVE (NEGATIVE); NITRITE, URINE NEGATIVE (NEGATIVE); PROTEIN,URINE NEGATIVE (NEGATIVE); UGLUCOSE 3+ mg/dL (NEGATIVE); UROBILINOGEN,URINE 0.2 EU/dL (0.2)
[2024-09-16 16:53] LABS: ADD URINE CULTURE NO; BACTERIA,URINE Few /HPF (None Seen); SQUAMOUS EPITHELIAL CELL,UR Rare /HPF (None Seen)
[2024-09-16 17:21] LABS: AMPHETAMINE, URINE NEGATIVE (NEGATIVE); BARBITURATE, URINE NEGATIVE (NEGATIVE); BENZODIAZEPINE, URINE NEGATIVE (NEGATIVE); CANNABINOID, URINE NEGATIVE (NEGATIVE); COCCAINE, URINE NEGATIVE (NEGATIVE); OPIATE, URINE NEGATIVE (NEGATIVE); PHENCYCLIDINE SCREEN,URINE NEGATIVE (NEGATIVE)
[2024-09-17 12:25] VITALS: BP 139/76; TEMP 97.9; O2SAT 98
== END 2024-09-17 12:26 | disposition home or self-care (01) ==
LOC: ER 13:19
DX: S90.415A Abrasion, left lesser toe(s), initial encounter (principal); S90.414A Abrasion, right lesser toe(s), initial encounter; G93.41 Metabolic encephalopathy; E11.65 Type 2 diabetes mellitus with hyperglycemia; G82.50 Quadriplegia, unspecified; G40.909 Epilepsy, unspecified, not intractable, without status epilepticus; E78.5 Hyperlipidemia, unspecified; I10 Essential (primary) hypertension; Z79.4 Long term (current) use of insulin; Z90.49 Acquired absence of other specified parts of digestive tract; Z98.890 Other specified postprocedural states; Z20.822 Contact with and (suspected) exposure to COVID-19; X58.XXXA Exposure to other specified factors, initial encounter; Y93.89 Activity, other specified; Y92.89 Other specified places as the place of occurrence of the external cause; Y99.8 Other external cause status
CPT/HCPCS: 99291; 96372; 90471; 96360; 93005; 36410; 82803 ×2; 90715; 73620; 73630; 70450; 82140; 85025; 80048; 82010; 80076; 81001; 36415; 84443; 82962; 36600; 87426; 80143; 80320; 80307; J1630; J1815; J7030; 98960; G0480

== ENCOUNTER 2024-10-09 07:37 | Emergency (ER) | payer MEDICARE, OTHER ==
[~2024-10-09] VITALS: Ht 185.4 cm; Wt 81.6 kg
[2024-10-09 08:33] LABS: BASOPHILS % (AUTO) 0.8 % (0.0-2.0); EOSINOPHILS # (AUTO) 0.3 K/uL (0.0-0.7); EOSINOPHILS % (AUTO) 6.4 % (0.0-6.0); HEMATOCRIT 42 % (39-51); LYMPHOCYTES # (AUTO) 1.6 K/uL (0.8-4.8); LYMPHOCYTES % (AUTO) 30.2 % (20.0-44.0); MEAN CORPUSCULAR HEMOGLOBIN 28 PG (26.0-33.0); MEAN CORPUSCULAR HGB CONC 34 g/dl (31.0-36.0); MEAN CORPUSCULAR VOLUME 84 fL (80-96); MONOCYTES # (AUTO) 0.4 K/uL (0.1-1.30); MONOCYTES % (AUTO) 7.7 % (2.0-12.0); NEUTROPHILS # (AUTO) 2.8 K/uL (1.8-8.9); NEUTROPHILS % (AUTO) 54.9 % (43.0-81.0); PLATELET COUNT (AUTO) 253 K/uL (150-450); RED BLOOD CELL COUNT(AUTO) 4.98 MIL/uL (4.5-6.0); RED CELL DISTRIBUTION WIDTH 14.3 % (11.5-15.0); WHITE BLOOD COUNT (AUTO) 5.2 K/uL (4.3-11.0)
[2024-10-09 08:50] LABS: APPEARANCE,URINE CLEAR (CLEAR); BILIRUBIN,URINE NEGATIVE (NEGATIVE); BLOOD, URINE TRACE-INTA Ery/uL (NEGATIVE); COLOR,URINE YELLOW (YELLOW); KETONES,URINE 1+ mg/dL (NEGATIVE); LEUKOCYTE ESTERASE ,URINE NEGATIVE (NEGATIVE); NITRITE, URINE NEGATIVE (NEGATIVE); PROTEIN,URINE 1+ mg/dl (NEGATIVE); UGLUCOSE 3+ mg/dL (NEGATIVE); UROBILINOGEN,URINE 0.2 EU/dL (0.2)
[2024-10-09 09:05] LABS: ADD URINE CULTURE NO; BACTERIA,URINE Rare /HPF (None Seen); RBC,URINE 0-2 /HPF (0-2); SQUAMOUS EPITHELIAL CELL,UR None Seen /HPF (None Seen)
[2024-10-09 09:08] LABS: ALBUMIN 3.9 g/dL (3.4-5.0); BILIRUBIN,DIRECT 0.1 mg/dL (0.0-0.2); BILIRUBIN,TOTAL 0.4 mg/dL (0.2-1.0); CALCIUM, SERUM 9.5 mg/dL (8.5-10.1); CREATININE 0.9 mg/dL (0.6-1.3); POTASSIUM 4.3 mmol/L (3.5-5.1); TOTAL PROTEIN, SERUM 7.7 g/dL (6.4-8.2)
[2024-10-09] MEDS ORDERED: TRAMADOL HCL 50 MG TABLET ONE (09:19)
[2024-10-09] MEDS ORDERED: ONDANSETRON 4 MG TAB.RAPDIS ONE (09:19)
[2024-10-09] MEDS: TRAMADOL HCL 50 MG TABLET PO ONE (09:21)
[2024-10-09] MEDS: ONDANSETRON 4 MG TAB.RAPDIS SL ONE (09:22)
[2024-10-09] MEDS ORDERED: TRAM50TA2 PO (09:25)
[2024-10-09] MEDS ORDERED: ONDA4TAB11 PO (09:25)
[2024-10-09 10:15] VITALS: BP 138/86; TEMP 98.3; O2SAT 99
== END 2024-10-09 10:15 | disposition home or self-care (01) ==
LOC: ER 07:42
DX: R10.11 Right upper quadrant pain (principal); E11.65 Type 2 diabetes mellitus with hyperglycemia; E78.00 Pure hypercholesterolemia, unspecified; I10 Essential (primary) hypertension; Z90.49 Acquired absence of other specified parts of digestive tract; Z98.890 Other specified postprocedural states; Z87.19 Personal history of other diseases of the digestive system; Z86.69 Personal history of other diseases of the nervous system and sense organs; Z86.79 Personal history of other diseases of the circulatory system
CPT/HCPCS: 99283; 85025; 80048; 83690; 80076; 81001; 36415; Q0162

== ENCOUNTER 2025-02-05 19:25 | Emergency (ER) | payer MEDICARE, OTHER ==
[~2025-02-05] VITALS: Ht 167.6 cm; Wt 90.7 kg
[~2025-02-05 19:25] MED LIST changes: +ONDA4TAB11 PO; +TRAM50TA2 PO
[2025-02-05 19:58] LABS: APPEARANCE,URINE CLEAR (CLEAR); BILIRUBIN,URINE Negative (NEGATIVE); BLOOD, URINE Trace-lysed Ery/uL (NEGATIVE); COLOR,URINE YELLOW (YELLOW); KETONES,URINE Trace mg/dL (NEGATIVE); LEUKOCYTE ESTERASE ,URINE Negative (NEGATIVE); PH,URINE 5.5 (5.0-8.0); PROTEIN,URINE Negative (NEGATIVE); UGLUCOSE >=1000 mg/dL (NEGATIVE); UROBILINOGEN,URINE 0.2 EU/dL (0.2)
[2025-02-05 19:59] LABS: BASOPHILS % (AUTO) 0.6 % (0.0-2.0); EOSINOPHILS # (AUTO) 0.3 K/uL (0.0-0.7); EOSINOPHILS % (AUTO) 5.3 % (0.0-6.0); HEMATOCRIT 40 % (39-51); HEMOGLOBIN 13.4 g/dL (13.5-17.5); LYMPHOCYTES # (AUTO) 2.3 K/uL (0.8-4.8); LYMPHOCYTES % (AUTO) 46.4 % (20.0-44.0); MEAN CORPUSCULAR HEMOGLOBIN 28 PG (26.0-33.0); MEAN CORPUSCULAR HGB CONC 34 g/dl (31.0-36.0); MEAN CORPUSCULAR VOLUME 82 fL (80-96); MONOCYTES # (AUTO) 0.3 K/uL (0.1-1.30); MONOCYTES % (AUTO) 6.2 % (2.0-12.0); NEUTROPHILS % (AUTO) 41.5 % (43.0-81.0); PLATELET COUNT (AUTO) 281 K/uL (150-450); RED BLOOD CELL COUNT(AUTO) 4.85 MIL/uL (4.5-6.0); RED CELL DISTRIBUTION WIDTH 13.5 % (11.5-15.0); WHITE BLOOD COUNT (AUTO) 4.9 K/uL (4.3-11.0)
[2025-02-05 20:04] LABS: NITRITE, URINE NEGATIVE (NEGATIVE)
[2025-02-05 20:05] LABS: ADD URINE CULTURE NO; BACTERIA,URINE Few /HPF (None Seen); SQUAMOUS EPITHELIAL CELL,UR None Seen /HPF (None Seen); WBC,URINE 0-2 /HPF (0-3)
[2025-02-05 20:06] LABS: AMPHETAMINE, URINE NEGATIVE (NEGATIVE); BARBITURATE, URINE NEGATIVE (NEGATIVE); BENZODIAZEPINE, URINE NEGATIVE (NEGATIVE); CANNABINOID, URINE NEGATIVE (NEGATIVE); COCCAINE, URINE NEGATIVE (NEGATIVE); OPIATE, URINE NEGATIVE (NEGATIVE); PHENCYCLIDINE SCREEN,URINE NEGATIVE (NEGATIVE)
[2025-02-05 20:12] LABS: ALANINE AMINOTRANSFERASE 27 U/L (12-78); ALBUMIN 3.9 g/dL (3.4-5.0); ALCOHOL, BLOOD 209 mg/dL (0-10); ALKALINE PHOSPHATASE 113 U/L (46-116); ASPARTATE AMINOTRANSFERASE 17 U/L (15-37); BILIRUBIN,DIRECT 0.1 mg/dL (0.0-0.2); BILIRUBIN,TOTAL 0.2 mg/dL (0.2-1.0); CALCIUM, SERUM 9.1 mg/dL (8.5-10.1); CARBON DIOXIDE 25 mmol/L (21-32); CHLORIDE 97 mmol/L (98-107); CREATININE 1.1 mg/dL (0.6-1.3); POTASSIUM 4.7 mmol/L (3.5-5.1); SODIUM SERUM 132 mmol/L (136-145); TOTAL PROTEIN, SERUM 7.8 g/dL (6.4-8.2); UREA NITROGEN, BLOOD 14 mg/dL (7-18)
[2025-02-05 20:15] LABS: ACETAMINOPHEN <10 ug/ml (10-30); SALICYLATE 1.4 mg/dL (2.8-20.0)
[2025-02-05 20:16] LABS: GLUCOSE 654 mg/dL (74-106)
[2025-02-05] MEDS ORDERED: INSULIN REGULAR, HUMAN 100 UNIT/ML 10 ML VIAL ONE (20:33)
[2025-02-05] MEDS: IV NS 0.9% 1,000 ML BAG IV ONE ×3 (21:00→21:16)
[2025-02-05] MEDS: INSULIN REGULAR, HUMAN 100 UNIT/ML 10 ML VIAL IV ONE (21:18)
[2025-02-05] MEDS ORDERED: ACETAMINOPHEN ES 500 MG TABLET ONE (21:24)
[2025-02-05] MEDS: ACETAMINOPHEN ES 500 MG TABLET PO ONE (21:28)
[2025-02-06] MEDS: INSULIN REGULAR, HUMAN 100 UNIT/ML 10 ML VIAL IV ONE (06:07)
[2025-02-06] MEDS: IV NS 0.9% 1,000 ML BAG IV ONE (06:18)
[2025-02-06] MEDS: KETOROLAC TROMETHAMINE INJ 30 MG/ML VIAL IV ONE (06:22)
[2025-02-06 10:41] VITALS: BP 128/77; TEMP 98.2; O2SAT 98
[2025-02-07] MEDS ORDERED: INSU100V42 SQ (08:17)
[2025-02-07] MEDS ORDERED: INSU100I26 SQ (08:17)
== END 2025-02-06 10:41 | disposition home or self-care (01) ==
LOC: ER 19:30
DX: F10.129 Alcohol abuse with intoxication, unspecified (principal); E11.65 Type 2 diabetes mellitus with hyperglycemia; E78.00 Pure hypercholesterolemia, unspecified; F25.9 Schizoaffective disorder, unspecified; Z79.4 Long term (current) use of insulin; Z20.822 Contact with and (suspected) exposure to COVID-19; Z88.8 Allergy status to other drugs, medicaments and biological substances; Y90.7 Blood alcohol level of 200-239 mg/100 ml
CPT/HCPCS: 99285; 96374; 96361 ×2; 96375; J1815 ×2; J7030 ×3; J1885; 36415; 80048-TC; 80076-TC; 81001; 82962-TC; 85025-TC; G0480

== ENCOUNTER 2025-02-06 18:43 | Inpatient (IN) | payer MEDICARE, OTHER ==
[~2025-02-06] VITALS: Ht 188 cm; Wt 78.9 kg
[2025-02-06] MEDS: IV NS 0.9% 1,000 ML BAG IV ONE (22:09)
[2025-02-06 22:47] LABS: APPEARANCE,URINE CLEAR (CLEAR); BILIRUBIN,URINE NEGATIVE (NEGATIVE); BLOOD, URINE TRACE-INTA Ery/uL (NEGATIVE); COLOR,URINE YELLOW (YELLOW); KETONES,URINE TRACE mg/dL (NEGATIVE); LEUKOCYTE ESTERASE ,URINE NEGATIVE (NEGATIVE); NITRITE, URINE NEGATIVE (NEGATIVE); PROTEIN,URINE TRACE mg/dl (NEGATIVE); UGLUCOSE 3+ mg/dL (NEGATIVE); UROBILINOGEN,URINE 0.2 EU/dL (0.2)
[2025-02-06] MEDS ORDERED: ONDANSETRON HCL/PF 4 MG/2 ML VIAL ONE ×2 (23:03→23:08)
[2025-02-06] MEDS ORDERED: MORPHINE SULFATE INJ 2 MG/ML DISP.SYRIN ONE ×2 (23:04→23:09)
[2025-02-06 23:07] LABS: WBC,URINE 21-50 /HPF (0-3)
[2025-02-06 23:09] LABS: ADD URINE CULTURE YES; BACTERIA,URINE Few /HPF (None Seen); SQUAMOUS EPITHELIAL CELL,UR Few /HPF (None Seen)
[2025-02-06] MEDS: ONDANSETRON HCL/PF - ER 4 MG/2 ML VIAL IV ONE (23:09)
[2025-02-06] MEDS: MORPHINE SULFATE INJ 2 MG/ML DISP.SYRIN IV ONE (23:09)
[2025-02-06 23:24] LABS: EOSINOPHILS # (AUTO) 0.2 K/uL (0.0-0.7); EOSINOPHILS % (AUTO) 5.7 % (0.0-6.0); HEMATOCRIT 34 % (39-51); HEMOGLOBIN 11.6 g/dL (13.5-17.5); LYMPHOCYTES # (AUTO) 1.6 K/uL (0.8-4.8); LYMPHOCYTES % (AUTO) 40.6 % (20.0-44.0); MEAN CORPUSCULAR HEMOGLOBIN 27 PG (26.0-33.0); MEAN CORPUSCULAR HGB CONC 34 g/dl (31.0-36.0); MEAN CORPUSCULAR VOLUME 81 fL (80-96); MONOCYTES # (AUTO) 0.3 K/uL (0.1-1.30); NEUTROPHILS # (AUTO) 1.7 K/uL (1.8-8.9); NEUTROPHILS % (AUTO) 44.7 % (43.0-81.0); PLATELET COUNT (AUTO) 237 K/uL (150-450); RED BLOOD CELL COUNT(AUTO) 4.28 MIL/uL (4.5-6.0); RED CELL DISTRIBUTION WIDTH 13.6 % (11.5-15.0); WHITE BLOOD COUNT (AUTO) 3.9 K/uL (4.3-11.0)
[2025-02-06 23:31] LABS: CALCIUM, SERUM 8.5 mg/dL (8.5-10.1); CREATININE 0.9 mg/dL (0.6-1.3); POTASSIUM 4.4 mmol/L (3.5-5.1)
[2025-02-06 23:38] LABS: BILIRUBIN,TOTAL 0.2 mg/dL (0.2-1.0)
[2025-02-06 23:39] LABS: ALBUMIN 3.4 g/dL (3.4-5.0); BILIRUBIN,DIRECT 0.1 mg/dL (0.0-0.2); TOTAL PROTEIN, SERUM 6.6 g/dL (6.4-8.2)
[2025-02-06] MEDS ORDERED: INSULIN REGULAR, HUMAN 100 UNIT/ML 10 ML VIAL ONE (23:41)
[2025-02-06] MEDS: INSULIN REGULAR, HUMAN 100 UNIT/ML 3 ML VIAL IV STA (23:48)
[2025-02-06] MEDS: IV NS 0.9% 1,000 ML IV ONE (23:49)
[2025-02-07 00:37] LABS: ABG BASE EXCESS -2.1 mmol/L (-2.0-3.0); ABG OXYGEN SATURATION 95.6 % (94.0-98.0); ABG PCO2 39.6 mmHg (35.0-48.0); ABG PH 7.378 (7.350-7.450); ABG PO2 85.2 mmHg (83.0-108.0); ABG TOTAL HEMOGLOBIN 11.7 G/dL (13.5-17.5); COHb 0.2 % (0.5-1.5); MetHb 0.3 % (0.0-1.5); O2Hb 95.1 % (94.0-97.0); SITE, ABG RIGHT BRACHIAL
[2025-02-07] MEDS ORDERED: CEFTRIAXONE 1GM BAG (ER ONLY) 50 ML IV ONE (00:47)
[2025-02-07] MEDS: CEFTRIAXONE 1 G in IV D5W 50 ML IV ONE (00:53)
[2025-02-07] MEDS ORDERED: MORPHINE SULFATE INJ 2 MG/ML DISP.SYRIN ONE (01:39)
[2025-02-07] MEDS ORDERED: ONDANSETRON HCL/PF 4 MG/2 ML VIAL ONE (01:39)
[2025-02-07] MEDS: ONDANSETRON HCL/PF - ER 4 MG/2 ML VIAL IV ONE (01:46)
[2025-02-07] MEDS: MORPHINE SULFATE INJ 2 MG/ML DISP.SYRIN IV ONE (01:46)
[2025-02-07] MEDS ORDERED: DEXTROSE 50%-WATER 50 ML DISP.SYRIN IV PRN (02:00)
[2025-02-07] MEDS ORDERED: Z GUARD REMEDY 4 OZ OINT TP PRN (02:00)
[2025-02-07] MEDS ORDERED: MAGNESIUM HYDROXIDE 30 ML UDC PO PRN (02:00)
[2025-02-07] MEDS ORDERED: ONDANSETRON HCL/PF 4 MG/2 ML VIAL IVP PRN (02:00)
[2025-02-07] MEDS ORDERED: ACETAMINOPHEN 325 MG TABLET PO PRN (02:00)
[2025-02-07] MEDS ORDERED: ZOLPIDEM TARTRATE 5 MG TABLET PO PRN (02:00)
[2025-02-07] MEDS ORDERED: MAG HYDROX/AL HYDROX/SIMETH 30 ML UDC PO PRN (02:00)
[2025-02-07 02:35] VITALS: BP 147/89; TEMP 97.7; O2SAT 100
[2025-02-07] MEDS: IV 1/2NS 1000 ML 1,000 ML IV PRN (02:41)
[2025-02-07] MEDS: BLOOD SUGAR DIAGNOSTIC 1 EACH STRIP IN SCH (06:32)
[2025-02-07] MEDS: INSULIN REGULAR, HUMAN 100 UNIT/ML 3 ML VIAL SQ PRN (06:34)
[2025-02-07 08:00] VITALS: BP 143/89; TEMP 97.7; O2SAT 97
[2025-02-07] MEDS ORDERED: INSU100V42 SQ (08:17)
[2025-02-07] MEDS ORDERED: INSU100I26 SQ (08:17)
[2025-02-07] MEDS ORDERED: CEFTRIAXONE 1 G in IV D5W 50 ML IV SCH (09:00)
[2025-02-07] MEDS: HYDROCODONE/APAP 5/325MG TABLET PO PRN (14:00)
[2025-02-07 16:00] VITALS: BP 149/92; TEMP 97.9; O2SAT 98
[2025-02-07 21:22] VITALS: BP 156/87; TEMP 97.9; O2SAT 98
[2025-02-07] MEDS ORDERED: INSULIN GLARGINE,BASAGLAR 100 UNIT/ML INSULN.PEN SQ SCH (22:00)
[2025-02-07] MEDS: CEFTRIAXONE 1 G in IV D5W 50 ML IV SCH (22:05)
[2025-02-08 06:54] LABS: BASOPHILS # (AUTO) 0.1 K/uL (0.0-0.2); BASOPHILS % (AUTO) 1.3 % (0.0-2.0); EOSINOPHILS # (AUTO) 0.3 K/uL (0.0-0.7); EOSINOPHILS % (AUTO) 6.1 % (0.0-6.0); HEMATOCRIT 37 % (39-51); HEMOGLOBIN 12.6 g/dL (13.5-17.5); LYMPHOCYTES # (AUTO) 1.8 K/uL (0.8-4.8); LYMPHOCYTES % (AUTO) 39.3 % (20.0-44.0); MEAN CORPUSCULAR HEMOGLOBIN 28 PG (26.0-33.0); MEAN CORPUSCULAR HGB CONC 35 g/dl (31.0-36.0); MEAN CORPUSCULAR VOLUME 81 fL (80-96); MONOCYTES # (AUTO) 0.4 K/uL (0.1-1.30); MONOCYTES % (AUTO) 7.8 % (2.0-12.0); NEUTROPHILS # (AUTO) 2.1 K/uL (1.8-8.9); NEUTROPHILS % (AUTO) 45.5 % (43.0-81.0); PLATELET COUNT (AUTO) 255 K/uL (150-450); RED BLOOD CELL COUNT(AUTO) 4.51 MIL/uL (4.5-6.0); RED CELL DISTRIBUTION WIDTH 13.7 % (11.5-15.0); WHITE BLOOD COUNT (AUTO) 4.6 K/uL (4.3-11.0)
[2025-02-08 07:03] LABS: CALCIUM, SERUM 9.1 mg/dL (8.5-10.1); CREATININE 0.7 mg/dL (0.6-1.3); MAGNESIUM 1.9 mg/dL (1.8-2.4); PHOSPHORUS 3.5 mg/dL (2.5-4.9); POTASSIUM 3.9 mmol/L (3.5-5.1)
[2025-02-08 08:00] VITALS: BP 144/88; TEMP 97.9; O2SAT 99
[2025-02-08] MEDS ORDERED: KETOROLAC TROMETHAMINE 15 MG/ML VIAL IM PRN (12:30)
[2025-02-08 16:00] VITALS: BP 158/98; TEMP 97.7; O2SAT 97
[2025-02-08 20:00] VITALS: BP 152/88; TEMP 98.1; O2SAT 100
[2025-02-09 07:44] LABS: BASOPHILS # (AUTO) 0.1 K/uL (0.0-0.2); BASOPHILS % (AUTO) 1.2 % (0.0-2.0); EOSINOPHILS # (AUTO) 0.3 K/uL (0.0-0.7); EOSINOPHILS % (AUTO) 6.1 % (0.0-6.0); HEMATOCRIT 35 % (39-51); HEMOGLOBIN 12.2 g/dL (13.5-17.5); LYMPHOCYTES # (AUTO) 1.4 K/uL (0.8-4.8); LYMPHOCYTES % (AUTO) 30.5 % (20.0-44.0); MEAN CORPUSCULAR HEMOGLOBIN 28 PG (26.0-33.0); MEAN CORPUSCULAR HGB CONC 34 g/dl (31.0-36.0); MEAN CORPUSCULAR VOLUME 81 fL (80-96); MONOCYTES # (AUTO) 0.4 K/uL (0.1-1.30); MONOCYTES % (AUTO) 7.7 % (2.0-12.0); NEUTROPHILS # (AUTO) 2.5 K/uL (1.8-8.9); NEUTROPHILS % (AUTO) 54.5 % (43.0-81.0); PLATELET COUNT (AUTO) 244 K/uL (150-450); RED BLOOD CELL COUNT(AUTO) 4.39 MIL/uL (4.5-6.0); RED CELL DISTRIBUTION WIDTH 13.6 % (11.5-15.0); WHITE BLOOD COUNT (AUTO) 4.6 K/uL (4.3-11.0)
[2025-02-09 07:56] LABS: CALCIUM, SERUM 8.2 mg/dL (8.5-10.1); CREATININE 0.8 mg/dL (0.6-1.3); POTASSIUM 3.7 mmol/L (3.5-5.1)
[2025-02-09 08:48] VITALS: BP 160/102; TEMP 97.7; O2SAT 98
[2025-02-09 20:00] VITALS: BP 157/91; TEMP 98.2; O2SAT 100
[2025-02-10 07:00] VITALS: BP 143/113; TEMP 97.9; O2SAT 100
[2025-02-10] MEDS ORDERED: SULF1TAB48 PO (10:05)
[2025-02-10] MEDS: MUPIROCIN OINT 2% 22 GM TUBE TP SCH (11:58)
== END 2025-02-10 12:00 | disposition home health service (06) | DRG 690 ==
LOC: ER 18:45 → TELE 02-07 01:41 → MED 02-07 08:56
DX: N30.00 Acute cystitis without hematuria (principal); N13.6 Pyonephrosis; E11.65 Type 2 diabetes mellitus with hyperglycemia; F31.9 Bipolar disorder, unspecified; Z86.61 Personal history of infections of the central nervous system; Z98.890 Other specified postprocedural states; Z91.148 Patient's other noncompliance with medication regimen for other reason; Z88.8 Allergy status to other drugs, medicaments and biological substances; Z83.3 Family history of diabetes mellitus; Z99.3 Dependence on wheelchair; Z79.4 Long term (current) use of insulin; Z79.899 Other long term (current) drug therapy; I10 Essential (primary) hypertension; E78.00 Pure hypercholesterolemia, unspecified; G40.909 Epilepsy, unspecified, not intractable, without status epilepticus; N20.0 Calculus of kidney; Z82.49 Family history of ischemic heart disease and other diseases of the circulatory system
CPT/HCPCS: 36415; 36600; 80048-TC; 80076-TC; 81001; 82010-TC; 82803-TC; 82962-TC; 83690-TC; 83735-TC; 84100-TC; 85025-TC; 87040-TC; 87081-TC; 87086-TC; A4223; G0378; G0480; J0696; J1815; J2270; J2405; J3490; J7030; J7060

== ENCOUNTER 2025-03-23 16:05 | Emergency (ER) | payer MEDICARE, OTHER ==
[~2025-03-23] VITALS: Ht 185.4 cm; Wt 83.9 kg
[~2025-03-23 16:05] MED LIST changes: -DOCU-141 PO; -DOXY100C2 PO; -HYDR-3972 PO; -HYDR-4303 PO; -INSU100I14 SQ; +INSU100I26 SQ; +INSU100V42 SQ; -INSU100V7 SQ; -ONDA4TAB11 PO; +SULF1TAB48 PO; -TRAM50TA2 PO
[2025-03-23 17:30] VITALS: BP 139/87; TEMP 98.3; O2SAT 97
== END 2025-03-23 19:41 | disposition left against medical advice (07) ==
LOC: ER 16:15
DX: R30.0 Dysuria (principal); E11.9 Type 2 diabetes mellitus without complications; Z86.69 Personal history of other diseases of the nervous system and sense organs; Z90.49 Acquired absence of other specified parts of digestive tract; Z53.21 Procedure and treatment not carried out due to patient leaving prior to being seen by health care provider

== ENCOUNTER 2025-04-23 17:19 | Inpatient (IN) | payer MEDICARE, OTHER ==
[~2025-04-23] VITALS: Ht 185.4 cm; Wt 81.2 kg
[2025-04-23 20:18] LABS: PLATELET COUNT (AUTO) 204 K/uL (150-450); RED BLOOD CELL COUNT(AUTO) 3.67 MIL/uL (4.5-6.0); RED CELL DISTRIBUTION WIDTH 15.1 % (11.5-15.0); WHITE BLOOD COUNT (AUTO) 5.6 K/uL (4.3-11.0)
[2025-04-23 20:19] LABS: CALCIUM, SERUM 8.8 mg/dL (8.5-10.1); CREATININE 0.9 mg/dL (0.6-1.3); SODIUM SERUM 125.0 mmol/L (136-145); UREA NITROGEN, BLOOD 16.0 mg/dL (7-18)
[2025-04-23] MEDS: IV NS 0.9% 1,000 ML BAG IV ONE (20:30)
[2025-04-23 21:37] LABS: BLOOD, URINE TRACE-INTA Ery/uL (NEGATIVE); LEUKOCYTE ESTERASE ,URINE NEGATIVE (NEGATIVE); NITRITE, URINE NEGATIVE (NEGATIVE); UGLUCOSE 3+ mg/dL (NEGATIVE)
[2025-04-23 21:49] LABS: APPEARANCE,URINE SLIGHTLY HAZY (CLEAR)
[2025-04-23 21:52] LABS: ADD URINE CULTURE YES; SQUAMOUS EPITHELIAL CELL,UR Few /HPF (None Seen)
[2025-04-23 22:25] VITALS: BP 156/87; TEMP 98.1; O2SAT 98
[2025-04-23] MEDS ORDERED: TEMAZEPAM 15 MG CAPSULE PO PRN (22:30)
[2025-04-23] MEDS ORDERED: MAGNESIUM HYDROXIDE 30 ML UDC PO PRN (22:30)
[2025-04-23] MEDS ORDERED: DEXTROSE 50%-WATER 50 ML DISP.SYRIN IV PRN ×2 (22:30)
[2025-04-23] MEDS ORDERED: Z GUARD REMEDY 4 OZ OINT TP PRN (22:30)
[2025-04-23] MEDS ORDERED: ONDANSETRON HCL/PF 4 MG/2 ML VIAL IVP PRN (22:30)
[2025-04-23] MEDS ORDERED: MAG HYDROX/AL HYDROX/SIMETH 30 ML UDC PO PRN (22:30)
[2025-04-23] MEDS ORDERED: BLOOD SUGAR DIAGNOSTIC 1 EACH STRIP IN SCH (22:30)
[2025-04-23] MEDS ORDERED: INSULIN REGULAR, HUMAN 100 UNIT/ML 3 ML VIAL SQ PRN (22:30)
[2025-04-23] MEDS: ACETAMINOPHEN 325 MG TABLET PO PRN (22:57)
[2025-04-23] MEDS: IV NS 0.9% 1,000 ML IV SCH (23:01)
[2025-04-24] MEDS: NITROFURANTOIN/MONOHYDRATE MACROCRYSTALS 100 MG CAPSULE PO SCH (00:13)
[2025-04-24] MEDS: HYDROCODONE/APAP 5/325MG TABLET PO PRN (00:59)
[2025-04-24] MEDS: BLOOD SUGAR DIAGNOSTIC 1 EACH STRIP IN SCH (06:30)
[2025-04-24] MEDS: INSULIN REGULAR, HUMAN 100 UNIT/ML 3 ML VIAL SQ PRN (06:31)
[2025-04-24] MEDS: PANTOPRAZOLE 40 MG TABLET.DR PO SCH (07:19)
[2025-04-24 07:25] LABS: PLATELET COUNT (AUTO) 176 K/uL (150-450); RED BLOOD CELL COUNT(AUTO) 3.41 MIL/uL (4.5-6.0); RED CELL DISTRIBUTION WIDTH 14.8 % (11.5-15.0); WHITE BLOOD COUNT (AUTO) 4.5 K/uL (4.3-11.0)
[2025-04-24 07:56] LABS: CALCIUM, SERUM 8.5 mg/dL (8.5-10.1); CREATININE 0.7 mg/dL (0.6-1.3); PHOSPHORUS 3.4 mg/dL (2.5-4.9); SODIUM SERUM 127.0 mmol/L (136-145); UREA NITROGEN, BLOOD 16.0 mg/dL (7-18)
[2025-04-24 08:00] VITALS: BP 181/93; TEMP 98.1; O2SAT 96
[2025-04-24] MEDS ORDERED: PREG-57 PO (08:03)
[2025-04-24] MEDS ORDERED: CEPH500C2 PO (08:03)
[2025-04-24] MEDS ORDERED: OXYB10TA30 PO (08:03)
[2025-04-24] MEDS ORDERED: MIRT-90 PO (08:03)
[2025-04-24] MEDS ORDERED: RISP0.5T65 PO (08:03)
[2025-04-24] MEDS ORDERED: GABA-532 PO (08:03)
[2025-04-24] MEDS ORDERED: OXCA600T8 PO (08:03)
[2025-04-24] MEDS: PREGABALIN 25 MG CAPSULE PO SCH (09:14)
[2025-04-24 16:00] VITALS: BP 160/90; TEMP 98.2; O2SAT 98
[2025-04-24] MEDS: MIRTAZAPINE 15 MG TABLET PO SCH (18:09)
[2025-04-24 20:00] VITALS: BP_SYST 128; BP_SYST 147; BP_DIAS 81; BP_DIAS 97; TEMP 98.1; O2SAT 97; O2SAT 98
[2025-04-24] MEDS: INSULIN GLARGINE, 100 UNIT/ML CARTRIDGE SQ SCH (21:11)
[2025-04-25] MEDS: HYDROCODONE/APAP 10/325MG TABLET PO PRN (07:42)
[2025-04-25 08:00] VITALS: BP 102/59; TEMP 97.5; O2SAT 98
[2025-04-25 08:10] LABS: CALCIUM, SERUM 9.1 mg/dL (8.5-10.1); CREATININE 0.7 mg/dL (0.6-1.3); PHOSPHORUS 4.6 mg/dL (2.5-4.9); SODIUM SERUM 136.0 mmol/L (136-145); UREA NITROGEN, BLOOD 14.0 mg/dL (7-18)
[2025-04-25] MEDS: OXCARBAZEPINE 150 MG TABLET PO SCH (08:48)
== END 2025-04-25 13:00 | disposition left against medical advice (07) | DRG 641 ==
LOC: ER 17:24 → MED 21:26
PROVIDERS: ADMIT Registered Nurse Psychiatric/Mental Health; ATTEND Nurse Practitioner Family
DX: E86.0 Dehydration (principal); N39.0 Urinary tract infection, site not specified; E87.1 Hypo-osmolality and hyponatremia; E11.42 Type 2 diabetes mellitus with diabetic polyneuropathy; D64.9 Anemia, unspecified; I10 Essential (primary) hypertension; Z79.4 Long term (current) use of insulin; R62.7 Adult failure to thrive; Z99.3 Dependence on wheelchair; E11.65 Type 2 diabetes mellitus with hyperglycemia; M85.80 Other specified disorders of bone density and structure, unspecified site; F43.10 Post-traumatic stress disorder, unspecified; B96.89 Other specified bacterial agents as the cause of diseases classified elsewhere; E86.1 Hypovolemia; Z98.890 Other specified postprocedural states; E11.621 Type 2 diabetes mellitus with foot ulcer; L97.519 Non-pressure chronic ulcer of other part of right foot with unspecified severity; Z86.61 Personal history of infections of the central nervous system; Z68.23 Body mass index [BMI] 23.0-23.9, adult
CPT/HCPCS: 36415; 71045-TC; 73630-TC; 80048-TC; 81001; 82962-TC; 83735-TC; 84100-TC; 84443-TC; 84550-TC; 85025-TC; 85652-TC; 86140-TC; 87081-TC; 87086-TC; 93970-TC; A4223; G0378; J1815; J7030

== ENCOUNTER 2025-05-03 10:53 | Emergency (ER) | payer MEDICARE, OTHER ==
[~2025-05-03] VITALS: Ht 188 cm; Wt 86.6 kg
[~2025-05-03 10:53] MED LIST changes: +CEPH500C2 PO; +GABA-532 PO; +MIRT-90 PO; +OXCA600T8 PO; +OXYB10TA30 PO; +PREG-57 PO; +RISP0.5T65 PO; -SULF1TAB48 PO
[2025-05-03] MEDS ORDERED: TDAP [DIPH/PERTUSSIS/TET] 0.5 ML VIAL IM ONE (11:08)
[2025-05-03] MEDS ORDERED: ACETAMINOPHEN ES 500 MG TABLET ONE (11:08)
[2025-05-03] MEDS: ACETAMINOPHEN ES 500 MG TABLET PO ONE (11:24)
[2025-05-03] MEDS: TDAP [DIPH/PERTUSSIS/TET] 0.5 ML VIAL IM ONE (11:25)
[2025-05-03] MEDS: IV NS 0.9% 1,000 ML BAG IV ONE (11:57)
[2025-05-03 12:12] LABS: PLATELET COUNT (AUTO) 343 K/uL (150-450); RED BLOOD CELL COUNT(AUTO) 4.18 MIL/uL (4.5-6.0); RED CELL DISTRIBUTION WIDTH 15.1 % (11.5-15.0); WHITE BLOOD COUNT (AUTO) 5.4 K/uL (4.3-11.0)
[2025-05-03 12:12] LABS: FRACTIONATED INSPIRED OXYGEN-V 21.0 %; SITE, VBG VBG - N/A; VBG BASE EXCESS -6.0 mmol/L (-2.0-3.0); VBG HCO3 19.9 mmol/L (22.0-29.0); VBG MetHb 0.2 % (0.5-1.5); VBG OXYGEN SATURATION 69.6 % (60.0-85.0); VBG PCO2 41.0 mmHg (38.0-54.0); VBG PH 7.305 (7.320-7.430); VBG PO2 37.5 mmHg (23.0-48.0); VBG TOTAL HEMOGLOBIN 11.9 G/dL (13.5-17.5)
[2025-05-03 12:16] LABS: CALCIUM, SERUM 8.9 mg/dL (8.5-10.1); CREATININE 1.3 mg/dL (0.6-1.3); SODIUM SERUM 136.0 mmol/L (136-145); UREA NITROGEN, BLOOD 27.0 mg/dL (7-18)
[2025-05-03] MEDS ORDERED: INSULIN REGULAR, HUMAN 100 UNIT/ML 10 ML VIAL ONE (12:57)
[2025-05-03] MEDS: INSULIN REGULAR, HUMAN 100 UNIT/ML 10 ML VIAL SQ ONE (12:59)
[2025-05-03 13:09] VITALS: BP 138/84; TEMP 98.6; O2SAT 97
== END 2025-05-03 13:14 | disposition home or self-care (01) ==
LOC: ER 10:56
DX: S50.01XA Contusion of right elbow, initial encounter (principal); S00.93XA Contusion of unspecified part of head, initial encounter; S40.021A Contusion of right upper arm, initial encounter; S50.311A Abrasion of right elbow, initial encounter; E11.65 Type 2 diabetes mellitus with hyperglycemia; R51.9 Headache, unspecified; R07.9 Chest pain, unspecified; E78.00 Pure hypercholesterolemia, unspecified; Z79.899 Other long term (current) drug therapy; Z83.3 Family history of diabetes mellitus; Z90.49 Acquired absence of other specified parts of digestive tract; Z87.19 Personal history of other diseases of the digestive system; Z87.448 Personal history of other diseases of urinary system; Z87.438 Personal history of other diseases of male genital organs; Z87.39 Personal history of other diseases of the musculoskeletal system and connective tissue; Z86.59 Personal history of other mental and behavioral disorders; Z88.8 Allergy status to other drugs, medicaments and biological substances; Z60.2 Problems related to living alone; W05.0XXA Fall from non-moving wheelchair, initial encounter; Y93.89 Activity, other specified; Y92.89 Other specified places as the place of occurrence of the external cause; Y99.8 Other external cause status
CPT/HCPCS: 99285; 96360; 70450; 71045; 90471; 82803 ×2; 90715; 73080; 73030; 85025; 80048; 82010; 36415; 96372; J1815; J7030; A6403